=== PATIENT | male | born 1945 | race Caucasian/White ===

== ENCOUNTER 2018-04-21 19:08 | Emergency (ER) | payer MEDICARE, BC ==
[2018-04-21] MEDS ORDERED: Sodium Chloride 0.9% 10 ML Syringe FLUSH PRN (19:20)
[2018-04-21] MEDS ORDERED: Sodium Chloride 0.9% 1,000 ML IV ONE (20:13)
[2018-04-21 20:41] LABS: CHLORIDE,CL 103 mmol/L (98-107); SODIUM,NA 141 mmol/L (136-145)
--- NOTE | 2018-04-22 10:29 | EDM.PDOC ---
ED HPI GENERAL MEDICAL PROBLEM - General Chief Complaint: General Stated Complaint: Dizziness Time Seen by Provider: 04/21/18 19:15 Source of Information: Reports: Patient, Family - History of Present Illness INITIAL COMMENTS - FREE TEXT/NARRATIVE: PtPreston presented to ER with complaints of lightheadedness and dizziness. [place] He this he may have walked around in the hot sun too much. He denies any chest pain or shortness of breath. States the he feels weak. Onset: Today Location: Reports: Generalized - Related Data Allergies Allergy/AdvReac Type Severity Reaction Status Date / Time Penicillins Allergy Other Verified 04/21/18 19:20 Home Meds: Home Meds Famotidine 20 mg PO BEDTIME 04/22/18 [History] Hydroxyurea [Hydrea] 500 mg PO DAILY 04/22/18 [History] Sertraline [Zoloft] 150 mg PO DAILY 04/22/18 [History] Simvastatin [Zocor] 40 mg PO BEDTIME 04/22/18 [History] amLODIPine Besylate [Amlodipine Besylate] 10 mg PO DAILY 04/22/18 [History] traZODone HCl [Trazodone HCl] 50 mg PO BEDTIME 04/22/18 [History] Past Medical History Cardiovascular History: Reports: High Cholesterol, Hypertension Gastrointestinal History: Reports: GERD Neurological History: Reports: CVA Other Neuro History: Right sided weakness/arm/leg. ED ROS GENERAL - Review of Systems Review Of Systems: See Below Constitutional: Reports: No Symptoms HEENT: Reports: No Symptoms Respiratory: Reports: No Symptoms Cardiovascular: Reports: No Symptoms Endocrine: Reports: No Symptoms GI/Abdominal: Reports: No Symptoms : Reports: No Symptoms Musculoskeletal: Reports: No Symptoms Skin: Reports: No Symptoms Neurological: Reports: Dizziness, Weakness Psychiatric: Reports: No Symptoms Hematologic/Lymphatic: Reports: No Symptoms Immunologic: Reports: No Symptoms ED EXAM, GENERAL - Physical Exam Exam: See Below General Appearance: Alert, WD/WN, No Apparent Distress Ears: Normal External Exam, Normal Canal, Hearing Grossly Normal, Normal TMs Ear Exam: Bilateral Ear: Auricle Normal, Canal Normal, TM normal Nose: Normal Inspection, Normal Mucosa, No Blood Throat/Mouth: Normal Inspection, Normal Lips, Normal Teeth, Normal Gums, Normal Oropharynx, Normal Voice, No Airway Compromise Head: Atraumatic, Normocephalic Neck: Normal Inspection, Supple, Non-Tender, Full Range of Motion Respiratory/Chest: No Respiratory Distress, Lungs Clear, Normal Breath Sounds, No Accessory Muscle Use, Chest Non-Tender Cardiovascular: Normal Peripheral Pulses, Regular Rate, Rhythm, No Edema, No Gallop, No JVD, No Murmur, No Rub Peripheral Pulses: 4+: Radial (L), Radial (R) GI/Abdominal: Normal Bowel Sounds, Soft, Non-Tender, No Organomegaly, No Distention, No Abnormal Bruit, No Mass (Male) Exam: Deferred Rectal (Males) Exam: Deferred Back Exam: Normal Inspection, Full Range of Motion, NT Extremities: Normal Inspection, Normal Range of Motion, Non-Tender, Normal Capillary Refill, No Pedal Edema Neurological: Alert, Oriented, CN II-XII Intact, Normal Cognition, Normal Gait, Normal Reflexes, No Motor/Sensory Deficits Psychiatric: Normal Affect, Normal Mood Skin Exam: Warm, Dry, Intact, Normal Color, No Rash Lymphatic: No Adenopathy EKG INTERPRETATION Rhythm: NSR Course - Vital Signs Last Recorded V/S: Last Vital Signs Temp 36.7 C 04/21/18 19:10 Pulse 65 04/21/18 20:22 Resp 16 04/21/18 20:22 BP 142/92 H 04/21/18 20:22 Pulse Ox 94 L 04/21/18 20:22 - Orders/Labs/Meds Orders: Active Orders 24 hr Category Date Time Status EKG Documentation Completion [RC] STAT Care 04/21/18 19:21 Active Chest 1V Frontal [CR] Stat Exams 04/21/18 19:33 Taken CULTURE BLOOD [BC] Stat Lab 04/21/18 19:54 Received CULTURE BLOOD [BC] Stat Lab 04/21/18 20:00 Received Blood Culture x2 Reflex Set [OM.PC] Stat Oth 04/21/18 19:21 Ordered Peripheral IV Insertion Adult [OM.PC] Routine Oth 04/21/18 19:21 Ordered Labs: Laboratory Tests 04/21/18 04/21/18 04/21/18 Range/Units 19:54 19:54 19:54 WBC 8.4 (4.0-10.0) x10^3/uL RBC 4.22 L (4.5-6.0) x10^6/uL Hgb 16.2 (14.0-18.0) g/dL Hct 44.6 (40.0-52.0) % MCV 105.7 H D (78.0-93.0) fL MCH 38.4 H (26.0-32.0) pg MCHC 36.3 H (32.0-36.0) g/dL RDW Coeff of Sridevi 12.9 (10.0-15.0) % Plt Count 186 D (130-400) x10^3/uL Neut % (Auto) 67.7 (50.0-80.0) % Lymph % (Auto) 15.7 L (25.0-50.0) % [place] % (Auto) 13.7 H (2.0-11.0) % Eos % (Auto) 2.5 (0.0-4.0) % Baso % (Auto) 0.4 (0.2-1.2) % PT 10.4 (9.6-11.4) SEC INR 1.0 L (2.0-3.5) Sodium 141 (136-145) mmol/L Potassium 3.8 (3.5-5.1) mmol/L Chloride 103 (98-107) mmol/L Carbon Dioxide 29 (21-32) mmol/L Anion Gap 12.8 (10-20) mmol/L BUN 22 H (7-18) mg/dL Creatinine 1.2 (0.70-1.30) mg/dL Est Cr Clr Drug Dosing 60.18 mL/min Estimated GFR (MDRD) 59 Glucose 117 H (74-106) mg/dL Lactic Acid (0.4-2.0) mmol/L Calcium 9.1 (8.5-10.1) mg/dL Corrected Calcium 9.66 (8.5-10.1) mg/dL Phosphorus 3.2 (2.6-4.7) mg/dL Magnesium 2.2 (1.8-2.4) mg/dL Total Bilirubin 0.7 (0.2-1.0) mg/dL AST 18 (15-37) U/L ALT 16 (16-63) U/L Alkaline Phosphatase 80 (46-116) U/L Troponin I < 0.017 (<=0.056) ng/mL C-Reactive Protein < 0.2 (<=0.9) mg/dL NT-Pro-B Natriuret Pep 107 (<=125) pg/mL Total Protein 8.1 (6.4-8.2) g/dL Albumin 3.3 L (3.4-5.0) g/dL Globulin 4.8 Albumin/Globulin Ratio 0.69 TSH, Ultra Sensitive 2.962 (0.358-3.74) uIU/mL 04/21/18 Range/Units 19:54 WBC (4.0-10.0) x10^3/uL RBC (4.5-6.0) x10^6/uL Hgb (14.0-18.0) g/dL Hct (40.0-52.0) % MCV (78.0-93.0) fL MCH (26.0-32.0) pg MCHC (32.0-36.0) g/dL RDW Coeff of Sridevi (10.0-15.0) % Plt Count (130-400) x10^3/uL Neut % (Auto) (50.0-80.0) % Lymph % (Auto) (25.0-50.0) % [place] % (Auto) (2.0-11.0) % Eos % (Auto) (0.0-4.0) % Baso % (Auto) (0.2-1.2) % PT (9.6-11.4) SEC INR (2.0-3.5) Sodium (136-145) mmol/L Potassium (3.5-5.1) mmol/L Chloride (98-107) mmol/L Carbon Dioxide (21-32) mmol/L Anion Gap (10-20) mmol/L BUN (7-18) mg/dL Creatinine (0.70-1.30) mg/dL Est Cr Clr Drug Dosing mL/min Estimated GFR (MDRD) Glucose (74-106) mg/dL Lactic Acid 1.8 (0.4-2.0) mmol/L Calcium (8.5-10.1) mg/dL Corrected Calcium (8.5-10.1) mg/dL Phosphorus (2.6-4.7) mg/dL Magnesium (1.8-2.4) mg/dL Total Bilirubin (0.2-1.0) mg/dL AST (15-37) U/L ALT (16-63) U/L Alkaline Phosphatase (46-116) U/L Troponin I (<=0.056) ng/mL C-Reactive Protein (<=0.9) mg/dL NT-Pro-B Natriuret Pep (<=125) pg/mL Total Protein (6.4-8.2) g/dL Albumin (3.4-5.0) g/dL Globulin Albumin/Globulin Ratio TSH, Ultra Sensitive (0.358-3.74) uIU/mL Meds: Medications Discontinued Medications Generic Name Dose Route Start Last Admin Trade Name Freq PRN Reason Stop Dose Admin Sodium Chloride 1,000 mls @ 1,000 mls/hr 04/21/18 20:13 04/21/18 20:20 Normal Saline IV 04/21/18 21:12 1,000 mls/hr .BOLUS ONE Administration Sodium Chloride 10 ml 04/21/18 19:20 Saline Flush FLUSH ASDIRECTED PRN Keep Vein Open Departure - Departure Time of Disposition: 21:00 Disposition: Home, Self-Care 01 Condition: Good Clinical Impression: Dehydration - Discharge Information Instructions: Dehydration, Adult, [id number] Referrals: Vasyl Guzman MD [Primary Care Provider] - Forms: ED Department Discharge Additional Instructions: Home to rest. Drink plenty of fluids Bring urine sample to hospital for analysis. Return to ER if you have chest pain, shortness of breath, abdominal pain, or decreased level of consciousness. - My Orders Last 24 Hours: My Active Orders 04/21/18 19:21 EKG Documentation Completion [RC] STAT Blood Culture x2 Reflex Set [OM.PC] Stat Peripheral IV Insertion Adult [OM.PC] Routine 04/21/18 19:33 Chest 1V Frontal [CR] Stat 04/21/18 19:54 CULTURE BLOOD [BC] Stat 04/21/18 20:00 CULTURE BLOOD [BC] Stat - Assessment/Plan Last 24 Hours: My Active Orders 04/21/18 19:21 EKG Documentation Completion [RC] STAT Blood Culture x2 Reflex Set [OM.PC] Stat Peripheral IV Insertion Adult [OM.PC] Routine 04/21/18 19:33 Chest 1V Frontal [CR] Stat 04/21/18 19:54 CULTURE BLOOD [BC] Stat 04/21/18 20:00 CULTURE BLOOD [BC] Stat
== END 2018-04-21 21:50 | disposition home or self-care (01) ==
LOC: VM.ED 19:08
DX: E86.0 Dehydration (principal); E78.00 Pure hypercholesterolemia, unspecified; I10 Essential (primary) hypertension; Z88.0 Allergy status to penicillin; Z79.899 Other long term (current) drug therapy
CPT/HCPCS: 36415; 71045; 80053; 83605; 83735; 83880; 84100; 84443; 84484; 85025; 85610; 86140; 87040; 87804; 93005; 96360; 99284; J7030; 93010

== ENCOUNTER 2019-03-16 17:29 | Inpatient (IN) | payer MEDICARE, BC ==
[2019-03-16] MEDS ORDERED: Albuterol/Ipratropium 3.0-0.5 MG/3 ML Neb Soln NEB PRN (17:48)
[2019-03-16] MEDS ORDERED: cefTRIAXone 2 GM Vial IVPUSH ONE (18:34)
[2019-03-16] MEDS ORDERED: Azithromycin 500 MG in Sodium Chloride 0.9% 250 ML IV ONE (18:35)
--- NOTE | 2019-03-16 18:39 | CR ---
[id number] RAD/RAD Pelvis W Right Lateral Hip EXAM: AP PELVIS AND SINGLE VIEW RIGHT HIP INDICATION: FALL. COMPARISON: August 12, 2013. DISCUSSION: Soft tissue attenuation limits this examination. Deformity of the right pelvis likely relating to chronic healed fractures. No definite acute fractures. There is moderate osteoarthritis of the hips. Lower lumbar spondylosis. IMPRESSION: 1. Chronic appearing right pubic rami fractures. No definite acute fracture. Sidney Anaya MD 03/16/19 [id number] Thank you for allowing us to participate in the care of your patient.
[2019-03-16 18:40] LABS: CHLORIDE,CL 104 mmol/L (98-107); SODIUM,NA 144 mmol/L (136-145)
--- NOTE | 2019-03-16 18:41 | CR ---
[id number] RAD/RAD Chest PA or AP 1V EXAM: FRONTAL CHEST INDICATION: Cough and chest congestion. COMPARISON: April 21, 2018. DISCUSSION: Evaluation is limited by hypoinflation. There is bibasilar scarring or atelectasis which is greatest in the right lung base and has not changed. No acute infiltrates are identified. Borderline heart size. IMPRESSION: 1. Hypoinflation. No acute infiltrates are identified. Sidney Anaya MD 03/16/19 2202 Thank you for allowing us to participate in the care of your patient.
[2019-03-16 18:43] LABS: ANION GAP 15.7 mmol/L (10-20)
--- NOTE | 2019-03-16 19:09 | EDM.PDOC ---
ED HPI GENERAL MEDICAL PROBLEM - General Chief Complaint: General Stated Complaint: FALL, cough and chest congestion Time Seen by Provider: 03/16/19 17:29 Source of Information: Reports: Family History Limitations: Reports: No Limitations - History of Present Illness INITIAL COMMENTS - FREE TEXT/NARRATIVE: Pt. had an unwitnessed fall at home this afternoon. Pt. has a history of prior CVA and has severe R sided weakness. Family states that the pt. has been experiencing chest congestion and cough for approx. 5 days. Daughter does not think he has been eating or drinking well, either. Pt. is for the most part non- verbal but is able to nod or shake his head regarding areas of pain. Family is concerned that his R lower extremity is injured because he was bearing less weight on it. Pt. states that he is not experiencing any discomfort in the extremity, however. Pt. was able to indicate that he was fatigued and short of breath. He indicated that he did not have any areas of pain, other than a small abrasion to his R hand. Onset: Today Location: Reports: Chest, Lower Extremity, Right Associated Symptoms: Reports: Cough, Weakness - Related Data Allergies Allergy/AdvReac Type Severity Reaction Status Date / Time Penicillins Allergy Other Verified 04/21/18 19:20 Home Meds: Home Meds Famotidine 20 mg PO BEDTIME 04/22/18 [History] Hydroxyurea [Hydrea] 500 mg PO DAILY 04/22/18 [History] Sertraline [Zoloft] 150 mg PO DAILY 04/22/18 [History] Simvastatin [Zocor] 40 mg PO BEDTIME 04/22/18 [History] amLODIPine Besylate [Amlodipine Besylate] 10 mg PO DAILY 04/22/18 [History] traZODone HCl [Trazodone HCl] 50 mg PO BEDTIME 04/22/18 [History] Aspirin 325 mg PO DAILY 03/16/19 [History] Docusate Sodium [Dulcolax Stool Softener] 100 mg PO DAILY 03/16/19 [History] Past Medical History Cardiovascular History: Reports: High Cholesterol, Hypertension Gastrointestinal History: Reports: GERD Neurological History: Reports: CVA Other Neuro History: Right sided weakness/arm/leg. ED ROS GENERAL - Review of Systems Review Of Systems: See Below Constitutional: Reports: Weakness HEENT: Reports: No Symptoms Respiratory: Reports: Shortness of Breath, Wheezing, Cough, Sputum Cardiovascular: Reports: No Symptoms Endocrine: Reports: No Symptoms GI/Abdominal: Reports: No Symptoms : Reports: No Symptoms Musculoskeletal: Reports: No Symptoms Skin: Reports: No Symptoms Neurological: Reports: Difficulty Walking, Weakness, Gait Disturbance Hematologic/Lymphatic: Reports: No Symptoms Immunologic: Reports: No Symptoms ED EXAM, GENERAL - Physical Exam Exam: See Below Exam Limited By: No Limitations General Appearance: Alert, WD/WN, No Apparent Distress Nose: Normal Inspection, Normal Mucosa Throat/Mouth: Normal Inspection, Normal Lips, Normal Oropharynx, No Airway Compromise Head: Atraumatic, Normocephalic Neck: Normal Inspection, Supple, Non-Tender, Full Range of Motion Respiratory/Chest: No Accessory Muscle Use, Respiratory Distress (mild), Decreased Breath Sounds, Crackles, Wheezing, Prolonged Expiration Cardiovascular: Normal Peripheral Pulses, Regular Rate, Rhythm, No Edema, No JVD , No Murmur Peripheral Pulses: 4+: Radial (L), Dorsalis Pedis (L), Dorsalis Pedis (R) GI/Abdominal: Normal Bowel Sounds, Soft, Non-Tender, No Organomegaly, No Distention, No Mass (Male) Exam: Deferred Rectal (Males) Exam: Deferred Back Exam: Normal Inspection, Full Range of Motion Extremities: Normal Inspection, Normal Range of Motion, Non-Tender, No Pedal Edema, Normal Capillary Refill Neurological: Alert, Oriented, CN II-XII Intact, Normal Cognition, Normal Gait, Normal Reflexes, No Motor/Sensory Deficits Psychiatric: Normal Affect, Normal Mood Skin Exam: Warm, Dry, Intact, Normal Color, No Rash Lymphatic: No Adenopathy Course - Orders/Labs/Meds Orders: Active Orders 24 hr Category Date Time Status Patient Status [ADT] Routine ADT 03/16/19 18:58 Active CULTURE BLOOD [BC] Stat Lab 03/16/19 18:03 Received CULTURE BLOOD [BC] Stat Lab 03/16/19 18:06 Received INFLUENZA A+B AG SCREEN [RM] Stat Lab 03/16/19 19:02 Ordered UA W/MICROSCOPIC [URIN] Stat Lab 03/16/19 17:46 Ordered Albuterol/Ipratropium [DuoNeb 3.0-0.5 MG/3 ML] Med 03/16/19 17:48 Active 3 ml NEB Q4HRRT PRN Azithromycin [Zithromax] 500 mg Med 03/16/19 18:35 Active Sodium Chloride 0.9% [Normal Saline] 250 ml IV STAT Sodium Chloride 0.9% [Saline Flush] Med 03/16/19 17:45 Active 10 ml FLUSH ASDIRECTED PRN Blood Culture x2 Reflex Set [OM.PC] Stat Oth 03/16/19 17:46 Ordered Peripheral IV Insertion Adult [OM.PC] Routine Oth 03/16/19 17:45 Ordered Medication Orders Albuterol/Ipratropium (Duoneb 3.0-0.5 Mg/3 Ml) 3 ml NEB Q4HRRT PRN PRN Reason: shortness of breath Last Admin: 03/16/19 17:49 Dose: 3 ml Azithromycin 500 mg/ Sodium (Chloride) 250 mls @ 250 mls/hr IV STAT ONE Stop: 03/16/19 19:34 Sodium Chloride (Saline Flush) 10 ml FLUSH ASDIRECTED PRN PRN Reason: Keep Vein Open Labs: Laboratory Tests 03/16/19 03/16/19 03/16/19 Range/Units 18:03 18:03 18:03 WBC 8.8 (4.0-10.0) x10^3/uL RBC 3.98 L (4.5-6.0) x10^6/uL Hgb 15.3 (14.0-18.0) g/dL Hct 43.4 (40.0-52.0) % MCV 109.0 H D (78.0-93.0) fL MCH 38.4 H (26.0-32.0) pg MCHC 35.3 (32.0-36.0) g/dL RDW Coeff of Sridevi 13.7 (10.0-15.0) % Plt Count 178 (130-400) x10^3/uL Neut % (Auto) 64.6 (50.0-80.0) % Lymph % (Auto) 14.1 L (25.0-50.0) % [place] % (Auto) 18.9 H (2.0-11.0) % Eos % (Auto) 2.2 (0.0-4.0) % Baso % (Auto) 0.2 (0.2-1.2) % PT 11.2 (10.0-12.8) SEC INR 1.0 L (2.0-3.5) Sodium 144 (136-145) mmol/L Potassium 3.7 (3.5-5.1) mmol/L Chloride 104 (98-107) mmol/L Carbon Dioxide 28 (21-32) mmol/L Anion Gap 15.7 (10-20) mmol/L BUN 18 (7-18) mg/dL Creatinine 1.2 (0.70-1.30) mg/dL Est Cr Clr Drug Dosing TNP Estimated GFR (MDRD) 59 Glucose 135 H (74-106) mg/dL Lactic Acid (0.4-2.0) mmol/L Calcium 8.8 (8.5-10.1) mg/dL Corrected Calcium 9.12 (8.5-10.1) mg/dL Phosphorus 2.7 (2.6-4.7) mg/dL Magnesium 2.1 (1.8-2.4) mg/dL Total Bilirubin 0.9 (0.2-1.0) mg/dL AST 19 (15-37) U/L ALT 13 L (16-63) U/L Alkaline Phosphatase 98 (46-116) U/L C-Reactive Protein 3.1 H (<=0.9) mg/dL NT-Pro-B Natriuret Pep 128 H (<=125) pg/mL Total Protein 8.3 H (6.4-8.2) g/dL Albumin 3.6 (3.4-5.0) g/dL Globulin 4.7 Albumin/Globulin Ratio 0.77 /16/19 Range/Units 18:03 WBC (4.0-10.0) x10^3/uL RBC (4.5-6.0) x10^6/uL Hgb (14.0-18.0) g/dL Hct (40.0-52.0) % MCV (78.0-93.0) fL MCH (26.0-32.0) pg MCHC (32.0-36.0) g/dL RDW Coeff of Sridevi (10.0-15.0) % Plt Count (130-400) x10^3/uL Neut % (Auto) (50.0-80.0) % Lymph % (Auto) (25.0-50.0) % [place] % (Auto) (2.0-11.0) % Eos % (Auto) (0.0-4.0) % Baso % (Auto) (0.2-1.2) % PT (10.0-12.8) SEC INR (2.0-3.5) Sodium (136-145) mmol/L Potassium (3.5-5.1) mmol/L Chloride (98-107) mmol/L Carbon Dioxide (21-32) mmol/L Anion Gap (10-20) mmol/L BUN (7-18) mg/dL Creatinine (0.70-1.30) mg/dL Est Cr Clr Drug Dosing Estimated GFR (MDRD) Glucose (74-106) mg/dL Lactic Acid 2.0 (0.4-2.0) mmol/L Calcium (8.5-10.1) mg/dL Corrected Calcium (8.5-10.1) mg/dL Phosphorus (2.6-4.7) mg/dL Magnesium (1.8-2.4) mg/dL Total Bilirubin (0.2-1.0) mg/dL AST (15-37) U/L ALT (16-63) U/L Alkaline Phosphatase (46-116) U/L C-Reactive Protein (<=0.9) mg/dL NT-Pro-B Natriuret Pep (<=125) pg/mL Total Protein (6.4-8.2) g/dL Albumin (3.4-5.0) g/dL Globulin Albumin/Globulin Ratio Meds: Medications Generic Name Dose Route Start Last Admin Trade Name Freq PRN Reason Stop Dose Admin Albuterol/Ipratropium 3 ml 03/16/19 17:48 03/16/19 17:49 Duoneb 3.0-0.5 Mg/3 Ml NEB 3 ml Q4HRRT PRN Administration shortness of breath Azithromycin 500 mg/ Sodium 250 mls @ 250 mls/hr 03/16/19 18:35 Chloride IV 03/16/19 19:34 STAT ONE Sodium Chloride 10 ml 03/16/19 17:45 Saline Flush FLUSH ASDIRECTED PRN Keep Vein Open Discontinued Medications Generic Name Dose Route Start Last Admin Trade Name Freq PRN Reason Stop Dose Admin Ceftriaxone Sodium 2 gm 03/16/19 18:34 03/16/19 18:49 Rocephin IVPUSH 03/16/19 18:35 2 gm STAT ONE Administration - Radiology Interpretation Free Text/Narrative:: chest x-ray did not show any obvious infiltrate. Hip and pelvic radiographs did not show any obvious acute pathology, but there was evidence of an old fracture of the R pubic rami. - Re-Assessments/Exams Free Text/Narrative Re-Assessment/Exam: Pt. was started on rocephin 2 gm IV and azithromycin 500mg IV. He remained stable in my care in the ER. He was given 1 duoneb on arrival to ER. Departure - Departure Time of Disposition: 19:17 Disposition: Refer to Observation Clinical Impression: CAP (community acquired pneumonia), Weakness - Discharge Information Referrals: Vasyl Guzman MD [Primary Care Provider] - Forms: ED Department Discharge - My Orders Last 24 Hours: My Active Orders 03/16/19 17:45 Sodium Chloride 0.9% [Saline Flush] 10 ml FLUSH ASDIRECTED PRN Peripheral IV Insertion Adult [OM.PC] Routine 03/16/19 17:46 UA W/MICROSCOPIC [URIN] Stat Blood Culture x2 Reflex Set [OM.PC] Stat 03/16/19 17:48 Albuterol/Ipratropium [DuoNeb 3.0-0.5 MG/3 ML] 3 ml NEB Q4HRRT PRN 03/16/19 18:03 CULTURE BLOOD [BC] Stat 03/16/19 18:06 CULTURE BLOOD [BC] Stat 03/16/19 18:35 Azithromycin [Zithromax] 500 mg Sodium Chloride 0.9% [Normal Saline] 250 ml IV STAT 03/16/19 18:58 Patient Status [ADT] Routine 03/16/19 19:02 INFLUENZA A+B AG SCREEN [RM] Stat - Assessment/Plan Admission H&P: Please use this note as an admission H&P Last 24 Hours: My Active Orders 03/16/19 17:45 Sodium Chloride 0.9% [Saline Flush] 10 ml FLUSH ASDIRECTED PRN Peripheral IV Insertion Adult [OM.PC] Routine 03/16/19 17:46 UA W/MICROSCOPIC [URIN] Stat Blood Culture x2 Reflex Set [OM.PC] Stat 03/16/19 17:48 Albuterol/Ipratropium [DuoNeb 3.0-0.5 MG/3 ML] 3 ml NEB Q4HRRT PRN 03/16/19 18:03 CULTURE BLOOD [BC] Stat 03/16/19 18:06 CULTURE BLOOD [BC] Stat 03/16/19 18:35 Azithromycin [Zithromax] 500 mg Sodium Chloride 0.9% [Normal Saline] 250 ml IV STAT 03/16/19 18:58 Patient Status [ADT] Routine 03/16/19 19:02 INFLUENZA A+B AG SCREEN [RM] Stat Plan: Pt. will be admitted observation. I did speak with Dr. Ellie almodovar. Pt. is a code 2, no intubation, no resuscitation. Will repeat labs in AM. Blood cultures were drawn. Will continue IV rocephin 2gm daily and azithromycin 500mg daily. PT/OT to evaluate patient. He will be started on Normal saline at 200ml./ hr overnight. He appears somewhat dehydrated. I will also start him on solu medrol 125mg twice daily due to his wheezing. He denies any history of COPD or asthma.
[2019-03-16] MEDS ORDERED: methylPREDNISolone Sodium Succinate 125 MG/2 ML SDV IVPUSH ONE (19:23)
[2019-03-16] MEDS ORDERED: Sodium Chloride 0.9% 1,000 ML IV SCH (19:30)
[2019-03-16] MEDS: methylPREDNISolone Sodium Succinate 125 MG/2 ML SDV IVPUSH SCH (21:20)
[2019-03-16] MEDS: Enoxaparin 40 MG/0.4 ML Syringe SUBCUT SCH (21:20)
[2019-03-16] MEDS: Sodium Chloride 0.9% 10 ML Syringe FLUSH PRN (21:21)
[2019-03-16] MEDS: Albuterol/Ipratropium 3.0-0.5 MG/3 ML Neb Soln NEB SCH (23:26)
[2019-03-17] MEDS: Sodium Chloride 0.9% 1,000 ML IV SCH ×2 (00:25→13:26)
[2019-03-17] MEDS: Albuterol/Ipratropium 3.0-0.5 MG/3 ML Neb Soln NEB SCH ×6 (04:19→22:31)
[2019-03-17] MEDS: methylPREDNISolone Sodium Succinate 125 MG/2 ML SDV IVPUSH SCH (04:19)
[2019-03-17] MEDS ORDERED: Sertraline 100 MG Tab PO SCH (08:00)
[2019-03-17] MEDS: amLODIPine 10 MG Tab PO SCH (08:02)
[2019-03-17] MEDS: Aspirin 325 MG Tab.EC PO SCH (08:02)
[2019-03-17] MEDS: Enoxaparin 40 MG/0.4 ML Syringe SUBCUT SCH (08:02)
[2019-03-17] MEDS: Docusate Sodium 100 MG Cap PO SCH (08:02)
[2019-03-17] MEDS: Hydroxyurea 500 MG Cap PO SCH (08:02)
--- NOTE | 2019-03-17 09:48 | PCM.PN ---
- General Info Date of Service: 03/17/19 Admission Dx/Problem (Free Text): Pt. states that he is feeling better today. He states that he feels less weak. Denies any shortness of breath. No nausea or vomiting. He ate breakfast this AM. He received a liter of NS IV last evening and is now on normal saline at 75ml/hr. His lactic acid was elevated at 3.1 this AM. White count is normal. Blood cultures were obtained. Pt. is on lovenox for DVT prophylaxis. Wheezing has improved. lung sounds are still diminished. He has been hemodynamically stable since admission. T max was 38.0 on admission. He is currently on rocephin 1 gm IV daily and azithromycin 500mg daily. PT and OT will be following the patient today as well. He has not been out of bed at this point. He was able to move his R leg passively without difficulty today and without any increased pain. 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.) - Patient Data Vitals - Most Recent: Last Vital Signs Temp 36.5 C 03/17/19 09:30 Pulse 88 03/17/19 09:30 Resp 20 03/17/19 09:30 BP 122/69 03/17/19 09:30 Pulse Ox 98 03/17/19 09:30 Weight - Most Recent: 95.254 kg I&O - Last 24 Hours: Intake & Output 03/16/19 03/17/19 03/17/19 22:59 06:59 14:59 Intake Total 490 1580 200 Output Total 400 Balance 490 1180 200 Lab Results Last 24 Hours: Laboratory Results - last 24 hr 03/16/19 03/16/19 03/16/19 Range/Units 18:03 18:03 18:03 WBC 8.8 (4.0-10.0) x10^3/uL RBC 3.98 L (4.5-6.0) x10^6/uL Hgb 15.3 (14.0-18.0) g/dL Hct 43.4 (40.0-52.0) % MCV 109.0 H D (78.0-93.0) fL MCH 38.4 H (26.0-32.0) pg MCHC 35.3 (32.0-36.0) g/dL RDW Coeff of Sridevi 13.7 (10.0-15.0) % Plt Count 178 (130-400) x10^3/uL Neut % (Auto) 64.6 (50.0-80.0) % Lymph % (Auto) 14.1 L (25.0-50.0) % Prentiss % (Auto) 18.9 H (2.0-11.0) % Eos % (Auto) 2.2 (0.0-4.0) % Baso % (Auto) 0.2 (0.2-1.2) % PT 11.2 (10.0-12.8) SEC INR 1.0 L (2.0-3.5) Sodium 144 (136-145) mmol/L Potassium 3.7 (3.5-5.1) mmol/L Chloride 104 (98-107) mmol/L Carbon Dioxide 28 (21-32) mmol/L Anion Gap 15.7 (10-20) mmol/L BUN 18 (7-18) mg/dL Creatinine 1.2 (0.70-1.30) mg/dL Est Cr Clr Drug Dosing TNP Estimated GFR (MDRD) 59 Glucose 135 H (74-106) mg/dL Lactic Acid (0.4-2.0) mmol/L Calcium 8.8 (8.5-10.1) mg/dL Corrected Calcium 9.12 (8.5-10.1) mg/dL Phosphorus 2.7 (2.6-4.7) mg/dL Magnesium 2.1 (1.8-2.4) mg/dL Total Bilirubin 0.9 (0.2-1.0) mg/dL AST 19 (15-37) U/L ALT 13 L (16-63) U/L Alkaline Phosphatase 98 (46-116) U/L C-Reactive Protein 3.1 H (<=0.9) mg/dL NT-Pro-B Natriuret Pep 128 H (<=125) pg/mL Total Protein 8.3 H (6.4-8.2) g/dL Albumin 3.6 (3.4-5.0) g/dL Globulin 4.7 Albumin/Globulin Ratio 0.77 03/16/19 03/17/19 03/17/19 Range/Units 18:03 06:20 06:20 WBC 6.2 (4.0-10.0) x10^3/uL RBC 3.57 L (4.5-6.0) x10^6/uL Hgb 13.5 L D (14.0-18.0) g/dL Hct 39.5 L (40.0-52.0) % MCV 110.6 H (78.0-93.0) fL MCH 37.8 H (26.0-32.0) pg MCHC 34.2 (32.0-36.0) g/dL RDW Coeff of Sridevi 13.6 (10.0-15.0) % Plt Count 178 (130-400) x10^3/uL Neut % (Auto) 91.6 H (50.0-80.0) % Lymph % (Auto) 6.0 L (25.0-50.0) % Prentiss % (Auto) 2.4 (2.0-11.0) % Eos % (Auto) 0.0 (0.0-4.0) % Baso % (Auto) 0.0 L (0.2-1.2) % PT (10.0-12.8) SEC INR (2.0-3.5) Sodium (136-145) mmol/L Potassium (3.5-5.1) mmol/L Chloride (98-107) mmol/L Carbon Dioxide (21-32) mmol/L Anion Gap (10-20) mmol/L BUN (7-18) mg/dL Creatinine (0.70-1.30) mg/dL Est Cr Clr Drug Dosing Estimated GFR (MDRD) Glucose (74-106) mg/dL Lactic Acid 2.0 3.1 H* (0.4-2.0) mmol/L Calcium (8.5-10.1) mg/dL Corrected Calcium (8.5-10.1) mg/dL Phosphorus (2.6-4.7) mg/dL Magnesium (1.8-2.4) mg/dL Total Bilirubin (0.2-1.0) mg/dL AST (15-37) U/L ALT (16-63) U/L Alkaline Phosphatase (46-116) U/L C-Reactive Protein (<=0.9) mg/dL NT-Pro-B Natriuret Pep (<=125) pg/mL Total Protein (6.4-8.2) g/dL Albumin (3.4-5.0) g/dL Globulin Albumin/Globulin Ratio Moreno Results Last 24 Hours: Microbiology 03/16/19 19:02 Influenza Type A Antigen Screen - Final Nasal, Unspecified NEGATIVE INFLUENZA A VIRUS AG Influenza Type B Antigen Screen - Final NEGATIVE INFLUENZA B VIRUS AG Med Orders - Current: Current Medications Albuterol/Ipratropium (Duoneb 3.0-0.5 Mg/3 Ml) 3 ml NEB Q4HRRT PRN PRN Reason: shortness of breath Last Admin: 03/16/19 17:49 Dose: 3 ml Albuterol/Ipratropium (Duoneb 3.0-0.5 Mg/3 Ml) 3 ml NEB Q4HRRT [facility] Last Admin: 03/17/19 07:13 Dose: 3 ml Amlodipine Besylate (Norvasc) 10 mg PO DAILY [facility] Last Admin: 03/17/19 08:02 Dose: 10 mg Aspirin (Ecotrin) 325 mg PO DAILY [facility] Last Admin: 03/17/19 08:02 Dose: 325 mg Ceftriaxone Sodium (Rocephin) 1 gm IVPUSH DAILY@1800 [facility] Docusate Sodium (Colace) 100 mg PO DAILY [facility] Last Admin: 03/17/19 08:02 Dose: 100 mg Enoxaparin Sodium (Lovenox) 40 mg SUBCUT DAILY [facility] Last Admin: 03/17/19 08:02 Dose: 40 mg Famotidine (Pepcid) 20 mg PO BEDTIME [facility] Hydroxyurea (Hydrea) 500 mg PO DAILY [facility] Last Admin: 03/17/19 08:02 Dose: 500 mg Azithromycin 500 mg/ Sodium (Chloride) 250 mls @ 250 mls/hr IV DAILY@1800 [facility] Sodium Chloride (Normal Saline) 1,000 mls @ 75 mls/hr IV ASDIRECTED [facility] Last Admin: 03/17/19 00:25 Dose: 75 mls/hr Methylprednisolone Sodium Succinate (Solu-Medrol) 125 mg IVPUSH Q8H [facility] Last Admin: 03/17/19 04:19 Dose: 125 mg Sertraline HCl (Zoloft) 150 mg PO DAILY [facility] Simvastatin (Zocor) 40 mg PO BEDTIME [facility] Sodium Chloride (Saline Flush) 10 ml FLUSH ASDIRECTED PRN PRN Reason: Keep Vein Open Last Admin: 03/16/19 21:21 Dose: 10 ml Trazodone HCl (Trazodone) 50 mg PO BEDTIME [facility] Discontinued Medications Ceftriaxone Sodium (Rocephin) 2 gm IVPUSH STAT ONE Stop: 03/16/19 18:35 Last Admin: 03/16/19 18:49 Dose: 2 gm Azithromycin 500 mg/ Sodium (Chloride) 250 mls @ 250 mls/hr IV STAT ONE Stop: 03/16/19 19:34 Last Admin: 03/16/19 19:00 Dose: 250 mls/hr Sodium Chloride (Normal Saline) 1,000 mls @ 200 mls/hr IV ASDIRECTED [facility] Stop: 03/17/19 00:31 Last Admin: 03/16/19 19:33 Dose: 200 mls/hr Methylprednisolone Sodium Succinate (Solu-Medrol) 125 mg IVPUSH ONETIME ONE Stop: 03/16/19 19:24 Last Admin: 03/16/19 19:33 Dose: 125 mg Sertraline HCl (Zoloft) 150 mg PO DAILY [facility] Last Admin: 03/17/19 08:02 Dose: 150 mg - Exam Quality Assessment: Supplemental Oxygen General: Alert, Oriented HEENT: Pupils Equal, Pupils Reactive, EOMI, Mucous Membr. Moist/[place] Neck: Supple Lungs: Normal Respiratory Effort, Crackles, Rhonchi Cardiovascular: Regular Rate, Regular Rhythm GI/Abdominal Exam: Normal Bowel Sounds, Soft, Non-Tender, No Organomegaly, No Distention (Male) Exam: Deferred Back Exam: Normal Inspection Extremities: Normal Inspection, Normal Range of Motion Peripheral Pulses: 4+: Radial (L), Radial (R) Skin: Warm, Dry, Intact Neurological: No New Focal Deficit Psy/Mental Status: Alert, Normal Affect, Normal Mood - Problem List & Annotations (1) CAP (community acquired pneumonia) SNOMED Code(s): 491709462 Code(s): J18.9 - PNEUMONIA, UNSPECIFIED ORGANISM Status: Acute Current Visit: Yes - Problem List Review Problem List Initiated/Reviewed/Updated: Yes - My Orders Last 24 Hours: My Active Orders 03/16/19 17:45 Sodium Chloride 0.9% [Saline Flush] 10 ml FLUSH ASDIRECTED PRN Peripheral IV Insertion Adult [OM.PC] Routine 03/16/19 17:46 UA W/MICROSCOPIC [URIN] Stat Blood Culture x2 Reflex Set [OM.PC] Stat 03/16/19 17:48 Albuterol/Ipratropium [DuoNeb 3.0-0.5 MG/3 ML] 3 ml NEB Q4HRRT PRN 03/16/19 18:03 CULTURE BLOOD [BC] Stat 03/16/19 18:06 CULTURE BLOOD [BC] Stat 03/16/19 18:58 Patient Status [ADT] Routine 03/16/19 19:56 Intake and Output [RC] 06,18 Oxygen Therapy [RC] 08,20 Up With Assistance [RC] 08,20 VTE/DVT Education [RC] .PRN Vital Signs [RC] 06,10,14,18,22,02 03/16/19 19:57 Overnight Pulse Oximetry [RC] 06,10,14,18,22,02 Pulse Oximetry Continuous Monitoring [OM.PC] Routine 03/16/19 19:58 RT Aerosol Therapy [RC] 03,07,11,15,19,23 Code Status [Resuscitation Status] Routine 03/16/19 20:00 Dietary Supplements [RC] 10,1729 methylPREDNISolone Sod Succ [Solu-MEDROL] 125 mg IVPUSH Q8H 03/16/19 20:01 Dietary Supplements [RC] ,172903/16/19 20:15 Enoxaparin [Lovenox] 40 mg SUBCUT DAILY 03/16/19 23:00 Albuterol/Ipratropium [DuoNeb 3.0-0.5 MG/3 ML] 3 ml NEB Q4HRRT 03/17/19 00:45 Sodium Chloride 0.9% [Normal Saline] 1,000 ml IV ASDIRECTED 03/17/19 08:00 Aspirin [Ecotrin] 325 mg PO DAILY Docusate Sodium [Colace] 100 mg PO DAILY Hydroxyurea [Hydrea] 500 mg PO DAILY amLODIPine [Norvasc] 10 mg PO DAILY 03/17/19 09:36 Consult to Physical Therapy [PT Evaluation and Treatment] [CONS] Routine 03/17/19 09:37 OT Evaluation and Treatment [CONS] Routine 03/17/19 13:00 LACTIC ACID [CHEM] Routine 03/17/19 18:00 Azithromycin [Zithromax] 500 mg Sodium Chloride 0.9% [Normal Saline] 250 ml IV DAILY@1800 cefTRIAXone [Rocephin] 1 gm IVPUSH DAILY@1800 03/17/19 20:00 Famotidine [Pepcid] 20 mg PO BEDTIME Simvastatin [Zocor] 40 mg PO BEDTIME traZODone 50 mg PO BEDTIME 03/17/19 Breakfast Regular Diet [DIET] 03/18/19 08:00 Sertraline [Zoloft] 150 mg PO DAILY 03/20/19 07:00 CBC W/O DIFF,HEMOGRAM [HEME] Q3D 03/23/19 07:00 CBC W/O DIFF,HEMOGRAM [HEME] Q3D 03/26/19 07:00 CBC W/O DIFF,HEMOGRAM [HEME] Q3D 03/29/19 07:00 CBC W/O DIFF,HEMOGRAM [HEME] Q3D 04/01/19 07:00 CBC W/O DIFF,HEMOGRAM [HEME] Q3D 04/04/19 07:00 CBC W/O DIFF,HEMOGRAM [HEME] Q3D - Assessment Assessment:: community acquired pneumonia - Plan Plan:: Continue with current medications. PT and OT to see today. Continue normal saline at 75ml/hr. Repeat lactic acid this afternoon.
[2019-03-17] MEDS: methylPREDNISolone Sodium Succinate 40 MG/1 ML SDV IVPUSH SCH (16:13)
[2019-03-17] MEDS: Sodium Chloride 0.9% 10 ML Syringe FLUSH PRN (17:30)
[2019-03-17] MEDS ORDERED: Azithromycin 500 MG in Sodium Chloride 0.9% 250 ML IV SCH (18:00)
[2019-03-17] MEDS ORDERED: cefTRIAXone 1 GM Vial IVPUSH SCH (18:00)
[2019-03-17] MEDS: traZODone 50 MG Tab PO SCH (20:18)
[2019-03-17] MEDS: Simvastatin 40 MG Tab PO SCH (20:18)
[2019-03-17] MEDS: Famotidine 20 MG Tab PO SCH (20:18)
--- NOTE | 2019-03-17 21:39 | HP ---
HISTORY OF PRESENT ILLNESS: This is hospital day #1 on a 73-year-old admitted last evening. He had been coughing for several days previous to admission. He presented to the ER with weakness and a fall. He has had a previous stroke with right-sided weakness and family had not noted any fever, but he was 100.4 on admission. His white count was normal. He was wheezing and short of breath. He received some nebulizers, steroids and IV antibiotics and he is feeling better today, but still continues to be weak. Lactic acid initially normal, but went up to 3.1 this morning. I was asked to see him by Dr. Jorge Bruno to upgrade from observation to acute care status. It should also be noted that his lactic acid went up to 6.5 by the time of this dictation, however, the patient has been clinically stable with no further fevers. No tachycardia. Blood pressure is okay. He has been receiving IV fluids. He has not had much for urine output, but we will be doing a bladder scan otherwise. ALLERGIES: Include penicillin, UMER inhibitors, allopurinol, and wound dressings. MEDICATIONS: He has a medication list that includes trazodone 50 mg at bedtime, Zocor 40 mg at bedtime, Zoloft 150 daily, Pepcid 20 mg at bedtime, Norvasc 10 mg daily, Hydrea 500 mg daily, aspirin 325 daily, MiraLAX, Colace, and Tylenol p.r.n. 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 He denies any difficulty swallowing, umbilical hernia, and kidney stones. PAST SURGICAL HISTORY: The patient has had cyst excision behind the left ear and cystoscopy with stent placement for kidney stones. SOCIAL HISTORY: The patient is , lives at home in [facility] with his . Does not smoke. FAMILY HISTORY: Both parents are . His father had a stroke. REVIEW OF SYSTEMS: General: He has had a poor appetite and poor oral intake over the past several days when he was sick. He has had pretty significant weight change in the past when he lost weight after his stroke, but that was many years ago. HEENT: No sore throat. No trouble swallowing. Cardiac: No chest pain. No palpitations. Respiratory: As stated in HPI. Abdomen: No nausea, vomiting, or diarrhea. Musculoskeletal: He has had leg weakness. Otherwise, all systems reviewed and found to be negative unless otherwise stated. PHYSICAL EXAMINATION: Vital Signs: At the time I saw him, weight was 95.2 kg, temp 98.2, pulse 93, blood pressure 135/70, respiratory rate 20, and O2 98% on 3 L. General: He is in no acute distress. Heart: Regular rate and rhythm. S1, S2 without murmur. Lungs: Sounds are clear to auscultation bilaterally without crackles or wheezes appreciated. Abdomen: Nondistended and nontender. Extremities: Warm and dry. No edema. Mental Status: Alert and orientated x3. Speech, he did have some aphasia, but he was able to communicate. IMAGING DATA: He did have a chest x-ray, which was a portable film, very difficult to see if there was any infiltrates otherwise. LABORATORY DATA: Reviewed from today. Kidneys were not repeated, but white count still normal at 6.2, hemoglobin down slightly to 13.5, and platelets 178. INR was 1 yesterday. ProBNP 128 yesterday. CRP 3.1. ASSESSMENT AND PLAN: 1. Concern for community-acquired pneumonia versus bronchitis. The patient has been afebrile now. We will continue on IV antibiotics. 2. Lactic acidosis, possibly due to underlying pneumonia versus hypoxia. The patient is currently oxygenating well. We are going to go ahead and hold off on ABGs and repeat the lactic acid. It could also be from dehydration. 3. History of stroke with weakness due to acute illness. We will get therapies involved. 4. History of polycythemia. Given that he is now slightly anemic, I am going to hold the Hydrea. 5. History of stoke. We will continue aspirin. 6. Essential hypertension. He is on his home medications. PLAN: At this point, the patient will continue acute cares. I will get a bladder scan today. I will continue Lovenox for DVT prophylaxis. I will decrease the methylprednisone to 40 q.12 hours. Continue IV fluids. Repeat lactic acid and kidney function later this afternoon and all lab work tomorrow. Continue acute cares. MELVIA: 03/17/2019 14:37:11 MODL: 03/17/2019 21:31:06 /[id number]
[2019-03-18] MEDS: Albuterol/Ipratropium 3.0-0.5 MG/3 ML Neb Soln NEB SCH ×6 (02:45→22:22)
[2019-03-18] MEDS: methylPREDNISolone Sodium Succinate 40 MG/1 ML SDV IVPUSH SCH ×2 (02:46→15:31)
[2019-03-18] MEDS: Sodium Chloride 0.9% 1,000 ML IV SCH (02:48)
[2019-03-18 07:22] LABS: CHLORIDE,CL 108 mmol/L (98-107); SODIUM,NA 142 mmol/L (136-145)
[2019-03-18 07:23] LABS: ANION GAP 12.3 mmol/L (10-20)
[2019-03-18] MEDS: Aspirin 325 MG Tab.EC PO SCH (07:58)
[2019-03-18] MEDS: Enoxaparin 40 MG/0.4 ML Syringe SUBCUT SCH (07:58)
[2019-03-18] MEDS: amLODIPine 10 MG Tab PO SCH (07:58)
[2019-03-18] MEDS: Docusate Sodium 100 MG Cap PO SCH (07:58)
[2019-03-18] MEDS: Sertraline 50 MG Tab PO SCH (07:58)
[2019-03-18] MEDS: Cefuroxime 250 MG Tab PO SCH ×2 (09:52→19:59)
--- NOTE | 2019-03-18 11:38 | CR ---
[id number] RAD/RAD Chest PA or AP 1V EXAM: FRONTAL CHEST INDICATION: Cough. COMPARISON: March 16, 2019. DISCUSSION: The lungs are hypoinflated. There is chronic atelectasis and scarring in the right lung base with interval development of right base infiltrates appear IMPRESSION: 1. Mild to moderate base infiltrates superimposed on chronic scarring and atelectasis. Sidney Anaya MD 03/18/19 1137 Thank you for allowing us to participate in the care of your patient.
--- NOTE | 2019-03-18 14:48 | PN ---
Progress Note for ESTRELLITA Kirkland [employer] Date: 03/18/2019 Room #: VM.214 HISTORY OF PRESENT ILLNESS: This is hospital day #3, but acute hospital day #2 for a 73-year-old admitted with pneumonia. He has been afebrile. His cough is improving. His breathing is improving. His lactic acid did go up to 6 yesterday, but has improved today to normal. He is eating and drinking okay. He is requiring less oxygen, only 2 L to be in the upper 90s. He is not on oxygen at home. He does have a history of stroke and this has worsened his right-sided weakness. Physical Therapy is working with him. He has no abdominal pain. No diarrhea. OBJECTIVE: Vital Signs: His temperature is 98.4, pulse 75, blood pressure 115/65, respiratory rate 18, and O2 of 96% on 2 L. General: He is in no acute distress. Heart: Regular rate and rhythm. Lungs: Lung sounds are clear to auscultation bilaterally with moderately decreased breath sounds over the left base, but no wheezing appreciated today. Abdomen: Nondistended, nontender. Extremities: Warm and dry. Does have weakness over the right arm and leg, but no edema. Mental Status: Alert and orientated x3. LABORATORY DATA: Lab work does show white count up to 14,000, hemoglobin 11.8, platelets 159. Sodium 142, potassium 4.3, chloride 108, bicarb 26, BUN 29, creatinine 1.1, glucose 213, lactic again 2, calcium 8.1. ASSESSMENT: 1. Community-acquired pneumonia, improving on day #3, IV antibiotics. We will switch him over to oral Ceftin today. 2. Wheezing and bronchitis, probably exacerbated by pneumonia. He has no underlying history of lung disease, but has been responding to nebs and steroids. We will continue the IV Solu-Medrol. 3. Lactic acidosis, resolved. 4. History of stroke with weakness due to acute illness. He is working with Therapy. 5. History of polycythemia, now with decreasing hemoglobin. Hydrea is on hold. We will continue to monitor. 6. History of stroke. We will continue aspirin. 7. Essential hypertension. 8. For DVT prophylaxis, he is on Lovenox. PLAN: Today, we will continue IV steroids. We will put him over to oral antibiotics of Ceftin. We will repeat his chest x-ray. We will repeat lab work tomorrow. We will continue scheduled nebs and continue with therapies. Dr. Guzman to decide if he is stable for discharge or will need to be discharged over to swing bed, possibly in the next couple of days. MKA: 03/18/2019 14:19:46 MODL: 03/18/2019 14:36:21 /[id number]
[2019-03-18] MEDS: Sodium Chloride 0.9% 10 ML Syringe FLUSH PRN (15:31)
[2019-03-18] MEDS: Simvastatin 40 MG Tab PO SCH (19:59)
[2019-03-18] MEDS: traZODone 50 MG Tab PO SCH (19:59)
[2019-03-18] MEDS: Famotidine 20 MG Tab PO SCH (20:00)
[2019-03-19] MEDS: Albuterol/Ipratropium 3.0-0.5 MG/3 ML Neb Soln NEB SCH ×6 (02:23→22:29)
[2019-03-19] MEDS: Sodium Chloride 0.9% 10 ML Syringe FLUSH PRN (02:23)
[2019-03-19] MEDS: methylPREDNISolone Sodium Succinate 40 MG/1 ML SDV IVPUSH SCH (02:23)
[2019-03-19] MEDS: Cefuroxime 250 MG Tab PO SCH ×2 (08:02→19:29)
[2019-03-19] MEDS: Sertraline 50 MG Tab PO SCH (08:02)
[2019-03-19] MEDS: Enoxaparin 40 MG/0.4 ML Syringe SUBCUT SCH (08:02)
[2019-03-19] MEDS: Docusate Sodium 100 MG Cap PO SCH (08:02)
[2019-03-19] MEDS: Aspirin 325 MG Tab.EC PO SCH (08:02)
[2019-03-19] MEDS: amLODIPine 10 MG Tab PO SCH (08:03)
[2019-03-19 08:20] LABS: CHLORIDE,CL 105 mmol/L (98-107); SODIUM,NA 140 mmol/L (136-145)
[2019-03-19 08:31] LABS: ANION GAP 10.3 mmol/L (10-20)
--- NOTE | 2019-03-19 10:08 | PCM.PN ---
- General Info Date of Service: 03/19/19 Admission Dx/Problem (Free Text): History: He was admitted 2 days ago with cough, some fever, and was noted to be very wheezy in the ER. His R base showed some infiltrate on CXR. He has been on Rocephin and Zithromax since admit, was also put on IV Solu-Medrol because of the wheezing cough, but with that his glucoses well over 200 and his WBC is quite elevated. His breathing is better he says. He says he fell out of bed last night or this morning and has some pain in his L ear and wants me to look at it. 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 -Patient report of falling out of bed, no apparent injury Plan: Continue IV antibiotic until 03/22 and repeat CXR then - Patient Data Vitals - Most Recent: Last Vital Signs Temp 37.2 C 03/19/19 09:59 Pulse 68 03/19/19 09:59 Resp 20 03/19/19 09:59 BP 133/80 03/19/19 09:59 Pulse Ox 92 L 03/19/19 08:00 Weight - Most Recent: 95.254 kg I&O - Last 24 Hours: Intake & Output 03/18/19 03/19/19 03/19/19 22:59 06:59 14:59 Intake Total 703 200 Output Total 300 800 400 Balance 403 -600 -400 Lab Results Last 24 Hours: Laboratory Results - last 24 hr 03/17/19 03/17/19 03/17/19 Range/Units 14:30 17:37 21:00 WBC (4.0-10.0) x10^3/uL RBC (4.5-6.0) x10^6/uL Hgb (14.0-18.0) g/dL Hct (40.0-52.0) % MCV (78.0-93.0) fL MCH (26.0-32.0) pg MCHC (32.0-36.0) g/dL RDW Coeff of Sridevi (10.0-15.0) % Plt Count (130-400) x10^3/uL Neut % (Auto) (50.0-80.0) % Lymph % (Auto) (25.0-50.0) % [place] % (Auto) (2.0-11.0) % Eos % (Auto) (0.0-4.0) % Baso % (Auto) (0.2-1.2) % Sodium (136-145) mmol/L Potassium (3.5-5.1) mmol/L Chloride (98-107) mmol/L Carbon Dioxide (21-32) mmol/L Anion Gap (10-20) mmol/L BUN (7-18) mg/dL Creatinine (0.70-1.30) mg/dL Est Cr Clr Drug Dosing mL/min Estimated GFR (MDRD) Glucose (74-106) mg/dL POC Glucose 326 H 206 H 243 H (74-106) mg/dL Calcium (8.5-10.1) mg/dL 03/18/19 03/18/19 03/18/19 Range/Units 11:35 17:10 19:58 WBC (4.0-10.0) x10^3/uL RBC (4.5-6.0) x10^6/uL Hgb (14.0-18.0) g/dL Hct (40.0-52.0) % MCV (78.0-93.0) fL MCH (26.0-32.0) pg MCHC (32.0-36.0) g/dL RDW Coeff of Sridevi (10.0-15.0) % Plt Count (130-400) x10^3/uL Neut % (Auto) (50.0-80.0) % Lymph % (Auto) (25.0-50.0) % [place] % (Auto) (2.0-11.0) % Eos % (Auto) (0.0-4.0) % Baso % (Auto) (0.2-1.2) % Sodium (136-145) mmol/L Potassium (3.5-5.1) mmol/L Chloride (98-107) mmol/L Carbon Dioxide (21-32) mmol/L Anion Gap (10-20) mmol/L BUN (7-18) mg/dL Creatinine (0.70-1.30) mg/dL Est Cr Clr Drug Dosing mL/min Estimated GFR (MDRD) Glucose (74-106) mg/dL POC Glucose 161 H 155 H 211 H (74-106) mg/dL Calcium (8.5-10.1) mg/dL 03/19/19 03/19/19 Range/Units 07:41 07:41 WBC 15.3 H (4.0-10.0) x10^3/uL RBC 3.34 L (4.5-6.0) x10^6/uL Hgb 12.4 L (14.0-18.0) g/dL Hct 37.8 L (40.0-52.0) % MCV 113.2 H (78.0-93.0) fL MCH 37.1 H (26.0-32.0) pg MCHC 32.8 (32.0-36.0) g/dL RDW Coeff of Sridevi 13.8 (10.0-15.0) % Plt Count 163 (130-400) x10^3/uL Neut % (Auto) 90.6 H (50.0-80.0) % Lymph % (Auto) 4.2 L (25.0-50.0) % [place] % (Auto) 5.1 (2.0-11.0) % Eos % (Auto) 0.0 (0.0-4.0) % Baso % (Auto) 0.1 L (0.2-1.2) % Sodium 140 (136-145) mmol/L Potassium 4.3 (3.5-5.1) mmol/L Chloride 105 (98-107) mmol/L Carbon Dioxide 29 (21-32) mmol/L Anion Gap 10.3 (10-20) mmol/L BUN 28 H (7-18) mg/dL Creatinine 0.8 (0.70-1.30) mg/dL Est Cr Clr Drug Dosing 83.65 mL/min Estimated GFR (MDRD) > 60 Glucose 196 H (74-106) mg/dL POC Glucose (74-106) mg/dL Calcium 8.1 L (8.5-10.1) mg/dL [place] Results Last 24 Hours: Microbiology 03/16/19 18:06 Aerobic Blood Culture - Preliminary Blood - Venous - Lab Draw NO GROWTH AFTER 2 DAYS Anaerobic Blood Culture - Preliminary NO GROWTH AFTER 2 DAYS 03/16/19 18:03 Aerobic Blood Culture - Preliminary Blood - Venous NO GROWTH AFTER 2 DAYS Anaerobic Blood Culture - Preliminary NO GROWTH AFTER 2 DAYS Med Orders - Current: Current Medications Albuterol/Ipratropium (Duoneb 3.0-0.5 Mg/3 Ml) 3 ml NEB Q4HRRT PRN PRN Reason: shortness of breath Last Admin: 03/16/19 17:49 Dose: 3 ml Albuterol/Ipratropium (Duoneb 3.0-0.5 Mg/3 Ml) 3 ml NEB Q4HRRT [facility] Last Admin: 03/19/19 07:13 Dose: 3 ml Amlodipine Besylate (Norvasc) 10 mg PO DAILY [facility] Last Admin: 03/19/19 08:03 Dose: 10 mg Aspirin (Ecotrin) 325 mg PO DAILY [facility] Last Admin: 03/19/19 08:02 Dose: 325 mg Cefuroxime Axetil (Ceftin) 500 mg PO BID [facility] Last Admin: 03/19/19 08:02 Dose: 500 mg Docusate Sodium (Colace) 100 mg PO DAILY [facility] Last Admin: 03/19/19 08:02 Dose: 100 mg Enoxaparin Sodium (Lovenox) 40 mg SUBCUT DAILY [facility] Last Admin: 03/19/19 08:02 Dose: 40 mg Famotidine (Pepcid) 20 mg PO BEDTIME [facility] Last Admin: 03/18/19 20:00 Dose: 20 mg Hydroxyurea (Hydrea) 500 mg PO DAILY [facility] Last Admin: 03/17/19 08:02 Dose: 500 mg Sertraline HCl (Zoloft) 150 mg PO DAILY [facility] Last Admin: 03/19/19 08:02 Dose: 150 mg Simvastatin (Zocor) 40 mg PO BEDTIME [facility] Last Admin: 03/18/19 19:59 Dose: 40 mg Sodium Chloride (Saline Flush) 10 ml FLUSH ASDIRECTED PRN PRN Reason: Keep Vein Open Last Admin: 03/19/19 02:23 Dose: 10 ml Trazodone HCl (Trazodone) 50 mg PO BEDTIME [facility] Last Admin: 03/18/19 19:59 Dose: 50 mg Discontinued Medications Ceftriaxone Sodium (Rocephin) 2 gm IVPUSH STAT ONE Stop: 03/16/19 18:35 Last Admin: 03/16/19 18:49 Dose: 2 gm Ceftriaxone Sodium (Rocephin) 1 gm IVPUSH DAILY@1800 [facility] Last Admin: 03/17/19 17:30 Dose: 1 gm Azithromycin 500 mg/ Sodium (Chloride) 250 mls @ 250 mls/hr IV STAT ONE Stop: 03/16/19 19:34 Last Admin: 03/16/19 19:00 Dose: 250 mls/hr Sodium Chloride (Normal Saline) 1,000 mls @ 200 mls/hr IV ASDIRECTED [facility] Stop: 03/17/19 00:31 Last Admin: 03/16/19 19:33 Dose: 200 mls/hr Azithromycin 500 mg/ Sodium (Chloride) 250 mls @ 250 mls/hr IV DAILY@1800 [facility] Last Admin: 03/17/19 17:30 Dose: 250 mls/hr Sodium Chloride (Normal Saline) 1,000 mls @ 75 mls/hr IV ASDIRECTED [facility] Last Admin: 03/18/19 02:48 Dose: 75 mls/hr Methylprednisolone Sodium Succinate (Solu-Medrol) 125 mg IVPUSH ONETIME ONE Stop: 03/16/19 19:24 Last Admin: 03/16/19 19:33 Dose: 125 mg Methylprednisolone Sodium Succinate (Solu-Medrol) 125 mg IVPUSH Q8H [facility] Last Admin: 03/17/19 04:19 Dose: 125 mg Methylprednisolone Sodium Succinate (Solu-Medrol) 40 mg IVPUSH Q12H [facility] Last Admin: 03/19/19 02:23 Dose: 40 mg Sertraline HCl (Zoloft) 150 mg PO DAILY [facility] Last Admin: 03/17/19 08:02 Dose: 150 mg - Problem List Review Problem List Initiated/Reviewed/Updated: Yes - My Orders Last 24 Hours: My Active Orders 03/19/19 08:04 Communication Order [RC] ROUTINE
[2019-03-19] MEDS: Famotidine 20 MG Tab PO SCH (19:29)
[2019-03-19] MEDS: Simvastatin 40 MG Tab PO SCH (19:29)
[2019-03-19] MEDS: traZODone 50 MG Tab PO SCH (19:29)
[2019-03-20] MEDS: Albuterol/Ipratropium 3.0-0.5 MG/3 ML Neb Soln NEB SCH ×6 (02:19→22:05)
[2019-03-20] MEDS: Aspirin 325 MG Tab.EC PO SCH (07:50)
[2019-03-20] MEDS: amLODIPine 10 MG Tab PO SCH (07:50)
[2019-03-20] MEDS: Docusate Sodium 100 MG Cap PO SCH (07:50)
[2019-03-20] MEDS: Enoxaparin 40 MG/0.4 ML Syringe SUBCUT SCH (07:50)
[2019-03-20] MEDS: Cefuroxime 250 MG Tab PO SCH ×2 (07:51→21:25)
[2019-03-20] MEDS: Sertraline 50 MG Tab PO SCH (07:51)
--- NOTE | 2019-03-20 11:14 | PCM.PN ---
- General Info Date of Service: 03/20/19 Admission Dx/Problem (Free Text): History: His breathing seemed improved yesterday, his IV Solu-Medrol was D/Cd, and he does indeed remain afebrile, but still requires 2.5L/min of oxygen, still has noisy coarse respiration. His Accu-Chek readings improved with the cessation of the Solu-Medrol. Note he has a DX of diabetes, but had been off of all medications since 12/17. Exam: -Partial aphasia unchanged, communicates little this a.m. -Getting nasal oxygen -Heart sounds normal and regular -He is lying flat without dyspnea and breathing is not labored but his lung sounds show profuse coarse wheezes Impression: -Communityacquired pneumonia at R base -CVA with dense R hemiparesis -Diabetes, not on Rx and Accu-Chek readings improved after stopping IV Solu- Medrol Plan: -Continue IV Rocephin and oral Zithromax -Get CBC and repeat CXR tomorrow - Patient Data Vitals - Most Recent: Last Vital Signs Temp 36.5 C 03/20/19 10:00 Pulse 68 03/20/19 10:00 Resp 22 H 03/20/19 10:00 BP 128/79 03/20/19 10:00 Pulse Ox 94 L 03/20/19 10:00 Weight - Most Recent: 95.254 kg I&O - Last 24 Hours: Intake & Output 03/19/19 03/20/19 03/20/19 22:59 06:59 14:59 Intake Total 200 Output Total 550 900 Balance -550 -700 Lab Results Last 24 Hours: Laboratory Results - last 24 hr 03/19/19 03/19/19 03/19/19 Range/Units 05:16 11:36 17:07 POC Glucose 171 H 193 H 122 H (74-106) mg/dL 03/19/19 03/20/19 Range/Units 19:35 06:07 POC Glucose 204 H 108 H (74-106) mg/dL [place] Results Last 24 Hours: Microbiology 03/16/19 18:06 Aerobic Blood Culture - Preliminary Blood - Venous - Lab Draw NO GROWTH AFTER 3 DAYS Anaerobic Blood Culture - Preliminary NO GROWTH AFTER 3 DAYS 03/16/19 18:03 Aerobic Blood Culture - Preliminary Blood - Venous NO GROWTH AFTER 3 DAYS Anaerobic Blood Culture - Preliminary NO GROWTH AFTER 3 DAYS Med Orders - Current: Current Medications Albuterol/Ipratropium (Duoneb 3.0-0.5 Mg/3 Ml) 3 ml NEB Q4HRRT PRN PRN Reason: shortness of breath Last Admin: 03/16/19 17:49 Dose: 3 ml Albuterol/Ipratropium (Duoneb 3.0-0.5 Mg/3 Ml) 3 ml NEB Q4HRRT [facility] Last Admin: 03/20/19 06:04 Dose: 3 ml Amlodipine Besylate (Norvasc) 10 mg PO DAILY [facility] Last Admin: 03/20/19 07:50 Dose: 10 mg Aspirin (Ecotrin) 325 mg PO DAILY [facility] Last Admin: 03/20/19 07:50 Dose: 325 mg Cefuroxime Axetil (Ceftin) 500 mg PO BID [facility] Last Admin: 03/20/19 07:51 Dose: 500 mg Docusate Sodium (Colace) 100 mg PO DAILY [facility] Last Admin: 03/20/19 07:50 Dose: 100 mg Enoxaparin Sodium (Lovenox) 40 mg SUBCUT DAILY [facility] Last Admin: 03/20/19 07:50 Dose: 40 mg Famotidine (Pepcid) 20 mg PO BEDTIME [facility] Last Admin: 03/19/19 19:29 Dose: 20 mg Hydroxyurea (Hydrea) 500 mg PO DAILY [facility] Last Admin: 03/17/19 08:02 Dose: 500 mg Sertraline HCl (Zoloft) 150 mg PO DAILY [facility] Last Admin: 03/20/19 07:51 Dose: 150 mg Simvastatin (Zocor) 40 mg PO BEDTIME [facility] Last Admin: 03/19/19 19:29 Dose: 40 mg Sodium Chloride (Saline Flush) 10 ml FLUSH ASDIRECTED PRN PRN Reason: Keep Vein Open Last Admin: 03/19/19 02:23 Dose: 10 ml Trazodone HCl (Trazodone) 50 mg PO BEDTIME [facility] Last Admin: 03/19/19 19:29 Dose: 50 mg Discontinued Medications Ceftriaxone Sodium (Rocephin) 2 gm IVPUSH STAT ONE Stop: 03/16/19 18:35 Last Admin: 03/16/19 18:49 Dose: 2 gm Ceftriaxone Sodium (Rocephin) 1 gm IVPUSH DAILY@1800 [facility] Last Admin: 03/17/19 17:30 Dose: 1 gm Azithromycin 500 mg/ Sodium (Chloride) 250 mls @ 250 mls/hr IV STAT ONE Stop: 03/16/19 19:34 Last Admin: 03/16/19 19:00 Dose: 250 mls/hr Sodium Chloride (Normal Saline) 1,000 mls @ 200 mls/hr IV ASDIRECTED [facility] Stop: 03/17/19 00:31 Last Admin: 03/16/19 19:33 Dose: 200 mls/hr Azithromycin 500 mg/ Sodium (Chloride) 250 mls @ 250 mls/hr IV DAILY@1800 [facility] Last Admin: 03/17/19 17:30 Dose: 250 mls/hr Sodium Chloride (Normal Saline) 1,000 mls @ 75 mls/hr IV ASDIRECTED [facility] Last Admin: 03/18/19 02:48 Dose: 75 mls/hr Methylprednisolone Sodium Succinate (Solu-Medrol) 125 mg IVPUSH ONETIME ONE Stop: 03/16/19 19:24 Last Admin: 03/16/19 19:33 Dose: 125 mg Methylprednisolone Sodium Succinate (Solu-Medrol) 125 mg IVPUSH Q8H [facility] Last Admin: 03/17/19 04:19 Dose: 125 mg Methylprednisolone Sodium Succinate (Solu-Medrol) 40 mg IVPUSH Q12H [facility] Last Admin: 03/19/19 02:23 Dose: 40 mg Sertraline HCl (Zoloft) 150 mg PO DAILY [facility] Last Admin: 03/17/19 08:02 Dose: 150 mg - Problem List Review Problem List Initiated/Reviewed/Updated: Yes - My Orders Last 24 Hours: My Active Orders 03/19/19 17:15 Pulse Oximetry Continuous Monitoring [OM.PC] Routine - Assessment Assessment:: community acquired pneumonia - Plan Plan:: Continue with current medications. PT and OT to see today. Continue normal saline at 75ml/hr. Repeat lactic acid this afternoon.
[2019-03-20] MEDS: Famotidine 20 MG Tab PO SCH (21:25)
[2019-03-20] MEDS: traZODone 50 MG Tab PO SCH (21:25)
[2019-03-20] MEDS: Simvastatin 40 MG Tab PO SCH (21:25)
[2019-03-21] MEDS: Albuterol/Ipratropium 3.0-0.5 MG/3 ML Neb Soln NEB SCH ×5 (03:05→20:26)
[2019-03-21] MEDS: Enoxaparin 40 MG/0.4 ML Syringe SUBCUT SCH (07:04)
[2019-03-21] MEDS: amLODIPine 10 MG Tab PO SCH (07:05)
[2019-03-21] MEDS: Cefuroxime 250 MG Tab PO SCH (07:05)
[2019-03-21] MEDS: Aspirin 325 MG Tab.EC PO SCH (07:05)
[2019-03-21] MEDS: Sertraline 50 MG Tab PO SCH (07:05)
[2019-03-21] MEDS: Docusate Sodium 100 MG Cap PO SCH (07:05)
--- NOTE | 2019-03-21 09:06 | CR ---
[id number] RAD/RAD Chest PA or AP 1V EXAM: FRONTAL CHEST INDICATION: Right lower lobe pneumonia. COMPARISON: March 18, 2019. DISCUSSION: There is a small to moderate right pleural effusion with associated right base atelectasis. No clearly defined infiltrates, but the volume loss and pleural fluid limited evaluation. The lungs are hypoinflated. The left lung is clear. IMPRESSION: 1. Small to moderate right pleural effusion with associated right base atelectasis, increased. Previously described infiltrates could be obscured. Sidney Anaya MD 03/21/19 0905 Thank you for allowing us to participate in the care of your patient.
--- NOTE | 2019-03-21 11:46 | PCM.PN ---
- General Info Date of Service: 03/21/19 Admission Dx/Problem (Free Text): History: When he was first admitted he was on observation because it appeared he would start to improve and his symptoms were mild. Therefore he has been on oral cephalosporins. However, he seems to be worsening, more of a cough and more rales at his right base. CXR today shows pleural effusion so the amount of pneumonia is difficult to assess. He does remain afebrile however. Exam: -Heart sounds normal and regular -Lots of coarse rhonchi and these improve with coughing but he still has coarse rales at R base -Still requiring oxygen at 2.5 L/min Impression: -RLL pneumonia not improving -Pleural effusion Plan: -Switch to IV Rocephin and stop oral Ceftin -Add oral Zithromax -Get CT of lung tomorrow - Patient Data Vitals - Most Recent: Last Vital Signs Temp 36.2 C 03/21/19 06:00 Pulse 76 03/21/19 06:00 Resp 18 03/21/19 06:00 BP 106/75 03/21/19 07:05 Pulse Ox 94 L 03/21/19 06:00 Weight - Most Recent: 95.254 kg I&O - Last 24 Hours: Intake & Output 03/20/19 03/21/19 03/21/19 22:59 06:59 14:59 Output Total 600 300 Balance -600 -300 Lab Results Last 24 Hours: Laboratory Results - last 24 hr 03/20/19 03/20/19 03/21/19 Range/Units 17:14 21:31 06:59 WBC (4.0-10.0) x10^3/uL RBC (4.5-6.0) x10^6/uL Hgb (14.0-18.0) g/dL Hct (40.0-52.0) % MCV (78.0-93.0) fL MCH (26.0-32.0) pg MCHC (32.0-36.0) g/dL RDW Coeff of Sridevi (10.0-15.0) % Plt Count (130-400) x10^3/uL Add Manual Diff Neutrophils % (Manual) (50-80) % Lymphocytes % (Manual) (25-50) % Monocytes % (Manual) (2-11) % Eosinophils % (Manual) (0-4) % Metamyelocytes % (0) % Platelet Estimate Anisocytosis Macrocytosis POC Glucose 95 119 H 104 (74-106) mg/dL 03/21/19 03/21/19 Range/Units 07:38 11:32 WBC 8.5 (4.0-10.0) x10^3/uL RBC 3.53 L (4.5-6.0) x10^6/uL Hgb 13.3 L (14.0-18.0) g/dL Hct 39.9 L (40.0-52.0) % MCV 113.0 H (78.0-93.0) fL MCH 37.7 H (26.0-32.0) pg MCHC 33.3 (32.0-36.0) g/dL RDW Coeff of Sridevi 13.7 (10.0-15.0) % Plt Count 158 (130-400) x10^3/uL Add Manual Diff Yes Neutrophils % (Manual) 68 (50-80) % Lymphocytes % (Manual) 16 L (25-50) % Monocytes % (Manual) 11 (2-11) % Eosinophils % (Manual) 3 (0-4) % Metamyelocytes % 2 H (0) % Platelet Estimate Adequate Anisocytosis 1+ slight H Macrocytosis 1+ slight H POC Glucose 98 (74-106) mg/dL [place] Results Last 24 Hours: Microbiology 03/16/19 18:06 Aerobic Blood Culture - Preliminary Blood - Venous - Lab Draw NO GROWTH AFTER 4 DAYS Anaerobic Blood Culture - Preliminary NO GROWTH AFTER 4 DAYS 03/16/19 18:03 Aerobic Blood Culture - Preliminary Blood - Venous NO GROWTH AFTER 4 DAYS Anaerobic Blood Culture - Preliminary NO GROWTH AFTER 4 DAYS Med Orders - Current: Current Medications Albuterol/Ipratropium (Duoneb 3.0-0.5 Mg/3 Ml) 3 ml NEB Q4HRRT PRN PRN Reason: shortness of breath Last Admin: 03/16/19 17:49 Dose: 3 ml Albuterol/Ipratropium (Duoneb 3.0-0.5 Mg/3 Ml) 3 ml NEB Q4HRRT [facility] Last Admin: 03/21/19 07:04 Dose: 3 ml Amlodipine Besylate (Norvasc) 10 mg PO DAILY [facility] Last Admin: 03/21/19 07:05 Dose: 10 mg Aspirin (Ecotrin) 325 mg PO DAILY [facility] Last Admin: 03/21/19 07:05 Dose: 325 mg Azithromycin (Zithromax) 500 mg PO DAILY [facility] Ceftriaxone Sodium (Rocephin) 1 gm IVPUSH DAILY [facility] Docusate Sodium (Colace) 100 mg PO DAILY [facility] Last Admin: 03/21/19 07:05 Dose: 100 mg Enoxaparin Sodium (Lovenox) 40 mg SUBCUT DAILY [facility] Last Admin: 03/21/19 07:04 Dose: 40 mg Famotidine (Pepcid) 20 mg PO BEDTIME [facility] Last Admin: 03/20/19 21:25 Dose: 20 mg Hydroxyurea (Hydrea) 500 mg PO DAILY [facility] Last Admin: 03/17/19 08:02 Dose: 500 mg Sertraline HCl (Zoloft) 150 mg PO DAILY [facility] Last Admin: 03/21/19 07:05 Dose: 150 mg Simvastatin (Zocor) 40 mg PO BEDTIME [facility] Last Admin: 03/20/19 21:25 Dose: 40 mg Sodium Chloride (Saline Flush) 10 ml FLUSH ASDIRECTED PRN PRN Reason: Keep Vein Open Last Admin: 03/19/19 02:23 Dose: 10 ml Trazodone HCl (Trazodone) 50 mg PO BEDTIME [facility] Last Admin: 03/20/19 21:25 Dose: 50 mg Discontinued Medications Ceftriaxone Sodium (Rocephin) 2 gm IVPUSH STAT ONE Stop: 03/16/19 18:35 Last Admin: 03/16/19 18:49 Dose: 2 gm Ceftriaxone Sodium (Rocephin) 1 gm IVPUSH DAILY@1800 [facility] Last Admin: 03/17/19 17:30 Dose: 1 gm Cefuroxime Axetil (Ceftin) 500 mg PO BID [facility] Last Admin: 03/21/19 07:05 Dose: 500 mg Azithromycin 500 mg/ Sodium (Chloride) 250 mls @ 250 mls/hr IV STAT ONE Stop: 03/16/19 19:34 Last Admin: 03/16/19 19:00 Dose: 250 mls/hr Sodium Chloride (Normal Saline) 1,000 mls @ 200 mls/hr IV ASDIRECTED [facility] Stop: 03/17/19 00:31 Last Admin: 03/16/19 19:33 Dose: 200 mls/hr Azithromycin 500 mg/ Sodium (Chloride) 250 mls @ 250 mls/hr IV DAILY@1800 [facility] Last Admin: 03/17/19 17:30 Dose: 250 mls/hr Sodium Chloride (Normal Saline) 1,000 mls @ 75 mls/hr IV ASDIRECTED [facility] Last Admin: 03/18/19 02:48 Dose: 75 mls/hr Methylprednisolone Sodium Succinate (Solu-Medrol) 125 mg IVPUSH ONETIME ONE Stop: 03/16/19 19:24 Last Admin: 03/16/19 19:33 Dose: 125 mg Methylprednisolone Sodium Succinate (Solu-Medrol) 125 mg IVPUSH Q8H [facility] Last Admin: 03/17/19 04:19 Dose: 125 mg Methylprednisolone Sodium Succinate (Solu-Medrol) 40 mg IVPUSH Q12H [facility] Last Admin: 03/19/19 02:23 Dose: 40 mg Senna/Docusate Sodium (Senna Plus) 2 tab PO ONETIME ONE Stop: 03/20/19 12:18 Last Admin: 03/20/19 13:34 Dose: 2 tab Sertraline HCl (Zoloft) 150 mg PO DAILY [facility] Last Admin: 03/17/19 08:02 Dose: 150 mg - Problem List Review Problem List Initiated/Reviewed/Updated: Yes - My Orders Last 24 Hours: My Active Orders 03/20/19 15:37 Turn and Reposition [RC] Q2HR 03/21/19 11:18 Dietary Supplements [RC] BIDMEALS 03/21/19 11:30 cefTRIAXone [Rocephin] 1 gm IVPUSH DAILY 03/21/19 13:00 Azithromycin [Zithromax] 500 mg PO DAILY 03/22/19 07:30 CTA Chest W WO Contrast [Ang Chest] [CT] Routine
[2019-03-21] MEDS: cefTRIAXone 1 GM Vial IVPUSH SCH (11:52)
[2019-03-21] MEDS: Azithromycin 250 MG Tab PO SCH (12:36)
[2019-03-21] MEDS: Famotidine 20 MG Tab PO SCH (20:26)
[2019-03-21] MEDS: Simvastatin 40 MG Tab PO SCH (20:26)
[2019-03-21] MEDS: traZODone 50 MG Tab PO SCH (20:26)
[2019-03-22] MEDS: Albuterol/Ipratropium 3.0-0.5 MG/3 ML Neb Soln NEB SCH ×6 (00:25→18:20)
[2019-03-22] MEDS ORDERED: Iopamidol 612 MG/ML 100 ML Bottle IVPUSH ONE ×2 (07:54→10:01)
[2019-03-22] MEDS: Aspirin 325 MG Tab.EC PO SCH (08:29)
[2019-03-22] MEDS: amLODIPine 10 MG Tab PO SCH (08:29)
[2019-03-22] MEDS: cefTRIAXone 1 GM Vial IVPUSH SCH (08:29)
[2019-03-22] MEDS: Docusate Sodium 100 MG Cap PO SCH (08:29)
[2019-03-22] MEDS: Enoxaparin 40 MG/0.4 ML Syringe SUBCUT SCH (08:29)
[2019-03-22] MEDS: Azithromycin 250 MG Tab PO SCH (08:30)
[2019-03-22] MEDS: Sertraline 50 MG Tab PO SCH (08:30)
[2019-03-22] MEDS: Sodium Chloride 0.9% 10 ML Syringe FLUSH PRN ×2 (08:32→20:33)
--- NOTE | 2019-03-22 10:42 | CT ---
[id number] CT/CTA Chest Exam: CTA Chest Clinical Data: PNEUMONIA. RIGHT-SIDED PLEURAL EFFUSION. COMPARISON: CORRELATION IS MADE WITH YESTERDAY'S CHEST RADIOGRAPH. FINDINGS: A 2.5 cm calcified left thyroid mass is seen. Consider ultrasound. There are no pulmonary emboli. There is mild pleural reaction at both lung bases. There is volume loss at both lung bases, more on the right. The great vessels are intact. There is no mediastinal mass. IMPRESSION: NO PULMONARY EMBOLI. MILD NONSPECIFIC BIBASILAR RIGHT GREATER THAN LEFT PLEURAL-PARENCHYMAL PATHOLOGY. Shen Diamond MD 03/22/19 1041 Thank you for allowing us to participate in the care of your patient.
--- NOTE | 2019-03-22 13:42 | PCM.PN ---
- General Info Date of Service: 03/22/19 Admission Dx/Problem (Free Text): History: Because he has continued to require 2.5L/min oxygen, continues to have noisy respiration at R base, and yesterdays CXR showed pleural effusion which made it difficult to assess his infiltrate, I ordered a CT of his lung today which shows mainly pleural reaction. He remains afebrile now, WBC was 8500 yesterday, and he has started walking around a bit, using cane because of his R hemiparesis. Exam: -Course breath sounds R base, not loud rhonchi that he had yesterday -Heart sounds normal but today seems irregular, not previously noted Impression: -Perplexing hypoxia -R pleural effusion, no pneumonia or fever noted now -Arrhythmia, needs EKG Plan: -Continue IV Rocephin and oral Zithromax which was started yesterday -Get EKG -I will consider medicine consult since I dont have a cause yet for his hypoxia - Patient Data Vitals - Most Recent: Last Vital Signs Temp 36.3 C 03/22/19 13:26 Pulse 80 03/22/19 13:26 Resp 18 03/22/19 13:26 BP 118/76 03/22/19 13:26 Pulse Ox 90 L 03/22/19 13:26 Weight - Most Recent: 95.254 kg I&O - Last 24 Hours: Intake & Output 03/21/19 03/22/19 03/22/19 22:59 06:59 14:59 Intake Total 600 600 480 Output Total 800 800 Balance -200 -200 480 Lab Results Last 24 Hours: Laboratory Results - last 24 hr 03/21/19 03/21/19 03/22/19 Range/Units 17:41 20:32 07:02 POC Glucose 109 H 192 H 122 H (74-106) mg/dL [place] Results Last 24 Hours: Microbiology 03/16/19 18:06 Aerobic Blood Culture - Final Blood - Venous - Lab Draw NO GROWTH AFTER 5 DAYS Anaerobic Blood Culture - Final NO GROWTH AFTER 5 DAYS 03/16/19 18:03 Aerobic Blood Culture - Final Blood - Venous NO GROWTH AFTER 5 DAYS Anaerobic Blood Culture - Final NO GROWTH AFTER 5 DAYS Med Orders - Current: Current Medications Albuterol/Ipratropium (Duoneb 3.0-0.5 Mg/3 Ml) 3 ml NEB Q4HRRT PRN PRN Reason: shortness of breath Last Admin: 03/16/19 17:49 Dose: 3 ml Albuterol/Ipratropium (Duoneb 3.0-0.5 Mg/3 Ml) 3 ml NEB Q4HRRT [facility] Last Admin: 03/22/19 10:59 Dose: 3 ml Amlodipine Besylate (Norvasc) 10 mg PO DAILY [facility] Last Admin: 03/22/19 08:29 Dose: 10 mg Aspirin (Ecotrin) 325 mg PO DAILY [facility] Last Admin: 03/22/19 08:29 Dose: 325 mg Azithromycin (Zithromax) 500 mg PO DAILY [facility] Last Admin: 03/22/19 08:30 Dose: 500 mg Ceftriaxone Sodium (Rocephin) 1 gm IVPUSH DAILY [facility] Last Admin: 03/22/19 08:29 Dose: 1 gm Docusate Sodium (Colace) 100 mg PO DAILY [facility] Last Admin: 03/22/19 08:29 Dose: 100 mg Enoxaparin Sodium (Lovenox) 40 mg SUBCUT DAILY [facility] Last Admin: 03/22/19 08:29 Dose: 40 mg Famotidine (Pepcid) 20 mg PO BEDTIME [facility] Last Admin: 03/21/19 20:26 Dose: 20 mg Hydroxyurea (Hydrea) 500 mg PO DAILY [facility] Last Admin: 03/17/19 08:02 Dose: 500 mg Sertraline HCl (Zoloft) 150 mg PO DAILY [facility] Last Admin: 03/22/19 08:30 Dose: 150 mg Simvastatin (Zocor) 40 mg PO BEDTIME [facility] Last Admin: 03/21/19 20:26 Dose: 40 mg Sodium Chloride (Saline Flush) 10 ml FLUSH ASDIRECTED PRN PRN Reason: Keep Vein Open Last Admin: 03/22/19 08:32 Dose: 10 ml Trazodone HCl (Trazodone) 50 mg PO BEDTIME [facility] Last Admin: 03/21/19 20:26 Dose: 50 mg Discontinued Medications Ceftriaxone Sodium (Rocephin) 2 gm IVPUSH STAT ONE Stop: 03/16/19 18:35 Last Admin: 03/16/19 18:49 Dose: 2 gm Ceftriaxone Sodium (Rocephin) 1 gm IVPUSH DAILY@1800 [facility] Last Admin: 03/17/19 17:30 Dose: 1 gm Cefuroxime Axetil (Ceftin) 500 mg PO BID [facility] Last Admin: 03/21/19 07:05 Dose: 500 mg Azithromycin 500 mg/ Sodium (Chloride) 250 mls @ 250 mls/hr IV STAT ONE Stop: 03/16/19 19:34 Last Admin: 03/16/19 19:00 Dose: 250 mls/hr Sodium Chloride (Normal Saline) 1,000 mls @ 200 mls/hr IV ASDIRECTED [facility] Stop: 03/17/19 00:31 Last Admin: 03/16/19 19:33 Dose: 200 mls/hr Azithromycin 500 mg/ Sodium (Chloride) 250 mls @ 250 mls/hr IV DAILY@1800 [facility] Last Admin: 03/17/19 17:30 Dose: 250 mls/hr Sodium Chloride (Normal Saline) 1,000 mls @ 75 mls/hr IV ASDIRECTED [facility] Last Admin: 03/18/19 02:48 Dose: 75 mls/hr Iopamidol (Isovue-300 (61%)) 100 ml IVPUSH ONETIME ONE Stop: 03/22/19 07:55 Last Admin: 03/22/19 10:04 Dose: 100 ml Iopamidol (Isovue-300 (61%)) 100 ml IVPUSH ONETIME ONE Stop: 03/22/19 10:02 Last Admin: 03/22/19 12:11 Dose: Not Given Methylprednisolone Sodium Succinate (Solu-Medrol) 125 mg IVPUSH ONETIME ONE Stop: 03/16/19 19:24 Last Admin: 03/16/19 19:33 Dose: 125 mg Methylprednisolone Sodium Succinate (Solu-Medrol) 125 mg IVPUSH Q8H [facility] Last Admin: 03/17/19 04:19 Dose: 125 mg Methylprednisolone Sodium Succinate (Solu-Medrol) 40 mg IVPUSH Q12H [facility] Last Admin: 03/19/19 02:23 Dose: 40 mg Senna/Docusate Sodium (Senna Plus) 2 tab PO ONETIME ONE Stop: 03/20/19 12:18 Last Admin: 03/20/19 13:34 Dose: 2 tab Sertraline HCl (Zoloft) 150 mg PO DAILY [facility] Last Admin: 03/17/19 08:02 Dose: 150 mg - Problem List Review Problem List Initiated/Reviewed/Updated: Yes - My Orders Last 24 Hours: My Active Orders 03/21/19 13:00 Azithromycin [Zithromax] 500 mg PO DAILY 03/22/19 08:56 Blood Glucose Check, Bedside [] 07 03/22/19 13:37 EKG 12 Lead [EKG Documentation Completion] [] ROUTINE
[2019-03-22] MEDS: Simvastatin 40 MG Tab PO SCH (20:33)
[2019-03-22] MEDS: traZODone 50 MG Tab PO SCH (20:33)
[2019-03-22] MEDS: Famotidine 20 MG Tab PO SCH (20:33)
[2019-03-23] MEDS: Albuterol/Ipratropium 3.0-0.5 MG/3 ML Neb Soln NEB SCH ×7 (00:11→22:41)
[2019-03-23] MEDS: cefTRIAXone 1 GM Vial IVPUSH SCH (07:43)
[2019-03-23] MEDS: amLODIPine 10 MG Tab PO SCH (07:43)
[2019-03-23] MEDS: Docusate Sodium 100 MG Cap PO SCH (07:43)
[2019-03-23] MEDS: Aspirin 325 MG Tab.EC PO SCH (07:43)
[2019-03-23] MEDS: Sodium Chloride 0.9% 10 ML Syringe FLUSH PRN (07:43)
[2019-03-23] MEDS: Azithromycin 250 MG Tab PO SCH (07:43)
[2019-03-23] MEDS: Enoxaparin 40 MG/0.4 ML Syringe SUBCUT SCH (07:44)
[2019-03-23] MEDS: Sertraline 50 MG Tab PO SCH (07:44)
[2019-03-23 07:56] LABS: CHLORIDE,CL 106 mmol/L (98-107); SODIUM,NA 143 mmol/L (136-145)
--- NOTE | 2019-03-23 09:09 | PCM.PN ---
- General Info Date of Service: 03/23/19 Admission Dx/Problem (Free Text): History: I started him back on IV Lasix because of his R lower lung infiltrate and pleural effusion. CT showed mostly inflammation of the pleura, nothing mentioned about lung infiltrate yesterday, so I have asked ROWAN to see him as a Medicine consult. He also had mild tachycardia and arrhythmia yesterday sounded like it could be atrial fib, but EKG shows only PACs, benign. He does not C/O feeling any different today. Continues on nasal O2 at 2L/min. Exam: -Heart fairly regular today and heart sounds normal -No dyspnea or tachypnea -Lung sounds clear Impression: -Hypoxia and small pleural effusion, cause enigmatic -CVA with R hemiparesis Plan: -Continue antibiotic for now -ROWAN is seeing in consult today - Patient Data Vitals - Most Recent: Last Vital Signs Temp 36.6 C 03/23/19 05:48 Pulse 72 03/23/19 05:48 Resp 18 03/23/19 05:48 BP 117/74 03/23/19 07:43 Pulse Ox 97 03/23/19 07:54 Weight - Most Recent: 95.254 kg I&O - Last 24 Hours: Intake & Output 03/22/19 03/23/19 03/23/19 22:59 06:59 14:59 Intake Total 300 150 360 Output Total 750 400 200 Balance -450 -250 160 Lab Results Last 24 Hours: Laboratory Results - last 24 hr 03/23/19 03/23/19 03/23/19 Range/Units 06:32 06:48 06:48 Sodium 143 (136-145) mmol/L Potassium 4.0 (3.5-5.1) mmol/L Chloride 106 (98-107) mmol/L Carbon Dioxide 30 (21-32) mmol/L Anion Gap 11.0 (10-20) mmol/L BUN 23 H (7-18) mg/dL Creatinine 0.8 (0.70-1.30) mg/dL Est Cr Clr Drug Dosing 83.65 mL/min Estimated GFR (MDRD) > 60 Glucose 116 H (74-106) mg/dL POC Glucose 106 (74-106) mg/dL Calcium 7.9 L (8.5-10.1) mg/dL NT-Pro-B Natriuret Pep 285 H (<=125) pg/mL Med Orders - Current: Current Medications Albuterol/Ipratropium (Duoneb 3.0-0.5 Mg/3 Ml) 3 ml NEB Q4HRRT PRN PRN Reason: shortness of breath Last Admin: 03/16/19 17:49 Dose: 3 ml Albuterol/Ipratropium (Duoneb 3.0-0.5 Mg/3 Ml) 3 ml NEB Q4HRRT [facility] Last Admin: 03/23/19 06:54 Dose: 3 ml Amlodipine Besylate (Norvasc) 10 mg PO DAILY [facility] Last Admin: 03/23/19 07:43 Dose: 10 mg Aspirin (Ecotrin) 325 mg PO DAILY [facility] Last Admin: 03/23/19 07:43 Dose: 325 mg Azithromycin (Zithromax) 500 mg PO DAILY [facility] Last Admin: 03/23/19 07:43 Dose: 500 mg Ceftriaxone Sodium (Rocephin) 1 gm IVPUSH DAILY [facility] Last Admin: 03/23/19 07:43 Dose: 1 gm Docusate Sodium (Colace) 100 mg PO DAILY [facility] Last Admin: 03/23/19 07:43 Dose: 100 mg Enoxaparin Sodium (Lovenox) 40 mg SUBCUT DAILY [facility] Last Admin: 03/23/19 07:44 Dose: 40 mg Famotidine (Pepcid) 20 mg PO BEDTIME [facility] Last Admin: 03/22/19 20:33 Dose: 20 mg Hydroxyurea (Hydrea) 500 mg PO DAILY [facility] Last Admin: 03/17/19 08:02 Dose: 500 mg Sertraline HCl (Zoloft) 150 mg PO DAILY [facility] Last Admin: 03/23/19 07:44 Dose: 150 mg Simvastatin (Zocor) 40 mg PO BEDTIME [facility] Last Admin: 03/22/19 20:33 Dose: 40 mg Sodium Chloride (Saline Flush) 10 ml FLUSH ASDIRECTED PRN PRN Reason: Keep Vein Open Last Admin: 03/23/19 07:43 Dose: 10 ml Trazodone HCl (Trazodone) 50 mg PO BEDTIME [facility] Last Admin: 03/22/19 20:33 Dose: 50 mg Discontinued Medications Ceftriaxone Sodium (Rocephin) 2 gm IVPUSH STAT ONE Stop: 03/16/19 18:35 Last Admin: 03/16/19 18:49 Dose: 2 gm Ceftriaxone Sodium (Rocephin) 1 gm IVPUSH DAILY@1800 [facility] Last Admin: 03/17/19 17:30 Dose: 1 gm Cefuroxime Axetil (Ceftin) 500 mg PO BID [facility] Last Admin: 03/21/19 07:05 Dose: 500 mg Azithromycin 500 mg/ Sodium (Chloride) 250 mls @ 250 mls/hr IV STAT ONE Stop: 03/16/19 19:34 Last Admin: 03/16/19 19:00 Dose: 250 mls/hr Sodium Chloride (Normal Saline) 1,000 mls @ 200 mls/hr IV ASDIRECTED [facility] Stop: 03/17/19 00:31 Last Admin: 03/16/19 19:33 Dose: 200 mls/hr Azithromycin 500 mg/ Sodium (Chloride) 250 mls @ 250 mls/hr IV DAILY@1800 [facility] Last Admin: 03/17/19 17:30 Dose: 250 mls/hr Sodium Chloride (Normal Saline) 1,000 mls @ 75 mls/hr IV ASDIRECTED [facility] Last Admin: 03/18/19 02:48 Dose: 75 mls/hr Iopamidol (Isovue-300 (61%)) 100 ml IVPUSH ONETIME ONE Stop: 03/22/19 07:55 Last Admin: 03/22/19 10:04 Dose: 100 ml Iopamidol (Isovue-300 (61%)) 100 ml IVPUSH ONETIME ONE Stop: 03/22/19 10:02 Last Admin: 03/22/19 12:11 Dose: Not Given Methylprednisolone Sodium Succinate (Solu-Medrol) 125 mg IVPUSH ONETIME ONE Stop: 03/16/19 19:24 Last Admin: 03/16/19 19:33 Dose: 125 mg Methylprednisolone Sodium Succinate (Solu-Medrol) 125 mg IVPUSH Q8H [facility] Last Admin: 03/17/19 04:19 Dose: 125 mg Methylprednisolone Sodium Succinate (Solu-Medrol) 40 mg IVPUSH Q12H [facility] Last Admin: 03/19/19 02:23 Dose: 40 mg Senna/Docusate Sodium (Senna Plus) 2 tab PO ONETIME ONE Stop: 03/20/19 12:18 Last Admin: 03/20/19 13:34 Dose: 2 tab Sertraline HCl (Zoloft) 150 mg PO DAILY [facility] Last Admin: 03/17/19 08:02 Dose: 150 mg - Problem List Review Problem List Initiated/Reviewed/Updated: Yes - My Orders Last 24 Hours: My Active Orders 03/22/19 08:56 Blood Glucose Check, Bedside [] 07 03/22/19 13:37 EKG 12 Lead [EKG Documentation Completion] [RC] ROUTINE
--- NOTE | 2019-03-23 18:29 | PN ---
Progress Note for ESTRELLITA Kirkland CLEANING MANAGER Date: 03/23/2019 Room #: VM.214 REASON FOR CONSULTATION: Pleural effusion and hypoxia. HISTORY OF PRESENT ILLNESS: This is a 73-year-old male who was admitted to observation, then acute care by myself on 03/17 the next day due to a community- acquired pneumonia, where he had been coughing at home for several days and had had increasing weakness and a fall with fever up to 100.4. He did deny any problems with swallowing but does have a remote history of stroke. He has no history of heart failure. His EF in 2012 was 65%. Mild diastolic dysfunction was noted with mild mitral regurgitation and mild aortic regurgitation, but he has not been on any diuretics. He, otherwise, does have a history of polycythemia and has been on Hydrea, but that has been held since his admission due to some anemia during his stay. He has never been tested for sleep apnea. He has never had COPD diagnosed. He has been responding to nebulizers and steroids except his oxygen continues to require about 2.5 L, but he is in the high 90s during the day, but nursing reports he goes down overnight. Today, he denies to me any cough, no chest pain. He feels like things are improving. But due to continued hypoxia, Dr. Guzman did request a CT yesterday. They actually did a pulmonary angiography and ruled out any pulmonary embolism. The patient had been on Lovenox during his stay, and there was mild nonspecific bibasilar right greater than left pleural parenchymal pathology with a right-sided pleural effusion which was not large. OBJECTIVE: Vital Signs: On exam today, his temperature was 97.8, pulse 72, blood pressure 117/74, respiratory rate 18, and O2 was 94, turned down to 1 L. General: He is in no acute distress. Heart: Regular rate and rhythm. S1, S2 without murmur. Lungs: Lung sounds are decreased with crackles and rhonchi noted in both bases. Abdomen: Nondistended, nontender. Extremities: Warm and dry. Mental Status: He is alert, he is orientated, but his speech is slightly delayed and aphasic. ASSESSMENT AND PLAN: 1. Recent community-acquired pneumonia, now on IV antibiotics which were switched to oral, back to IV for 1 week's duration so far of either or. 2. Continued hypoxia especially nocturnal, probably due to pneumonia. 3. Probable exacerbation of bronchitis, but no history of the same. Could get pulmonary function testing as an outpatient. 4. History of stroke with residual weakness and worsening weakness due to acute illness. 5. History of polycythemia, currently controlled to anemic hemoglobins, due to acute illness. 6. Essential hypertension, controlled. PLAN: At this point, patient is on acute cares and can be changed over to swing bed at any time per Dr. Guzman. I would anticipate that 7 days of antibiotics and certainly no more than 10 would be adequate in his case. Would get him up and move him more, sitting in the chair, using the incentive spirometry, weaned him down to 1 L today and later that was able to be taken off and do an overnight oximetry test on room air to document it. He may just need oxygen at night, he may need outpatient sleep apnea testing. Can consider an echocardiogram to check his heart function, although his proBNP this morning was only mildly elevated at 285. I do not think any Lasix is indicated. If his hypoxia worsens, would repeat a chest x- ray again. Otherwise, could wait 3 to 4 weeks to repeat it for resolution of his pneumonia. Lastly, I did involve Speech Therapy due to his history of stroke to see if aspiration may be causing some of the changes. Could consider Augmentin for another few days to finish his course. For DVT prophylaxis, he is on Lovenox. Dr. Guzman will continue to follow the patient. I anticipate, he will be stable to be discharged home or to swing bed in the next few days. MKA: 03/23/2019 17:17:13 MODL: 03/23/2019 18:20:18 /[id number] MARIBELL
[2019-03-23] MEDS: Simvastatin 40 MG Tab PO SCH (20:59)
[2019-03-23] MEDS: traZODone 50 MG Tab PO SCH (20:59)
[2019-03-23] MEDS: Famotidine 20 MG Tab PO SCH (20:59)
[2019-03-24] MEDS: Albuterol/Ipratropium 3.0-0.5 MG/3 ML Neb Soln NEB SCH ×3 (03:38→10:51)
[2019-03-24] MEDS: Enoxaparin 40 MG/0.4 ML Syringe SUBCUT SCH (08:10)
[2019-03-24] MEDS: Azithromycin 250 MG Tab PO SCH (08:11)
[2019-03-24] MEDS: cefTRIAXone 1 GM Vial IVPUSH SCH (08:11)
[2019-03-24] MEDS: Docusate Sodium 100 MG Cap PO SCH (08:11)
[2019-03-24] MEDS: amLODIPine 10 MG Tab PO SCH (08:11)
[2019-03-24] MEDS: Sertraline 50 MG Tab PO SCH (08:11)
[2019-03-24] MEDS: Aspirin 325 MG Tab.EC PO SCH (08:11)
[2019-03-24] MEDS: Hydroxyurea 500 MG Cap PO SCH (08:11)
--- NOTE | 2019-03-24 10:36 | PCM.DCSUM1 ---
Discharge Summary - Hospital Course Free Text/Narrative:: Final Diagnoses: -Nocturnal hypoxia, suspect obstructive sleep apnea -Pleuritis R lung -Possible mild COPD, has smoking Hx -CVA with R hemiparesis, remote Hx -Obesity -Primary polycythemia Secondary Diagnoses: -Hypertension controlled -Hyperlipidemia -Diabetes type 2, diet controlled -Depression, inactive -Positive stool occult blood screening, refuses colonoscopy -Hx angioedema -DJD, especially ankle and foot Reason for Admission: Fever and cough Initial findings: -Temp of 100.4 -Rales at both bases, R > L -R hemiparesis with partial aphasia unchanged Treatment and Course in hospital: Originally admitted observation because it was felt he just had a little pneumonia and would recover OK on oral antibiotic. He did not recover quickly, switched to Acute Care, changed to IV antibiotic on 03/21 when he was still having R basilar infiltrate and pleural effusion. He continued to require oxygen to maintain saturation of 90%, so he had a CT of his lung 03/22. This showed mainly a small pleural reaction and pleural effusion, but little or no infiltrate in the lung. He was seen in consult by ROWAN, internal medicine, felt that his hypoxia was probably from sleep apnea, nocturnal oximetry showed continual readings in the 80s, with some dips. Not felt to need continued antibiotic for pneumonia. He had irregular heart rhythm, EKG shows regular sinus rhythm with a few to frequent PACs, benign. His Hct was only 40%, and since he normally gets phlebotomy only for Hct > 45% , his Hydrea was held during this hospitalization. Condition on Discharge -Tolerating room air during the day -Coarse breath sounds but no actual rales -Heart mildly irregular, regular underlying rhythm with prematures -Partially aphasia unchanged -No respiratory distress Discharge Plan: -Will stay in swing bed until next week -Schedule Sleep Study with [facility] at [facility], to see if he needs CPAP -Oxygen regularly at night -D/C antibiotics Diagnosis: Stroke: No Modified [place] Scale: Slight Disable;Unable to Carry Out Prev Act.Able to Look After Affairs Modified [place] Scale Score: 2 - Discharge Data Discharge Date: 03/24/19 Discharge Disposition: DC/Tfer W/I Hosp To [place] [id number] Condition: Good - Patient Summary/Data Consults: Consultations 03/17/19 09:36 Consult to Physical Therapy [PT Evaluation and Treatment] [CONS] Routine 03/17/19 09:37 OT Evaluation and Treatment [CONS] Routine 03/23/19 08:18 Consult to Speech Language Pathology [HORSE RACING ANALYST Evaluation and Treatment] [CONS] Routine - Discharge Plan *PRESCRIPTION DRUG MONITORING PROGRAM REVIEWED*: No *COPY OF PRESCRIPTION DRUG MONITORING REPORT IN PATIENT ARTURO: No Home Medications: Home Meds Famotidine 20 mg PO BEDTIME 04/22/18 [History] Sertraline [Zoloft] 150 mg PO DAILY 04/22/18 [History] Simvastatin [Zocor] 40 mg PO BEDTIME 04/22/18 [History] amLODIPine Besylate [Amlodipine Besylate] 10 mg PO DAILY 04/22/18 [History] traZODone HCl [Trazodone HCl] 50 mg PO BEDTIME 04/22/18 [History] Aspirin 325 mg PO DAILY 03/16/19 [History] Docusate Sodium [Dulcolax Stool Softener] 100 mg PO DAILY 03/16/19 [History] Albuterol/Ipratropium [DuoNeb 3.0-0.5 MG/3 ML] 3 ml INH Q4HR 03/19/19 [History] Albuterol/Ipratropium [DuoNeb 3.0-0.5 MG/3 ML] 3 ml INH Q4HR PRN 03/19/19 [ History] Albuterol/Ipratropium [DuoNeb 3.0-0.5 MG/3 ML] 3 ml NEB Q4HRRT neb 03/24/19 [Rx ] Albuterol/Ipratropium [DuoNeb 3.0-0.5 MG/3 ML] 3 ml NEB Q4HRRT PRN neb [Rx] Enoxaparin [Lovenox] 40 mg SUBCUT DAILY syringe 03/24/19 [Rx] Other Amb Orders: RT Supplemental Oxygen Titration [RESPCARE] Location: None Selected Assertion Communication Order [AST] Location: None Selected Patient Handouts: Cefuroxime tablets, Community-Acquired Pneumonia, Adult, Easy -to-Read Forms: ED Department Discharge Referrals: Vasyl Guzman MD [Primary Care Provider] - - Discharge Summary/Plan Comment DC Time >30 min.: No - Patient Data Vitals - Most Recent: Last Vital Signs Temp 36.8 C 03/24/19 10:00 Pulse 81 03/24/19 10:00 Resp 18 03/24/19 05:48 BP 103/55 L 03/24/19 10:00 Pulse Ox 93 L 03/24/19 10:00 Weight - Most Recent: 95.254 kg I&O - Last 24 hours: Intake & Output 03/23/19 03/24/19 03/24/19 22:59 06:59 14:59 Intake Total 240 100 360 Output Total 750 700 Balance -510 -600 360 Lab Results - Last 24 hrs: Laboratory Results - last 24 hr 03/24/19 Range/Units 06:27 POC Glucose 101 (74-106) mg/dL Med Orders - Current: Current Medications Albuterol/Ipratropium (Duoneb 3.0-0.5 Mg/3 Ml) 3 ml NEB Q4HRRT PRN PRN Reason: shortness of breath Last Admin: 03/16/19 17:49 Dose: 3 ml Albuterol/Ipratropium (Duoneb 3.0-0.5 Mg/3 Ml) 3 ml NEB Q4HRRT [facility] Last Admin: 03/24/19 06:29 Dose: 3 ml Amlodipine Besylate (Norvasc) 10 mg PO DAILY [facility] Last Admin: 03/24/19 08:11 Dose: 10 mg Aspirin (Ecotrin) 325 mg PO DAILY [facility] Last Admin: 03/24/19 08:11 Dose: 325 mg Azithromycin (Zithromax) 500 mg PO DAILY [facility] Last Admin: 03/24/19 08:11 Dose: 500 mg Ceftriaxone Sodium (Rocephin) 1 gm IVPUSH DAILY [facility] Last Admin: 03/24/19 08:11 Dose: 1 gm Docusate Sodium (Colace) 100 mg PO DAILY [facility] Last Admin: 03/24/19 08:11 Dose: 100 mg Enoxaparin Sodium (Lovenox) 40 mg SUBCUT DAILY [facility] Last Admin: 03/24/19 08:10 Dose: 40 mg Famotidine (Pepcid) 20 mg PO BEDTIME [facility] Last Admin: 03/23/19 20:59 Dose: 20 mg Hydroxyurea (Hydrea) 500 mg PO DAILY [facility] Last Admin: 03/24/19 08:11 Dose: 500 mg Sertraline HCl (Zoloft) 150 mg PO DAILY [facility] Last Admin: 03/24/19 08:11 Dose: 150 mg Simvastatin (Zocor) 40 mg PO BEDTIME [facility] Last Admin: 03/23/19 20:59 Dose: 40 mg Sodium Chloride (Saline Flush) 10 ml FLUSH ASDIRECTED PRN PRN Reason: Keep Vein Open Last Admin: 03/23/19 07:43 Dose: 10 ml Trazodone HCl (Trazodone) 50 mg PO BEDTIME [facility] Last Admin: 03/23/19 20:59 Dose: 50 mg Discontinued Medications Ceftriaxone Sodium (Rocephin) 2 gm IVPUSH STAT ONE Stop: 03/16/19 18:35 Last Admin: 03/16/19 18:49 Dose: 2 gm Ceftriaxone Sodium (Rocephin) 1 gm IVPUSH DAILY@1800 [facility] Last Admin: 03/17/19 17:30 Dose: 1 gm Cefuroxime Axetil (Ceftin) 500 mg PO BID [facility] Last Admin: 03/21/19 07:05 Dose: 500 mg Azithromycin 500 mg/ Sodium (Chloride) 250 mls @ 250 mls/hr IV STAT ONE Stop: 03/16/19 19:34 Last Admin: 03/16/19 19:00 Dose: 250 mls/hr Sodium Chloride (Normal Saline) 1,000 mls @ 200 mls/hr IV ASDIRECTED [facility] Stop: 03/17/19 00:31 Last Admin: 03/16/19 19:33 Dose: 200 mls/hr Azithromycin 500 mg/ Sodium (Chloride) 250 mls @ 250 mls/hr IV DAILY@1800 [facility] Last Admin: 03/17/19 17:30 Dose: 250 mls/hr Sodium Chloride (Normal Saline) 1,000 mls @ 75 mls/hr IV ASDIRECTED [facility] Last Admin: 03/18/19 02:48 Dose: 75 mls/hr Iopamidol (Isovue-300 (61%)) 100 ml IVPUSH ONETIME ONE Stop: 03/22/19 07:55 Last Admin: 03/22/19 10:04 Dose: 100 ml Iopamidol (Isovue-300 (61%)) 100 ml IVPUSH ONETIME ONE Stop: 03/22/19 10:02 Last Admin: 03/22/19 12:11 Dose: Not Given Methylprednisolone Sodium Succinate (Solu-Medrol) 125 mg IVPUSH ONETIME ONE Stop: 03/16/19 19:24 Last Admin: 03/16/19 19:33 Dose: 125 mg Methylprednisolone Sodium Succinate (Solu-Medrol) 125 mg IVPUSH Q8H [facility] Last Admin: 03/17/19 04:19 Dose: 125 mg Methylprednisolone Sodium Succinate (Solu-Medrol) 40 mg IVPUSH Q12H [facility] Last Admin: 03/19/19 02:23 Dose: 40 mg Senna/Docusate Sodium (Senna Plus) 2 tab PO ONETIME ONE Stop: 03/20/19 12:18 Last Admin: 03/20/19 13:34 Dose: 2 tab Sertraline HCl (Zoloft) 150 mg PO DAILY [facility] Last Admin: 03/17/19 08:02 Dose: 150 mg
== END 2019-03-24 10:59 | disposition swing bed (61) | DRG 194 ==
LOC: VM.ED 17:29 → VM.MS 18:58 → OBSVTOIN 03-17 14:24
PROVIDERS: ADMIT Internal Medicine; ATTEND Internal Medicine
DX: J18.1 Lobar pneumonia, unspecified organism (principal); J90 Pleural effusion, not elsewhere classified; E87.2 Acidosis; I69.951 Hemiplegia and hemiparesis following unspecified cerebrovascular disease affecting right dominant side; F32.9 Major depressive disorder, single episode, unspecified; E11.9 Type 2 diabetes mellitus without complications; I10 Essential (primary) hypertension; Z96.0 Presence of urogenital implants; W18.30XA Fall on same level, unspecified, initial encounter; E78.00 Pure hypercholesterolemia, unspecified; K21.9 Gastro-esophageal reflux disease without esophagitis; E86.0 Dehydration; Z66 Do not resuscitate; R09.02 Hypoxemia; J40 Bronchitis, not specified as acute or chronic; G47.33 Obstructive sleep apnea (adult) (pediatric); J44.9 Chronic obstructive pulmonary disease, unspecified; D75.1 Secondary polycythemia; E66.9 Obesity, unspecified; M19.079 Primary osteoarthritis, unspecified ankle and foot; E78.5 Hyperlipidemia, unspecified; I69.920 Aphasia following unspecified cerebrovascular disease; Y92.009 Unspecified place in unspecified non-institutional (private) residence as the place of occurrence of the external cause; Z88.0 Allergy status to penicillin; Z88.8 Allergy status to other drugs, medicaments and biological substances; Z79.82 Long term (current) use of aspirin; Z68.30 Body mass index [BMI] 30.0-30.9, adult
CPT/HCPCS: 36415; 51798; 71045; 71275; 80048; 80053; 81001; 82962; 83605; 83735; 83880; 84100; 85025; 85610; 86140; 87040; 87804; 87804-59; 92526-GN; 92610-GN; 93005; 94640; 94760; 96365; 96375; 97110-GP; 97116-GP; 97161-GP; 97165-GO; 97530-GP; 99285-25; A9270-GY; J0456; J0696; J1650; J2920; J2930; J7030; J7050; J7620-GY; Q9967

== ENCOUNTER 2019-03-20 12:08 | Inpatient (IN) | payer MEDICARE, BC ==
[2019-03-24] MEDS ORDERED: Albuterol/Ipratropium 3.0-0.5 MG/3 ML Neb Soln INH PRN (13:58)
--- NOTE | 2019-03-24 14:44 | CR ---
[id number] RAD/RAD Foot Right 2V EXAM: RIGHT FOOT 2 VIEWS INDICATION: PAIN. COMPARISON: None. DISCUSSION: Osteopenia. Moderate plantar calcaneal spur. Arterial calcifications. Mild midfoot and mild to moderate first metatarsophalangeal osteoarthritis. IMPRESSION: 1. Mild osteoarthritis. 2. Moderate plantar calcaneal spur. Sidney Anaya MD 03/24/19 1418 Thank you for allowing us to participate in the care of your patient.
[2019-03-24] MEDS ORDERED: [UNRECOGNIZED DRUG - REMARK] SCH (16:15)
[2019-03-24] MEDS: Famotidine 20 MG Tab PO SCH (19:27)
[2019-03-24] MEDS: Simvastatin 40 MG Tab PO SCH (19:27)
[2019-03-24] MEDS: traZODone 50 MG Tab PO SCH (19:27)
[2019-03-25] MEDS: Aspirin 325 MG Tab.EC PO SCH (08:00)
[2019-03-25] MEDS: amLODIPine 10 MG Tab PO SCH (08:00)
[2019-03-25] MEDS: Docusate Sodium 100 MG Cap PO SCH (08:00)
[2019-03-25] MEDS: Enoxaparin 40 MG/0.4 ML Syringe SUBCUT SCH (08:00)
[2019-03-25] MEDS: Sertraline 50 MG Tab PO SCH (08:00)
--- NOTE | 2019-03-25 11:04 | PCM.PN ---
- General Info Date of Service: 03/25/19 Admission Dx/Problem (Free Text): History: He continues on oxygen at night for hypoxia, is getting scheduled for a Sleep Study to see if he needs CPAP. He had a bedside swallowing evaluation which was OK. Since yesterday he has C/O severe pain in his R heel. X-ray showed only osteopenia and a chronic calcaneal spur. Exam: -No respiratory distress -Alert and partially aphasic as before -No tenderness to palpation over the Achilles tendon or insertion -No tenderness in the plantar fascial attachment to the anterior calcaneus -Exquisite tenderness to palpation centrally under the heel at the central calcaneal bursa Impression: -Central calcaneal bursitis -Hypoxia and mild pleural effusion R Plan: -Getting set up for Sleep Study -PT will fashion a modifier inside his AFO to take pressure off of the central calcaneal bursa - Patient Data Vitals - Most Recent: Last Vital Signs Temp 36.4 C 03/25/19 06:00 Pulse 65 03/25/19 06:00 Resp 20 03/25/19 06:00 BP 108/65 03/25/19 08:00 Pulse Ox 95 03/25/19 06:00 Weight - Most Recent: 95.254 kg I&O - Last 24 Hours: Intake & Output 03/24/19 03/25/19 03/25/19 22:59 06:59 14:59 Intake Total 240 200 420 Output Total 800 850 Balance -560 -650 420 Med Orders - Current: Current Medications Albuterol/Ipratropium (Duoneb 3.0-0.5 Mg/3 Ml) 3 ml INH Q4HR PRN PRN Reason: Shortness of Breath Amlodipine Besylate (Norvasc) 10 mg PO DAILY [facility] Last Admin: 03/25/19 08:00 Dose: 10 mg Aspirin (Ecotrin) 325 mg PO DAILY [facility] Last Admin: 03/25/19 08:00 Dose: 325 mg Docusate Sodium (Colace) 100 mg PO DAILY [facility] Last Admin: 03/25/19 08:00 Dose: 100 mg Enoxaparin Sodium (Lovenox) 40 mg SUBCUT DAILY [facility] Last Admin: 03/25/19 08:00 Dose: 40 mg Famotidine (Pepcid) 20 mg PO BEDTIME [facility] Last Admin: 03/24/19 19:27 Dose: 20 mg Pharmacy Consult (Consult To Pharmacy) 1 each .XX ASDIRECTED [facility] Sertraline HCl (Zoloft) 150 mg PO DAILY [facility] Last Admin: 03/25/19 08:00 Dose: 150 mg Simvastatin (Zocor) 40 mg PO BEDTIME [facility] Last Admin: 03/24/19 19:27 Dose: 40 mg Trazodone HCl (Trazodone) 50 mg PO BEDTIME [facility] Last Admin: 03/24/19 19:27 Dose: 50 mg - Problem List Review Problem List Initiated/Reviewed/Updated: Yes - My Orders Last 24 Hours: My Active Orders 03/24/19 10:59 Admission Status [Patient Status] [ADT] Routine 03/24/19 13:55 Swallowing Function w Video [CR] Routine 03/24/19 13:56 Patient Status [ADT] Routine Oxygen Therapy [RC] .PRN VTE/DVT Education [RC] .PRN Vital Signs [RC] 06,18 Resuscitation Status Routine 03/24/19 13:58 Albuterol/Ipratropium [DuoNeb 3.0-0.5 MG/3 ML] 3 ml INH Q4HR PRN 03/24/19 15:45 Accu Check [Blood Glucose Check, Bedside] [RC] TuFr@07 03/24/19 16:15 Pharmacy Consult [Consult to Pharmacy] 1 each .XX ASDIRECTED 03/24/19 17:55 Bladder Scan [RC] .PRN 03/24/19 17:59 Consult to Case Management/Senior Technical Architect [CONS] Routine PT Evaluation and Treatment [CONS] Routine 03/24/19 20:00 Famotidine [Pepcid] 20 mg PO BEDTIME Simvastatin [Zocor] 40 mg PO BEDTIME traZODone 50 mg PO BEDTIME 03/25/19 08:00 Aspirin [Ecotrin] 325 mg PO DAILY Docusate Sodium [Colace] 100 mg PO DAILY Enoxaparin [Lovenox] 40 mg SUBCUT DAILY Sertraline [Zoloft] 150 mg PO DAILY amLODIPine [Norvasc] 10 mg PO DAILY 03/25/19 10:33 Consult to Orthotics [CONS] Routine 03/29/19 07:00 CBC W/O DIFF,HEMOGRAM [HEME] Routine
[2019-03-25] MEDS: traZODone 50 MG Tab PO SCH (19:54)
[2019-03-25] MEDS: Famotidine 20 MG Tab PO SCH (19:54)
[2019-03-25] MEDS: Simvastatin 40 MG Tab PO SCH (19:54)
[2019-03-26] MEDS: Aspirin 325 MG Tab.EC PO SCH (07:55)
[2019-03-26] MEDS: Sertraline 50 MG Tab PO SCH (07:55)
[2019-03-26] MEDS: amLODIPine 10 MG Tab PO SCH (07:55)
[2019-03-26] MEDS: Docusate Sodium 100 MG Cap PO SCH (07:55)
[2019-03-26] MEDS: Enoxaparin 40 MG/0.4 ML Syringe SUBCUT SCH (07:55)
[2019-03-26] MEDS: Polyethylene Glycol 3350 Powder 238 GM Bot PO SCH (18:27)
[2019-03-26] MEDS: Magnesium Hydroxide 400 MG/5 ML Susp 30 ML Cup PO PRN (18:28)
[2019-03-26] MEDS: Simvastatin 40 MG Tab PO SCH (19:35)
[2019-03-26] MEDS: Famotidine 20 MG Tab PO SCH (19:35)
[2019-03-26] MEDS: traZODone 50 MG Tab PO SCH (19:36)
[2019-03-27] MEDS: Polyethylene Glycol 3350 Powder 238 GM Bot PO SCH (08:00)
[2019-03-27] MEDS: Magnesium Hydroxide 400 MG/5 ML Susp 30 ML Cup PO PRN (08:27)
[2019-03-27] MEDS: Docusate Sodium 100 MG Cap PO SCH (08:27)
[2019-03-27] MEDS: Sertraline 50 MG Tab PO SCH (08:27)
[2019-03-27] MEDS: Enoxaparin 40 MG/0.4 ML Syringe SUBCUT SCH (08:27)
[2019-03-27] MEDS: amLODIPine 10 MG Tab PO SCH (08:27)
[2019-03-27] MEDS: Aspirin 325 MG Tab.EC PO SCH (08:27)
[2019-03-27] MEDS: traZODone 50 MG Tab PO SCH (19:55)
[2019-03-27] MEDS: Famotidine 20 MG Tab PO SCH (19:55)
[2019-03-27] MEDS: Simvastatin 40 MG Tab PO SCH (19:55)
[2019-03-28] MEDS: Sertraline 50 MG Tab PO SCH (07:48)
[2019-03-28] MEDS: Docusate Sodium 100 MG Cap PO SCH (07:48)
[2019-03-28] MEDS: Enoxaparin 40 MG/0.4 ML Syringe SUBCUT SCH (07:49)
[2019-03-28] MEDS: Aspirin 325 MG Tab.EC PO SCH (07:50)
[2019-03-28] MEDS: amLODIPine 10 MG Tab PO SCH (07:51)
[2019-03-28] MEDS: Polyethylene Glycol 3350 Powder 238 GM Bot PO SCH (07:56)
[2019-03-28] MEDS: Famotidine 20 MG Tab PO SCH (19:23)
[2019-03-28] MEDS: Simvastatin 40 MG Tab PO SCH (19:24)
[2019-03-28] MEDS: traZODone 50 MG Tab PO SCH (19:24)
[2019-03-29] MEDS: Docusate Sodium 100 MG Cap PO SCH (08:13)
[2019-03-29] MEDS: Sertraline 50 MG Tab PO SCH (08:13)
[2019-03-29] MEDS: amLODIPine 10 MG Tab PO SCH (08:13)
[2019-03-29] MEDS: Enoxaparin 40 MG/0.4 ML Syringe SUBCUT SCH (08:13)
[2019-03-29] MEDS: Aspirin 325 MG Tab.EC PO SCH (08:13)
[2019-03-29] MEDS: Polyethylene Glycol 3350 Powder 238 GM Bot PO SCH (08:18)
[2019-03-29] MEDS ORDERED: Barium Sulfate 98% Powder for Susp 340 GM Bottle ONE (09:30)
[2019-03-29] MEDS ORDERED: Barium Sulfate 60% w/w Esophageal Crm 454 GM Tube PO ONE (09:30)
[2019-03-29] MEDS: Polyethylene Glycol 3350 Powder 17 GM Packet PO SCH (09:47)
--- NOTE | 2019-03-29 13:30 | CR ---
[id number] RAD/RAD Video Swallow Study EXAM: VIDEO SWALLOWING STUDY INDICATION: Difficulty swallowing. COMPARISON: None. DISCUSSION: Multiple consistencies of barium were administered orally under fluoroscopic observation. This was performed in conjunction with speech pathology, refer to their report for full details. The oral phase was unremarkable. Discoordination was noted with respiration and swallowing with no aspiration or penetration seen. IMPRESSION: 1. No evidence of penetration or aspiration. Sidney Anaya MD 03/29/19 [id number] Thank you for allowing us to participate in the care of your patient.
[2019-03-29] MEDS: Famotidine 20 MG Tab PO SCH (20:15)
[2019-03-29] MEDS: Simvastatin 40 MG Tab PO SCH (20:15)
[2019-03-29] MEDS: traZODone 50 MG Tab PO SCH (20:15)
[2019-03-30] MEDS: Sertraline 50 MG Tab PO SCH (07:35)
[2019-03-30] MEDS: Docusate Sodium 100 MG Cap PO SCH (07:35)
[2019-03-30] MEDS: Polyethylene Glycol 3350 Powder 17 GM Packet PO SCH (07:36)
[2019-03-30] MEDS: Aspirin 325 MG Tab.EC PO SCH (07:36)
[2019-03-30] MEDS: Enoxaparin 40 MG/0.4 ML Syringe SUBCUT SCH (07:36)
[2019-03-30] MEDS: amLODIPine 10 MG Tab PO SCH (07:36)
[2019-03-30] MEDS: Famotidine 20 MG Tab PO SCH (21:04)
[2019-03-30] MEDS: Simvastatin 40 MG Tab PO SCH (21:04)
[2019-03-30] MEDS: traZODone 50 MG Tab PO SCH (21:04)
--- NOTE | 2019-03-30 21:31 | PCM.PN ---
- General Info Date of Service: 03/30/19 Admission Dx/Problem (Free Text): History: His oxygenation during the night has been OK on 1 L/min, seems to be breathing better, not coughing but his ambulation is still poor and he still seems at high risk for falling. PT is very apprehensive about him going home yet, his was probably having some difficulty with him anyway. He can remain on Swing Bed and continue PT. Says he still has tenderness underneath his R heel, and this is apparently still bothering him when he walks. PT is building a modification of his AFO to get some of the weight off the central portion of his heel at the calcaneal bursa. He had a video swallow, done at the recommendation of Speech Rx after the bedside evaluation, but he did well on that, no sign of aspiration. He is getting a Sleep Study done to try to explain his pleural effusions. 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 - Patient Data Vitals - Most Recent: Last Vital Signs Temp 36.4 C 03/30/19 05:50 Pulse 61 03/30/19 05:50 Resp 18 03/30/19 05:50 BP 134/65 03/30/19 07:36 Pulse Ox 98 03/30/19 05:50 Weight - Most Recent: 95.254 kg I&O - Last 24 Hours: Intake & Output 03/30/19 03/30/19 03/30/19 06:59 14:59 22:59 Intake Total 720 240 Balance 720 240 Lab Results Last 24 Hours: Laboratory Results - last 24 hr 03/30/19 Range/Units 06:20 POC Glucose 91 (74-106) mg/dL Med Orders - Current: Current Medications Albuterol/Ipratropium (Duoneb 3.0-0.5 Mg/3 Ml) 3 ml INH Q4HR PRN PRN Reason: Shortness of Breath Amlodipine Besylate (Norvasc) 10 mg PO DAILY [facility] Last Admin: 03/30/19 07:36 Dose: 10 mg Aspirin (Ecotrin) 325 mg PO DAILY [facility] Last Admin: 03/30/19 07:36 Dose: 325 mg Docusate Sodium (Colace) 100 mg PO DAILY [facility] Last Admin: 03/30/19 07:35 Dose: 100 mg Enoxaparin Sodium (Lovenox) 40 mg SUBCUT DAILY [facility] Last Admin: 03/30/19 07:36 Dose: 40 mg Famotidine (Pepcid) 20 mg PO BEDTIME [facility] Last Admin: 03/30/19 21:04 Dose: 20 mg Magnesium Hydroxide (Milk Of Magnesia) 30 ml PO BID PRN PRN Reason: Constipation Last Admin: 03/27/19 08:27 Dose: 30 ml Pharmacy Consult (Consult To Pharmacy) 1 each .XX ASDIRECTED [facility] Polyethylene Glycol (Miralax) 17 gm PO DAILY [facility] Last Admin: 03/30/19 07:36 Dose: 17 gm Sertraline HCl (Zoloft) 150 mg PO DAILY [facility] Last Admin: 03/30/19 07:35 Dose: 150 mg Simvastatin (Zocor) 40 mg PO BEDTIME [facility] Last Admin: 03/30/19 21:04 Dose: 40 mg Trazodone HCl (Trazodone) 50 mg PO BEDTIME [facility] Last Admin: 03/30/19 21:04 Dose: 50 mg Discontinued Medications Barium Sulfate (E-Z-Hd) 340 gm .ROUTE .STK-MED ONE Stop: 03/29/19 09:31 Barium Sulfate (E-Z-Paste) 454 gm PO .STK-MED ONE Stop: 03/29/19 09:31 Polyethylene Glycol (Miralax) 17 gm PO DAILY [facility] Last Admin: 03/29/19 08:18 Dose: 1 dose - Problem List Review Problem List Initiated/Reviewed/Updated: Yes
[2019-03-31] MEDS: Aspirin 325 MG Tab.EC PO SCH (08:14)
[2019-03-31] MEDS: amLODIPine 10 MG Tab PO SCH (08:14)
[2019-03-31] MEDS: Enoxaparin 40 MG/0.4 ML Syringe SUBCUT SCH (08:14)
[2019-03-31] MEDS: Docusate Sodium 100 MG Cap PO SCH (08:14)
[2019-03-31] MEDS: Sertraline 50 MG Tab PO SCH (08:14)
[2019-03-31] MEDS: Polyethylene Glycol 3350 Powder 17 GM Packet PO SCH (08:14)
--- NOTE | 2019-03-31 15:25 | CR ---
[id number] RAD/RAD Knee Right 3V Exam: RAD Knee Right 3V Indication:KNEE PAIN Comparison: No prior imaging for comparison. Discussion: Tricompartmental osteoarthritis with medial compartment joint space narrowing. Trace joint effusion. Quadriceps enthesopathy at its patellar attachment. Diffuse bone demineralization. Impression: As above. Charlie Lindo MD 03/31/19 1525 Thank you for allowing us to participate in the care of your patient.
[2019-03-31] MEDS: Simvastatin 40 MG Tab PO SCH (20:53)
[2019-03-31] MEDS: Famotidine 20 MG Tab PO SCH (20:53)
[2019-03-31] MEDS: traZODone 50 MG Tab PO SCH (20:53)
[2019-04-01] MEDS: Sertraline 50 MG Tab PO SCH (09:04)
[2019-04-01] MEDS: Enoxaparin 40 MG/0.4 ML Syringe SUBCUT SCH (09:04)
[2019-04-01] MEDS: Polyethylene Glycol 3350 Powder 17 GM Packet PO SCH (09:04)
[2019-04-01] MEDS: Magnesium Hydroxide 400 MG/5 ML Susp 30 ML Cup PO PRN (09:04)
[2019-04-01] MEDS: Aspirin 325 MG Tab.EC PO SCH (09:04)
[2019-04-01] MEDS: Docusate Sodium 100 MG Cap PO SCH (09:05)
[2019-04-01] MEDS: amLODIPine 10 MG Tab PO SCH (09:05)
[2019-04-01] MEDS: Simvastatin 40 MG Tab PO SCH (19:15)
[2019-04-01] MEDS: traZODone 50 MG Tab PO SCH (19:15)
[2019-04-01] MEDS: Famotidine 20 MG Tab PO SCH (19:15)
[2019-04-02] MEDS: amLODIPine 10 MG Tab PO SCH (07:36)
[2019-04-02] MEDS: Enoxaparin 40 MG/0.4 ML Syringe SUBCUT SCH (07:36)
[2019-04-02] MEDS: Polyethylene Glycol 3350 Powder 17 GM Packet PO SCH (07:36)
[2019-04-02] MEDS: Sertraline 50 MG Tab PO SCH (07:37)
[2019-04-02] MEDS: Docusate Sodium 100 MG Cap PO SCH (07:37)
[2019-04-02] MEDS: Aspirin 325 MG Tab.EC PO SCH (07:37)
[2019-04-02] MEDS: traZODone 50 MG Tab PO SCH (21:27)
[2019-04-02] MEDS: Famotidine 20 MG Tab PO SCH (21:27)
[2019-04-02] MEDS: Simvastatin 40 MG Tab PO SCH (21:27)
[2019-04-03] MEDS: Polyethylene Glycol 3350 Powder 17 GM Packet PO SCH (08:12)
[2019-04-03] MEDS: Enoxaparin 40 MG/0.4 ML Syringe SUBCUT SCH (08:12)
[2019-04-03] MEDS: Sertraline 50 MG Tab PO SCH (08:13)
[2019-04-03] MEDS: Aspirin 325 MG Tab.EC PO SCH (08:13)
[2019-04-03] MEDS: amLODIPine 10 MG Tab PO SCH (08:13)
[2019-04-03] MEDS: Docusate Sodium 100 MG Cap PO SCH (08:13)
[2019-04-03] MEDS: traZODone 50 MG Tab PO SCH (20:58)
[2019-04-03] MEDS: Famotidine 20 MG Tab PO SCH (20:58)
[2019-04-03] MEDS: Simvastatin 40 MG Tab PO SCH (20:58)
[2019-04-04] MEDS: amLODIPine 10 MG Tab PO SCH (07:59)
[2019-04-04] MEDS: Aspirin 325 MG Tab.EC PO SCH (07:59)
[2019-04-04] MEDS: Polyethylene Glycol 3350 Powder 17 GM Packet PO SCH (07:59)
[2019-04-04] MEDS: Docusate Sodium 100 MG Cap PO SCH (07:59)
[2019-04-04] MEDS: Enoxaparin 40 MG/0.4 ML Syringe SUBCUT SCH (07:59)
[2019-04-04] MEDS: Sertraline 50 MG Tab PO SCH (07:59)
[2019-04-04] MEDS: traZODone 50 MG Tab PO SCH (20:14)
[2019-04-04] MEDS: Famotidine 20 MG Tab PO SCH (20:14)
[2019-04-04] MEDS: Simvastatin 40 MG Tab PO SCH (20:15)
--- NOTE | 2019-04-05 08:26 | PCM.PN ---
- General Info Date of Service: 04/05/19 Admission Dx/Problem (Free Text): History: Per a concern about knee pain from PT, he had x-ray of the knee last week, as expected shows demineralization, not surprising in view of his poor ambulation and hemiparesis on that side. Has mild degenerative changes and narrowing of the medial joint space also. PT notes say he is improving some. Exam: -He is sitting in chair today, answers with one word answers as before -No respiratory distress, breathing room air Impression: -CVA with R hemiparesis -Hx nocturnal hypoxia, Sleep Study is still pending; he can come back for this if he is able to go home before that Plan: -Discussed with PT regarding timing of D/C - Patient Data Vitals - Most Recent: Last Vital Signs Temp 36.5 C 04/05/19 06:00 Pulse 62 04/05/19 06:00 Resp 16 04/04/19 06:00 BP 102/53 L 04/05/19 06:00 Pulse Ox 97 04/05/19 06:00 Weight - Most Recent: 95.254 kg I&O - Last 24 Hours: Intake & Output 04/04/19 04/05/19 04/05/19 22:59 06:59 14:59 Intake Total 240 Balance 240 Med Orders - Current: Current Medications Albuterol/Ipratropium (Duoneb 3.0-0.5 Mg/3 Ml) 3 ml INH Q4HR PRN PRN Reason: Shortness of Breath Amlodipine Besylate (Norvasc) 10 mg PO DAILY [facility] Last Admin: 04/04/19 07:59 Dose: 10 mg Aspirin (Ecotrin) 325 mg PO DAILY [facility] Last Admin: 04/04/19 07:59 Dose: 325 mg Docusate Sodium (Colace) 100 mg PO DAILY [facility] Last Admin: 04/04/19 07:59 Dose: 100 mg Enoxaparin Sodium (Lovenox) 40 mg SUBCUT DAILY [facility] Last Admin: 04/04/19 07:59 Dose: 40 mg Famotidine (Pepcid) 20 mg PO BEDTIME [facility] Last Admin: 04/04/19 20:14 Dose: 20 mg Magnesium Hydroxide (Milk Of Magnesia) 30 ml PO BID PRN PRN Reason: Constipation Last Admin: 04/01/19 09:04 Dose: 30 ml Pharmacy Consult (Consult To Pharmacy) 1 each .XX ASDIRECTED [facility] Polyethylene Glycol (Miralax) 17 gm PO DAILY [facility] Last Admin: 04/04/19 07:59 Dose: 17 gm Sertraline HCl (Zoloft) 150 mg PO DAILY [facility] Last Admin: 04/04/19 07:59 Dose: 150 mg Simvastatin (Zocor) 40 mg PO BEDTIME [facility] Last Admin: 04/04/19 20:15 Dose: 40 mg Trazodone HCl (Trazodone) 50 mg PO BEDTIME [facility] Last Admin: 04/04/19 20:14 Dose: 50 mg Discontinued Medications Barium Sulfate (E-Z-Hd) 340 gm .ROUTE .STK-MED ONE Stop: 03/29/19 09:31 Barium Sulfate (E-Z-Paste) 454 gm PO .STK-MED ONE Stop: 03/29/19 09:31 Polyethylene Glycol (Miralax) 17 gm PO DAILY [facility] Last Admin: 03/29/19 08:18 Dose: 1 dose - Problem List Review Problem List Initiated/Reviewed/Updated: Yes
[2019-04-05] MEDS: Docusate Sodium 100 MG Cap PO SCH (09:10)
[2019-04-05] MEDS: Polyethylene Glycol 3350 Powder 17 GM Packet PO SCH (09:10)
[2019-04-05] MEDS: Enoxaparin 40 MG/0.4 ML Syringe SUBCUT SCH (09:10)
[2019-04-05] MEDS: Aspirin 325 MG Tab.EC PO SCH (09:10)
[2019-04-05] MEDS: Sertraline 50 MG Tab PO SCH (09:10)
[2019-04-05] MEDS: amLODIPine 10 MG Tab PO SCH (09:11)
[2019-04-05] MEDS: Famotidine 20 MG Tab PO SCH (20:07)
[2019-04-05] MEDS: Simvastatin 40 MG Tab PO SCH (20:07)
[2019-04-05] MEDS: traZODone 50 MG Tab PO SCH (20:08)
[2019-04-06] MEDS: Aspirin 325 MG Tab.EC PO SCH (08:23)
[2019-04-06] MEDS: Polyethylene Glycol 3350 Powder 17 GM Packet PO SCH (08:24)
[2019-04-06] MEDS: Docusate Sodium 100 MG Cap PO SCH (08:24)
[2019-04-06] MEDS: amLODIPine 10 MG Tab PO SCH (08:24)
[2019-04-06] MEDS: Enoxaparin 40 MG/0.4 ML Syringe SUBCUT SCH (08:24)
[2019-04-06] MEDS: Sertraline 50 MG Tab PO SCH (08:24)
[2019-04-06] MEDS: Famotidine 20 MG Tab PO SCH (19:31)
[2019-04-06] MEDS: traZODone 50 MG Tab PO SCH (19:31)
[2019-04-06] MEDS: Simvastatin 40 MG Tab PO SCH (19:31)
[2019-04-07] MEDS: Docusate Sodium 100 MG Cap PO SCH (08:07)
[2019-04-07] MEDS: Sertraline 50 MG Tab PO SCH (08:07)
[2019-04-07] MEDS: Enoxaparin 40 MG/0.4 ML Syringe SUBCUT SCH (08:07)
[2019-04-07] MEDS: Aspirin 325 MG Tab.EC PO SCH (08:07)
[2019-04-07] MEDS: amLODIPine 10 MG Tab PO SCH (08:08)
[2019-04-07] MEDS: Polyethylene Glycol 3350 Powder 17 GM Packet PO SCH (08:08)
[2019-04-07] MEDS: Simvastatin 40 MG Tab PO SCH (20:00)
[2019-04-07] MEDS: traZODone 50 MG Tab PO SCH (20:00)
[2019-04-07] MEDS: Famotidine 20 MG Tab PO SCH (20:00)
[2019-04-08] MEDS: Sertraline 50 MG Tab PO SCH (07:57)
[2019-04-08] MEDS: Polyethylene Glycol 3350 Powder 17 GM Packet PO SCH (07:57)
[2019-04-08] MEDS: Docusate Sodium 100 MG Cap PO SCH (07:58)
[2019-04-08] MEDS: Enoxaparin 40 MG/0.4 ML Syringe SUBCUT SCH (07:58)
[2019-04-08] MEDS: amLODIPine 10 MG Tab PO SCH (07:58)
[2019-04-08] MEDS: Aspirin 325 MG Tab.EC PO SCH (07:58)
[2019-04-08] MEDS: Famotidine 20 MG Tab PO SCH (19:49)
[2019-04-08] MEDS: traZODone 50 MG Tab PO SCH (19:49)
[2019-04-08] MEDS: Simvastatin 40 MG Tab PO SCH (19:49)
[2019-04-09] MEDS: amLODIPine 10 MG Tab PO SCH (08:32)
[2019-04-09] MEDS: Aspirin 325 MG Tab.EC PO SCH (08:33)
[2019-04-09] MEDS: Sertraline 50 MG Tab PO SCH (08:33)
[2019-04-09] MEDS: Polyethylene Glycol 3350 Powder 17 GM Packet PO SCH (08:33)
[2019-04-09] MEDS: Docusate Sodium 100 MG Cap PO SCH (08:33)
[2019-04-09] MEDS: Enoxaparin 40 MG/0.4 ML Syringe SUBCUT SCH (08:33)
--- NOTE | 2019-04-09 10:25 | PCM.DCSUM1 ---
Discharge Summary - Hospital Course Free Text/Narrative:: Discharge Diagnoses: -Nocturnal hypoxemia, improved -Pleuritis R long -Possible mild COPD, has remote Hx of smoking -CVA with R hemiparesis, remote Hx -Primary polycythemia Secondary Diagnoses: -Obesity -Hypertension controlled -Hyperlipidemia -Diabetes type 2, dietcontrolled -Depression, inactive -Positive stool occult blood screening, refuses colonoscopy -Hx angioedema -DJD, especially ankle and foot -Central calcaneal bursitis of R heel Reason for Admission: After acute care from 03/17 until 03/24, which included Rx for R lower lobe pneumonia, CT for R pleuritis, mainly pleural thickening and pleural effusion, minimal infiltrate, swallowing eval, overnight oximetry which showed nocturnal hypoxemia, he was T/F to Swing Bed for further recuperation. Treatment and Course in Hospital: He used p.r.n. DuoNeb for the first few days and not in the last week of his stay. He was weaned off of oxygen in the last week, oximetry was good even at night. He had considerable difficulty walking with help and PT worked with him vigorously and got him walking better with one person assisting. Because of his nocturnal hypoxia and his R pleuritis, he was scheduled for Sleep Study which will be done 04/14/19. He C/O pain in his R heel, was found to be exquisitely tender to palpation under the Central calcaneal bursa, so he got some extra padding in his AFO to take a little weight off of the Central calcaneal bursa. Because his polycythemia seemed inactive, HCT 38.5 on 03/29/19, his Hydrea was held through the entire hospitalization both in acute care and Swing Bed. CBC on day of D/C is pending. Condition on Discharge: -No respiratory distress, oximetry good, lung sounds mildly course at R base -Heart sounds regular with frequent prematures, actually in trigeminal rhythm today -No ankle edema -R hemiparesis and partial aphasia as before Discharge Plan: -Keep appointment for Sleep Study -He will be going home with his , who has cared for him at home for many years -Continue to hold Hydrea until CBC shows increasing HCT again -Otherwise his meds are essentially as they were prior to his hospitalization Diagnosis: Stroke: No Modified Rogers Scale: Slight Disable;Unable to Carry Out Prev Act.Able to Look After Affairs Modified Rogers Scale Score: 2 - Discharge Data Discharge Date: 04/09/19 Discharge Disposition: Home, Self-Care 01 Condition: Good - Patient Summary/Data Consults: Consultations 03/24/19 17:59 Consult to Case Management/Degreaser Operator [CONS] Routine PT Evaluation and Treatment [CONS] Routine 03/25/19 10:33 Consult to Orthotics [CONS] Routine - Discharge Plan *PRESCRIPTION DRUG MONITORING PROGRAM REVIEWED*: Not Applicable *COPY OF PRESCRIPTION DRUG MONITORING REPORT IN PATIENT ARTURO: Not Applicable Home Medications: Home Meds Famotidine 20 mg PO BEDTIME 04/22/18 [History] Sertraline [Zoloft] 150 mg PO DAILY 04/22/18 [History] Simvastatin [Zocor] 40 mg PO BEDTIME 04/22/18 [History] amLODIPine Besylate [Amlodipine Besylate] 10 mg PO DAILY 04/22/18 [History] traZODone HCl [Trazodone HCl] 50 mg PO BEDTIME 04/22/18 [History] Aspirin 325 mg PO DAILY 03/16/19 [History] Docusate Sodium [Dulcolax Stool Softener] 100 mg PO DAILY 03/16/19 [History] Polyethylene Glycol 3350 [MiraLAX] 17 gm PO DAILY packet 04/09/19 [Rx] - Discharge Summary/Plan Comment DC Time >30 min.: No - Patient Data Vitals - Most Recent: Last Vital Signs Temp 36.3 C 04/09/19 06:00 Pulse 99 04/09/19 06:00 Resp 16 04/09/19 06:00 BP 108/66 04/09/19 08:32 Pulse Ox 96 04/09/19 06:00 Weight - Most Recent: 95.254 kg I&O - Last 24 hours: Intake & Output 04/08/19 04/09/19 04/09/19 22:59 06:59 14:59 Intake Total 240 240 Output Total 300 Balance 240 -300 240 Med Orders - Current: Current Medications Albuterol/Ipratropium (Duoneb 3.0-0.5 Mg/3 Ml) 3 ml INH Q4HR PRN PRN Reason: Shortness of Breath Amlodipine Besylate (Norvasc) 10 mg PO DAILY [facility] Last Admin: 04/09/19 08:32 Dose: 10 mg Aspirin (Ecotrin) 325 mg PO DAILY [facility] Last Admin: 04/09/19 08:33 Dose: 325 mg Docusate Sodium (Colace) 100 mg PO DAILY [facility] Last Admin: 04/09/19 08:33 Dose: 100 mg Enoxaparin Sodium (Lovenox) 40 mg SUBCUT DAILY [facility] Last Admin: 04/09/19 08:33 Dose: 40 mg Famotidine (Pepcid) 20 mg PO BEDTIME [facility] Last Admin: 04/08/19 19:49 Dose: 20 mg Magnesium Hydroxide (Milk Of Magnesia) 30 ml PO BID PRN PRN Reason: Constipation Last Admin: 04/01/19 09:04 Dose: 30 ml Pharmacy Consult (Consult To Pharmacy) 1 each .XX ASDIRECTED [facility] Polyethylene Glycol (Miralax) 17 gm PO DAILY [facility] Last Admin: 04/09/19 08:33 Dose: 17 gm Sertraline HCl (Zoloft) 150 mg PO DAILY [facility] Last Admin: 04/09/19 08:33 Dose: 150 mg Simvastatin (Zocor) 40 mg PO BEDTIME [facility] Last Admin: 04/08/19 19:49 Dose: 40 mg Trazodone HCl (Trazodone) 50 mg PO BEDTIME [facility] Last Admin: 04/08/19 19:49 Dose: 50 mg Discontinued Medications Barium Sulfate (E-Z-Hd) 340 gm .ROUTE .STK-MED ONE Stop: 03/29/19 09:31 Barium Sulfate (E-Z-Paste) 454 gm PO .STK-MED ONE Stop: 03/29/19 09:31 Polyethylene Glycol (Miralax) 17 gm PO DAILY [facility] Last Admin: 03/29/19 08:18 Dose: 1 dose
== END 2019-04-09 12:30 | disposition home or self-care (01) | DRG 155 ==
LOC: VM.MS 03-24 10:59
PROVIDERS: ADMIT Family Medicine; ATTEND Family Medicine
DX: G47.33 Obstructive sleep apnea (adult) (pediatric) (principal); I69.351 Hemiplegia and hemiparesis following cerebral infarction affecting right dominant side; J90 Pleural effusion, not elsewhere classified; J44.9 Chronic obstructive pulmonary disease, unspecified; E66.9 Obesity, unspecified; D75.1 Secondary polycythemia; I10 Essential (primary) hypertension; E78.5 Hyperlipidemia, unspecified; E11.9 Type 2 diabetes mellitus without complications; F32.9 Major depressive disorder, single episode, unspecified; M19.90 Unspecified osteoarthritis, unspecified site; I69.320 Aphasia following cerebral infarction; M77.30 Calcaneal spur, unspecified foot; M77.50 Other enthesopathy of unspecified foot and ankle; Z87.891 Personal history of nicotine dependence; Z79.82 Long term (current) use of aspirin
CPT/HCPCS: 36415; 73562-RT; 73620-RT; 74230; 82962; 85025; 85027; 92526-GN; 92611-GN; 94760; 97110-GP; 97116-GP; 97530-GP; A9270-GY; J1650

== ENCOUNTER 2020-08-09 19:39 | Emergency (ER) | payer MEDICARE, BC ==
[2020-08-09 20:21] LABS: CHLORIDE,CL 105 mmol/L (98-107); SODIUM,NA 144 mmol/L (136-145)
[2020-08-09 20:22] LABS: ANION GAP 15.3 mmol/L (10-20)
--- NOTE | 2020-08-09 21:06 | CR ---
[id number] RAD/RAD Pelvis 1V W 2V Right Hip EXAM: RAD Pelvis 1V W 2V Right Hip INDICATION: RIGHT HIP PAIN COMPARISON: March 16, 2019. FINDINGS: Soft tissue attenuation and portable technique limit this exam. An acute intertrochanteric right hip fracture is suggested. Moderate osteoarthritis of both hips. No dislocation or other osseous abnormality. IMPRESSION: 1. Acute intertrochanteric right hip fracture without apparent displacement. Sidney Anaya MD 08/09/20 [id number] Thank you for allowing us to participate in the care of your patient.
--- NOTE | 2020-08-09 21:07 | CR ---
[id number] RAD/RAD Shoulder Right 2V Min EXAM: RAD Shoulder Right 2V Min INDICATION: Pain. COMPARISON: None. DISCUSSION: Acute impacted, angled related and displaced proximal humerus fracture at the surgical neck. Moderate acromioclavicular and mild to moderate glenohumeral osteoarthritis. Sequela of possible underlying cuff tear. IMPRESSION: 1. Acute impacted and displaced surgical neck fracture of the proximal humerus. Sidney Anaya MD 08/09/20 [id number] Thank you for allowing us to participate in the care of your patient.
--- NOTE | 2020-08-09 21:43 | EDM.PDOC ---
ED HPI GENERAL MEDICAL PROBLEM - General Chief Complaint: General Stated Complaint: FALL Time Seen by Provider: 08/09/20 19:40 Source of Information: Reports: EMS, Family, RN Notes Reviewed History Limitations: Reports: Altered Mental Status (patient had a stroke 8 yrs ago limited information from the patient. Most from the and daughter. ) - History of Present Illness INITIAL COMMENTS - FREE TEXT/NARRATIVE: Patient comes emergency department today from his home with concerns of a fall and an injury. This patient had a CVA about 8 years ago where he sustained quite substantial deficits to his right arm and his right leg although he is able to ambulate with orthotic assistive devices to his right lower extremity. Just prior to summoning the ambulance and coming to the emergency department today this patient was walking to the bathroom when his foot got caught on a piece of furniture he tripped and fell landing on his right side. He did not hit his head. There was no loss of consciousness. He was unable to stand up due to some muscle spasms in his right thigh. And he also complains of pain to his right arm. Upon arrival the patient is alert he gives little information and does not speak much although this is normal according to his family. He denies any head neck or back pain. He denies any visual acuity changes. His fall sounds very mechanical he denies any weakness dizziness lightheadedness palpitations or syncope prior to the fall. He currently denies any chest pain shortness of breath or difficulty breathing. No fever no chills. He does complain of pain to his right shoulder and a muscle spasm to his right thigh and pain to his right proximal femur. He is unable to straighten his leg as it is constantly in spasm. He denies any head neck or back pain. He denies any pelvic pain. He denies any paresthesias of his lower extremities. NO FEVER no Chills. No COVID exposure no COVID symptoms. - Related Data Allergies Allergy/AdvReac Type Severity Reaction Status Date / Time Penicillins Allergy Other Verified 08/09/20 19:47 Home Meds: Home Meds Sertraline [Zoloft] 150 mg PO DAILY 04/22/18 [History] Simvastatin [Zocor] 40 mg PO BEDTIME 04/22/18 [History] amLODIPine Besylate [Amlodipine Besylate] 10 mg PO DAILY 04/22/18 [History] traZODone HCl [Trazodone HCl] 50 mg PO BEDTIME 04/22/18 [History] Aspirin 325 mg PO DAILY 03/16/19 [History] Hydroxyurea 1 cap PO ASDIRECTED 08/09/20 [History] Past Medical History HEENT History: Reports: Hard of Hearing, Impaired Vision Cardiovascular History: Reports: High Cholesterol, Hypertension Gastrointestinal History: Reports: GERD Neurological History: Reports: CVA Other Neuro History: Right sided weakness/arm/leg. Social & Family History - Tobacco Use Smoking Status *Q: Unknown Ever Smoked ED ROS GENERAL - Review of Systems Review Of Systems: Comprehensive ROS is negative, except as noted in HPI. ED EXAM, GENERAL - Physical Exam Exam: See Below Exam Limited By: No Limitations General Appearance: Alert, WD/WN, No Apparent Distress Eye Exam: Bilateral Eye: EOMI, PERRL Ear Exam: Bilateral Ear: TM normal Nose: Normal Inspection, Normal Mucosa, No Blood Throat/Mouth: Normal Inspection, Normal Lips, Normal Teeth, Normal Gums, Normal Oropharynx, Normal Voice, No Airway Compromise Head: Atraumatic, Normocephalic Neck: Normal Inspection, Supple, Non-Tender, Full Range of Motion Respiratory/Chest: No Respiratory Distress, Lungs Clear, Normal Breath Sounds, No Accessory Muscle Use, Chest Non-Tender Cardiovascular: Normal Peripheral Pulses, Regular Rate, Rhythm Peripheral Pulses: 2+: Radial (L), Radial (R), Posterior Tibial (L), Posterior Tibial (R), Dorsalis Pedis (L), Dorsalis Pedis (R) GI/Abdominal: Normal Bowel Sounds, Soft, Non-Tender, No Organomegaly, No Mass, Pelvis Stable (Male) Exam: Deferred Rectal (Males) Exam: Deferred Back Exam: Normal Inspection, Full Range of Motion. No: CVA Tenderness (L), CVA Tenderness (R) Extremities: No Pedal Edema, Normal Capillary Refill. No: Normal Inspection (Tenderness to the right shoulder anterior and right proximal humerus. NO overt deformity. NO open areas to the skin. DEC ROm of the right shoulder. He has no tenderness to the pelvis or the right proximal femur but there is a pretty prominent muscle spasm to the right thigh. No bony deformity no breaks in the skin. THe rest of the extremities are unremarkable. ), Normal Range of Motion Neurological: Alert, Oriented, CN II-XII Intact, Normal Cognition, No Motor/Sensory Deficits Psychiatric: Normal Affect, Normal Mood Skin Exam: Warm, Dry, Intact, Normal Color, No Rash Course - Vital Signs Last Recorded V/S: Last Vital Signs Temp 97.9 F 08/09/20 19:44 Pulse 79 08/09/20 19:44 Resp 18 08/09/20 19:44 BP 135/85 08/09/20 19:44 Pulse Ox 92 L 08/09/20 19:44 - Orders/Labs/Meds Labs: Laboratory Tests 08/09/20 08/09/20 Range/Units 20:04 20:04 WBC 12.3 H (4.0-10.0) x10^3/uL RBC 4.39 L (4.5-6.0) x10^6/uL Hgb 16.4 D (14.0-18.0) g/dL Hct 47.9 (40.0-52.0) % MCV 109.1 H (78.0-93.0) fL MCH 37.4 H (26.0-32.0) pg MCHC 34.2 (32.0-36.0) g/dL RDW Coeff of Sridevi 12.7 (10.0-15.0) % Plt Count 196 (130-400) x10^3/uL Neut % (Auto) 83.8 H (50.0-80.0) % Lymph % (Auto) 6.0 L (25.0-50.0) % Leslie % (Auto) 9.5 (2.0-11.0) % Eos % (Auto) 0.5 (0.0-4.0) % Baso % (Auto) 0.2 (0.2-1.2) % Sodium 144 (136-145) mmol/L Potassium 4.3 (3.5-5.1) mmol/L Chloride 105 (98-107) mmol/L Carbon Dioxide 28 (21-32) mmol/L Anion Gap 15.3 (10-20) mmol/L BUN 26 H (7-18) mg/dL Creatinine 1.3 (0.70-1.30) mg/dL Est Cr Clr Drug Dosing TNP Estimated GFR (MDRD) 54 Glucose 135 H (74-106) mg/dL Calcium 8.8 (8.5-10.1) mg/dL Meds: Medications Discontinued Medications Generic Name Dose Route Start Last Admin Trade Name Nallely PRN Reason Stop Dose Admin Orphenadrine Citrate 30 mg 08/09/20 19:55 Norflex IM 08/09/20 19:56 NOW STA Orphenadrine Citrate 30 mg 08/09/20 19:57 08/09/20 20:05 Norflex IV 08/09/20 19:58 30 mg ONETIME ONE Administration - Radiology Interpretation Free Text/Narrative:: X-ray of the pelvis and right hip shows nondisplaced fracture of the right proximal femur. Questionable fracture of the superior ramus. X-ray of the right shoulder shows an acute impacted and displaced surgical neck fracture of the proximal humerus - Re-Assessments/Exams Free Text/Narrative Re-Assessment/Exam: 08/10/20 15:27 The patient denies anything for pain at this time but does agree to Norflex for the muscle spasm in his leg. Labs unremarkable. Xray with femur and Humerus fracture ? superior rami fracture. With all the injuries and especially the Femur fracture. I called and spoke with DR. Mcguire the ER MD at [facility] in [place]. HPI ER COURSE findings and concerns were relayed to him. He accepted the patient in transfer at this time. I discussed the plan of care with the patient as well as his family. They are comfortable with this plan and their questions answered. Departure - Departure Time of Disposition: 21:32 Disposition: DC/Tfer to [facility] 02 Clinical Impression: Proximal humeral fracture Qualifiers: Encounter type: initial encounter Fracture type: closed Fracture morphology: unspecified fracture morphology Laterality: right Qualified Code(s): S42.201A - Unspecified fracture of upper end of right humerus, initial encounter for closed fracture Femur fracture, right Qualifiers: Encounter type: initial encounter Femur location: trochanter, unspecified Fracture type: closed Qualified Code(s): S72.101A - Unspecified trochanteric fracture of right femur, initial encounter for closed fracture - Discharge Information Referrals: Brian Lu PA-C [Primary Care Provider] - Forms: ED Department Discharge, Interfacility Transfer DONALDO Sepsis Event Note (ED) - Evaluation Sepsis Screening Result: No Definite Risk
== END 2020-08-09 21:58 | disposition short-term general hospital (02) ==
LOC: VM.ED 19:39
DX: S42.211A Unspecified displaced fracture of surgical neck of right humerus, initial encounter for closed fracture (principal); S72.141A Displaced intertrochanteric fracture of right femur, initial encounter for closed fracture; E78.00 Pure hypercholesterolemia, unspecified; I10 Essential (primary) hypertension; Z79.82 Long term (current) use of aspirin; Z79.899 Other long term (current) drug therapy; Z86.73 Personal history of transient ischemic attack (TIA), and cerebral infarction without residual deficits; Z88.0 Allergy status to penicillin; W01.0XXA Fall on same level from slipping, tripping and stumbling without subsequent striking against object, initial encounter
CPT/HCPCS: 36415; 73030-RT; 80048; 85025; 96374; 99283; 99285-25; J2360

== ENCOUNTER 2020-08-12 14:09 | Inpatient (IN) | payer MEDICARE, BC ==
--- NOTE | 2020-08-12 16:41 | PCM.HP.2 ---
H&P History of Present Illness - General Date of Service: 08/12/20 Admit Problem/Dx: Admission Diagnosis/Problem Admission Diagnosis/Problem Fracture of right hip requiring operative repair Source of Information: Patient, Family ( assists with history given expressive aphasia) History Limitations: Reports: Other (expressive aphasia) - History of Present Illness Initial Comments - Free Text/Narative: Mr. 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 He sustained a mechanical fall at home from a "misstep" related to his hemiparesis. He was brought to the ER locally and then transferred to [place]. He underwent IM nailing of the right hip fracture and the humerus fracture is being treated non-operatively. His hospitalization was complicated by wheezing for which an evaluation was unremarkable and symptoms improved with neb treatments. He has also had some constipation that has been treated with a bowel regimen. Hospitalization was otherwise uncomplicated. He arrives to the floor in stable condition. He states his pain is controlled and denies any pain at this time. He was started on oxygen due to saturations of 87% upon arrival. He denies any chest pain, shortness of breath, or coughing. He feels well. His appetite is good. He has not had a bowel movement since at least 08/09. He denies any other questions or concerns. History is assisted by his given his aphasia and she confirms the above, offering no further concerns/complaints. - Related Data Allergies/Adverse Reactions: Allergies Allergy/AdvReac Type Severity Reaction Status Date / Time UMER Inhibitors Allergy Cough Verified 08/12/20 14:27 adhesive Allergy Rash Verified 08/12/20 14:27 allopurinol Allergy Hives Verified 08/12/20 14:27 Penicillins Allergy Other Verified 08/12/20 14:27 Home Medications: Home Meds Sertraline [Zoloft] 150 mg PO DAILY 04/22/18 [History] Simvastatin [Zocor] 40 mg PO BEDTIME 04/22/18 [History] amLODIPine Besylate [Amlodipine Besylate] 10 mg PO DAILY 04/22/18 [History] Aspirin 325 mg PO DAILY 03/16/19 [History] Acetaminophen [Tylenol] 650 mg PO Q6HR 08/12/20 [History] Calcium Citrate/Vitamin D3 [Calcium Citrate - Vit D Tablet] 1 tab PO BIDMEALS 08/12/20 [History] Cholecalciferol (Vitamin D3) [Vitamin D3] 25 mcg PO DAILY 08/12/20 [History] Enoxaparin Sodium [Lovenox] 40 mg SQ DAILY 08/12/20 [History] Hydroxyurea 1,000 mg PO MOWEFR 08/12/20 [History] Hydroxyurea 500 mg PO SUTUTHSA 08/12/20 [History] Sennosides/Docusate Sodium [Senna-Docusate Sodium Tablet] 1 tab PO BID 08/12/20 [History] oxyCODONE 5 mg PO Q4HR PRN 08/12/20 [History] polyethylene glycoL 3350 [Polyethylene Glycol 3350] 17 gm PO DAILY 08/12/20 [History] Past Medical History HEENT History: Reports: Hard of Hearing, Impaired Vision Cardiovascular History: Reports: High Cholesterol, Hypertension Respiratory History: Reports: None Gastrointestinal History: Reports: GERD Genitourinary History: Reports: None Musculoskeletal History: Reports: Gout, Osteoarthritis Neurological History: Reports: CVA Other Neuro History: Right sided weakness/arm/leg. Psychiatric History: Reports: Depression Endocrine/Metabolic History: Reports: Diabetes, Type II Hematologic History: Reports: Polycythemia Immunologic History: Reports: None Oncologic (Cancer) History: Reports: None Dermatologic History: Reports: None - Infectious Disease History Infectious Disease History: Reports: None - Past Surgical History Male Surgical History: Reports: Kidney Stone Extraction, Ureteral Stent Musculoskeletal Surgical History: Reports: Other (See Below) (IM nailing) Social & Family History - Family History Oncologic: Reports: Breast - Tobacco Use Smoking Status *Q: Never Smoker - Alcohol Use Alcohol Use History: No Alcohol Use in Last Twelve Months: No - Recreational Drug Use Recreational Drug Use: No - Living Situation & Occupation Living situation: Reports: , with Significant Other Occupation: Retired H&P Review of Systems - Review of Systems: Review Of Systems: See Below General: Reports: No Symptoms HEENT: Reports: No Symptoms Pulmonary: Reports: No Symptoms Cardiovascular: Reports: No Symptoms Gastrointestinal: Reports: No Symptoms Genitourinary: Reports: No Symptoms Musculoskeletal: Reports: No Symptoms Psychiatric: Reports: No Symptoms Neurological: Reports: No Symptoms Hematologic/Lymphatic: Reports: No Symptoms Exam - Exam Exam: See Below - Exam General: Alert, Cooperative HEENT: Conjunctiva Clear, Mucosa Moist & [place], Posterior Pharynx Clear, Pupils Equal, Pupils Reactive Neck: Supple, Trachea Midline. No: Lymphadenopathy, Thyromegaly Lungs: Clear to Auscultation, Normal Respiratory Effort Cardiovascular: Regular Rate, Regular Rhythm, Normal S1, Normal S2 GI/Abdominal Exam: Normal Bowel Sounds, Soft, Non-Tender, No Organomegaly, No Distention, No Mass Extremities: No Pedal Edema, Arm Pain, Leg Pain Peripheral Pulses: 2+: Radial (L), Radial (R) Skin: Warm, Dry, Intact Neurological: Other (right sided hemiparesis) - Problem List (1) Hip fracture SNOMED Code(s): 890004322 ICD Code: S72.009A - FRACTURE OF UNSP PART OF NECK OF UNSP FEMUR, INIT Status: Acute Current Visit: Yes Qualifiers: Encounter type: sequela Fracture type: closed Laterality: right Qualified Code(s): S72.001S - Fracture of unspecified part of neck of right femur, sequela (2) Proximal humeral fracture SNOMED Code(s): 682142287 ICD Code: S42.209A - UNSP FRACTURE OF UPPER END OF UNSP HUMERUS, INIT FOR CLOS FX Status: Acute Current Visit: No Qualifiers: Encounter type: initial encounter Fracture type: closed Fracture morphology: unspecified fracture morphology Laterality: right Qualified Code(s): S42.201A - Unspecified fracture of upper end of right humerus, initial encounter for closed fracture (3) Constipation SNOMED Code(s): 81367363 ICD Code: K59.00 - CONSTIPATION, UNSPECIFIED Status: Chronic Current Visit: Yes Qualifiers: Constipation type: unspecified constipation type Qualified Code(s): K59.00 - Constipation, unspecified (4) Hypoxia SNOMED Code(s): 534175738 ICD Code: R09.02 - HYPOXEMIA Status: Acute Current Visit: Yes (5) Diabetes SNOMED Code(s): 62016561 ICD Code: E11.9 - TYPE 2 DIABETES MELLITUS WITHOUT COMPLICATIONS Status: Chronic Current Visit: Yes Qualifiers: Diabetes mellitus type: type 2 Diabetes mellitus nursing home insulin use: without long term care social worker use Diabetes mellitus complication status: without complication Qualified Code(s): E11.9 - Type 2 diabetes mellitus without complications (6) Depression SNOMED Code(s): 14117567 ICD Code: F32.9 - MAJOR DEPRESSIVE DISORDER, SINGLE EPISODE, UNSPECIFIED Status: Chronic Current Visit: Yes Qualifiers: Depression Type: unspecified Qualified Code(s): F32.9 - Major depressive disorder, single episode, unspecified (7) CVA (cerebral vascular accident) SNOMED Code(s): 118646471 ICD Code: I63.9 - CEREBRAL INFARCTION, UNSPECIFIED Status: Chronic Current Visit: No (8) Right sided weakness SNOMED Code(s): 187759496 ICD Code: R53.1 - WEAKNESS Status: Chronic Current Visit: No (9) HTN (hypertension) SNOMED Code(s): 53200520 ICD Code: I10 - ESSENTIAL (PRIMARY) HYPERTENSION Status: Chronic Current Visit: No (10) Hypercholesteremia SNOMED Code(s): 11394839 ICD Code: E78.00 - PURE HYPERCHOLESTEROLEMIA, UNSPECIFIED Status: Chronic Current Visit: No Problem List Initiated/Reviewed/Updated: Yes Orders Last 24hrs: Active Orders 24 hr Category Date Time Status Admission Status [Patient Status] [ADT] Routine ADT 08/12/20 14:19 Active Accu Check [Blood Glucose Check, Bedside] [RC] Care 08/12/20 15:24 Active Communication Order [RC] Care 08/12/20 15:20 Active Dietary Supplements [RC] 0730,1130 Care 08/12/20 15:22 Active May Shower [RC] Levi@07 Care 08/12/20 15:12 Active Up With Assistance [RC] Care 08/12/20 15:12 Active ADA Diabetic [[place] Citizen Diabetic Association Diet] [DIET Diet 08/12/20 Dinner Active ] Hip Min 2V Bi [CR] Routine Exams 09/21/20 05:11 Stop Req Hip Min 2V or 3V w Pelvis Rt [CR] Routine Exams 09/21/20 05:11 Ordered Ice Therapy [OM.PC] Routine Oth 08/12/20 15:14 Ordered Bath Suture Removal [OM.PC] Routine Oth 08/12/20 15:28 Ordered Weight bearing status [OM.PC] Routine Oth 08/12/20 15:11 Active Code Status [Resuscitation Status] Routine Resus Stat 08/12/20 15:32 Ordered Assessment/Plan Comment:: 75 yo male admitted to swing bed for strengthening prior to returning home after an acute hospitalization for hip and humerus fractures. #1 Hip fracture #2 Humerus fracture - Wound cares and weight bearing instructions per ortho. - Pain is controlled. Continue PRN oxycodone. - PT and OT consults. - Ortho follow-up to be scheduled. - Lovenox for VTE prophylaxis. #3 Constipation - Continue bowel regimen. - If no BM in the next 2 days, will increase miralax dosing. #4 Hypoxia - Patient has no other symptoms. - Had lower oxygen saturations in [place] as well. - Suspect this is related to fluid shifts ishmael-operatively as well as constipation and his mobility impairments. - If any worsening, will pursue further work-up. #5 Diabetes - Patient's states this resolved when he lost weight. - Therefore, will continue regular diet as per home and will hold off on any glucose checks. #6 Depression #7 CVA #8 Right sided weakness, secondary to #7 #9 Hypertension #10 Hyperlipidemia #11 Polycythemia - Continue home medications. - Recheck CBC on Friday. Patient is admitted to swing bed - will remain admitted until he has progressed with therapy and is deemed appropriate for discharge home with his . Patient is on lovenox for VTE prophylaxis. Code status is full - confirmed with patient on admission.
[2020-08-12] MEDS ORDERED: oxyCODONE 5 MG Tab PO PRN (17:31)
[2020-08-12] MEDS: Calcium Citrate/Vitamin D3 315 MG-250 Unit Tab PO SCH (19:48)
[2020-08-12] MEDS: Simvastatin 40 MG Tab PO SCH (19:50)
[2020-08-12] MEDS: Acetaminophen 325 MG Tab PO SCH (19:50)
[2020-08-12] MEDS: Hydroxyurea 500 MG Cap PO SCH (23:05)
[2020-08-13] MEDS: Acetaminophen 325 MG Tab PO SCH ×4 (00:10→17:49)
[2020-08-13] MEDS: amLODIPine 10 MG Tab PO SCH (09:33)
[2020-08-13] MEDS: Enoxaparin 40 MG/0.4 ML Syringe SUBCUT SCH (09:33)
[2020-08-13] MEDS: Polyethylene Glycol 3350 Powder 17 GM Packet PO SCH (09:33)
[2020-08-13] MEDS: Cholecalciferol (Vitamin D3) 25 MCG Tab PO SCH (09:34)
[2020-08-13] MEDS: Sertraline 50 MG Tab PO SCH (09:34)
[2020-08-13] MEDS: Calcium Citrate/Vitamin D3 315 MG-250 Unit Tab PO SCH ×2 (09:34→17:49)
[2020-08-13] MEDS: Aspirin 325 MG Tab.EC PO SCH (09:34)
[2020-08-13] MEDS: Hydroxyurea 500 MG Cap PO SCH (09:35)
[2020-08-13] MEDS: Simvastatin 40 MG Tab PO SCH (19:33)
[2020-08-14] MEDS: Acetaminophen 325 MG Tab PO SCH ×4 (00:43→18:02)
[2020-08-14] MEDS: Polyethylene Glycol 3350 Powder 17 GM Packet PO SCH (08:32)
[2020-08-14] MEDS: Enoxaparin 40 MG/0.4 ML Syringe SUBCUT SCH (08:32)
[2020-08-14] MEDS: Sertraline 50 MG Tab PO SCH (08:32)
[2020-08-14] MEDS: Aspirin 325 MG Tab.EC PO SCH (08:33)
[2020-08-14] MEDS: amLODIPine 10 MG Tab PO SCH (08:33)
[2020-08-14] MEDS: Cholecalciferol (Vitamin D3) 25 MCG Tab PO SCH (08:33)
[2020-08-14] MEDS: Calcium Citrate/Vitamin D3 315 MG-250 Unit Tab PO SCH ×2 (08:35→18:02)
[2020-08-14] MEDS: Hydroxyurea 500 MG Cap PO SCH (08:44)
[2020-08-14] MEDS ORDERED: BENADRYL TOP PRN (16:35)
[2020-08-14] MEDS: Simvastatin 40 MG Tab PO SCH (20:11)
[2020-08-15] MEDS: Acetaminophen 325 MG Tab PO SCH ×4 (00:45→17:54)
[2020-08-15] MEDS: Enoxaparin 40 MG/0.4 ML Syringe SUBCUT SCH (11:30)
[2020-08-15] MEDS: Sertraline 50 MG Tab PO SCH (11:31)
[2020-08-15] MEDS: amLODIPine 10 MG Tab PO SCH (11:31)
[2020-08-15] MEDS: Cholecalciferol (Vitamin D3) 25 MCG Tab PO SCH (11:31)
[2020-08-15] MEDS: Aspirin 325 MG Tab.EC PO SCH (11:32)
[2020-08-15] MEDS: Polyethylene Glycol 3350 Powder 17 GM Packet PO SCH (11:32)
[2020-08-15] MEDS: Calcium Citrate/Vitamin D3 315 MG-250 Unit Tab PO SCH ×2 (11:32→17:54)
[2020-08-15] MEDS: Hydroxyurea 500 MG Cap PO SCH (11:36)
[2020-08-15] MEDS: Simvastatin 40 MG Tab PO SCH (19:55)
[2020-08-16] MEDS: Acetaminophen 325 MG Tab PO SCH ×4 (00:31→18:39)
[2020-08-16] MEDS: Enoxaparin 40 MG/0.4 ML Syringe SUBCUT SCH (08:23)
[2020-08-16] MEDS: Sertraline 50 MG Tab PO SCH (08:23)
[2020-08-16] MEDS: Calcium Citrate/Vitamin D3 315 MG-250 Unit Tab PO SCH ×2 (08:23→19:42)
[2020-08-16] MEDS: Polyethylene Glycol 3350 Powder 17 GM Packet PO SCH (08:24)
[2020-08-16] MEDS: Aspirin 325 MG Tab.EC PO SCH (08:24)
[2020-08-16] MEDS: amLODIPine 10 MG Tab PO SCH (08:24)
[2020-08-16] MEDS: Cholecalciferol (Vitamin D3) 25 MCG Tab PO SCH (08:24)
[2020-08-16] MEDS: Hydroxyurea 500 MG Cap PO SCH (08:25)
[2020-08-16] MEDS: Simvastatin 40 MG Tab PO SCH (19:42)
[2020-08-17] MEDS: Acetaminophen 325 MG Tab PO SCH ×4 (00:27→17:59)
[2020-08-17] MEDS: Aspirin 325 MG Tab.EC PO SCH (08:09)
[2020-08-17] MEDS: Calcium Citrate/Vitamin D3 315 MG-250 Unit Tab PO SCH ×2 (08:09→17:59)
[2020-08-17] MEDS: Enoxaparin 40 MG/0.4 ML Syringe SUBCUT SCH (08:09)
[2020-08-17] MEDS: Polyethylene Glycol 3350 Powder 17 GM Packet PO SCH (08:09)
[2020-08-17] MEDS: amLODIPine 10 MG Tab PO SCH (08:10)
[2020-08-17] MEDS: Cholecalciferol (Vitamin D3) 25 MCG Tab PO SCH (08:10)
[2020-08-17] MEDS: Sertraline 50 MG Tab PO SCH (08:10)
[2020-08-17] MEDS: Hydroxyurea 500 MG Cap PO SCH (08:27)
[2020-08-17] MEDS: Simvastatin 40 MG Tab PO SCH (19:25)
[2020-08-18] MEDS: Acetaminophen 325 MG Tab PO SCH ×4 (00:52→20:06)
[2020-08-18] MEDS: Calcium Citrate/Vitamin D3 315 MG-250 Unit Tab PO SCH ×2 (09:11→19:07)
[2020-08-18] MEDS: Cholecalciferol (Vitamin D3) 25 MCG Tab PO SCH (09:12)
[2020-08-18] MEDS: Aspirin 325 MG Tab.EC PO SCH (09:12)
[2020-08-18] MEDS: amLODIPine 10 MG Tab PO SCH (09:12)
[2020-08-18] MEDS: Enoxaparin 40 MG/0.4 ML Syringe SUBCUT SCH (09:13)
[2020-08-18] MEDS: Sertraline 50 MG Tab PO SCH (09:13)
[2020-08-18] MEDS: Hydroxyurea 500 MG Cap PO SCH (09:14)
[2020-08-18] MEDS: Polyethylene Glycol 3350 Powder 17 GM Packet PO SCH (09:14)
[2020-08-18] MEDS: Simvastatin 40 MG Tab PO SCH (20:07)
[2020-08-19] MEDS: Acetaminophen 325 MG Tab PO SCH ×4 (00:58→17:54)
[2020-08-19] MEDS: diphenhydrAMINE 25 MG Cap PO PRN (09:55)
[2020-08-19] MEDS ORDERED: diphenhydrAMINE 50 MG/ML SDV IM ONE ×2 (10:02→10:50)
[2020-08-19] MEDS: Calcium Citrate/Vitamin D3 315 MG-250 Unit Tab PO SCH ×2 (10:07→17:54)
[2020-08-19] MEDS: Aspirin 325 MG Tab.EC PO SCH (10:09)
[2020-08-19] MEDS: Cholecalciferol (Vitamin D3) 25 MCG Tab PO SCH (10:09)
[2020-08-19] MEDS: Enoxaparin 40 MG/0.4 ML Syringe SUBCUT SCH (10:11)
[2020-08-19] MEDS: Hydrocortisone 1% Crm 30 GM Tube TOP SCH ×2 (11:11→19:59)
--- NOTE | 2020-08-19 11:38 | PN ---
Progress Note for ESTRELLITA Kirkland [employer] Date: 08/19/2020 Room #: VM.202 SUBJECTIVE: This is a 75-year-old seen at the request of the nurse today because of lower lip swelling that they noticed this morning at 9:45. The patient has some history of recurrent angioedema for many years with lip swelling and has been on Benadryl p.r.n., but this morning, his tongue is slightly swollen and they are concerned he might not be able to swallow the Benadryl. He has not been on any UMER inhibitors. He has been on oxygen since coming from [place] for a fall and hip fracture. He has a history of stroke, but he is able to talk and answer questions. He denies any pain. There is no trouble with breathing. He is on the same oxygen 2 L that he came on, which was attributed to some shift in fluid possibly from his surgeries. He actually consumed breakfast. There has been no rash. OBJECTIVE: Vital Signs: His temperature is 97.6, pulse 86, blood pressure 136/76, respiratory rate 16, O2 of 93% on 2 L. HEENT: He is in no acute distress. I did not don PPE and perform a full exam, but I could see that his lower lip was obviously swollen. There was some cracking, slight redness. Upper lip was fine. The tongue, again, just had some mild swelling to it, but he could open his mouth. Addendum on reassessment after the benadryl PO and IM he is more sleepy lip is more swollen and tongue also He denies trouble swallow says it does hurt a little. He doesn't feel SOB or feel like he can't swallow. Heart: Regular Lungs: Clear Extremities: NO edema ASSESSMENT: 1. Lip swelling with recurrent angioedema. We will try some IM Benadryl and some topical hydrocortisone cream and see how this goes. It does not appear that any of his medication should be causing this. 2. Hip fracture. He is on Lovenox for deep venous thrombosis prophylaxis. 3. History of stroke with known right-sided weakness and expressive aphasia at baseline. 4. MDS PLAN: The patient will get some Benadryl. We will see how he responds. We will reassess in a couple hours. After further discussion with family he has had phlebotomy treatments for this in the past when HCT is over 45 but currently his blood counts were much less then that with the recent hip surgery. We will repeat today. Give him 80 mg IV of solumedrol and if he doesn't improve he very likely will require transfer to [place]. MKA: 08/19/2020 10:37:06 MODL: 08/19/2020 11:30:40 /[id number] MTDD
[2020-08-19] MEDS ORDERED: methylPREDNISolone Sodium Succinate 40 MG/1 ML SDV IVPUSH ONE ×2 (12:20→12:27)
--- NOTE | 2020-08-19 12:59 | PCM.SN.2 ---
- Free Text/Narrative Note: Addendum patient has polycythemia VERA and not MDS.
[2020-08-19] MEDS: Polyethylene Glycol 3350 Powder 17 GM Packet PO SCH (13:20)
[2020-08-19] MEDS: Sertraline 50 MG Tab PO SCH (13:21)
[2020-08-19] MEDS: Hydroxyurea 500 MG Cap PO SCH (13:23)
[2020-08-19] MEDS: amLODIPine 10 MG Tab PO SCH (13:49)
[2020-08-19 15:17] LABS: CHLORIDE,CL 103 mmol/L (98-107); SODIUM,NA 141 mmol/L (136-145)
[2020-08-19 15:18] LABS: ANION GAP 9.2 mmol/L (10-20)
--- NOTE | 2020-08-19 15:49 | PCM.SN.2 ---
- Free Text/Narrative Note: Discussed with Hematology given low hemoglobin/HCT no indication for phlebotomy. Lip and tongue swelling are improving and he wants to try eating something. He can swallow liquids ok but even at baseline has trouble swallowing pills per nursing. We will continue with scheduled prednisone and benadryl for the next 24 hours and see how he does. Start oral potassium and repeat labs on 08/21 or sooner if needed.
[2020-08-19] MEDS: Potassium Chloride 10% 20 MEQ/15 ML Soln 15 ML UD Cup PO SCH ×2 (17:52→19:58)
[2020-08-19] MEDS: predniSONE 20 MG Tab PO SCH ×2 (17:52→19:59)
[2020-08-19] MEDS: diphenhydrAMINE 12.5 MG/5 ML Liquid 5 ML UD Cup PO SCH ×2 (17:54→19:58)
[2020-08-19] MEDS: Simvastatin 40 MG Tab PO SCH (19:59)
[2020-08-19] MEDS: Sodium Chloride 0.9% 10 ML Syringe FLUSH PRN (20:00)
[2020-08-20] MEDS: Acetaminophen 325 MG Tab PO SCH ×4 (01:36→17:51)
--- NOTE | 2020-08-20 08:58 | PCM.SN.2 ---
- Free Text/Narrative Note: Angioedema resolved. Will continue evita prednisone and prednisone through today and change to prn benadryl only tomorrow.
[2020-08-20] MEDS: amLODIPine 10 MG Tab PO SCH (09:01)
[2020-08-20] MEDS: Sertraline 50 MG Tab PO SCH (09:01)
[2020-08-20] MEDS: Aspirin 325 MG Tab.EC PO SCH (09:01)
[2020-08-20] MEDS: Cholecalciferol (Vitamin D3) 25 MCG Tab PO SCH (09:01)
[2020-08-20] MEDS: Calcium Citrate/Vitamin D3 315 MG-250 Unit Tab PO SCH ×2 (09:01→17:51)
[2020-08-20] MEDS: predniSONE 20 MG Tab PO SCH (09:01)
[2020-08-20] MEDS: Enoxaparin 40 MG/0.4 ML Syringe SUBCUT SCH (09:02)
[2020-08-20] MEDS: Hydrocortisone 1% Crm 30 GM Tube TOP SCH ×2 (09:02→19:51)
[2020-08-20] MEDS: Potassium Chloride 10% 20 MEQ/15 ML Soln 15 ML UD Cup PO SCH ×2 (09:02→19:50)
[2020-08-20] MEDS: Polyethylene Glycol 3350 Powder 17 GM Packet PO SCH (09:02)
[2020-08-20] MEDS: Hydroxyurea 500 MG Cap PO SCH (09:02)
[2020-08-20] MEDS: diphenhydrAMINE 12.5 MG/5 ML Liquid 5 ML UD Cup PO SCH ×4 (09:02→19:50)
[2020-08-20] MEDS: Simvastatin 40 MG Tab PO SCH (19:50)
[2020-08-21] MEDS: Acetaminophen 325 MG Tab PO SCH ×4 (01:19→20:10)
[2020-08-21] MEDS: Enoxaparin 40 MG/0.4 ML Syringe SUBCUT SCH (09:44)
[2020-08-21] MEDS: Sertraline 50 MG Tab PO SCH (09:44)
[2020-08-21] MEDS: Potassium Chloride 10% 20 MEQ/15 ML Soln 15 ML UD Cup PO SCH ×2 (09:44→20:08)
[2020-08-21] MEDS: Calcium Citrate/Vitamin D3 315 MG-250 Unit Tab PO SCH ×2 (09:45→20:07)
[2020-08-21] MEDS: amLODIPine 10 MG Tab PO SCH (09:45)
[2020-08-21] MEDS: Aspirin 325 MG Tab.EC PO SCH (09:45)
[2020-08-21] MEDS: Cholecalciferol (Vitamin D3) 25 MCG Tab PO SCH (09:45)
[2020-08-21] MEDS: Hydrocortisone 1% Crm 30 GM Tube TOP SCH ×2 (09:46→20:08)
[2020-08-21] MEDS: Hydroxyurea 500 MG Cap PO SCH (09:57)
[2020-08-21] MEDS: Polyethylene Glycol 3350 Powder 17 GM Packet PO SCH (10:02)
--- NOTE | 2020-08-21 18:55 | PCM.PN ---
- General Info Date of Service: 08/21/20 Subjective Update: Patient seen today for swing bed follow-up. He denies any complaints. He had an episode of angioedema over the weekend that was treated with prednisone and benadryl. He improved nicely with that. No other events since admission. He otherwise denies any concerns. His pain has been well controlled. He is eating well and having regular bowel movements. - Review of Systems General: Reports: No Symptoms HEENT: Reports: No Symptoms Pulmonary: Reports: No Symptoms Cardiovascular: Reports: No Symptoms Gastrointestinal: Reports: No Symptoms Genitourinary: Reports: No Symptoms Musculoskeletal: Reports: No Symptoms Skin: Reports: No Symptoms Neurological: Reports: No Symptoms - Patient Data Vitals - Most Recent: Last Vital Signs Temp 36.4 C 08/21/20 04:35 Pulse 60 08/21/20 04:35 Resp 19 08/21/20 04:35 BP 135/83 08/21/20 09:45 Pulse Ox 97 08/21/20 04:35 Weight - Most Recent: 103.419 kg I&O - Last 24 Hours: Intake & Output 08/21/20 08/21/20 08/21/20 06:59 14:59 22:59 Intake Total 720 Balance 720 Lab Results Last 24 Hours: Laboratory Results - last 24 hr 08/21/20 08/21/20 Range/Units 05:44 06:21 POC Glucose 115 H (74-106) mg/dL Magnesium 2.2 (1.8-2.4) mg/dL Med Orders - Current: Current Medications Acetaminophen (Tylenol) 650 mg PO Q6HR [facility] Last Admin: 08/21/20 13:56 Dose: 650 mg Documented by: Amlodipine Besylate (Norvasc) 10 mg PO DAILY [facility] Last Admin: 08/21/20 09:45 Dose: 10 mg Documented by: Aspirin (Ecotrin) 325 mg PO DAILY [facility] Last Admin: 08/21/20 09:45 Dose: 325 mg Documented by: Calcium Citrate (Calcium Citrate + D) 1 tab PO BIDMEALS [facility] Last Admin: 08/21/20 09:45 Dose: 1 tab Documented by: Cholecalciferol (Vitamin D3) 25 mcg PO DAILY [facility] Last Admin: 08/21/20 09:45 Dose: 25 mcg Documented by: Diphenhydramine HCl (Benadryl) 25 mg PO Q6H PRN PRN Reason: swelling Last Admin: 08/19/20 09:55 Dose: 25 mg Documented by: Enoxaparin Sodium (Lovenox) 40 mg SUBCUT DAILY [facility] Last Admin: 08/21/20 09:44 Dose: 40 mg Documented by: Hydrocortisone (Hydrocortisone 1% Crm) 0 gm TOP BID [facility] Stop: 08/26/20 23:00 Last Admin: 08/21/20 09:46 Dose: Not Given Documented by: Hydroxyurea (Hydrea) 1,000 mg PO MOWEFR [facility] Last Admin: 08/21/20 09:57 Dose: 1,000 mg Documented by: Hydroxyurea (Hydrea) 500 mg PO SUTUTHSA [facility] Last Admin: 08/20/20 09:02 Dose: 500 mg Documented by: Oxycodone HCl (Oxycodone) 5 mg PO Q4HR PRN PRN Reason: Pain Last Admin: 08/13/20 13:06 Dose: 5 mg Documented by: Benadryl ( Diphenhydramine 1%) Cream 0 each TOP DAILY PRN PRN Reason: Rash Polyethylene Glycol (Miralax) 17 gm PO DAILY [facility] Last Admin: 08/21/20 10:02 Dose: Not Given Documented by: Potassium Chloride (Potassium Chloride Solution) 20 meq PO BID [facility] Stop: 08/21/20 23:00 Last Admin: 08/21/20 09:44 Dose: 20 meq Documented by: Senna/Docusate Sodium (Senna Plus) 1 tab PO BID [facility] Last Admin: 08/21/20 09:45 Dose: 1 tab Documented by: Sertraline HCl (Zoloft) 150 mg PO DAILY [facility] Last Admin: 08/21/20 09:44 Dose: 150 mg Documented by: Simvastatin (Zocor) 40 mg PO BEDTIME [facility] Last Admin: 08/20/20 19:50 Dose: 40 mg Documented by: Sodium Chloride (Saline Flush) 10 ml FLUSH ASDIRECTED PRN PRN Reason: Keep Vein Open Last Admin: 08/19/20 20:00 Dose: 10 ml Documented by: Discontinued Medications Diphenhydramine HCl (Benadryl) 25 mg IM ONETIME ONE Stop: 08/19/20 10:03 Last Admin: 08/19/20 10:18 Dose: 25 mg Documented by: Diphenhydramine HCl (Benadryl) 25 mg IM ONETIME ONE Stop: 08/19/20 10:51 Last Admin: 08/19/20 15:22 Dose: Not Given Documented by: Diphenhydramine HCl (Benadryl) 12.5 mg PO QID [facility] Stop: 08/20/20 23:00 Last Admin: 08/20/20 19:50 Dose: 12.5 mg Documented by: Methylprednisolone Sodium Succinate (Solu-Medrol) 40 mg IVPUSH ONETIME ONE Stop: 08/19/20 12:21 Last Admin: 08/19/20 12:44 Dose: 40 mg Documented by: Methylprednisolone Sodium Succinate (Solu-Medrol) 40 mg IVPUSH ONETIME ONE Stop: 08/19/20 12:28 Last Admin: 08/19/20 12:45 Dose: 40 mg Documented by: Prednisone (Prednisone) 20 mg PO BID [facility] Stop: 08/20/20 23:00 Last Admin: 08/20/20 09:01 Dose: 20 mg Documented by: - Exam General: Alert, Cooperative, No Acute Distress HEENT: Mucous Membr. Moist/[place] Neck: Supple, Trachea Midline, No Thyromegaly. No: Lymphadenopathy Lungs: Clear to Auscultation, Normal Respiratory Effort Cardiovascular: Regular Rate, Regular Rhythm, No Murmurs GI/Abdominal Exam: Normal Bowel Sounds, Soft, Non-Tender, No Organomegaly, No Distention, No Mass Extremities: Non-Tender, No Pedal Edema, Normal Capillary Refill Peripheral Pulses: 2+: Radial (L), Radial (R) Skin: Warm, Dry, Intact Neurological: No New Focal Deficit Sepsis Event Note - Evaluation Sepsis Screening Result: No Definite Risk - Focused Exam Vital Signs: Vital Signs BP 08/21/20 09:45 135/83 - Problem List & Annotations (1) Hip fracture SNOMED Code(s): 816764861 Code(s): S72.009A - FRACTURE OF UNSP PART OF NECK OF UNSP FEMUR, INIT Status: Acute Current Visit: Yes Qualifiers: Encounter type: sequela Fracture type: closed Laterality: right Qualified Code(s): S72.001S - Fracture of unspecified part of neck of right femur, sequela (2) Proximal humeral fracture SNOMED Code(s): 745033293 Code(s): S42.209A - UNSP FRACTURE OF UPPER END OF UNSP HUMERUS, INIT FOR CLOS FX Status: Acute Current Visit: No Qualifiers: Encounter type: initial encounter Fracture type: closed Fracture morphology: unspecified fracture morphology Laterality: right Qualified Code(s): S42.201A - Unspecified fracture of upper end of right humerus, initial encounter for closed fracture (3) Constipation SNOMED Code(s): 21268340 Code(s): K59.00 - CONSTIPATION, UNSPECIFIED Status: Chronic Current Visit: Yes Qualifiers: Constipation type: unspecified constipation type Qualified Code(s): K59.00 - Constipation, unspecified (4) Hypoxia SNOMED Code(s): 905332152 Code(s): R09.02 - HYPOXEMIA Status: Acute Current Visit: Yes (5) Diabetes SNOMED Code(s): 63796428 Code(s): E11.9 - TYPE 2 DIABETES MELLITUS WITHOUT COMPLICATIONS Status: Chronic Current Visit: Yes Qualifiers: Diabetes mellitus type: type 2 Diabetes mellitus shelter insulin use: without clinical orthoptist use Diabetes mellitus complication status: without complication Qualified Code(s): E11.9 - Type 2 diabetes mellitus without complications (6) Depression SNOMED Code(s): 40481905 Code(s): F32.9 - MAJOR DEPRESSIVE DISORDER, SINGLE EPISODE, UNSPECIFIED Status: Chronic Current Visit: Yes Qualifiers: Depression Type: unspecified Qualified Code(s): F32.9 - Major depressive disorder, single episode, unspecified (7) CVA (cerebral vascular accident) SNOMED Code(s): 186787161 Code(s): I63.9 - CEREBRAL INFARCTION, UNSPECIFIED Status: Chronic Current Visit: No (8) Right sided weakness SNOMED Code(s): 625772409 Code(s): R53.1 - WEAKNESS Status: Chronic Current Visit: No (9) HTN (hypertension) SNOMED Code(s): 33392353 Code(s): I10 - ESSENTIAL (PRIMARY) HYPERTENSION Status: Chronic Current Visit: No (10) Hypercholesteremia SNOMED Code(s): 32250049 Code(s): E78.00 - PURE HYPERCHOLESTEROLEMIA, UNSPECIFIED Status: Chronic Current Visit: No (11) Angioedema SNOMED Code(s): 77803895 Code(s): T78.3XXA - ANGIONEUROTIC EDEMA, INITIAL ENCOUNTER Status: Chronic Current Visit: Yes Qualifiers: Encounter type: sequela Qualified Code(s): T78.3XXS - Angioneurotic edema, sequela - Problem List Review Problem List Initiated/Reviewed/Updated: Yes - My Orders Last 24 Hours: My Active Orders 09/21/20 05:11 Hip Min 2V or 3V w Pelvis Rt [CR] Routine - Assessment Assessment:: 75 yo male on swing bed for strengthening following fractures of the right hip and humerus. Is progressing nicely with therapies. Had an episode of angioedema over the weekend but his swing bed stay has otherwise been uncomplicated. - Plan Plan:: #1 Hip fracture #2 Humerus fracture - Wound cares and weight bearing instructions per ortho. - Pain is controlled. Patient has not used PRN oxycodone since day after admit; therefore, this will be discontinued. - PT and OT following. - Ortho follow-up to be scheduled. - Lovenox for VTE prophylaxis. #3 Constipation - Continue bowel regimen. #4 Hypoxia, resolved - Patient had no other symptoms. - Has now been weaned except for occasionally overnight. - Will continue to monitor. #5 Diabetes - Patient's states this resolved when he lost weight. - Therefore, will continue regular diet as per home and will hold off on any glucose checks. #6 Depression #7 CVA #8 Right sided weakness, secondary to #7 #9 Hypertension #10 Hyperlipidemia #11 Polycythemia - Continue home medications. - Recheck CBC done over the weekend and stable today. - Will monitor weekly while in swing bed. Patient is admitted to swing bed - will remain admitted until he has progressed with therapy and is deemed appropriate for discharge home with his . Patient is on lovenox for VTE prophylaxis. Code status is full - confirmed with patient on admission.
[2020-08-21] MEDS: Simvastatin 40 MG Tab PO SCH (20:07)
[2020-08-22] MEDS: Acetaminophen 325 MG Tab PO SCH ×4 (00:14→17:48)
[2020-08-22] MEDS: Sodium Chloride 0.9% 10 ML Syringe FLUSH PRN (05:11)
[2020-08-22] MEDS: Polyethylene Glycol 3350 Powder 17 GM Packet PO SCH (08:32)
[2020-08-22] MEDS: Enoxaparin 40 MG/0.4 ML Syringe SUBCUT SCH (08:32)
[2020-08-22] MEDS: Sertraline 50 MG Tab PO SCH (08:32)
[2020-08-22] MEDS: Aspirin 325 MG Tab.EC PO SCH (08:33)
[2020-08-22] MEDS: Cholecalciferol (Vitamin D3) 25 MCG Tab PO SCH (08:33)
[2020-08-22] MEDS: Calcium Citrate/Vitamin D3 315 MG-250 Unit Tab PO SCH ×2 (08:33→17:48)
[2020-08-22] MEDS: amLODIPine 10 MG Tab PO SCH (08:36)
[2020-08-22] MEDS: Hydrocortisone 1% Crm 30 GM Tube TOP SCH ×2 (08:36→19:35)
[2020-08-22] MEDS: Hydroxyurea 500 MG Cap PO SCH (09:22)
[2020-08-22] MEDS: Simvastatin 40 MG Tab PO SCH (19:35)
[2020-08-23] MEDS: Acetaminophen 325 MG Tab PO SCH ×4 (00:14→18:17)
[2020-08-23] MEDS: Sodium Chloride 0.9% 10 ML Syringe FLUSH PRN (05:45)
[2020-08-23] MEDS: amLODIPine 10 MG Tab PO SCH (09:14)
[2020-08-23] MEDS: Calcium Citrate/Vitamin D3 315 MG-250 Unit Tab PO SCH ×2 (09:14→18:18)
[2020-08-23] MEDS: Aspirin 325 MG Tab.EC PO SCH (09:15)
[2020-08-23] MEDS: Hydrocortisone 1% Crm 30 GM Tube TOP SCH ×2 (09:15→20:45)
[2020-08-23] MEDS: Cholecalciferol (Vitamin D3) 25 MCG Tab PO SCH (09:15)
[2020-08-23] MEDS: Sertraline 50 MG Tab PO SCH (09:15)
[2020-08-23] MEDS: Enoxaparin 40 MG/0.4 ML Syringe SUBCUT SCH (09:16)
[2020-08-23] MEDS: Polyethylene Glycol 3350 Powder 17 GM Packet PO SCH (09:16)
[2020-08-23] MEDS: Hydroxyurea 500 MG Cap PO SCH (09:20)
[2020-08-23] MEDS: Simvastatin 40 MG Tab PO SCH (20:44)
[2020-08-24] MEDS: Acetaminophen 325 MG Tab PO SCH ×4 (01:19→17:23)
[2020-08-24] MEDS: Hydroxyurea 500 MG Cap PO SCH (09:59)
[2020-08-24] MEDS: Sertraline 50 MG Tab PO SCH (09:59)
[2020-08-24] MEDS: Polyethylene Glycol 3350 Powder 17 GM Packet PO SCH (09:59)
[2020-08-24] MEDS: Calcium Citrate/Vitamin D3 315 MG-250 Unit Tab PO SCH ×2 (10:00→17:23)
[2020-08-24] MEDS: Cholecalciferol (Vitamin D3) 25 MCG Tab PO SCH (10:00)
[2020-08-24] MEDS: amLODIPine 10 MG Tab PO SCH (10:00)
[2020-08-24] MEDS: Aspirin 325 MG Tab.EC PO SCH (10:00)
[2020-08-24] MEDS: Enoxaparin 40 MG/0.4 ML Syringe SUBCUT SCH (10:00)
[2020-08-24] MEDS: Hydrocortisone 1% Crm 30 GM Tube TOP SCH ×2 (10:01→20:17)
[2020-08-24] MEDS: Simvastatin 40 MG Tab PO SCH (19:29)
[2020-08-25] MEDS: Acetaminophen 325 MG Tab PO SCH ×4 (01:00→17:28)
[2020-08-25] MEDS: Cholecalciferol (Vitamin D3) 25 MCG Tab PO SCH (08:35)
[2020-08-25] MEDS: amLODIPine 10 MG Tab PO SCH (08:35)
[2020-08-25] MEDS: Sertraline 50 MG Tab PO SCH (08:35)
[2020-08-25] MEDS: Calcium Citrate/Vitamin D3 315 MG-250 Unit Tab PO SCH ×2 (08:35→17:28)
[2020-08-25] MEDS: Aspirin 325 MG Tab.EC PO SCH (08:35)
[2020-08-25] MEDS: Hydrocortisone 1% Crm 30 GM Tube TOP SCH ×2 (08:36→19:44)
[2020-08-25] MEDS: Polyethylene Glycol 3350 Powder 17 GM Packet PO SCH (08:36)
[2020-08-25] MEDS: Enoxaparin 40 MG/0.4 ML Syringe SUBCUT SCH (08:37)
[2020-08-25] MEDS: Hydroxyurea 500 MG Cap PO SCH (08:39)
[2020-08-25] MEDS: Simvastatin 40 MG Tab PO SCH (19:45)
[2020-08-26] MEDS: Acetaminophen 325 MG Tab PO SCH ×4 (00:13→17:30)
[2020-08-26] MEDS: Hydrocortisone 1% Crm 30 GM Tube TOP SCH ×2 (07:47→19:55)
[2020-08-26] MEDS: Sertraline 50 MG Tab PO SCH (07:48)
[2020-08-26] MEDS: Enoxaparin 40 MG/0.4 ML Syringe SUBCUT SCH (07:48)
[2020-08-26] MEDS: Calcium Citrate/Vitamin D3 315 MG-250 Unit Tab PO SCH ×2 (07:48→17:29)
[2020-08-26] MEDS: Cholecalciferol (Vitamin D3) 25 MCG Tab PO SCH (07:48)
[2020-08-26] MEDS: Aspirin 325 MG Tab.EC PO SCH (07:49)
[2020-08-26] MEDS: amLODIPine 10 MG Tab PO SCH (07:49)
[2020-08-26] MEDS: Polyethylene Glycol 3350 Powder 17 GM Packet PO SCH (07:49)
[2020-08-26] MEDS: Hydroxyurea 500 MG Cap PO SCH (08:09)
[2020-08-26] MEDS: Simvastatin 40 MG Tab PO SCH (19:54)
[2020-08-27] MEDS: Acetaminophen 325 MG Tab PO SCH ×4 (01:04→17:53)
[2020-08-27] MEDS: Enoxaparin 40 MG/0.4 ML Syringe SUBCUT SCH (08:12)
[2020-08-27] MEDS: amLODIPine 10 MG Tab PO SCH (08:13)
[2020-08-27] MEDS: Aspirin 325 MG Tab.EC PO SCH (08:13)
[2020-08-27] MEDS: Cholecalciferol (Vitamin D3) 25 MCG Tab PO SCH (08:13)
[2020-08-27] MEDS: Sertraline 50 MG Tab PO SCH (08:13)
[2020-08-27] MEDS: Calcium Citrate/Vitamin D3 315 MG-250 Unit Tab PO SCH ×2 (08:13→17:53)
[2020-08-27] MEDS: Hydroxyurea 500 MG Cap PO SCH (08:19)
[2020-08-27] MEDS: Polyethylene Glycol 3350 Powder 17 GM Packet PO SCH (08:19)
[2020-08-27] MEDS: Simvastatin 40 MG Tab PO SCH (19:32)
[2020-08-28] MEDS: Acetaminophen 325 MG Tab PO SCH ×4 (00:47→17:30)
[2020-08-28] MEDS: Enoxaparin 40 MG/0.4 ML Syringe SUBCUT SCH (08:32)
[2020-08-28] MEDS: Cholecalciferol (Vitamin D3) 25 MCG Tab PO SCH (08:33)
[2020-08-28] MEDS: amLODIPine 10 MG Tab PO SCH (08:33)
[2020-08-28] MEDS: Sertraline 50 MG Tab PO SCH (08:33)
[2020-08-28] MEDS: Calcium Citrate/Vitamin D3 315 MG-250 Unit Tab PO SCH ×2 (08:34→17:30)
[2020-08-28] MEDS: Aspirin 325 MG Tab.EC PO SCH (08:34)
[2020-08-28] MEDS: Polyethylene Glycol 3350 Powder 17 GM Packet PO SCH (08:34)
[2020-08-28] MEDS: Hydroxyurea 500 MG Cap PO SCH (08:36)
[2020-08-28] MEDS: Simvastatin 40 MG Tab PO SCH (19:44)
[2020-08-29] MEDS: Acetaminophen 325 MG Tab PO SCH ×5 (00:41→20:17)
--- NOTE | 2020-08-29 09:06 | PCM.SN.2 ---
- Free Text/Narrative Note: S: Patient seen today due to nursing report of a swollen lymph node noticed this morning. Patient has expressive aphasia so history is limited. He does have some pain in that area with palpation. No fever. Otherwise is feeling well. O: Vitals reviewed. Has an abrasion anterior to the left ear with surrounding erythema that does extend along the anterior surface of his ear. Does have tenderness and warmth to touch in this area as well. Tender swollen left anterior cervical node as well. A/P: #1 Cellulitis - Patient has cellulitis. - Given allergies/angioedema history as well as recent tolerance of the same, will do clindamycin. - I will recheck on this tomorrow.
[2020-08-29] MEDS: Sertraline 50 MG Tab PO SCH (09:34)
[2020-08-29] MEDS: Enoxaparin 40 MG/0.4 ML Syringe SUBCUT SCH (09:34)
[2020-08-29] MEDS: Clindamycin HCl 150 MG Cap PO SCH ×3 (09:35→20:18)
[2020-08-29] MEDS: Calcium Citrate/Vitamin D3 315 MG-250 Unit Tab PO SCH ×2 (09:35→20:17)
[2020-08-29] MEDS: Aspirin 325 MG Tab.EC PO SCH (09:35)
[2020-08-29] MEDS: Cholecalciferol (Vitamin D3) 25 MCG Tab PO SCH (09:35)
[2020-08-29] MEDS: diphenhydrAMINE 25 MG Cap PO PRN (09:35)
[2020-08-29] MEDS: amLODIPine 10 MG Tab PO SCH (09:35)
[2020-08-29] MEDS: Polyethylene Glycol 3350 Powder 17 GM Packet PO SCH (09:36)
[2020-08-29] MEDS: Hydroxyurea 500 MG Cap PO SCH (09:38)
[2020-08-29] MEDS ORDERED: Sulfamethoxazole/Trimethoprim 800-160 MG Tab PO SCH (20:00)
[2020-08-29] MEDS: Simvastatin 40 MG Tab PO SCH (20:17)
[2020-08-30] MEDS: Acetaminophen 325 MG Tab PO SCH ×4 (00:15→18:11)
[2020-08-30] MEDS: Clindamycin HCl 150 MG Cap PO SCH ×3 (06:20→20:02)
[2020-08-30] MEDS: Polyethylene Glycol 3350 Powder 17 GM Packet PO SCH (08:49)
[2020-08-30] MEDS: Enoxaparin 40 MG/0.4 ML Syringe SUBCUT SCH (08:49)
[2020-08-30] MEDS: Sertraline 50 MG Tab PO SCH (08:50)
[2020-08-30] MEDS: Aspirin 325 MG Tab.EC PO SCH (08:50)
[2020-08-30] MEDS: Calcium Citrate/Vitamin D3 315 MG-250 Unit Tab PO SCH ×2 (08:50→18:12)
[2020-08-30] MEDS: amLODIPine 10 MG Tab PO SCH (08:50)
[2020-08-30] MEDS: Hydroxyurea 500 MG Cap PO SCH (08:52)
[2020-08-30] MEDS: Cholecalciferol (Vitamin D3) 25 MCG Tab PO SCH (08:52)
[2020-08-30] MEDS: Simvastatin 40 MG Tab PO SCH (19:54)
[2020-08-31] MEDS: Acetaminophen 325 MG Tab PO SCH ×4 (00:23→17:51)
[2020-08-31] MEDS: Clindamycin HCl 150 MG Cap PO SCH ×3 (06:07→20:27)
[2020-08-31] MEDS: Aspirin 325 MG Tab.EC PO SCH (08:02)
[2020-08-31] MEDS: Enoxaparin 40 MG/0.4 ML Syringe SUBCUT SCH (08:02)
[2020-08-31] MEDS: Calcium Citrate/Vitamin D3 315 MG-250 Unit Tab PO SCH ×2 (08:02→17:51)
[2020-08-31] MEDS: Sertraline 50 MG Tab PO SCH (08:02)
[2020-08-31] MEDS: amLODIPine 10 MG Tab PO SCH (08:03)
[2020-08-31] MEDS: Cholecalciferol (Vitamin D3) 25 MCG Tab PO SCH (08:03)
[2020-08-31] MEDS: Polyethylene Glycol 3350 Powder 17 GM Packet PO SCH (08:05)
[2020-08-31] MEDS: Hydroxyurea 500 MG Cap PO SCH (08:44)
--- NOTE | 2020-08-31 10:06 | PCM.PN ---
- General Info Date of Service: 08/31/20 Subjective Update: 75 yo male seen today for swing bed follow-up. History is somewhat limited by patient's aphasia. Does deny any ongoing pain on the left side of his face. Nursing staff feel this is looking better. Still has swelling. No fever. Only other concern per nursing is loose stools. His bowel regimen was adjusted during his stay in [place] and then since swing bed admission for constipation related to his pain medication. He is really not using much in the way of pain medication at this time. He denies any pain in his arm or leg. He has been progressing well with PT. ROS is otherwise negative. - Review of Systems General: Reports: No Symptoms HEENT: Reports: No Symptoms Pulmonary: Reports: No Symptoms Cardiovascular: Reports: No Symptoms Gastrointestinal: Reports: No Symptoms Genitourinary: Reports: No Symptoms Musculoskeletal: Reports: No Symptoms Skin: Reports: No Symptoms Neurological: Reports: No Symptoms - Patient Data Vitals - Most Recent: Last Vital Signs Temp 37.1 C 08/31/20 05:57 Pulse 74 08/31/20 05:57 Resp 16 08/31/20 05:57 BP 123/62 08/31/20 08:03 Pulse Ox 98 08/31/20 05:57 Weight - Most Recent: 103.419 kg I&O - Last 24 Hours: Intake & Output 08/30/20 08/31/20 08/31/20 22:59 06:59 14:59 Intake Total 320 Output Total 250 Balance 320 -250 Lab Results Last 24 Hours: Laboratory Results - last 24 hr 08/31/20 Range/Units 06:15 POC Glucose 112 H (74-106) mg/dL Med Orders - Current: Current Medications Acetaminophen (Tylenol) 650 mg PO Q6HR [facility] Last Admin: 08/31/20 06:07 Dose: 650 mg Documented by: Amlodipine Besylate (Norvasc) 10 mg PO DAILY [facility] Last Admin: 08/31/20 08:03 Dose: 10 mg Documented by: Aspirin (Ecotrin) 325 mg PO DAILY [facility] Last Admin: 08/31/20 08:02 Dose: 325 mg Documented by: Calcium Citrate (Calcium Citrate + D) 1 tab PO BIDMEALS [facility] Last Admin: 08/31/20 08:02 Dose: 1 tab Documented by: Cholecalciferol (Vitamin D3) 25 mcg PO DAILY [facility] Last Admin: 08/31/20 08:03 Dose: 25 mcg Documented by: Clindamycin HCl (Cleocin) 150 mg PO 0700,1400,2100 [facility] Stop: 09/04/20 21:01 Last Admin: 08/31/20 06:07 Dose: 150 mg Documented by: Diphenhydramine HCl (Benadryl) 25 mg PO Q6H PRN PRN Reason: swelling Last Admin: 08/29/20 09:35 Dose: 25 mg Documented by: Enoxaparin Sodium (Lovenox) 40 mg SUBCUT DAILY [facility] Stop: 09/09/20 08:01 Last Admin: 08/31/20 08:02 Dose: 40 mg Documented by: Hydroxyurea (Hydrea) 1,000 mg PO MOWEFR [facility] Last Admin: 08/30/20 08:52 Dose: 1,000 mg Documented by: Hydroxyurea (Hydrea) 500 mg PO SUTUTHSA [facility] Last Admin: 08/31/20 08:44 Dose: 500 mg Documented by: Benadryl ( Diphenhydramine 1%) Cream 0 each TOP DAILY PRN PRN Reason: Rash Polyethylene Glycol (Miralax) 17 gm PO DAILY [facility] Last Admin: 08/31/20 08:05 Dose: Not Given Documented by: Senna/Docusate Sodium (Senna Plus) 1 tab PO BID [facility] Last Admin: 08/31/20 08:05 Dose: Not Given Documented by: Sertraline HCl (Zoloft) 150 mg PO DAILY [facility] Last Admin: 08/31/20 08:02 Dose: 150 mg Documented by: Simvastatin (Zocor) 40 mg PO BEDTIME [facility] Last Admin: 08/30/20 19:54 Dose: 40 mg Documented by: Sodium Chloride (Saline Flush) 10 ml FLUSH ASDIRECTED PRN PRN Reason: Keep Vein Open Last Admin: 08/23/20 05:45 Dose: 10 ml Documented by: Discontinued Medications Clindamycin HCl (Cleocin) 150 mg PO Q8H [facility] Last Admin: 08/29/20 18:45 Dose: Not Given Documented by: Diphenhydramine HCl (Benadryl) 25 mg IM ONETIME ONE Stop: 08/19/20 10:03 Last Admin: 08/19/20 10:18 Dose: 25 mg Documented by: Diphenhydramine HCl (Benadryl) 25 mg IM ONETIME ONE Stop: 08/19/20 10:51 Last Admin: 08/19/20 15:22 Dose: Not Given Documented by: Diphenhydramine HCl (Benadryl) 12.5 mg PO QID [facility] Stop: 08/20/20 23:00 Last Admin: 08/20/20 19:50 Dose: 12.5 mg Documented by: Hydrocortisone (Hydrocortisone 1% Crm) 0 gm TOP BID [facility] Stop: 08/26/20 23:00 Last Admin: 08/26/20 19:55 Dose: 1 applic Documented by: Methylprednisolone Sodium Succinate (Solu-Medrol) 40 mg IVPUSH ONETIME ONE Stop: 08/19/20 12:21 Last Admin: 08/19/20 12:44 Dose: 40 mg Documented by: Methylprednisolone Sodium Succinate (Solu-Medrol) 40 mg IVPUSH ONETIME ONE Stop: 08/19/20 12:28 Last Admin: 08/19/20 12:45 Dose: 40 mg Documented by: Oxycodone HCl (Oxycodone) 5 mg PO Q4HR PRN PRN Reason: Pain Last Admin: 08/13/20 13:06 Dose: 5 mg Documented by: Potassium Chloride (Potassium Chloride Solution) 20 meq PO BID [facility] Stop: 08/21/20 23:00 Last Admin: 08/21/20 20:08 Dose: 20 meq Documented by: Prednisone (Prednisone) 20 mg PO BID [facility] Stop: 08/20/20 23:00 Last Admin: 08/20/20 09:01 Dose: 20 mg Documented by: Trimethoprim/Sulfamethoxazole (Septra Ds) 1 tab PO BID [facility] - Exam General: Alert, Cooperative, No Acute Distress HEENT: Mucous Membr. Moist/[place], Other (minimal erythema on the left side of his face now and no tenderness or warmth to palpation; still has a prominent upper anterior cervical lymph node without any fluctuance noted) Neck: Supple, Trachea Midline, No Thyromegaly. No: Lymphadenopathy Lungs: Clear to Auscultation, Normal Respiratory Effort Cardiovascular: Regular Rate, Regular Rhythm, No Murmurs GI/Abdominal Exam: Normal Bowel Sounds, Soft, Non-Tender, No Organomegaly, No Distention, No Mass Extremities: Non-Tender, No Pedal Edema, Other (resolving ecchymosis right upper arm) Peripheral Pulses: 2+: Radial (L), Radial (R) Skin: Warm, Dry, Intact Neurological: No New Focal Deficit Sepsis Event Note - Evaluation Sepsis Screening Result: No Definite Risk - Focused Exam Vital Signs: Vital Signs Temp Pulse Resp BP BP Pulse Ox 08/31/20 08:03 123/62 08/31/20 05:57 37.1 C 74 16 151/79 H 98 - Problem List & Annotations (1) Hip fracture SNOMED Code(s): 865844372 Code(s): S72.009A - FRACTURE OF UNSP PART OF NECK OF UNSP FEMUR, INIT Status: Acute Current Visit: Yes Qualifiers: Encounter type: sequela Fracture type: closed Laterality: right Qualified Code(s): S72.001S - Fracture of unspecified part of neck of right femur, sequela (2) Proximal humeral fracture SNOMED Code(s): 021015012 Code(s): S42.209A - UNSP FRACTURE OF UPPER END OF UNSP HUMERUS, INIT FOR CLOS FX Status: Acute Current Visit: No Qualifiers: Encounter type: initial encounter Fracture type: closed Fracture morphology: unspecified fracture morphology Laterality: right Qualified Code(s): S42.201A - Unspecified fracture of upper end of right humerus, initial encounter for closed fracture (3) Constipation SNOMED Code(s): 26549526 Code(s): K59.00 - CONSTIPATION, UNSPECIFIED Status: Chronic Current Visit: Yes Qualifiers: Constipation type: unspecified constipation type Qualified Code(s): K59.00 - Constipation, unspecified (4) Hypoxia SNOMED Code(s): 401476842 Code(s): R09.02 - HYPOXEMIA Status: Acute Current Visit: Yes (5) Cellulitis SNOMED Code(s): 787774424 Code(s): L03.90 - CELLULITIS, UNSPECIFIED Status: Acute Current Visit: Yes Qualifiers: Site of cellulitis: face Qualified Code(s): L03.211 - Cellulitis of face (6) Diabetes SNOMED Code(s): 70323440 Code(s): E11.9 - TYPE 2 DIABETES MELLITUS WITHOUT COMPLICATIONS Status: Chronic Current Visit: Yes Qualifiers: Diabetes mellitus type: type 2 Diabetes mellitus chcf insulin use: without chcf use Diabetes mellitus complication status: without complication Qualified Code(s): E11.9 - Type 2 diabetes mellitus without complications (7) Depression SNOMED Code(s): 87207752 Code(s): F32.9 - MAJOR DEPRESSIVE DISORDER, SINGLE EPISODE, UNSPECIFIED Status: Chronic Current Visit: Yes Qualifiers: Depression Type: unspecified Qualified Code(s): F32.9 - Major depressive disorder, single episode, unspecified (8) CVA (cerebral vascular accident) SNOMED Code(s): 870381595 Code(s): I63.9 - CEREBRAL INFARCTION, UNSPECIFIED Status: Chronic Current Visit: No (9) Right sided weakness SNOMED Code(s): 184286164 Code(s): R53.1 - WEAKNESS Status: Chronic Current Visit: No (10) HTN (hypertension) SNOMED Code(s): 71263447 Code(s): I10 - ESSENTIAL (PRIMARY) HYPERTENSION Status: Chronic Current Visit: No (11) Hypercholesteremia SNOMED Code(s): 54561641 Code(s): E78.00 - PURE HYPERCHOLESTEROLEMIA, UNSPECIFIED Status: Chronic Current Visit: No (12) Angioedema SNOMED Code(s): 02747265 Code(s): T78.3XXA - Status: Chronic Current Visit: Yes Qualifiers: Encounter type: sequela Qualified Code(s): T78.3XXS - Angioneurotic edema, sequela - Problem List Review Problem List Initiated/Reviewed/Updated: Yes - My Orders Last 24 Hours: My Active Orders 09/21/20 05:11 Hip Min 2V or 3V w Pelvis Rt [CR] Routine - Assessment Assessment:: 75 yo male on swing bed for strengthening following fractures of the right hip and humerus. Continues to progress well with therapies. Started on clindamycin this week for facial cellulitis. No other ongoing issues. - Plan Plan:: #1 Hip fracture #2 Humerus fracture - Wound cares and weight bearing instructions per ortho. - Pain is controlled. Pain is controlled on PRN tylenol. - PT and OT following. - Ortho not planning any in person follow-up unless issues. X-rays are planned for late August. - Lovenox for VTE prophylaxis for total of 28 days. #3 Constipation - Will change miralax to PRN. - Continue senna on a scheduled basis for now. Will reassess once miralax has been held and change to PRN also if need be. #4 Hypoxia, resolved - Patient had no other symptoms. - Has now not required oxygen for quite some time. #5 Cellulitis - This is improving. - Will do a total of a 1 week course of clindamycin. #6 Diabetes - Patient's states this resolved when he lost weight. - Therefore, will continue regular diet as per home and will hold off on any glucose checks. #7 Depression #8 CVA #9 Right sided weakness, secondary to #7 #10 Hypertension #11 Hyperlipidemia #12 Polycythemia - Continue home medications. - CBC's have been stable without any elevation in Hgb or Hct. Will continue weekly labs while in swing bed. #13 Angioedema - No further episodes since about 10 days ago. - Continue benadryl PRN. Patient is admitted to swing bed - will remain admitted until he has progressed with therapy and is deemed appropriate for discharge home with his . Anticipating he will need another 3-4 weeks before discharge but ultimately depends on how well he does and could be before then. Patient is on lovenox for VTE prophylaxis. Code status is full - confirmed with patient on admission.
[2020-08-31] MEDS: Simvastatin 40 MG Tab PO SCH (19:31)
[2020-09-01] MEDS: Acetaminophen 325 MG Tab PO SCH ×4 (00:57→18:21)
[2020-09-01] MEDS: Clindamycin HCl 150 MG Cap PO SCH ×3 (06:09→20:07)
[2020-09-01] MEDS: Sertraline 50 MG Tab PO SCH (08:29)
[2020-09-01] MEDS: amLODIPine 10 MG Tab PO SCH (08:29)
[2020-09-01] MEDS: Enoxaparin 40 MG/0.4 ML Syringe SUBCUT SCH (08:29)
[2020-09-01] MEDS: Calcium Citrate/Vitamin D3 315 MG-250 Unit Tab PO SCH ×2 (08:29→18:21)
[2020-09-01] MEDS: Cholecalciferol (Vitamin D3) 25 MCG Tab PO SCH (08:30)
[2020-09-01] MEDS: Aspirin 325 MG Tab.EC PO SCH (08:30)
[2020-09-01] MEDS: Hydroxyurea 500 MG Cap PO SCH (08:31)
[2020-09-01] MEDS: Simvastatin 40 MG Tab PO SCH (20:06)
[2020-09-02] MEDS: Acetaminophen 325 MG Tab PO SCH ×4 (00:44→17:51)
[2020-09-02] MEDS: Clindamycin HCl 150 MG Cap PO SCH ×3 (06:04→20:43)
[2020-09-02] MEDS: amLODIPine 10 MG Tab PO SCH (08:50)
[2020-09-02] MEDS: Enoxaparin 40 MG/0.4 ML Syringe SUBCUT SCH (08:50)
[2020-09-02] MEDS: Calcium Citrate/Vitamin D3 315 MG-250 Unit Tab PO SCH ×2 (08:50→17:51)
[2020-09-02] MEDS: Sertraline 50 MG Tab PO SCH (08:50)
[2020-09-02] MEDS: Aspirin 325 MG Tab.EC PO SCH (08:50)
[2020-09-02] MEDS: Loperamide 2 MG Cap PO PRN ×2 (08:50→13:24)
[2020-09-02] MEDS: Cholecalciferol (Vitamin D3) 25 MCG Tab PO SCH (08:50)
[2020-09-02] MEDS: Hydroxyurea 500 MG Cap PO SCH (08:53)
[2020-09-02] MEDS: Simvastatin 40 MG Tab PO SCH (20:43)
[2020-09-03] MEDS: Acetaminophen 325 MG Tab PO SCH ×5 (00:18→23:19)
[2020-09-03] MEDS: Clindamycin HCl 150 MG Cap PO SCH ×3 (06:15→20:48)
[2020-09-03] MEDS: Loperamide 2 MG Cap PO PRN ×3 (07:57→23:19)
[2020-09-03] MEDS: Cholecalciferol (Vitamin D3) 25 MCG Tab PO SCH (07:58)
[2020-09-03] MEDS: amLODIPine 10 MG Tab PO SCH (07:58)
[2020-09-03] MEDS: Aspirin 325 MG Tab.EC PO SCH (07:58)
[2020-09-03] MEDS: Sertraline 50 MG Tab PO SCH (07:58)
[2020-09-03] MEDS: Hydroxyurea 500 MG Cap PO SCH ×2 (07:58→08:52)
[2020-09-03] MEDS: Calcium Citrate/Vitamin D3 315 MG-250 Unit Tab PO SCH ×2 (07:58→18:13)
[2020-09-03] MEDS: Enoxaparin 40 MG/0.4 ML Syringe SUBCUT SCH (07:58)
[2020-09-03] MEDS: Simvastatin 40 MG Tab PO SCH (20:47)
[2020-09-04] MEDS: Acetaminophen 325 MG Tab PO SCH ×3 (06:21→17:41)
[2020-09-04] MEDS: Clindamycin HCl 150 MG Cap PO SCH ×3 (06:22→20:55)
[2020-09-04] MEDS: Calcium Citrate/Vitamin D3 315 MG-250 Unit Tab PO SCH ×2 (09:06→17:41)
[2020-09-04] MEDS: Enoxaparin 40 MG/0.4 ML Syringe SUBCUT SCH (09:06)
[2020-09-04] MEDS: Sertraline 50 MG Tab PO SCH (09:06)
[2020-09-04] MEDS: amLODIPine 10 MG Tab PO SCH (09:07)
[2020-09-04] MEDS: Cholecalciferol (Vitamin D3) 25 MCG Tab PO SCH (09:07)
[2020-09-04] MEDS: Hydroxyurea 500 MG Cap PO SCH (09:11)
[2020-09-04] MEDS: Aspirin 325 MG Tab.EC PO SCH (11:19)
[2020-09-04] MEDS: Simvastatin 40 MG Tab PO SCH (20:55)
[2020-09-05] MEDS: Acetaminophen 325 MG Tab PO SCH ×4 (00:04→17:32)
[2020-09-05] MEDS: Loperamide 2 MG Cap PO PRN (05:57)
[2020-09-05] MEDS: Enoxaparin 40 MG/0.4 ML Syringe SUBCUT SCH (08:34)
[2020-09-05] MEDS: Calcium Citrate/Vitamin D3 315 MG-250 Unit Tab PO SCH ×2 (08:34→17:32)
[2020-09-05] MEDS: Sertraline 50 MG Tab PO SCH (08:34)
[2020-09-05] MEDS: Aspirin 325 MG Tab.EC PO SCH (08:34)
[2020-09-05] MEDS: Cholecalciferol (Vitamin D3) 25 MCG Tab PO SCH (08:34)
[2020-09-05] MEDS: amLODIPine 10 MG Tab PO SCH (08:35)
[2020-09-05] MEDS: Hydroxyurea 500 MG Cap PO SCH (09:03)
[2020-09-05] MEDS: Simvastatin 40 MG Tab PO SCH (20:35)
[2020-09-06] MEDS: Acetaminophen 325 MG Tab PO SCH ×4 (00:15→17:51)
[2020-09-06] MEDS: amLODIPine 10 MG Tab PO SCH (09:06)
[2020-09-06] MEDS: Sertraline 50 MG Tab PO SCH (09:06)
[2020-09-06] MEDS: Enoxaparin 40 MG/0.4 ML Syringe SUBCUT SCH (09:06)
[2020-09-06] MEDS: Calcium Citrate/Vitamin D3 315 MG-250 Unit Tab PO SCH ×2 (09:07→17:52)
[2020-09-06] MEDS: Cholecalciferol (Vitamin D3) 25 MCG Tab PO SCH (09:07)
[2020-09-06] MEDS: Aspirin 325 MG Tab.EC PO SCH (09:07)
[2020-09-06] MEDS: Hydroxyurea 500 MG Cap PO SCH (09:08)
[2020-09-06] MEDS: Simvastatin 40 MG Tab PO SCH (20:07)
[2020-09-07] MEDS: Acetaminophen 325 MG Tab PO SCH ×4 (01:00→18:17)
[2020-09-07] MEDS: Calcium Citrate/Vitamin D3 315 MG-250 Unit Tab PO SCH ×2 (09:04→18:17)
[2020-09-07] MEDS: Enoxaparin 40 MG/0.4 ML Syringe SUBCUT SCH (09:04)
[2020-09-07] MEDS: Sertraline 50 MG Tab PO SCH (09:04)
[2020-09-07] MEDS: amLODIPine 10 MG Tab PO SCH (09:05)
[2020-09-07] MEDS: Aspirin 325 MG Tab.EC PO SCH (09:05)
[2020-09-07] MEDS: Cholecalciferol (Vitamin D3) 25 MCG Tab PO SCH (09:05)
[2020-09-07] MEDS: Hydroxyurea 500 MG Cap PO SCH (09:07)
[2020-09-07] MEDS: diphenhydrAMINE 25 MG Cap PO PRN (14:28)
[2020-09-07] MEDS: Simvastatin 40 MG Tab PO SCH (19:04)
[2020-09-08] MEDS: Acetaminophen 325 MG Tab PO SCH ×4 (05:16→18:17)
[2020-09-08] MEDS: Cholecalciferol (Vitamin D3) 25 MCG Tab PO SCH (08:50)
[2020-09-08] MEDS: amLODIPine 10 MG Tab PO SCH (08:50)
[2020-09-08] MEDS: Aspirin 325 MG Tab.EC PO SCH (08:50)
[2020-09-08] MEDS: Enoxaparin 40 MG/0.4 ML Syringe SUBCUT SCH (08:50)
[2020-09-08] MEDS: Sertraline 50 MG Tab PO SCH (08:50)
[2020-09-08] MEDS: Calcium Citrate/Vitamin D3 315 MG-250 Unit Tab PO SCH ×2 (08:50→18:17)
[2020-09-08] MEDS: Hydroxyurea 500 MG Cap PO SCH (09:14)
[2020-09-08] MEDS: Simvastatin 40 MG Tab PO SCH (19:32)
[2020-09-09] MEDS: Acetaminophen 325 MG Tab PO SCH ×4 (00:38→17:39)
[2020-09-09] MEDS: Aspirin 325 MG Tab.EC PO SCH (07:50)
[2020-09-09] MEDS: Sertraline 50 MG Tab PO SCH (07:50)
[2020-09-09] MEDS: Cholecalciferol (Vitamin D3) 25 MCG Tab PO SCH (07:50)
[2020-09-09] MEDS: Calcium Citrate/Vitamin D3 315 MG-250 Unit Tab PO SCH ×2 (07:50→17:39)
[2020-09-09] MEDS: Hydroxyurea 500 MG Cap PO SCH (07:50)
[2020-09-09] MEDS: amLODIPine 10 MG Tab PO SCH (07:51)
[2020-09-09] MEDS: Enoxaparin 40 MG/0.4 ML Syringe SUBCUT SCH (07:51)
[2020-09-09] MEDS: Simvastatin 40 MG Tab PO SCH (19:30)
[2020-09-10] MEDS: Acetaminophen 325 MG Tab PO SCH ×4 (02:29→17:50)
[2020-09-10] MEDS: Sertraline 50 MG Tab PO SCH (09:42)
[2020-09-10] MEDS: Aspirin 325 MG Tab.EC PO SCH (09:42)
[2020-09-10] MEDS: Cholecalciferol (Vitamin D3) 25 MCG Tab PO SCH (09:42)
[2020-09-10] MEDS: amLODIPine 10 MG Tab PO SCH (09:43)
[2020-09-10] MEDS: Hydroxyurea 500 MG Cap PO SCH (09:43)
[2020-09-10] MEDS: Calcium Citrate/Vitamin D3 315 MG-250 Unit Tab PO SCH ×2 (09:43→17:50)
[2020-09-10] MEDS: Simvastatin 40 MG Tab PO SCH (19:15)
[2020-09-11] MEDS: Acetaminophen 325 MG Tab PO SCH ×4 (00:11→18:15)
[2020-09-11] MEDS: amLODIPine 10 MG Tab PO SCH (08:16)
[2020-09-11] MEDS: Sertraline 50 MG Tab PO SCH (08:16)
[2020-09-11] MEDS: Hydroxyurea 500 MG Cap PO SCH (08:16)
[2020-09-11] MEDS: Aspirin 325 MG Tab.EC PO SCH (08:17)
[2020-09-11] MEDS: Cholecalciferol (Vitamin D3) 25 MCG Tab PO SCH (08:17)
[2020-09-11] MEDS: Calcium Citrate/Vitamin D3 315 MG-250 Unit Tab PO SCH ×2 (08:17→18:15)
--- NOTE | 2020-09-11 12:36 | PCM.PN ---
- General Info Date of Service: 09/11/20 Subjective Update: 75 yo male seen today for swing bed follow-up. He states that he is doing well. His pain has been well controlled. He has been sleeping well and eating well. Nursing staff have been concerned about his PO intake and also are wondering about his swallowing; however, we are unable to do a swallow study at this time. The patient denies any issues with his swallowing. No vomiting or nausea. The area of redness and swelling on the left side of his face is resolved. No fever. He is progressing well with PT. ROS otherwise negative. - Review of Systems General: Reports: No Symptoms HEENT: Reports: No Symptoms Pulmonary: Reports: No Symptoms Cardiovascular: Reports: No Symptoms Gastrointestinal: Reports: No Symptoms Genitourinary: Reports: No Symptoms Musculoskeletal: Reports: No Symptoms Skin: Reports: No Symptoms Neurological: Reports: No Symptoms - Patient Data Vitals - Most Recent: Last Vital Signs Temp 36.4 C 09/11/20 05:32 Pulse 81 09/11/20 05:32 Resp 16 09/11/20 05:32 BP 140/78 09/11/20 08:16 Pulse Ox 92 L 09/11/20 05:32 Weight - Most Recent: 94.12 kg I&O - Last 24 Hours: Intake & Output 09/10/20 09/11/20 09/11/20 22:59 06:59 14:59 Intake Total 300 240 Balance 300 240 Med Orders - Current: Current Medications Acetaminophen (Tylenol) 650 mg PO Q6HR [facility] Last Admin: 09/11/20 05:00 Dose: 650 mg Documented by: Amlodipine Besylate (Norvasc) 10 mg PO DAILY [facility] Last Admin: 09/11/20 08:16 Dose: 10 mg Documented by: Aspirin (Ecotrin) 325 mg PO DAILY [facility] Last Admin: 09/11/20 08:17 Dose: 325 mg Documented by: Calcium Citrate (Calcium Citrate + D) 1 tab PO BIDMEALS [facility] Last Admin: 09/11/20 08:17 Dose: 1 tab Documented by: Cholecalciferol (Vitamin D3) 25 mcg PO DAILY [facility] Last Admin: 09/11/20 08:17 Dose: 25 mcg Documented by: Diphenhydramine HCl (Benadryl) 25 mg PO Q6H PRN PRN Reason: swelling Last Admin: 09/07/20 14:28 Dose: 25 mg Documented by: Hydroxyurea (Hydrea) 500 mg PO SuTuThSa@0800 [facility] Last Admin: 09/10/20 09:43 Dose: 500 mg Documented by: Hydroxyurea (Hydrea) 1,000 mg PO MoWeFr@0800 [facility] Last Admin: 09/11/20 08:16 Dose: 1,000 mg Documented by: Loperamide HCl (Imodium) 4 mg PO Q6H PRN PRN Reason: Diarrhea Last Admin: 09/05/20 05:57 Dose: 4 mg Documented by: Benadryl ( Diphenhydramine 1%) Cream 0 each TOP DAILY PRN PRN Reason: Rash Polyethylene Glycol (Miralax) 17 gm PO DAILY PRN PRN Reason: Constipation Senna/Docusate Sodium (Senna Plus) 1 tab PO BID [facility] Last Admin: 09/11/20 08:18 Dose: 1 tab Documented by: Sertraline HCl (Zoloft) 150 mg PO DAILY [facility] Last Admin: 09/11/20 08:16 Dose: 150 mg Documented by: Simvastatin (Zocor) 40 mg PO BEDTIME [facility] Last Admin: 09/10/20 19:15 Dose: 40 mg Documented by: Sodium Chloride (Saline Flush) 10 ml FLUSH ASDIRECTED PRN PRN Reason: Keep Vein Open Last Admin: 08/23/20 05:45 Dose: 10 ml Documented by: Discontinued Medications Clindamycin HCl (Cleocin) 150 mg PO Q8H [facility] Last Admin: 08/29/20 18:45 Dose: Not Given Documented by: Clindamycin HCl (Cleocin) 150 mg PO 0700,1400,2100 [facility] Stop: 09/04/20 21:01 Last Admin: 09/04/20 20:55 Dose: 150 mg Documented by: Diphenhydramine HCl (Benadryl) 25 mg IM ONETIME ONE Stop: 08/19/20 10:03 Last Admin: 08/19/20 10:18 Dose: 25 mg Documented by: Diphenhydramine HCl (Benadryl) 25 mg IM ONETIME ONE Stop: 08/19/20 10:51 Last Admin: 08/19/20 15:22 Dose: Not Given Documented by: Diphenhydramine HCl (Benadryl) 12.5 mg PO QID [facility] Stop: 08/20/20 23:00 Last Admin: 08/20/20 19:50 Dose: 12.5 mg Documented by: Enoxaparin Sodium (Lovenox) 40 mg SUBCUT DAILY [facility] Stop: 09/09/20 08:01 Last Admin: 09/09/20 07:51 Dose: 40 mg Documented by: Hydrocortisone (Hydrocortisone 1% Crm) 0 gm TOP BID [facility] Stop: 08/26/20 23:00 Last Admin: 08/26/20 19:55 Dose: 1 applic Documented by: Hydroxyurea (Hydrea) 1,000 mg PO MOWEFR [facility] Last Admin: 09/08/20 09:14 Dose: 1,000 mg Documented by: Hydroxyurea (Hydrea) 500 mg PO SUTUTHSA [facility] Last Admin: 09/07/20 09:07 Dose: 500 mg Documented by: Methylprednisolone Sodium Succinate (Solu-Medrol) 40 mg IVPUSH ONETIME ONE Stop: 08/19/20 12:21 Last Admin: 08/19/20 12:44 Dose: 40 mg Documented by: Methylprednisolone Sodium Succinate (Solu-Medrol) 40 mg IVPUSH ONETIME ONE Stop: 08/19/20 12:28 Last Admin: 08/19/20 12:45 Dose: 40 mg Documented by: Oxycodone HCl (Oxycodone) 5 mg PO Q4HR PRN PRN Reason: Pain Last Admin: 08/13/20 13:06 Dose: 5 mg Documented by: Polyethylene Glycol (Miralax) 17 gm PO DAILY [facility] Last Admin: 08/31/20 08:05 Dose: Not Given Documented by: Potassium Chloride (Potassium Chloride Solution) 20 meq PO BID [facility] Stop: 08/21/20 23:00 Last Admin: 08/21/20 20:08 Dose: 20 meq Documented by: Prednisone (Prednisone) 20 mg PO BID [facility] Stop: 08/20/20 23:00 Last Admin: 08/20/20 09:01 Dose: 20 mg Documented by: Trimethoprim/Sulfamethoxazole (Septra Ds) 1 tab PO BID [facility] - Exam General: Alert, Cooperative, No Acute Distress HEENT: Pupils Equal, Pupils Reactive, Mucous Membr. Moist/[place] Neck: Supple, Trachea Midline, No Thyromegaly. No: Lymphadenopathy Lungs: Clear to Auscultation, Normal Respiratory Effort Cardiovascular: Regular Rate, Regular Rhythm, No Murmurs GI/Abdominal Exam: Normal Bowel Sounds, Soft, Non-Tender, No Organomegaly, No Distention, No Mass Extremities: Normal Inspection, Non-Tender, No Pedal Edema Peripheral Pulses: 2+: Radial (L), Radial (R) Skin: Warm, Dry, Intact Neurological: No New Focal Deficit Sepsis Event Note - Evaluation Sepsis Screening Result: No Definite Risk - Focused Exam Vital Signs: Vital Signs Temp Pulse Resp BP BP Pulse Ox 09/11/20 08:16 140/78 09/11/20 05:32 36.4 C 81 16 140/78 92 L - Problem List & Annotations (1) Hip fracture SNOMED Code(s): 501535944 Code(s): S72.009A - FRACTURE OF UNSP PART OF NECK OF UNSP FEMUR, INIT Status: Acute Current Visit: Yes Qualifiers: Encounter type: sequela Fracture type: closed Laterality: right Qualified Code(s): S72.001S - Fracture of unspecified part of neck of right femur, sequela (2) Proximal humeral fracture SNOMED Code(s): 478958938 Code(s): S42.209A - UNSP FRACTURE OF UPPER END OF UNSP HUMERUS, INIT FOR CLOS FX Status: Acute Current Visit: No Qualifiers: Encounter type: initial encounter Fracture type: closed Fracture morphology: unspecified fracture morphology Laterality: right Qualified Code(s): S42.201A - Unspecified fracture of upper end of right humerus, initial encounter for closed fracture (3) Constipation SNOMED Code(s): 40507311 Code(s): K59.00 - CONSTIPATION, UNSPECIFIED Status: Chronic Current Visit: Yes Qualifiers: Constipation type: unspecified constipation type Qualified Code(s): K59.00 - Constipation, unspecified (4) Hypoxia SNOMED Code(s): 826054378 Code(s): R09.02 - HYPOXEMIA Status: Acute Current Visit: Yes (5) Cellulitis SNOMED Code(s): 238619713 Code(s): L03.90 - CELLULITIS, UNSPECIFIED Status: Acute Current Visit: Yes Qualifiers: Site of cellulitis: face Qualified Code(s): L03.211 - Cellulitis of face (6) Diabetes SNOMED Code(s): 91405484 Code(s): E11.9 - TYPE 2 DIABETES MELLITUS WITHOUT COMPLICATIONS Status: Chronic Current Visit: Yes Qualifiers: Diabetes mellitus type: type 2 Diabetes mellitus mcfp insulin use: without mcfp use Diabetes mellitus complication status: without complication Qualified Code(s): E11.9 - Type 2 diabetes mellitus without complications (7) Depression SNOMED Code(s): 77306942 Code(s): F32.9 - MAJOR DEPRESSIVE DISORDER, SINGLE EPISODE, UNSPECIFIED Status: Chronic Current Visit: Yes Qualifiers: Depression Type: unspecified Qualified Code(s): F32.9 - Major depressive disorder, single episode, unspecified (8) CVA (cerebral vascular accident) SNOMED Code(s): 204174386 Code(s): I63.9 - CEREBRAL INFARCTION, UNSPECIFIED Status: Chronic Current Visit: No (9) Right sided weakness SNOMED Code(s): 667108707 Code(s): R53.1 - WEAKNESS Status: Chronic Current Visit: No (10) HTN (hypertension) SNOMED Code(s): 20554133 Code(s): I10 - ESSENTIAL (PRIMARY) HYPERTENSION Status: Chronic Current Visit: No (11) Hypercholesteremia SNOMED Code(s): 73740880 Code(s): E78.00 - PURE HYPERCHOLESTEROLEMIA, UNSPECIFIED Status: Chronic Current Visit: No (12) Angioedema SNOMED Code(s): 49124298 Code(s): T78.3XXA - ANGIONEUROTIC EDEMA, INITIAL ENCOUNTER Status: Chronic Current Visit: Yes Qualifiers: Encounter type: sequela Qualified Code(s): T78.3XXS - Angioneurotic edema, sequela - Problem List Review Problem List Initiated/Reviewed/Updated: Yes - My Orders Last 24 Hours: My Active Orders 09/11/20 08:00 Hydroxyurea [Hydrea] 1,000 mg PO MoWeFr@0800 09/21/20 05:11 Hip Min 2V or 3V w Pelvis Rt [CR] Routine - Assessment Assessment:: 75 yo male on swing bed for strengthening following fractures of the right hip and humerus. Continues to progress well with therapies. No interval issues. - Plan Plan:: #1 Hip fracture #2 Humerus fracture - Wound cares and weight bearing instructions per ortho. - Pain is controlled on PRN tylenol. - PT and OT following. - Ortho not planning any in person follow-up unless issues. X-rays are planned for late August. - Lovenox for VTE prophylaxis for total of 28 days. - Weight was down quite a lot from admit but has now remained stable. Will continue current diet and will monitor for any swallowing issues. #3 Constipation - Current bowel regimen is working well. - Continue senna on a scheduled basis and miralax PRN. #4 Diabetes - Patient's states this resolved when he lost weight. - Therefore, will continue regular diet as per home and will hold off on any glucose checks. #7 Depression #8 CVA #9 Right sided weakness, secondary to #7 #10 Hypertension #11 Hyperlipidemia #12 Polycythemia - Continue home medications. - CBC's have been stable without any elevation in Hgb or Hct. Will continue weekly labs while in swing bed. #13 Angioedema - No further episodes since about 10 days ago. - Continue benadryl PRN. Patient is admitted to swing bed - will remain admitted until he has progressed with therapy and is deemed appropriate for discharge home with his . Anticipating he will need another 2 weeks before discharge but ultimately depends on how well he does and could be before then. Patient is on lovenox for VTE prophylaxis. Code status is full - confirmed with patient on admission.
[2020-09-11] MEDS: Simvastatin 40 MG Tab PO SCH (19:53)
[2020-09-12] MEDS: Acetaminophen 325 MG Tab PO SCH ×4 (00:15→17:34)
[2020-09-12] MEDS: Calcium Citrate/Vitamin D3 315 MG-250 Unit Tab PO SCH ×2 (08:20→17:34)
[2020-09-12] MEDS: Cholecalciferol (Vitamin D3) 25 MCG Tab PO SCH (08:21)
[2020-09-12] MEDS: Hydroxyurea 500 MG Cap PO SCH (08:21)
[2020-09-12] MEDS: Aspirin 325 MG Tab.EC PO SCH (08:21)
[2020-09-12] MEDS: Sertraline 50 MG Tab PO SCH (08:21)
[2020-09-12] MEDS: amLODIPine 10 MG Tab PO SCH (08:22)
[2020-09-12] MEDS: Simvastatin 40 MG Tab PO SCH (20:14)
[2020-09-13] MEDS: Acetaminophen 325 MG Tab PO SCH ×4 (00:25→20:03)
[2020-09-13] MEDS: Sertraline 50 MG Tab PO SCH (10:07)
[2020-09-13] MEDS: Aspirin 325 MG Tab.EC PO SCH (10:08)
[2020-09-13] MEDS: amLODIPine 10 MG Tab PO SCH (10:08)
[2020-09-13] MEDS: Calcium Citrate/Vitamin D3 315 MG-250 Unit Tab PO SCH ×2 (10:08→20:03)
[2020-09-13] MEDS: Hydroxyurea 500 MG Cap PO SCH (10:08)
[2020-09-13] MEDS: Cholecalciferol (Vitamin D3) 25 MCG Tab PO SCH (10:08)
[2020-09-13] MEDS: Simvastatin 40 MG Tab PO SCH (20:03)
[2020-09-14] MEDS: Acetaminophen 325 MG Tab PO SCH ×4 (00:26→17:46)
[2020-09-14] MEDS: Cholecalciferol (Vitamin D3) 25 MCG Tab PO SCH (08:29)
[2020-09-14] MEDS: Hydroxyurea 500 MG Cap PO SCH (08:30)
[2020-09-14] MEDS: Polyethylene Glycol 3350 Powder 17 GM Packet PO PRN (08:30)
[2020-09-14] MEDS: Aspirin 325 MG Tab.EC PO SCH (08:30)
[2020-09-14] MEDS: Calcium Citrate/Vitamin D3 315 MG-250 Unit Tab PO SCH ×2 (08:30→17:46)
[2020-09-14] MEDS: amLODIPine 10 MG Tab PO SCH (08:30)
[2020-09-14] MEDS: Sertraline 50 MG Tab PO SCH (08:30)
[2020-09-14] MEDS: Simvastatin 40 MG Tab PO SCH (19:51)
[2020-09-15] MEDS: Acetaminophen 325 MG Tab PO SCH ×4 (01:15→17:47)
[2020-09-15] MEDS: Sertraline 50 MG Tab PO SCH (09:06)
[2020-09-15] MEDS: Hydroxyurea 500 MG Cap PO SCH (09:06)
[2020-09-15] MEDS: Calcium Citrate/Vitamin D3 315 MG-250 Unit Tab PO SCH ×2 (09:07→17:47)
[2020-09-15] MEDS: Cholecalciferol (Vitamin D3) 25 MCG Tab PO SCH (09:07)
[2020-09-15] MEDS: Aspirin 325 MG Tab.EC PO SCH (09:07)
[2020-09-15] MEDS: amLODIPine 10 MG Tab PO SCH (09:08)
[2020-09-15] MEDS: Simvastatin 40 MG Tab PO SCH (19:32)
[2020-09-16] MEDS: Acetaminophen 325 MG Tab PO SCH ×5 (01:10→17:51)
[2020-09-16] MEDS: Hydroxyurea 500 MG Cap PO SCH (09:40)
[2020-09-16] MEDS: Calcium Citrate/Vitamin D3 315 MG-250 Unit Tab PO SCH ×3 (09:40→17:51)
[2020-09-16] MEDS: Cholecalciferol (Vitamin D3) 25 MCG Tab PO SCH (09:40)
[2020-09-16] MEDS: amLODIPine 10 MG Tab PO SCH (09:41)
[2020-09-16] MEDS: Aspirin 325 MG Tab.EC PO SCH (09:41)
[2020-09-16] MEDS: Sertraline 50 MG Tab PO SCH (09:41)
[2020-09-16] MEDS: Simvastatin 40 MG Tab PO SCH ×2 (20:07→20:10)
[2020-09-17] MEDS: Acetaminophen 325 MG Tab PO SCH ×4 (01:21→20:35)
[2020-09-17] MEDS: Sertraline 50 MG Tab PO SCH ×2 (09:31→09:41)
[2020-09-17] MEDS: amLODIPine 10 MG Tab PO SCH ×2 (09:32→09:41)
[2020-09-17] MEDS: Aspirin 325 MG Tab.EC PO SCH ×2 (09:32→09:41)
[2020-09-17] MEDS: Calcium Citrate/Vitamin D3 315 MG-250 Unit Tab PO SCH ×3 (09:32→20:34)
[2020-09-17] MEDS: Cholecalciferol (Vitamin D3) 25 MCG Tab PO SCH ×2 (09:32→09:41)
[2020-09-17] MEDS: Hydroxyurea 500 MG Cap PO SCH ×2 (09:32→09:42)
[2020-09-17] MEDS: Simvastatin 40 MG Tab PO SCH (20:37)
[2020-09-18] MEDS: Acetaminophen 325 MG Tab PO SCH ×5 (01:13→21:04)
[2020-09-18] MEDS: Sertraline 50 MG Tab PO SCH (10:30)
[2020-09-18] MEDS: Hydroxyurea 500 MG Cap PO SCH (10:30)
[2020-09-18] MEDS: amLODIPine 10 MG Tab PO SCH (10:31)
[2020-09-18] MEDS: Cholecalciferol (Vitamin D3) 25 MCG Tab PO SCH (10:31)
[2020-09-18] MEDS: Aspirin 325 MG Tab.EC PO SCH (10:31)
[2020-09-18] MEDS: Calcium Citrate/Vitamin D3 315 MG-250 Unit Tab PO SCH ×2 (10:31→21:03)
[2020-09-18] MEDS: Simvastatin 40 MG Tab PO SCH (21:03)
[2020-09-19] MEDS: Acetaminophen 325 MG Tab PO SCH ×6 (01:57→19:20)
[2020-09-19] MEDS: Simvastatin 40 MG Tab PO SCH ×2 (01:58→20:00)
[2020-09-19] MEDS: Hydroxyurea 500 MG Cap PO SCH (09:07)
[2020-09-19] MEDS: Cholecalciferol (Vitamin D3) 25 MCG Tab PO SCH (09:07)
[2020-09-19] MEDS: amLODIPine 10 MG Tab PO SCH (09:07)
[2020-09-19] MEDS: Aspirin 325 MG Tab.EC PO SCH (09:08)
[2020-09-19] MEDS: Calcium Citrate/Vitamin D3 315 MG-250 Unit Tab PO SCH ×2 (09:08→19:20)
[2020-09-19] MEDS: Sertraline 50 MG Tab PO SCH (09:08)
[2020-09-20] MEDS: Acetaminophen 325 MG Tab PO SCH ×4 (01:19→18:35)
[2020-09-20] MEDS: amLODIPine 10 MG Tab PO SCH (10:34)
[2020-09-20] MEDS: Aspirin 325 MG Tab.EC PO SCH (10:34)
[2020-09-20] MEDS: Calcium Citrate/Vitamin D3 315 MG-250 Unit Tab PO SCH ×2 (10:34→18:35)
[2020-09-20] MEDS: Hydroxyurea 500 MG Cap PO SCH (10:34)
[2020-09-20] MEDS: Sertraline 50 MG Tab PO SCH (10:35)
[2020-09-20] MEDS: Cholecalciferol (Vitamin D3) 25 MCG Tab PO SCH (10:35)
[2020-09-20] MEDS: Simvastatin 40 MG Tab PO SCH (20:13)
[2020-09-21] MEDS: Acetaminophen 325 MG Tab PO SCH ×4 (01:55→17:41)
[2020-09-21] MEDS: Cholecalciferol (Vitamin D3) 25 MCG Tab PO SCH (09:17)
[2020-09-21] MEDS: Calcium Citrate/Vitamin D3 315 MG-250 Unit Tab PO SCH ×2 (09:17→17:41)
[2020-09-21] MEDS: amLODIPine 10 MG Tab PO SCH (09:17)
[2020-09-21] MEDS: Aspirin 325 MG Tab.EC PO SCH (09:17)
[2020-09-21] MEDS: Sertraline 50 MG Tab PO SCH (09:17)
[2020-09-21] MEDS: Hydroxyurea 500 MG Cap PO SCH (09:17)
[2020-09-21] MEDS: diphenhydrAMINE 25 MG Cap PO PRN ×2 (10:18→19:38)
--- NOTE | 2020-09-21 12:58 | CR ---
[id number] RAD/RAD Pelvis 1V W 2V Right Hip EXAM: 3 VIEWS RIGHT HIP. INDICATION: FX FOLLOW UP COMPARISON: August 09, 2020. DISCUSSION: Postsurgical changes following internal fixation of right femoral fracture. Alignment is maintained. No evidence of hardware failure or loosening. [id number] degenerative changes of the femoral acetabular joints bilaterally. Moderate amount of retained stool within the rectum. IMPRESSION: 1. As above. Louis Alvarez DO 09/21/20 1257 Thank you for allowing us to participate in the care of your patient.
[2020-09-21] MEDS: Simvastatin 40 MG Tab PO SCH (19:38)
[2020-09-22] MEDS: Acetaminophen 325 MG Tab PO SCH ×4 (00:28→18:53)
[2020-09-22] MEDS: Calcium Citrate/Vitamin D3 315 MG-250 Unit Tab PO SCH ×2 (08:44→18:52)
[2020-09-22] MEDS: amLODIPine 10 MG Tab PO SCH (08:45)
[2020-09-22] MEDS: Hydroxyurea 500 MG Cap PO SCH (08:45)
[2020-09-22] MEDS: Aspirin 325 MG Tab.EC PO SCH (08:45)
[2020-09-22] MEDS: Cholecalciferol (Vitamin D3) 25 MCG Tab PO SCH (08:46)
[2020-09-22] MEDS: Sertraline 50 MG Tab PO SCH (08:46)
[2020-09-22] MEDS: Simvastatin 40 MG Tab PO SCH (20:04)
[2020-09-23] MEDS: Acetaminophen 325 MG Tab PO SCH ×4 (00:54→18:11)
[2020-09-23] MEDS: amLODIPine 10 MG Tab PO SCH (08:12)
[2020-09-23] MEDS: Hydroxyurea 500 MG Cap PO SCH (08:12)
[2020-09-23] MEDS: Aspirin 325 MG Tab.EC PO SCH (08:12)
[2020-09-23] MEDS: Cholecalciferol (Vitamin D3) 25 MCG Tab PO SCH (08:12)
[2020-09-23] MEDS: Polyethylene Glycol 3350 Powder 17 GM Packet PO PRN (08:12)
[2020-09-23] MEDS: Calcium Citrate/Vitamin D3 315 MG-250 Unit Tab PO SCH ×2 (08:13→18:11)
[2020-09-23] MEDS: Sertraline 50 MG Tab PO SCH (08:13)
[2020-09-23] MEDS: Simvastatin 40 MG Tab PO SCH (19:39)
[2020-09-24] MEDS: Acetaminophen 325 MG Tab PO SCH ×4 (01:25→18:08)
[2020-09-24] MEDS: amLODIPine 10 MG Tab PO SCH (08:13)
[2020-09-24] MEDS: Aspirin 325 MG Tab.EC PO SCH (08:13)
[2020-09-24] MEDS: Hydroxyurea 500 MG Cap PO SCH (08:13)
[2020-09-24] MEDS: Cholecalciferol (Vitamin D3) 25 MCG Tab PO SCH (08:14)
[2020-09-24] MEDS: Sertraline 50 MG Tab PO SCH (08:14)
[2020-09-24] MEDS: Calcium Citrate/Vitamin D3 315 MG-250 Unit Tab PO SCH ×2 (08:14→18:08)
[2020-09-24] MEDS: Simvastatin 40 MG Tab PO SCH (19:39)
[2020-09-25] MEDS: Acetaminophen 325 MG Tab PO SCH ×4 (00:10→17:53)
[2020-09-25] MEDS: amLODIPine 10 MG Tab PO SCH (08:09)
[2020-09-25] MEDS: Aspirin 325 MG Tab.EC PO SCH (08:09)
[2020-09-25] MEDS: Hydroxyurea 500 MG Cap PO SCH (08:09)
[2020-09-25] MEDS: Sertraline 50 MG Tab PO SCH (08:09)
[2020-09-25] MEDS: Cholecalciferol (Vitamin D3) 25 MCG Tab PO SCH (08:09)
[2020-09-25] MEDS: Calcium Citrate/Vitamin D3 315 MG-250 Unit Tab PO SCH ×2 (08:09→17:53)
[2020-09-25] MEDS: Simvastatin 40 MG Tab PO SCH (20:30)
[2020-09-26] MEDS: Acetaminophen 325 MG Tab PO SCH ×4 (00:31→18:12)
[2020-09-26] MEDS: Hydroxyurea 500 MG Cap PO SCH (07:40)
[2020-09-26] MEDS: Calcium Citrate/Vitamin D3 315 MG-250 Unit Tab PO SCH ×2 (07:40→18:12)
[2020-09-26] MEDS: Sertraline 50 MG Tab PO SCH (07:40)
[2020-09-26] MEDS: Aspirin 325 MG Tab.EC PO SCH (07:40)
[2020-09-26] MEDS: Cholecalciferol (Vitamin D3) 25 MCG Tab PO SCH (07:40)
[2020-09-26] MEDS: amLODIPine 10 MG Tab PO SCH (07:40)
--- NOTE | 2020-09-26 16:15 | CR ---
[id number] RAD/RAD Shoulder Right 2V Min EXAM: RAD Shoulder Right 2V Min INDICATION: FOLLOW UP FRACTURE. COMPARISON: August 09, 2020. DISCUSSION: The proximal humerus fracture involving the surgical neck is unchanged in alignment. Early healing reaction is suggested. No dislocation. 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 IMPRESSION: 1. A healing proximal humerus fracture has not appreciably changed in alignment. Sidney Anaya MD 09/26/20 1532 Thank you for allowing us to participate in the care of your patient.
[2020-09-26] MEDS: Simvastatin 40 MG Tab PO SCH (20:07)
[2020-09-27] MEDS: Acetaminophen 325 MG Tab PO SCH ×4 (02:44→19:41)
[2020-09-27] MEDS: Cholecalciferol (Vitamin D3) 25 MCG Tab PO SCH (10:35)
[2020-09-27] MEDS: Aspirin 325 MG Tab.EC PO SCH (10:35)
[2020-09-27] MEDS: Calcium Citrate/Vitamin D3 315 MG-250 Unit Tab PO SCH ×2 (10:35→19:40)
[2020-09-27] MEDS: Hydroxyurea 500 MG Cap PO SCH (10:35)
[2020-09-27] MEDS: Sertraline 50 MG Tab PO SCH (10:35)
[2020-09-27] MEDS: amLODIPine 10 MG Tab PO SCH (10:36)
[2020-09-27] MEDS: Simvastatin 40 MG Tab PO SCH (19:40)
[2020-09-28] MEDS: amLODIPine 10 MG Tab PO SCH (08:01)
[2020-09-28] MEDS: Cholecalciferol (Vitamin D3) 25 MCG Tab PO SCH (08:02)
[2020-09-28] MEDS: Calcium Citrate/Vitamin D3 315 MG-250 Unit Tab PO SCH ×2 (08:02→18:11)
[2020-09-28] MEDS: Sertraline 50 MG Tab PO SCH (08:02)
[2020-09-28] MEDS: Hydroxyurea 500 MG Cap PO SCH (08:02)
[2020-09-28] MEDS: Acetaminophen 325 MG Tab PO SCH ×3 (08:02→19:26)
[2020-09-28] MEDS: Aspirin 325 MG Tab.EC PO SCH (08:02)
[2020-09-28] MEDS: Simvastatin 40 MG Tab PO SCH (19:26)
[2020-09-29] MEDS: Cholecalciferol (Vitamin D3) 25 MCG Tab PO SCH (08:16)
[2020-09-29] MEDS: Hydroxyurea 500 MG Cap PO SCH (08:16)
[2020-09-29] MEDS: Acetaminophen 325 MG Tab PO SCH ×4 (08:16→20:35)
[2020-09-29] MEDS: Aspirin 325 MG Tab.EC PO SCH (08:16)
[2020-09-29] MEDS: Sertraline 50 MG Tab PO SCH (08:16)
[2020-09-29] MEDS: amLODIPine 10 MG Tab PO SCH (08:17)
[2020-09-29] MEDS: Calcium Citrate/Vitamin D3 315 MG-250 Unit Tab PO SCH ×3 (08:17→17:59)
[2020-09-29] MEDS: Simvastatin 40 MG Tab PO SCH ×2 (20:15→23:02)
[2020-09-30] MEDS: Calcium Citrate/Vitamin D3 315 MG-250 Unit Tab PO SCH ×2 (10:22→18:10)
[2020-09-30] MEDS: Aspirin 325 MG Tab.EC PO SCH (10:23)
[2020-09-30] MEDS: Hydroxyurea 500 MG Cap PO SCH (10:23)
[2020-09-30] MEDS: amLODIPine 10 MG Tab PO SCH (10:23)
[2020-09-30] MEDS: Acetaminophen 325 MG Tab PO SCH ×3 (10:23→20:00)
[2020-09-30] MEDS: Cholecalciferol (Vitamin D3) 25 MCG Tab PO SCH (10:24)
[2020-09-30] MEDS: Sertraline 50 MG Tab PO SCH (10:25)
[2020-09-30] MEDS: Simvastatin 40 MG Tab PO SCH (20:00)
[2020-10-01] MEDS: Calcium Citrate/Vitamin D3 315 MG-250 Unit Tab PO SCH ×3 (09:14→17:44)
[2020-10-01] MEDS: Cholecalciferol (Vitamin D3) 25 MCG Tab PO SCH ×2 (09:14→12:12)
[2020-10-01] MEDS: Sertraline 50 MG Tab PO SCH ×2 (09:14→12:12)
[2020-10-01] MEDS: Aspirin 325 MG Tab.EC PO SCH ×2 (09:14→12:13)
[2020-10-01] MEDS: Hydroxyurea 500 MG Cap PO SCH ×2 (09:14→12:13)
[2020-10-01] MEDS: Acetaminophen 325 MG Tab PO SCH ×3 (09:14→19:44)
[2020-10-01] MEDS: amLODIPine 10 MG Tab PO SCH ×2 (09:14→12:14)
[2020-10-01] MEDS: Simvastatin 40 MG Tab PO SCH (19:44)
[2020-10-02] MEDS: Acetaminophen 325 MG Tab PO SCH ×3 (08:13→20:25)
[2020-10-02] MEDS: Aspirin 325 MG Tab.EC PO SCH (08:14)
[2020-10-02] MEDS: Hydroxyurea 500 MG Cap PO SCH (08:14)
[2020-10-02] MEDS: Cholecalciferol (Vitamin D3) 25 MCG Tab PO SCH (08:14)
[2020-10-02] MEDS: amLODIPine 10 MG Tab PO SCH (08:14)
[2020-10-02] MEDS: Sertraline 50 MG Tab PO SCH (08:14)
[2020-10-02] MEDS: Calcium Citrate/Vitamin D3 315 MG-250 Unit Tab PO SCH ×2 (08:14→17:40)
[2020-10-02] MEDS: Simvastatin 40 MG Tab PO SCH (20:25)
[2020-10-03] MEDS: amLODIPine 10 MG Tab PO SCH (08:05)
[2020-10-03] MEDS: Calcium Citrate/Vitamin D3 315 MG-250 Unit Tab PO SCH ×2 (08:06→17:07)
[2020-10-03] MEDS: Hydroxyurea 500 MG Cap PO SCH (08:06)
[2020-10-03] MEDS: Sertraline 50 MG Tab PO SCH (08:06)
[2020-10-03] MEDS: Cholecalciferol (Vitamin D3) 25 MCG Tab PO SCH (08:06)
[2020-10-03] MEDS: Aspirin 325 MG Tab.EC PO SCH (08:06)
[2020-10-03] MEDS: Acetaminophen 325 MG Tab PO SCH ×3 (08:06→19:39)
[2020-10-03] MEDS: Simvastatin 40 MG Tab PO SCH (19:39)
[2020-10-04] MEDS: Aspirin 325 MG Tab.EC PO SCH (08:57)
[2020-10-04] MEDS: Sertraline 50 MG Tab PO SCH (08:57)
[2020-10-04] MEDS: Cholecalciferol (Vitamin D3) 25 MCG Tab PO SCH (08:57)
[2020-10-04] MEDS: Hydroxyurea 500 MG Cap PO SCH (08:58)
[2020-10-04] MEDS: Calcium Citrate/Vitamin D3 315 MG-250 Unit Tab PO SCH ×2 (08:58→18:18)
[2020-10-04] MEDS: Acetaminophen 325 MG Tab PO SCH ×3 (08:58→21:16)
[2020-10-04] MEDS: amLODIPine 10 MG Tab PO SCH (08:59)
[2020-10-04] MEDS: Simvastatin 40 MG Tab PO SCH (21:16)
[2020-10-05] MEDS: amLODIPine 10 MG Tab PO SCH (08:28)
[2020-10-05] MEDS: Calcium Citrate/Vitamin D3 315 MG-250 Unit Tab PO SCH ×2 (08:28→18:06)
[2020-10-05] MEDS: Aspirin 325 MG Tab.EC PO SCH (08:28)
[2020-10-05] MEDS: Hydroxyurea 500 MG Cap PO SCH (08:28)
[2020-10-05] MEDS: Sertraline 50 MG Tab PO SCH (08:29)
[2020-10-05] MEDS: Acetaminophen 325 MG Tab PO SCH ×3 (08:29→19:40)
[2020-10-05] MEDS: Cholecalciferol (Vitamin D3) 25 MCG Tab PO SCH (08:29)
[2020-10-05] MEDS: Simvastatin 40 MG Tab PO SCH (19:40)
[2020-10-06] MEDS: Sertraline 50 MG Tab PO SCH (08:15)
[2020-10-06] MEDS: Aspirin 325 MG Tab.EC PO SCH (08:15)
[2020-10-06] MEDS: Hydroxyurea 500 MG Cap PO SCH (08:15)
[2020-10-06] MEDS: Cholecalciferol (Vitamin D3) 25 MCG Tab PO SCH (08:15)
[2020-10-06] MEDS: Acetaminophen 325 MG Tab PO SCH ×2 (08:15→11:29)
[2020-10-06] MEDS: amLODIPine 10 MG Tab PO SCH (08:16)
[2020-10-06] MEDS: Calcium Citrate/Vitamin D3 315 MG-250 Unit Tab PO SCH (08:16)
--- NOTE | 2020-10-06 11:06 | PCM.DCSUM1 ---
Discharge Summary - Hospital Course Brief History: Mr. Barahona is a 75 yo male who was admitted to swing bed for rehabilitation after a fall resulting in hip and humerus fractures. - Discharge Data Discharge Date: 10/06/20 Discharge Disposition: Home, W Home Health Agency 06 Condition: Good - Referral to Home Health Date of Face to Face Encounter: 10/06/20 Reason for Homebound Status: Patient is not able to leave the home without assistance of a gait aid (walker) and another individual due to his underlying neurologic deficits from his prior CVA and recent shoulder and hip fractures. Primary Care Physician: Natalya Velasquez MD Skilled Need: PT, OT, nursing - Discharge Diagnosis/Problem(s) (1) Hip fracture SNOMED Code(s): 384765574 ICD Code: S72.009A - FRACTURE OF UNSP PART OF NECK OF UNSP FEMUR, INIT Status: Acute Current Visit: Yes Qualifiers: Encounter type: sequela Fracture type: closed Laterality: right Qualified Code(s): S72.001S - Fracture of unspecified part of neck of right femur, sequela (2) Proximal humeral fracture SNOMED Code(s): 049053216 ICD Code: S42.209A - UNSP FRACTURE OF UPPER END OF UNSP HUMERUS, INIT FOR CLOS FX Status: Acute Current Visit: No Qualifiers: Encounter type: initial encounter Fracture type: closed Fracture morpholo gy: unspecified fracture morphology Laterality: right Qualified Code(s): S42.201A - Unspecified fracture of upper end of right humerus, initial encounter for closed fracture (3) Constipation SNOMED Code(s): 76538758 ICD Code: K59.00 - CONSTIPATION, UNSPECIFIED Status: Chronic Current Visit: Yes Qualifiers: Constipation type: unspecified constipation type Qualified Code(s): K59.00 - Constipation, unspecified (4) Hypoxia SNOMED Code(s): 267050708 ICD Code: R09.02 - HYPOXEMIA Status: Acute Current Visit: Yes (5) Cellulitis SNOMED Code(s): 812853890 ICD Code: L03.90 - CELLULITIS, UNSPECIFIED Status: Acute Current Visit: Yes Qualifiers: Site of cellulitis: face Qualified Code(s): L03.211 - Cellulitis of face (6) Diabetes SNOMED Code(s): 71036856 ICD Code: E11.9 - TYPE 2 DIABETES MELLITUS WITHOUT COMPLICATIONS Status: Chronic Current Visit: Yes Qualifiers: Diabetes mellitus type: type 2 Diabetes mellitus [employer] insulin use: without intermediate school teacher use Diabetes mellitus complication status: without complication Qualified Code(s): E11.9 - Type 2 diabetes mellitus without complications (7) Depression SNOMED Code(s): 76231437 ICD Code: F32.9 - MAJOR DEPRESSIVE DISORDER, SINGLE EPISODE, UNSPECIFIED Status: Chronic Current Visit: Yes Qualifiers: Depression Type: unspecified Qualified Code(s): F32.9 - Major depressive disorder, single episode, unspecified (8) CVA (cerebral vascular accident) SNOMED Code(s): 499700790 ICD Code: I63.9 - CEREBRAL INFARCTION, UNSPECIFIED Status: Chronic Current Visit: No (9) Right sided weakness SNOMED Code(s): 264213712 ICD Code: R53.1 - WEAKNESS Status: Chronic Current Visit: No (10) HTN (hypertension) SNOMED Code(s): 01333289 ICD Code: I10 - ESSENTIAL (PRIMARY) HYPERTENSION Status: Chronic Current Visit: No (11) Hypercholesteremia SNOMED Code(s): 36377344 ICD Code: E78.00 - PURE HYPERCHOLESTEROLEMIA, UNSPECIFIED Status: Chronic Current Visit: No (12) Angioedema SNOMED Code(s): 82049909 ICD Code: T78.3XXA - ANGIONEUROTIC EDEMA, INITIAL ENCOUNTER Status: Chronic Current Visit: Yes Qualifiers: Encounter type: sequela Qualified Code(s): T78.3XXS - Angioneurotic edema, sequela - Patient Summary/Data Operative Procedure(s) Performed: none Complications: none Consults: Consultations 08/12/20 16:39 Consult to Occupational Therapy [OT Evaluation and Treatment] [CONS] Routine PT Evaluation and Treatment [CONS] Routine 09/27/20 12:52 OT Evaluation and Treatment [CONS] Routine Labs Pending at D/C: none Recommended Follow-up Testing/Procedures: none Planned Operative Procedure(s) after DC: none Hospital Course: Mr. Barahona was admitted and participated in therapies with physical and occupational therapy. He has progressed well and is felt prepared for discharge home in the care of his to continue outpatient PT/OT through home health. His pain has well controlled on oral medications. His hospital stay was complicated by an episode of facial cellulitis that resolved with oral an tibiotics as well as an episode of angioedema that resolved with IV steroids and benadryl. His CBC was monitored weekly and his hematocrit never increased over 45; therefore, he did not require phlebotomy while hospitalized. His hospitalization was otherwise uncomplicated. - Patient Instructions Diet: Usual Diet as Tolerated Activity: As Tolerated Driving: Do Not Drive Showering/Bathing: May Shower Notify Provider of: Fever, Increased Pain, Swelling and Redness, Drainage, Nausea and/or Vomiting - Discharge Plan *PRESCRIPTION DRUG MONITORING PROGRAM REVIEWED*: No *COPY OF PRESCRIPTION DRUG MONITORING REPORT IN PATIENT ARTURO: No Home Medications: Home Meds Sertraline [Zoloft] 150 mg PO DAILY 04/22/18 [History] Simvastatin [Zocor] 40 mg PO BEDTIME 04/22/18 [History] amLODIPine Besylate [Amlodipine Besylate] 10 mg PO DAILY 04/22/18 [History] Aspirin 325 mg PO DAILY 03/16/19 [History] Acetaminophen [Tylenol] 650 mg PO Q6HR 08/12/20 [History] Calcium Citrate/Vitamin D3 [Calcium Citrate - Vit D Tablet] 1 tab PO BIDMEALS 08/12/20 [History] Cholecalciferol (Vitamin D3) [Vitamin D3] 25 mcg PO DAILY 08/12/20 [History] Hydroxyurea 1,000 mg PO MOWEFR 08/12/20 [History] Hydroxyurea 500 mg PO SUTUTHSA 08/12/20 [History] Sennosides/Docusate Sodium [Senna-Docusate Sodium Tablet] 1 tab PO BID 08/12/20 [History] polyethylene glycoL 3350 [Polyethylene Glycol 3350] 17 gm PO DAILY 08/12/20 [History] diphenhydrAMINE [Benadryl] 25 mg PO Q6H PRN cap 10/06/20 [Rx] - Discharge Summary/Plan Comment DC Time >30 min.: No - General Info Date of Service: 10/06/20 Subjective Update: Patient seen today for discharge. He denies any complaints today. He is happy about getting to go home today. - Review of Systems General: Reports: No Symptoms HEENT: Reports: No Symptoms Pulmonary: Reports: No Symptoms Cardiovascular: Reports: No Symptoms Gastrointestinal: Reports: No Symptoms Genitourinary: Reports: No Symptoms Musculoskeletal: Reports: No Symptoms Skin: Reports: No Symptoms Neurological: Reports: No Symptoms Psychiatric: Reports: No Symptoms - Patient Data Vitals - Most Recent: Last Vital Signs Temp 36.2 C 10/06/20 06:00 Pulse 64 10/06/20 06:00 Resp 17 10/06/20 06:00 BP 120/70 10/06/20 08:16 Pulse Ox 95 10/06/20 06:00 Weight - Most Recent: 95.708 kg Lab Results - Last 24 hrs: Laboratory Results - last 24 hr 10/06/20 Range/Units 06:00 SARS CoV-2 RNA Rapid JOSE D Negative (NEGATIVE) Med Orders - Current: Current Medications Acetaminophen (Tylenol) 650 mg PO TID [facility] Last Admin: 10/06/20 08:15 Dose: 650 mg Documented by: Amlodipine Besylate (Norvasc) 10 mg PO DAILY [facility] Last Admin: 10/06/20 08:16 Dose: 10 mg Documented by: Aspirin (Ecotrin) 325 mg PO DAILY [facility] Last Admin: 10/06/20 08:15 Dose: 325 mg Documented by: Calcium Citrate (Calcium Citrate + D) 1 tab PO BIDMEALS [facility] Last Admin: 10/06/20 08:16 Dose: 1 tab Documented by: Cholecalciferol (Vitamin D3) 25 mcg PO DAILY [facility] Last Admin: 10/06/20 08:15 Dose: 25 mcg Documented by: Diphenhydramine HCl (Benadryl) 25 mg PO Q6H PRN PRN Reason: swelling Last Admin: 09/21/20 19:38 Dose: 25 mg Documented by: Hydroxyurea (Hydrea) 500 mg PO SuTuThSa@0800 [facility] Last Admin: 10/05/20 08:28 Dose: 500 mg Documented by: Hydroxyurea (Hydrea) 1,000 mg PO MoWeFr@0800 [facility] Last Admin: 10/06/20 08:15 Dose: 1,000 mg Documented by: Loperamide HCl (Imodium) 4 mg PO Q6H PRN PRN Reason: Diarrhea Last Admin: 09/05/20 05:57 Dose: 4 mg Documented by: Benadryl ( Diphenhydramine 1%) Cream 0 each TOP DAILY PRN PRN Reason: Rash Polyethylene Glycol (Miralax) 17 gm PO DAILY PRN PRN Reason: Constipation Last Admin: 09/23/20 08:12 Dose: 17 gm Documented by: Senna/Docusate Sodium (Senna Plus) 1 tab PO BID [facility] Last Admin: 10/06/20 08:16 Dose: 1 tab Documented by: Sertraline HCl (Zoloft) 150 mg PO DAILY [facility] Last Admin: 10/06/20 08:15 Dose: 150 mg Documented by: Simvastatin (Zocor) 40 mg PO BEDTIME [facility] Last Admin: 10/05/20 19:40 Dose: 40 mg Documented by: Sodium Chloride (Saline Flush) 10 ml FLUSH ASDIRECTED PRN PRN Reason: Keep Vein Open Last Admin: 08/23/20 05:45 Dose: 10 ml Documented by: Discontinued Medications Acetaminophen (Tylenol) 650 mg PO Q6HR [facility] Last Admin: 09/27/20 17:10 Dose: Not Given Documented by: Clindamycin HCl (Cleocin) 150 mg PO Q8H [facility] Last Admin: 08/29/20 18:45 Dose: Not Given Documented by: Clindamycin HCl (Cleocin) 150 mg PO 0700,1400,2100 [facility] Stop: 09/04/20 21:01 Last Admin: 09/04/20 20:55 Dose: 150 mg Documented by: Diphenhydramine HCl (Benadryl) 25 mg IM ONETIME ONE Stop: 08/19/20 10:03 Last Admin: 08/19/20 10:18 Dose: 25 mg Documented by: Diphenhydramine HCl (Benadryl) 25 mg IM ONETIME ONE Stop: 08/19/20 10:51 Last Admin: 08/19/20 15:22 Dose: Not Given Documented by: Diphenhydramine HCl (Benadryl) 12.5 mg PO QID [facility] Stop: 08/20/20 23:00 Last Admin: 08/20/20 19:50 Dose: 12.5 mg Documented by: Enoxaparin Sodium (Lovenox) 40 mg SUBCUT DAILY [facility] Stop: 09/09/20 08:01 Last Admin: 09/09/20 07:51 Dose: 40 mg Documented by: Hydrocortisone (Hydrocortisone 1% Crm) 0 gm TOP BID [facility] Stop: 08/26/20 23:00 Last Admin: 08/26/20 19:55 Dose: 1 applic Documented by: Hydroxyurea (Hydrea) 1,000 mg PO MOWEFR [facility] Last Admin: 09/08/20 09:14 Dose: 1,000 mg Documented by: Hydroxyurea (Hydrea) 500 mg PO SUTUTHSA [facility] Last Admin: 09/07/20 09:07 Dose: 500 mg Documented by: Methylprednisolone Sodium Succinate (Solu-Medrol) 40 mg IVPUSH ONETIME ONE Stop: 08/19/20 12:21 Last Admin: 08/19/20 12:44 Dose: 40 mg Documented by: Methylprednisolone Sodium Succinate (Solu-Medrol) 40 mg IVPUSH ONETIME ONE Stop: 08/19/20 12:28 Last Admin: 08/19/20 12:45 Dose: 40 mg Documented by: Oxycodone HCl (Oxycodone) 5 mg PO Q4HR PRN PRN Reason: Pain Last Admin: 08/13/20 13:06 Dose: 5 mg Documented by: Polyethylene Glycol (Miralax) 17 gm PO DAILY [facility] Last Admin: 08/31/20 08:05 Dose: Not Given Documented by: Potassium Chloride (Potassium Chloride Solution) 20 meq PO BID [facility] Stop: 08/21/20 23:00 Last Admin: 08/21/20 20:08 Dose: 20 meq Documented by: Prednisone (Prednisone) 20 mg PO BID [facility] Stop: 08/20/20 23:00 Last Admin: 08/20/20 09:01 Dose: 20 mg Documented by: Trimethoprim/Sulfamethoxazole (Septra Ds) 1 tab PO BID [facility] - Exam General: Reports: Alert, Cooperative, No Acute Distress HEENT: Reports: Mucous Membr. Moist/[place] Neck: Reports: Supple, Trachea Midline, No Thyromegaly. Denies: Thyromegaly Lungs: Reports: Clear to Auscultation, Normal Respiratory Effort Cardiovascular: Reports: Regular Rate, Regular Rhythm, No Murmurs GI/Abdominal Exam: Normal Bowel Sounds, Soft, Non-Tender, No Organomegaly, No Distention, No Mass Extremities: Non-Tender, No Pedal Edema, Normal Capillary Refill Skin: Reports: Warm, Dry, Intact Neurological: Reports: No New Focal Deficit
== END 2020-10-06 13:25 | disposition home health service (06) | DRG 560 ==
LOC: VM.MS 16:30 → UNDODISIN 10-04 10:50
PROVIDERS: ADMIT Family Medicine; ATTEND Family Medicine
DX: S72.001S Fracture of unspecified part of neck of right femur, sequela (principal); L03.211 Cellulitis of face; I69.351 Hemiplegia and hemiparesis following cerebral infarction affecting right dominant side; K59.09 Other constipation; S42.201D Unspecified fracture of upper end of right humerus, subsequent encounter for fracture with routine healing; D45 Polycythemia vera; T78.3XXA Angioneurotic edema, initial encounter; Z20.828 Contact with and (suspected) exposure to other viral communicable diseases; R09.02 Hypoxemia; F32.9 Major depressive disorder, single episode, unspecified; I10 Essential (primary) hypertension; E78.00 Pure hypercholesterolemia, unspecified; I69.320 Aphasia following cerebral infarction; E78.5 Hyperlipidemia, unspecified; H54.7 Unspecified visual loss; H91.90 Unspecified hearing loss, unspecified ear; K21.9 Gastro-esophageal reflux disease without esophagitis; M19.90 Unspecified osteoarthritis, unspecified site; M10.9 Gout, unspecified; E11.9 Type 2 diabetes mellitus without complications; D46.9 Myelodysplastic syndrome, unspecified; Z88.0 Allergy status to penicillin; Z91.09 Other allergy status, other than to drugs and biological substances; Z88.8 Allergy status to other drugs, medicaments and biological substances; Z79.82 Long term (current) use of aspirin; Z79.899 Other long term (current) drug therapy
CPT/HCPCS: 36415; 73030-RT; 80048; 82962; 83735; 85025; 94760; 97110-GP; 97116-GP; 97161-GP; 97165-GO; 97168-GO; 97530-GP; 97535-GO; A9270-GY; J1200; J1650; J2920; J7512; U0002

== ENCOUNTER 2023-03-27 10:28 | Inpatient (IN) | payer MEDICARE, BC ==
[2023-03-27 11:19] LABS: PTT,PARTIAL THROMBOPLSTIN TIME 26.1 SEC (23.6-33.6)
[2023-03-27 11:26] LABS: CHLORIDE,CL 102 mmol/L (98-107); SODIUM,NA 140 mmol/L (136-145)
[2023-03-27 11:27] LABS: ANION GAP 11.7 mmol/L (5-15); ESTIMATED GFR 69 mL/min (>=60)
[2023-03-27 11:35] LABS: CORONAVIRUS COVID-19 NAA NEGATIVE (NEGATIVE); RESPIRATORY SYNCYTIAL VIR NAA NEGATIVE (NEGATIVE)
[2023-03-27] MEDS ORDERED: Ondansetron 4 MG Tab.DIS PO PRN (12:50)
[2023-03-27] MEDS ORDERED: Ondansetron 4 MG/2 ML SDV IV PRN (12:50)
[2023-03-27] MEDS ORDERED: Acetaminophen 325 MG Tab PO PRN ×2 (12:50→13:19)
[2023-03-27] MEDS: Sertraline 100 MG Tab (OWN SUPPLY) PO SCH (15:58)
[2023-03-27] MEDS: Aspirin 81 MG Tab.EC (OWN SUPPLY) PO SCH (15:58)
[2023-03-27] MEDS: amLODIPine 10 MG Tab (OWN SUPPLY) PO SCH (15:59)
[2023-03-27] MEDS: Docusate Sodium 100 MG Cap PO SCH (20:26)
[2023-03-27] MEDS: traZODone 50 MG Tab (OWN SUPPLY) PO SCH (20:26)
[2023-03-27] MEDS: Bisacodyl 5 MG Tab PO SCH (20:26)
[2023-03-27] MEDS: Simvastatin 40 MG Tab PO SCH (20:26)
[2023-03-28 07:09] LABS: ANION GAP 10.6 mmol/L (5-15)
[2023-03-28] MEDS: cefTRIAXone 1 GM Vial IVPUSH SCH (08:41)
[2023-03-28] MEDS ORDERED: Albuterol 0.083% 2.5 MG/3 ML Neb Soln NEB PRN (08:50)
[2023-03-28] MEDS ORDERED: HYDROXYUREA 500 MG PO SCH (09:00)
[2023-03-28] MEDS ORDERED: diphenhydrAMINE 25 MG Cap PO PRN (10:18)
[2023-03-28] MEDS: amLODIPine 10 MG Tab (OWN SUPPLY) PO SCH (10:43)
[2023-03-28] MEDS: Sertraline 100 MG Tab (OWN SUPPLY) PO SCH (10:43)
[2023-03-28] MEDS: Aspirin 81 MG Tab.EC (OWN SUPPLY) PO SCH (10:43)
[2023-03-28] MEDS ORDERED: diphenhydrAMINE 50 MG/ML SDV IVPUSH PRN (13:59)
[2023-03-28] MEDS: methylPREDNISolone Sodium Succinate 125 MG/2 ML SDV IVPUSH SCH ×2 (14:44→20:49)
[2023-03-28] MEDS: Bisacodyl 5 MG Tab PO SCH (20:49)
[2023-03-28] MEDS: Simvastatin 40 MG Tab PO SCH (20:49)
[2023-03-28] MEDS: Docusate Sodium 100 MG Cap PO SCH (20:49)
[2023-03-28] MEDS: traZODone 50 MG Tab (OWN SUPPLY) PO SCH (20:49)
[2023-03-28] MEDS: Sodium Chloride 0.9% 10 ML Syringe FLUSH PRN (20:50)
[2023-03-29] MEDS: Hydroxyurea 500 MG Cap PO SCH (08:28)
[2023-03-29] MEDS: Sertraline 100 MG Tab PO SCH (08:28)
[2023-03-29] MEDS: amLODIPine 10 MG Tab PO SCH (08:29)
[2023-03-29] MEDS: Aspirin 81 MG Tab.EC PO SCH (08:30)
[2023-03-29] MEDS: Sodium Chloride 0.9% 10 ML Syringe FLUSH PRN (08:31)
[2023-03-29] MEDS: cefTRIAXone 1 GM Vial IVPUSH SCH (08:35)
[2023-03-29] MEDS: methylPREDNISolone Sodium Succinate 125 MG/2 ML SDV IVPUSH SCH (08:35)
[2023-03-29] MEDS: Enoxaparin 40 MG/0.4 ML Syringe SUBCUT SCH ×2 (09:02→20:58)
[2023-03-29] MEDS: Bisacodyl 5 MG Tab PO SCH (20:57)
[2023-03-29] MEDS: Docusate Sodium 100 MG Cap PO SCH (20:57)
[2023-03-29] MEDS: traZODone 50 MG Tab PO SCH (20:58)
[2023-03-29] MEDS ORDERED: methylPREDNISolone Sodium Succinate 125 MG/2 ML SDV IVPUSH SCH (21:00)
[2023-03-29] MEDS: Simvastatin 40 MG Tab PO SCH (21:28)
[2023-03-30] MEDS ORDERED: Polyethylene Glycol 3350 Powder 17 GM Packet PO PRN (08:35)
[2023-03-30 08:48] LABS: ANION GAP 10.2 mmol/L (5-15)
[2023-03-30] MEDS: cefTRIAXone 1 GM Vial IVPUSH SCH (08:49)
[2023-03-30] MEDS: Aspirin 81 MG Tab.EC PO SCH (08:51)
[2023-03-30] MEDS: Enoxaparin 40 MG/0.4 ML Syringe SUBCUT SCH ×2 (08:51→20:08)
[2023-03-30] MEDS: Sertraline 100 MG Tab PO SCH (08:52)
[2023-03-30] MEDS: amLODIPine 10 MG Tab PO SCH (08:53)
[2023-03-30] MEDS: Docusate Sodium 100 MG Cap PO SCH ×2 (09:05→20:07)
[2023-03-30] MEDS: predniSONE 20 MG Tab PO SCH (09:05)
[2023-03-30] MEDS: Hydroxyurea 500 MG Cap PO SCH (09:07)
[2023-03-30] MEDS: traZODone 50 MG Tab PO SCH (20:08)
[2023-03-30] MEDS: Bisacodyl 5 MG Tab PO SCH (20:08)
[2023-03-30] MEDS: Simvastatin 40 MG Tab PO SCH (20:08)
[2023-03-31] MEDS ORDERED: Hydroxyurea 500 MG Cap PO SCH (09:00)
[2023-03-31] MEDS: cefTRIAXone 1 GM Vial IVPUSH SCH (09:41)
[2023-03-31] MEDS: Sertraline 100 MG Tab PO SCH (09:41)
[2023-03-31] MEDS: Enoxaparin 40 MG/0.4 ML Syringe SUBCUT SCH ×2 (09:41→20:10)
[2023-03-31] MEDS: amLODIPine 10 MG Tab PO SCH (09:41)
[2023-03-31] MEDS: predniSONE 20 MG Tab PO SCH (09:41)
[2023-03-31] MEDS: Docusate Sodium 100 MG Cap PO SCH ×2 (09:41→20:11)
[2023-03-31] MEDS: Aspirin 81 MG Tab.EC PO SCH (09:41)
[2023-03-31] MEDS: Bisacodyl 5 MG Tab PO SCH (20:11)
[2023-03-31] MEDS: traZODone 50 MG Tab PO SCH (20:11)
[2023-03-31] MEDS: Simvastatin 40 MG Tab PO SCH (20:11)
[2023-04-01] MEDS: Sertraline 100 MG Tab PO SCH (08:28)
[2023-04-01] MEDS: amLODIPine 10 MG Tab PO SCH (08:29)
[2023-04-01] MEDS: Cephalexin 250 MG Cap PO SCH ×2 (08:29→13:03)
[2023-04-01] MEDS: Enoxaparin 40 MG/0.4 ML Syringe SUBCUT SCH (08:29)
[2023-04-01] MEDS: Aspirin 81 MG Tab.EC PO SCH (08:29)
[2023-04-01] MEDS: Docusate Sodium 100 MG Cap PO SCH (08:29)
[2023-04-01] MEDS: Hydroxyurea 500 MG Cap PO SCH (08:35)
[2023-04-01] MEDS: predniSONE 20 MG Tab PO SCH (08:35)
[2023-04-01] MEDS ORDERED: predniSONE 20 MG Tab PO SCH (09:00)
== END 2023-04-01 14:00 | disposition swing bed (61) | DRG 689 ==
LOC: VM.ED 10:28 → VM.MS 11:55 → OBSVTOIN 03-28 13:18
PROVIDERS: ADMIT Physician Assistant Medical; ATTEND Family Medicine
DX: N39.0 Urinary tract infection, site not specified (principal); I21.A1 Myocardial infarction type 2; I69.351 Hemiplegia and hemiparesis following cerebral infarction affecting right dominant side; I10 Essential (primary) hypertension; T78.3XXA Angioneurotic edema, initial encounter; K59.00 Constipation, unspecified; E78.00 Pure hypercholesterolemia, unspecified; G47.00 Insomnia, unspecified; R29.810 Facial weakness; K21.9 Gastro-esophageal reflux disease without esophagitis; M10.9 Gout, unspecified; M19.90 Unspecified osteoarthritis, unspecified site; B95.7 Other staphylococcus as the cause of diseases classified elsewhere; R47.1 Dysarthria and anarthria; F32.A Depression, unspecified; R13.10 Dysphagia, unspecified; I69.920 Aphasia following unspecified cerebrovascular disease; Z88.8 Allergy status to other drugs, medicaments and biological substances; Z88.0 Allergy status to penicillin; Z79.82 Long term (current) use of aspirin; Z79.899 Other long term (current) drug therapy
CPT/HCPCS: 0241U; 36415; 70450; 71045; 80048; 80053; 81001; 82947; 83605; 83880; 84145; 84484; 85025; 85610; 85730; 86140; 86160; 87040; 87086; 87088; 93005; 94640; 96374; 97116-GP; 97163-GP; 97165-GO; 97530-GP; 99285; A9270-GY; G0378; J0696; J1200; J1650; J2930; J3490; J7512; J7613-GY

== ENCOUNTER 2023-04-01 12:12 | Inpatient (IN) | payer MEDICARE, BC ==
[2023-04-01] MEDS ORDERED: Ondansetron 4 MG Tab.DIS PO PRN (13:24)
[2023-04-01] MEDS ORDERED: Albuterol 0.083% 2.5 MG/3 ML Neb Soln NEB PRN (13:24)
[2023-04-01] MEDS ORDERED: Sodium Chloride 0.9% 10 ML Syringe FLUSH PRN (13:24)
[2023-04-01] MEDS ORDERED: Acetaminophen 325 MG Tab PO PRN (13:24)
[2023-04-01] MEDS ORDERED: diphenhydrAMINE 50 MG/ML SDV IVPUSH PRN (13:24)
[2023-04-01] MEDS: Bisacodyl 5 MG Tab PO SCH (20:21)
[2023-04-01] MEDS: Cephalexin 250 MG Cap PO SCH (20:21)
[2023-04-01] MEDS: Docusate Sodium 100 MG Cap PO SCH (20:21)
[2023-04-01] MEDS: Simvastatin 40 MG Tab PO SCH (20:21)
[2023-04-01] MEDS: traZODone 50 MG Tab PO SCH (20:22)
[2023-04-02 06:58] LABS: HEMATOCRIT 41.5 % (40.0-52.0); HEMOGLOBIN 14.3 g/dL (14.0-18.0); MEAN CORPUSCULAR HEMOGLOBIN 36.4 pg (26.0-32.0); MEAN CORPUSCULAR HGB CONC 34.5 g/dL (32.0-36.0); MEAN CORPUSCULAR VOLUME 105.6 fL (78.0-93.0); RED BLOOD CELL COUNT 3.93 x10^6/uL (4.5-6.0); WHITE BLOOD CELL COUNT,WBC 12.7 x10^3/uL (4.0-10.0)
[2023-04-02] MEDS: Enoxaparin 40 MG/0.4 ML Syringe SUBCUT SCH (09:03)
[2023-04-02] MEDS: predniSONE 20 MG Tab PO SCH (09:03)
[2023-04-02] MEDS: Cephalexin 250 MG Cap PO SCH ×3 (09:03→21:38)
[2023-04-02] MEDS: Aspirin 81 MG Tab.EC PO SCH (09:03)
[2023-04-02] MEDS: Docusate Sodium 100 MG Cap PO SCH ×2 (09:03→21:38)
[2023-04-02] MEDS: Sertraline 50 MG Tab PO SCH (09:04)
[2023-04-02] MEDS: Hydroxyurea 500 MG Cap PO SCH (09:04)
[2023-04-02] MEDS: amLODIPine 10 MG Tab PO SCH (09:05)
[2023-04-02] MEDS: Polyethylene Glycol 3350 Powder 17 GM Packet PO PRN (11:32)
[2023-04-02] MEDS: traZODone 50 MG Tab PO SCH (21:38)
[2023-04-02] MEDS: Simvastatin 40 MG Tab PO SCH (21:38)
[2023-04-02] MEDS: Bisacodyl 5 MG Tab PO SCH (21:38)
[2023-04-03] MEDS: Aspirin 81 MG Tab.EC PO SCH (08:28)
[2023-04-03] MEDS: amLODIPine 10 MG Tab PO SCH (08:28)
[2023-04-03] MEDS: Cephalexin 250 MG Cap PO SCH ×3 (08:30→20:08)
[2023-04-03] MEDS: predniSONE 20 MG Tab PO SCH (08:30)
[2023-04-03] MEDS: Docusate Sodium 100 MG Cap PO SCH ×2 (08:30→20:09)
[2023-04-03] MEDS: Sertraline 50 MG Tab PO SCH (08:31)
[2023-04-03] MEDS: Enoxaparin 40 MG/0.4 ML Syringe SUBCUT SCH (08:31)
[2023-04-03] MEDS: Hydroxyurea 500 MG Cap PO SCH (09:18)
[2023-04-03] MEDS: traZODone 50 MG Tab PO SCH (20:08)
[2023-04-03] MEDS: Simvastatin 40 MG Tab PO SCH (20:08)
[2023-04-03] MEDS: Bisacodyl 5 MG Tab PO SCH (20:08)
[2023-04-04] MEDS: Sertraline 50 MG Tab PO SCH (08:36)
[2023-04-04] MEDS: Cephalexin 250 MG Cap PO SCH (08:36)
[2023-04-04] MEDS: Aspirin 81 MG Tab.EC PO SCH (08:37)
[2023-04-04] MEDS: predniSONE 20 MG Tab PO SCH (08:37)
[2023-04-04] MEDS: amLODIPine 10 MG Tab PO SCH (08:37)
[2023-04-04] MEDS: Hydroxyurea 500 MG Cap PO SCH (08:37)
[2023-04-04] MEDS: Docusate Sodium 100 MG Cap PO SCH ×2 (08:37→20:03)
[2023-04-04] MEDS: Enoxaparin 40 MG/0.4 ML Syringe SUBCUT SCH (08:39)
[2023-04-04] MEDS: Polyethylene Glycol 3350 Powder 17 GM Packet PO PRN (08:41)
[2023-04-04] MEDS: traZODone 50 MG Tab PO SCH (20:03)
[2023-04-04] MEDS: Bisacodyl 5 MG Tab PO SCH (20:03)
[2023-04-04] MEDS: Simvastatin 40 MG Tab PO SCH (20:03)
[2023-04-05 08:19] LABS: HEMATOCRIT 44.4 % (40.0-52.0); MEAN CORPUSCULAR HEMOGLOBIN 35.8 pg (26.0-32.0); MEAN CORPUSCULAR HGB CONC 33.8 g/dL (32.0-36.0); RED BLOOD CELL COUNT 4.19 x10^6/uL (4.5-6.0); WHITE BLOOD CELL COUNT,WBC 10.7 x10^3/uL (4.0-10.0)
[2023-04-05] MEDS: Sertraline 50 MG Tab PO SCH (08:30)
[2023-04-05] MEDS: amLODIPine 10 MG Tab PO SCH (08:30)
[2023-04-05] MEDS: Hydroxyurea 500 MG Cap PO SCH (08:30)
[2023-04-05] MEDS: Aspirin 81 MG Tab.EC PO SCH (08:30)
[2023-04-05] MEDS: Docusate Sodium 100 MG Cap PO SCH ×2 (08:30→20:04)
[2023-04-05] MEDS: Enoxaparin 40 MG/0.4 ML Syringe SUBCUT SCH (08:30)
[2023-04-05] MEDS: Simvastatin 40 MG Tab PO SCH (20:04)
[2023-04-05] MEDS: Bisacodyl 5 MG Tab PO SCH (20:04)
[2023-04-05] MEDS: traZODone 50 MG Tab PO SCH (20:04)
[2023-04-06] MEDS: Docusate Sodium 100 MG Cap PO SCH ×2 (10:00→20:01)
[2023-04-06] MEDS: Enoxaparin 40 MG/0.4 ML Syringe SUBCUT SCH (10:00)
[2023-04-06] MEDS: amLODIPine 10 MG Tab PO SCH (10:01)
[2023-04-06] MEDS: Aspirin 81 MG Tab.EC PO SCH (10:01)
[2023-04-06] MEDS: Sertraline 50 MG Tab PO SCH (10:01)
[2023-04-06] MEDS: Hydroxyurea 500 MG Cap PO SCH (10:03)
[2023-04-06] MEDS: Bisacodyl 5 MG Tab PO SCH (20:01)
[2023-04-06] MEDS: traZODone 50 MG Tab PO SCH (20:01)
[2023-04-06] MEDS: Simvastatin 40 MG Tab PO SCH (20:01)
[2023-04-07 06:54] LABS: BASOPHILS PERCENT AUTO 0.2 % (0.2-1.2); EOSINOPHILS ABSOLUTE AUTO 0.2 x10^3/uL (0.0-0.5); EOSINOPHILS PERCENT AUTO 2.2 % (0.0-4.0); HEMATOCRIT 40.2 % (40.0-52.0); HEMOGLOBIN 13.6 g/dL (14.0-18.0); IMMATURE GRAN ABSOLUTE AUTO 0.04 x10^3/uL (0.00-0.07); LYMPHOCYTES ABSOLUTE AUTO 1.8 x10^3/uL (1.0-4.8); LYMPHOCYTES PERCENT AUTO 20.2 % (25.0-50.0); MEAN CORPUSCULAR HGB CONC 33.8 g/dL (32.0-36.0); MEAN CORPUSCULAR VOLUME 106.3 fL (78.0-93.0); MONOCYTES ABSOLUTE AUTO 1.5 x10^3/uL (0.0-0.8); MONOCYTES PERCENT AUTO 16.4 % (2.0-11.0); NEUTROPHILS ABSOLUTE AUTO 5.5 x10^3/uL (1.8-7.7); NEUTROPHILS PERCENT AUTO 60.6 % (50.0-80.0); PLATELET COUNT,PLT 239 x10^3/uL (130-400); RED BLOOD CELL COUNT 3.78 x10^6/uL (4.5-6.0)
[2023-04-07 07:10] LABS: ANION GAP 10.2 mmol/L (5-15); CALCIUM 8.5 mg/dL (8.5-10.1); CREATININE 1.1 mg/dL (0.70-1.30); EST CRCL DRUG DOSING (CG) 58.95 mL/min; POTASSIUM,K 4.2 mmol/L (3.5-5.1)
[2023-04-07] MEDS: Aspirin 81 MG Tab.EC PO SCH (09:56)
[2023-04-07] MEDS: Sertraline 50 MG Tab PO SCH (09:56)
[2023-04-07] MEDS: Docusate Sodium 100 MG Cap PO SCH (09:56)
[2023-04-07] MEDS: amLODIPine 10 MG Tab PO SCH (09:58)
[2023-04-07] MEDS: Hydroxyurea 500 MG Cap PO SCH (10:01)
== END 2023-04-07 12:15 | disposition home health service (06) | DRG 947 ==
LOC: VM.MS 14:00
PROVIDERS: ADMIT Family Medicine; ATTEND Family Medicine
DX: R53.81 Other malaise (principal); I21.4 Non-ST elevation (NSTEMI) myocardial infarction; I69.351 Hemiplegia and hemiparesis following cerebral infarction affecting right dominant side; N39.0 Urinary tract infection, site not specified; T78.3XXA Angioneurotic edema, initial encounter; D45 Polycythemia vera; I10 Essential (primary) hypertension; K59.00 Constipation, unspecified; Z20.822 Contact with and (suspected) exposure to COVID-19; E78.00 Pure hypercholesterolemia, unspecified; F32.A Depression, unspecified; G47.00 Insomnia, unspecified; R13.10 Dysphagia, unspecified; H91.90 Unspecified hearing loss, unspecified ear; K21.9 Gastro-esophageal reflux disease without esophagitis; M10.9 Gout, unspecified; M19.90 Unspecified osteoarthritis, unspecified site; E11.9 Type 2 diabetes mellitus without complications; R77.8 Other specified abnormalities of plasma proteins; Z87.442 Personal history of urinary calculi
CPT/HCPCS: 36415; 80048; 85025; 85027; 95851-GO; 97116-GP; 97530-GP; 97535-GO; A9270-GY; J1650; J7512

== ENCOUNTER 2024-07-03 15:37 | Inpatient (IN) | payer MEDICARE, BC ==
[2024-07-03] MEDS ORDERED: Sodium Chloride 0.9% 10 ML Syringe FLUSH PRN (15:51)
[2024-07-03 16:08] LABS: BASOPHILS PERCENT AUTO 0.4 % (0.2-1.2); EOSINOPHILS ABSOLUTE AUTO 0.2 x10^3/uL (0.0-0.5); EOSINOPHILS PERCENT AUTO 1.9 % (0.0-4.0); HEMATOCRIT 38.4 % (40.0-52.0); HEMOGLOBIN 12.6 g/dL (14.0-18.0); IMMATURE GRAN ABSOLUTE AUTO 0.02 x10^3/uL (0.00-0.07); LYMPHOCYTES PERCENT AUTO 8.8 % (25.0-50.0); MEAN CORPUSCULAR HEMOGLOBIN 33.8 pg (26.0-32.0); MEAN CORPUSCULAR HGB CONC 32.8 g/dL (32.0-36.0); MEAN CORPUSCULAR VOLUME 102.9 fL (78.0-93.0); MONOCYTES ABSOLUTE AUTO 1.3 x10^3/uL (0.0-0.8); NEUTROPHILS ABSOLUTE AUTO 8.5 x10^3/uL (1.8-7.7); NEUTROPHILS PERCENT AUTO 76.7 % (50.0-80.0); PLATELET COUNT,PLT 336 x10^3/uL (130-400); RED BLOOD CELL COUNT 3.73 x10^6/uL (4.5-6.0); WHITE BLOOD CELL COUNT,WBC 11.1 x10^3/uL (4.0-10.0)
[2024-07-03 16:31] LABS: ALANINE AMINOTRANSFERASE,ALT 18 U/L (16-63); ALBUMIN 3.5 g/dL (3.4-5.0); ALKALINE PHOSPHATASE 112 U/L (46-116); ANION GAP 17.1 mmol/L (5-15); ASPARTATE AMNIOTRANSFERASE,AST 22 U/L (15-37); BILIRUBIN TOTAL 0.4 mg/dL (0.2-1.0); BLOOD UREA NITROGEN,BUN 30 mg/dL (7-18); CALCIUM 8.9 mg/dL (8.5-10.1); CARBON DIOXIDE,CO2 24 mmol/L (21-32); CHLORIDE,CL 102 mmol/L (98-107); CREATININE 1.5 mg/dL (0.70-1.30); ESTIMATED GFR 47 mL/min (>=60); GLUCOSE RANDOM 142 mg/dL (70-99); POTASSIUM,K 4.1 mmol/L (3.5-5.1); PROTEIN TOTAL,TP 7.9 g/dL (6.4-8.2); SODIUM,NA 139 mmol/L (136-145)
[2024-07-03 17:13] LABS: APPEARANCE,URINE CLEAR (CLEAR); BILIRUBIN,URINE NEGATIVE (NEGATIVE); COLOR,URINE YELLOW (YELLOW); GLUCOSE,URINE NEGATIVE (NEGATIVE); KETONES,URINE NEGATIVE (NEGATIVE); LEUKOCYTE ESTERASE,URINE TRACE (NEGATIVE); NITRITE,URINE NEGATIVE (NEGATIVE); OCCULT BLOOD,URINE LARGE (NEGATIVE); PH,URINE 5.5 (5.0-8.0); PROTEIN,URINE 100 mg/dL (NEGATIVE)
[2024-07-03 17:19] LABS: BACTERIA,URINE OCCASIONAL /HPF (NOT SEEN); HYALINE CASTS,URINE FEW; MUCUS,URINE OCCASIONAL /LPF (NOT SEEN); SQUAMOUS EPITHELIAL CELLS,UR RARE /HPF (NOT SEEN)
[2024-07-03] MEDS: Levofloxacin/Dextrose 5%-Water 750 MG in Premix Bag 1 BAG IV ONE (17:43)
[2024-07-03] MEDS: Sodium Chloride 0.9% 500 ML IV ONE ×2 (17:43→20:05)
[2024-07-03 17:51] LABS: CORONAVIRUS COVID-19 NAA NEGATIVE (NEGATIVE); INFLUENZA A NAA NEGATIVE (NEGATIVE); INFLUENZA B NAA NEGATIVE (NEGATIVE); RESPIRATORY SYNCYTIAL VIR NAA NEGATIVE (NEGATIVE)
[2024-07-03] MEDS ORDERED: Ondansetron 4 MG Tab.DIS PO PRN (19:56)
[2024-07-03] MEDS ORDERED: Ondansetron 4 MG/2 ML SDV IV PRN (19:56)
[2024-07-03] MEDS ORDERED: Polyethylene Glycol 3350 Powder 17 GM Packet PO PRN (19:57)
[2024-07-03] MEDS ORDERED: Acetaminophen 325 MG Tab PO PRN (19:57)
[2024-07-03] MEDS ORDERED: ALPRAZolam 0.25 MG Tab PO PRN (19:59)
[2024-07-03] MEDS: Sodium Chloride 0.9% 1,000 ML IV SCH (20:05)
[2024-07-03] MEDS ORDERED: atorvaSTATin 40 MG Tab PO SCH (21:00)
[2024-07-03] MEDS: Lactated Ringers 1,000 ML IV ONE (21:25)
[2024-07-03] MEDS: Bisacodyl 5 MG Tab PO SCH (21:48)
[2024-07-03] MEDS: Enoxaparin 40 MG/0.4 ML Syringe SUBCUT SCH (21:48)
[2024-07-03] MEDS: Docusate Sodium 100 MG Cap PO SCH (21:48)
[2024-07-03] MEDS: traZODone 50 MG Tab PO SCH (21:48)
[2024-07-04] MEDS: 50% Dextrose in Water 50 ML Syringe IV PRN (07:13)
[2024-07-04 07:37] LABS: BASOPHILS PERCENT AUTO 0.5 % (0.2-1.2); EOSINOPHILS ABSOLUTE AUTO 0.2 x10^3/uL (0.0-0.5); EOSINOPHILS PERCENT AUTO 2.8 % (0.0-4.0); HEMATOCRIT 33.5 % (40.0-52.0); HEMOGLOBIN 10.9 g/dL (14.0-18.0); IMMATURE GRAN ABSOLUTE AUTO 0.02 x10^3/uL (0.00-0.07); LYMPHOCYTES ABSOLUTE AUTO 1.1 x10^3/uL (1.0-4.8); LYMPHOCYTES PERCENT AUTO 14.7 % (25.0-50.0); MEAN CORPUSCULAR HEMOGLOBIN 34.1 pg (26.0-32.0); MEAN CORPUSCULAR HGB CONC 32.5 g/dL (32.0-36.0); MEAN CORPUSCULAR VOLUME 104.7 fL (78.0-93.0); MONOCYTES ABSOLUTE AUTO 0.8 x10^3/uL (0.0-0.8); MONOCYTES PERCENT AUTO 11.1 % (2.0-11.0); NEUTROPHILS ABSOLUTE AUTO 5.3 x10^3/uL (1.8-7.7); NEUTROPHILS PERCENT AUTO 70.6 % (50.0-80.0); PLATELET COUNT,PLT 261 x10^3/uL (130-400); WHITE BLOOD CELL COUNT,WBC 7.5 x10^3/uL (4.0-10.0)
[2024-07-04 07:59] LABS: ANION GAP 11.6 mmol/L (5-15); CALCIUM 8.2 mg/dL (8.5-10.1); CREATININE 1.1 mg/dL (0.70-1.30); EST CRCL DRUG DOSING (CG) 57.05 mL/min; POTASSIUM,K 3.6 mmol/L (3.5-5.1)
[2024-07-04] MEDS: Sertraline 100 MG Tab PO SCH (09:01)
[2024-07-04] MEDS: Hydroxyurea 500 MG Cap PO SCH (09:02)
[2024-07-04] MEDS: amLODIPine 10 MG Tab PO SCH (09:02)
[2024-07-04] MEDS: Aspirin 81 MG Tab.EC PO SCH (09:02)
[2024-07-04] MEDS: Nystatin Crm 30 GM Tube TOP PRN (09:03)
[2024-07-04] MEDS: atorvaSTATin 40 MG Tab PO SCH (20:20)
[2024-07-04] MEDS: Levofloxacin/Dextrose 5%-Water 500 MG in Premix Bag 1 BAG IV SCH (20:20)
[2024-07-05 07:47] LABS: BASOPHILS PERCENT AUTO 0.3 % (0.2-1.2); EOSINOPHILS ABSOLUTE AUTO 0.2 x10^3/uL (0.0-0.5); EOSINOPHILS PERCENT AUTO 3.3 % (0.0-4.0); HEMATOCRIT 35.3 % (40.0-52.0); HEMOGLOBIN 11.6 g/dL (14.0-18.0); IMMATURE GRAN ABSOLUTE AUTO 0.01 x10^3/uL (0.00-0.07); LYMPHOCYTES ABSOLUTE AUTO 1.1 x10^3/uL (1.0-4.8); LYMPHOCYTES PERCENT AUTO 15.6 % (25.0-50.0); MEAN CORPUSCULAR HEMOGLOBIN 34.1 pg (26.0-32.0); MEAN CORPUSCULAR HGB CONC 32.9 g/dL (32.0-36.0); MEAN CORPUSCULAR VOLUME 103.8 fL (78.0-93.0); MONOCYTES ABSOLUTE AUTO 1.1 x10^3/uL (0.0-0.8); MONOCYTES PERCENT AUTO 15.9 % (2.0-11.0); NEUTROPHILS ABSOLUTE AUTO 4.5 x10^3/uL (1.8-7.7); NEUTROPHILS PERCENT AUTO 64.8 % (50.0-80.0); PLATELET COUNT,PLT 295 x10^3/uL (130-400); WHITE BLOOD CELL COUNT,WBC 6.9 x10^3/uL (4.0-10.0)
[2024-07-05 07:57] LABS: ALBUMIN 2.9 g/dL (3.4-5.0); CALCIUM 8.5 mg/dL (8.5-10.1); EST CRCL DRUG DOSING (CG) 62.75 mL/min; PHOSPHORUS 2.8 mg/dL (2.6-4.7); POTASSIUM,K 3.6 mmol/L (3.5-5.1)
[2024-07-05] MEDS: Hydroxyurea 500 MG Cap PO SCH (08:47)
[2024-07-05] MEDS: SERTRALINE PO SCH (08:47)
[2024-07-05] MEDS: Levofloxacin 500 MG Tab PO SCH (20:04)
[2024-07-06] MEDS: Polyethylene Glycol 3350 Powder 17 GM Packet PO SCH (08:33)
== END 2024-07-06 09:36 | disposition swing bed (61) | DRG 683 ==
LOC: VM.ED 15:37 → VM.MS 18:11
PROVIDERS: ADMIT Internal Medicine; ATTEND Internal Medicine
DX: N17.9 Acute kidney failure, unspecified (principal); E87.20 Acidosis, unspecified; N30.01 Acute cystitis with hematuria; E86.0 Dehydration; Z66 Do not resuscitate; I10 Essential (primary) hypertension; F32.A Depression, unspecified; G47.00 Insomnia, unspecified; M10.9 Gout, unspecified; K59.09 Other constipation; K21.9 Gastro-esophageal reflux disease without esophagitis; D45 Polycythemia vera; E66.9 Obesity, unspecified; M19.90 Unspecified osteoarthritis, unspecified site; E11.649 Type 2 diabetes mellitus with hypoglycemia without coma; E78.00 Pure hypercholesterolemia, unspecified; Z68.33 Body mass index [BMI] 33.0-33.9, adult; Z88.0 Allergy status to penicillin; Z88.8 Allergy status to other drugs, medicaments and biological substances; Z79.84 Long term (current) use of oral hypoglycemic drugs; Z79.82 Long term (current) use of aspirin; Z79.899 Other long term (current) drug therapy; Z87.442 Personal history of urinary calculi; Z86.73 Personal history of transient ischemic attack (TIA), and cerebral infarction without residual deficits
CPT/HCPCS: 0241U; 36415; 51798; 70450; 71045; 80048; 80053; 80069; 81001; 82550; 82947; 83605; 84484; 85025; 87040; 93005; 93010; 96365; 97162-GP; 97165-GO; 97535-GO; 99284; 99285-25; A9270-GY; C1758; J1650; J1956; J3490; J7030; J7120

== ENCOUNTER 2024-07-06 08:56 | Inpatient (IN) | payer MEDICARE, BC ==
[2024-07-06] MEDS ORDERED: Ondansetron 4 MG Tab.DIS PO PRN (16:32)
[2024-07-06] MEDS ORDERED: 50% Dextrose in Water 50 ML Syringe IV PRN (16:32)
[2024-07-06] MEDS ORDERED: Acetaminophen 325 MG Tab PO PRN (16:32)
[2024-07-06] MEDS ORDERED: ALPRAZolam 0.25 MG Tab PO PRN (16:32)
[2024-07-06] MEDS ORDERED: Nystatin Crm 30 GM Tube TOP PRN (16:32)
[2024-07-06] MEDS: Enoxaparin 40 MG/0.4 ML Syringe SUBCUT SCH (20:19)
[2024-07-06] MEDS: Docusate Sodium 100 MG Cap PO SCH (20:19)
[2024-07-06] MEDS: atorvaSTATin 40 MG Tab PO SCH (20:19)
[2024-07-06] MEDS: traZODone 50 MG Tab PO SCH (20:20)
[2024-07-06] MEDS: Polyethylene Glycol 3350 Powder 17 GM Packet PO SCH (20:20)
[2024-07-06] MEDS: Bisacodyl 5 MG Tab PO SCH (20:20)
[2024-07-07] MEDS: Hydroxyurea 500 MG Cap PO SCH (08:43)
[2024-07-07] MEDS: amLODIPine 10 MG Tab PO SCH (08:43)
[2024-07-07] MEDS: SERTRALINE PO SCH (08:44)
[2024-07-07] MEDS: Aspirin 81 MG Tab.EC PO SCH (08:44)
[2024-07-08 07:37] LABS: BASOPHILS PERCENT AUTO 0.3 % (0.2-1.2); EOSINOPHILS ABSOLUTE AUTO 0.3 x10^3/uL (0.0-0.5); EOSINOPHILS PERCENT AUTO 3.5 % (0.0-4.0); HEMATOCRIT 39.9 % (40.0-52.0); IMMATURE GRAN ABSOLUTE AUTO 0.01 x10^3/uL (0.00-0.07); LYMPHOCYTES ABSOLUTE AUTO 1.1 x10^3/uL (1.0-4.8); LYMPHOCYTES PERCENT AUTO 14.2 % (25.0-50.0); MEAN CORPUSCULAR HGB CONC 32.6 g/dL (32.0-36.0); MEAN CORPUSCULAR VOLUME 104.5 fL (78.0-93.0); MONOCYTES ABSOLUTE AUTO 1.1 x10^3/uL (0.0-0.8); MONOCYTES PERCENT AUTO 14.8 % (2.0-11.0); NEUTROPHILS ABSOLUTE AUTO 5.1 x10^3/uL (1.8-7.7); NEUTROPHILS PERCENT AUTO 67.1 % (50.0-80.0); PLATELET COUNT,PLT 359 x10^3/uL (130-400); RED BLOOD CELL COUNT 3.82 x10^6/uL (4.5-6.0); WHITE BLOOD CELL COUNT,WBC 7.7 x10^3/uL (4.0-10.0)
[2024-07-08 07:53] LABS: CALCIUM 9.4 mg/dL (8.5-10.1); EST CRCL DRUG DOSING (CG) 62.75 mL/min; POTASSIUM,K 3.9 mmol/L (3.5-5.1)
[2024-07-08 07:55] LABS: ANION GAP 10.9 mmol/L (5-15)
[2024-07-08] MEDS: Hydroxyurea 500 MG Cap PO SCH (08:23)
[2024-07-10] MEDS: Bisacodyl 10 MG Supp RECTAL PRN (11:14)
[2024-07-11] MEDS: Sertraline 100 MG Tab ONE (13:43)
[2024-07-15 06:51] LABS: BASOPHILS PERCENT AUTO 0.4 % (0.2-1.2); EOSINOPHILS ABSOLUTE AUTO 0.3 x10^3/uL (0.0-0.5); IMMATURE GRAN ABSOLUTE AUTO 0.02 x10^3/uL (0.00-0.07); LYMPHOCYTES ABSOLUTE AUTO 1.5 x10^3/uL (1.0-4.8); LYMPHOCYTES PERCENT AUTO 18.1 % (25.0-50.0); MEAN CORPUSCULAR HGB CONC 32.4 g/dL (32.0-36.0); MEAN CORPUSCULAR VOLUME 104.8 fL (78.0-93.0); MONOCYTES ABSOLUTE AUTO 1.1 x10^3/uL (0.0-0.8); MONOCYTES PERCENT AUTO 13.7 % (2.0-11.0); NEUTROPHILS ABSOLUTE AUTO 5.3 x10^3/uL (1.8-7.7); NEUTROPHILS PERCENT AUTO 63.6 % (50.0-80.0); PLATELET COUNT,PLT 267 x10^3/uL (130-400); RED BLOOD CELL COUNT 3.53 x10^6/uL (4.5-6.0); WHITE BLOOD CELL COUNT,WBC 8.3 x10^3/uL (4.0-10.0)
[2024-07-15 06:59] LABS: CALCIUM 8.7 mg/dL (8.5-10.1); CREATININE 1.1 mg/dL (0.70-1.30); EST CRCL DRUG DOSING (CG) 57.05 mL/min; POTASSIUM,K 3.6 mmol/L (3.5-5.1)
[2024-07-15 07:01] LABS: ANION GAP 11.6 mmol/L (5-15)
[2024-07-21 16:45] VITALS: BP 122/74; PULSE 66
== END 2024-07-21 16:40 | disposition home health service (06) | DRG 948 ==
LOC: VM.MS 09:49
PROVIDERS: ADMIT Internal Medicine; ATTEND Internal Medicine
DX: R53.1 Weakness (principal); N17.9 Acute kidney failure, unspecified; E87.20 Acidosis, unspecified; N39.0 Urinary tract infection, site not specified; I10 Essential (primary) hypertension; E66.9 Obesity, unspecified; M10.9 Gout, unspecified; E86.0 Dehydration; F41.9 Anxiety disorder, unspecified; F32.A Depression, unspecified; K59.09 Other constipation; E78.5 Hyperlipidemia, unspecified; D45 Polycythemia vera; E11.65 Type 2 diabetes mellitus with hyperglycemia; Z68.32 Body mass index [BMI] 32.0-32.9, adult; Z88.0 Allergy status to penicillin; Z88.8 Allergy status to other drugs, medicaments and biological substances; Z79.82 Long term (current) use of aspirin; Z86.73 Personal history of transient ischemic attack (TIA), and cerebral infarction without residual deficits; Z79.84 Long term (current) use of oral hypoglycemic drugs; Z79.899 Other long term (current) drug therapy
CPT/HCPCS: 36415; 80048; 82947; 85025; 95851-GO; 97110-GP; 97112-GP; 97116-GP; 97165-GO; 97530-GP; 97535-GO; A9270-GY; J1650

== ENCOUNTER 2024-08-14 15:06 | Emergency (ER) | payer MEDICARE, BC ==
[2024-08-14] MEDS: Take Home: Ciprofloxacin 500 MG Tab, 2 Tab Pack PO ONE (16:48)
[2024-08-14 17:21] LABS: APPEARANCE,URINE CLOUDY (CLEAR); COLOR,URINE POC DARK YELLOW (YELLOW)
[2024-08-14 17:22] LABS: BILIRUBIN,URINE POC MODERATE (NEGATIVE); GLUCOSE,URINE POC NEGATIVE (NEGATIVE); KETONES,URINE POC MODERATE (NEGATIVE); PROTEIN,URINE POC >300 (NEGATIVE)
[2024-08-14 17:23] LABS: NITRITE,URINE POC NEGATIVE (NEGATIVE); OCCULT BLOOD,URINE POC LARGE (NEGATIVE); UROBILINOGEN,URINE POC 0.2 (0.2)
[2024-08-14 17:24] LABS: LEUKOCYTE ESTERASE,URINE POC MODERATE (NEGATIVE)
[2024-08-14 22:03] LABS: SQUAMOUS EPITHELIAL CELLS,UR P FEW /HPF (NOT SEEN)
[2024-08-14 22:04] LABS: BACTERIA,URINE POC MANY (NOT SEEN); HYALINE CASTS,URINE POC RARE (NOT SEEN); MUCUS,URINE POC NOT SEEN (NOT SEEN); WBC,URINE POC 20-30 /HPF (NOT SEEN)
== END 2024-08-14 16:50 | disposition home or self-care (01) ==
LOC: VM.ED 15:06
DX: N39.0 Urinary tract infection, site not specified (principal); E78.00 Pure hypercholesterolemia, unspecified; I10 Essential (primary) hypertension; E11.21 Type 2 diabetes mellitus with diabetic nephropathy; M19.90 Unspecified osteoarthritis, unspecified site; E66.9 Obesity, unspecified; Z79.82 Long term (current) use of aspirin; Z79.899 Other long term (current) drug therapy; Z91.048 Other nonmedicinal substance allergy status; Z88.9 Allergy status to unspecified drugs, medicaments and biological substances; Z88.0 Allergy status to penicillin; Z88.8 Allergy status to other drugs, medicaments and biological substances
CPT/HCPCS: 81000; 87086; 99283; 99284; A9270-GY; C1758

== ENCOUNTER 2024-08-17 10:21 | Inpatient (IN) | payer MEDICARE, BC ==
[2024-08-17 10:55] LABS: BASOPHILS PERCENT AUTO 0.1 % (0.2-1.2); EOSINOPHILS ABSOLUTE AUTO 0.1 x10^3/uL (0.0-0.5); EOSINOPHILS PERCENT AUTO 0.8 % (0.0-4.0); HEMATOCRIT 37.3 % (40.0-52.0); HEMOGLOBIN 12.1 g/dL (14.0-18.0); IMMATURE GRAN ABSOLUTE AUTO 0.01 x10^3/uL (0.00-0.07); LYMPHOCYTES ABSOLUTE AUTO 0.3 x10^3/uL (1.0-4.8); LYMPHOCYTES PERCENT AUTO 2.9 % (25.0-50.0); MEAN CORPUSCULAR HEMOGLOBIN 33.6 pg (26.0-32.0); MEAN CORPUSCULAR HGB CONC 32.4 g/dL (32.0-36.0); MEAN CORPUSCULAR VOLUME 103.6 fL (78.0-93.0); MONOCYTES ABSOLUTE AUTO 1.5 x10^3/uL (0.0-0.8); MONOCYTES PERCENT AUTO 17.3 % (2.0-11.0); NEUTROPHILS ABSOLUTE AUTO 6.9 x10^3/uL (1.8-7.7); NEUTROPHILS PERCENT AUTO 78.8 % (50.0-80.0); WHITE BLOOD CELL COUNT,WBC 8.7 x10^3/uL (4.0-10.0)
[2024-08-17 11:12] LABS: PLATELET COUNT,PLT 212 x10^3/uL (130-400)
[2024-08-17 11:15] LABS: A/G RATIO 0.6; ALBUMIN 2.8 g/dL (3.4-5.0); BILIRUBIN TOTAL 0.5 mg/dL (0.2-1.0); CALCIUM 8.4 mg/dL (8.5-10.1); CREATININE 1.4 mg/dL (0.70-1.30); EST CRCL DRUG DOSING (CG) 44.82 mL/min; POTASSIUM,K 4.5 mmol/L (3.5-5.1); PROTEIN TOTAL,TP 7.5 g/dL (6.4-8.2)
[2024-08-17 11:16] LABS: ANION GAP 15.5 mmol/L (5-15)
[2024-08-17 11:34] LABS: CORONAVIRUS COVID-19 NAA POSITIVE (NEGATIVE); INFLUENZA A NAA NEGATIVE (NEGATIVE); INFLUENZA B NAA NEGATIVE (NEGATIVE); RESPIRATORY SYNCYTIAL VIR NAA NEGATIVE (NEGATIVE)
[2024-08-17 12:09] LABS: APPEARANCE,URINE SLIGHTLY CLOUDY (CLEAR); BILIRUBIN,URINE NEGATIVE (NEGATIVE); COLOR,URINE YELLOW (YELLOW); GLUCOSE,URINE NEGATIVE (NEGATIVE); KETONES,URINE NEGATIVE (NEGATIVE); LEUKOCYTE ESTERASE,URINE SMALL (NEGATIVE); NITRITE,URINE NEGATIVE (NEGATIVE); OCCULT BLOOD,URINE LARGE (NEGATIVE); PH,URINE 5.5 (5.0-8.0); PROTEIN,URINE >=300 mg/dL (NEGATIVE)
[2024-08-17 12:16] LABS: AMORPHOUS SEDIMENT,URINE FEW; BACTERIA,URINE FEW /HPF (NOT SEEN); MUCUS,URINE FEW /LPF (NOT SEEN); RBC,URINE 50-75 /HPF (NOT SEEN); SQUAMOUS EPITHELIAL CELLS,UR NOT SEEN /HPF (NOT SEEN)
[2024-08-17 12:17] LABS: HYALINE CASTS,URINE FEW
[2024-08-17] MEDS: Sodium Chloride 0.9% 1,000 ML IV SCH (12:24)
[2024-08-17] MEDS ORDERED: Miconazole 2% Top Powder 45 GM Container TOP PRN (15:36)
[2024-08-17] MEDS ORDERED: Polyethylene Glycol 3350 Powder 17 GM Packet PO PRN (15:36)
[2024-08-17] MEDS: Aspirin 81 MG Tab.EC PO SCH (17:15)
[2024-08-17] MEDS: amLODIPine 10 MG Tab PO SCH (17:15)
[2024-08-17] MEDS: Acetaminophen 325 MG Tab PO PRN (17:16)
[2024-08-17] MEDS: Bisacodyl 5 MG Tab PO SCH (20:45)
[2024-08-17] MEDS: traZODone 50 MG Tab PO SCH (20:45)
[2024-08-17] MEDS: Ciprofloxacin 500 MG Tab PO SCH (20:45)
[2024-08-17] MEDS: atorvaSTATin 40 MG Tab PO SCH (20:45)
[2024-08-18 07:23] LABS: BASOPHILS PERCENT AUTO 0.3 % (0.2-1.2); EOSINOPHILS PERCENT AUTO 0.4 % (0.0-4.0); HEMATOCRIT 35.1 % (40.0-52.0); HEMOGLOBIN 11.5 g/dL (14.0-18.0); IMMATURE GRAN ABSOLUTE AUTO 0.02 x10^3/uL (0.00-0.07); LYMPHOCYTES ABSOLUTE AUTO 0.7 x10^3/uL (1.0-4.8); LYMPHOCYTES PERCENT AUTO 9.2 % (25.0-50.0); MEAN CORPUSCULAR HEMOGLOBIN 33.6 pg (26.0-32.0); MEAN CORPUSCULAR HGB CONC 32.8 g/dL (32.0-36.0); MEAN CORPUSCULAR VOLUME 102.6 fL (78.0-93.0); MONOCYTES ABSOLUTE AUTO 1.6 x10^3/uL (0.0-0.8); PLATELET COUNT,PLT 172 x10^3/uL (130-400); RED BLOOD CELL COUNT 3.42 x10^6/uL (4.5-6.0); WHITE BLOOD CELL COUNT,WBC 7.4 x10^3/uL (4.0-10.0)
[2024-08-18 07:32] LABS: MONOCYTES PERCENT AUTO 21.8 % (2.0-11.0)
[2024-08-18 07:38] LABS: CALCIUM 7.7 mg/dL (8.5-10.1); EST CRCL DRUG DOSING (CG) 62.75 mL/min; POTASSIUM,K 3.7 mmol/L (3.5-5.1)
[2024-08-18 07:39] LABS: ANION GAP 12.7 mmol/L (5-15)
[2024-08-18] MEDS ORDERED: Albuterol 0.083% 2.5 MG/3 ML Neb Soln NEB PRN (07:58)
[2024-08-18] MEDS: Sertraline 100 MG Tab PO SCH (09:24)
[2024-08-18] MEDS: Hydroxyurea 500 MG Cap PO SCH (09:26)
[2024-08-18 12:06] LABS: A/G RATIO 0.58; ALBUMIN 2.5 g/dL (3.4-5.0); BILIRUBIN DIRECT 0.16 mg/dL (0.00-0.20); BILIRUBIN INDIRECT 0.34; BILIRUBIN TOTAL 0.5 mg/dL (0.2-1.0); PROTEIN TOTAL,TP 6.8 g/dL (6.4-8.2)
[2024-08-18] MEDS: REMDESIVIR 200 MG in Sodium Chloride 0.9% 250 ML IV ONE (12:15)
[2024-08-18] MEDS: Enoxaparin 40 MG/0.4 ML Syringe SUBCUT SCH (12:45)
[2024-08-18 16:42] LABS: C-REACTIVE PROTEIN 4.37 mg/dL (<=0.50); CALCIUM 7.7 mg/dL (8.5-10.1); EST CRCL DRUG DOSING (CG) 62.75 mL/min; POTASSIUM,K 3.9 mmol/L (3.5-5.1)
[2024-08-18 16:49] LABS: ANION GAP 12.9 mmol/L (5-15)
[2024-08-18] MEDS: Albuterol/Ipratropium 3.0-0.5 MG/3 ML Neb Soln NEB PRN (18:31)
[2024-08-19 07:08] LABS: BASOPHILS PERCENT AUTO 0.2 % (0.2-1.2); EOSINOPHILS PERCENT AUTO 0.3 % (0.0-4.0); HEMATOCRIT 35.7 % (40.0-52.0); HEMOGLOBIN 11.8 g/dL (14.0-18.0); IMMATURE GRAN ABSOLUTE AUTO 0.01 x10^3/uL (0.00-0.07); LYMPHOCYTES ABSOLUTE AUTO 0.9 x10^3/uL (1.0-4.8); LYMPHOCYTES PERCENT AUTO 15.7 % (25.0-50.0); MEAN CORPUSCULAR HEMOGLOBIN 34.2 pg (26.0-32.0); MEAN CORPUSCULAR HGB CONC 33.1 g/dL (32.0-36.0); MEAN CORPUSCULAR VOLUME 103.5 fL (78.0-93.0); MONOCYTES ABSOLUTE AUTO 1.3 x10^3/uL (0.0-0.8); MONOCYTES PERCENT AUTO 22.4 % (2.0-11.0); NEUTROPHILS ABSOLUTE AUTO 3.7 x10^3/uL (1.8-7.7); NEUTROPHILS PERCENT AUTO 61.2 % (50.0-80.0); PLATELET COUNT,PLT 162 x10^3/uL (130-400); RED BLOOD CELL COUNT 3.45 x10^6/uL (4.5-6.0)
[2024-08-19 07:15] LABS: A/G RATIO 0.63; ALBUMIN 2.5 g/dL (3.4-5.0); BILIRUBIN DIRECT 0.15 mg/dL (0.00-0.20); BILIRUBIN INDIRECT 0.25; BILIRUBIN TOTAL 0.4 mg/dL (0.2-1.0); PROTEIN TOTAL,TP 6.5 g/dL (6.4-8.2)
[2024-08-19 08:34] LABS: ANION GAP 12.8 mmol/L (5-15); CALCIUM 7.9 mg/dL (8.5-10.1); EST CRCL DRUG DOSING (CG) 62.75 mL/min; POTASSIUM,K 3.8 mmol/L (3.5-5.1)
[2024-08-19] MEDS ORDERED: Magnesium Hydroxide 400 MG/5 ML Susp 30 ML Cup PO PRN (08:43)
[2024-08-19] MEDS: Hydroxyurea 500 MG Cap PO SCH (09:16)
[2024-08-19] MEDS: REMDESIVIR 100 MG in Sodium Chloride 0.9% 100 ML IV SCH (09:27)
[2024-08-19] MEDS: dexAMETHasone 2 MG, dexAMETHasone 4 MG PO SCH (09:47)
[2024-08-20 07:37] LABS: A/G RATIO 0.61; ALBUMIN 2.8 g/dL (3.4-5.0); BILIRUBIN TOTAL 0.4 mg/dL (0.2-1.0); C-REACTIVE PROTEIN 3.59 mg/dL (<=0.50); CALCIUM 8.1 mg/dL (8.5-10.1); EST CRCL DRUG DOSING (CG) 62.75 mL/min; MAGNESIUM 1.7 mg/dL (1.8-2.4); PROTEIN TOTAL,TP 7.4 g/dL (6.4-8.2)
[2024-08-20] MEDS: Magnesium Oxide 400 MG Tab PO SCH (10:52)
[2024-08-20] MEDS: Sodium Chloride 0.9% 10 ML Syringe FLUSH PRN (20:25)
[2024-08-21 08:18] LABS: BASOPHILS PERCENT AUTO 0.1 % (0.2-1.2); HEMATOCRIT 38.1 % (40.0-52.0); HEMOGLOBIN 12.9 g/dL (14.0-18.0); IMMATURE GRAN ABSOLUTE AUTO 0.01 x10^3/uL (0.00-0.07); LYMPHOCYTES PERCENT AUTO 14.8 % (25.0-50.0); MEAN CORPUSCULAR HEMOGLOBIN 33.8 pg (26.0-32.0); MEAN CORPUSCULAR HGB CONC 33.9 g/dL (32.0-36.0); MEAN CORPUSCULAR VOLUME 99.7 fL (78.0-93.0); MONOCYTES ABSOLUTE AUTO 1.1 x10^3/uL (0.0-0.8); MONOCYTES PERCENT AUTO 15.1 % (2.0-11.0); NEUTROPHILS ABSOLUTE AUTO 4.9 x10^3/uL (1.8-7.7); NEUTROPHILS PERCENT AUTO 69.9 % (50.0-80.0); PLATELET COUNT,PLT 215 x10^3/uL (130-400); RED BLOOD CELL COUNT 3.82 x10^6/uL (4.5-6.0)
[2024-08-21 08:33] LABS: CALCIUM 8.2 mg/dL (8.5-10.1); CREATININE 1.2 mg/dL (0.70-1.30); EST CRCL DRUG DOSING (CG) 52.29 mL/min; MAGNESIUM 1.8 mg/dL (1.8-2.4); POTASSIUM,K 3.7 mmol/L (3.5-5.1)
[2024-08-21 08:44] LABS: ANION GAP 14.7 mmol/L (5-15)
[2024-08-21 09:00] LABS: C-REACTIVE PROTEIN 1.72 mg/dL (<=0.50)
== END 2024-08-21 13:03 | disposition swing bed (61) | DRG 177 ==
LOC: VM.ED 10:21 → VM.MS 12:32 → UNDODISIN 08-21 13:03
PROVIDERS: ADMIT Nurse Practitioner Family; ATTEND Nurse Practitioner Family
PROC: XW033E5 Introduction of Remdesivir Anti-infective into Peripheral Vein, Percutaneous Approach, New Technology Group 5 (ICD-10-PCS; principal; 2024-08-18)
PROC: 3E0DX3Z Introduction of Anti-inflammatory into Mouth and Pharynx, External Approach (ICD-10-PCS; 2024-08-19)
DX: U07.1 COVID-19 (principal); J12.82 Pneumonia due to coronavirus disease 2019; J96.01 Acute respiratory failure with hypoxia; N30.01 Acute cystitis with hematuria; E11.40 Type 2 diabetes mellitus with diabetic neuropathy, unspecified; I69.351 Hemiplegia and hemiparesis following cerebral infarction affecting right dominant side; H54.7 Unspecified visual loss; Z91.048 Other nonmedicinal substance allergy status; E78.00 Pure hypercholesterolemia, unspecified; K59.00 Constipation, unspecified; K21.9 Gastro-esophageal reflux disease without esophagitis; E66.9 Obesity, unspecified; Z66 Do not resuscitate; M10.9 Gout, unspecified; M19.90 Unspecified osteoarthritis, unspecified site; E11.21 Type 2 diabetes mellitus with diabetic nephropathy; F32.A Depression, unspecified; H91.90 Unspecified hearing loss, unspecified ear; K42.9 Umbilical hernia without obstruction or gangrene; D45 Polycythemia vera; E11.36 Type 2 diabetes mellitus with diabetic cataract; I69.320 Aphasia following cerebral infarction; I10 Essential (primary) hypertension; E83.42 Hypomagnesemia; H26.9 Unspecified cataract; Z88.0 Allergy status to penicillin; Z88.8 Allergy status to other drugs, medicaments and biological substances; Z79.84 Long term (current) use of oral hypoglycemic drugs; Z79.82 Long term (current) use of aspirin; Z79.899 Other long term (current) drug therapy; Z98.890 Other specified postprocedural states; Z86.73 Personal history of transient ischemic attack (TIA), and cerebral infarction without residual deficits; Z68.32 Body mass index [BMI] 32.0-32.9, adult
CPT/HCPCS: 0241U; 36415; 71045; 80048; 80053; 80076; 81001; 82728; 82947; 83605; 83615; 83735; 83880; 85025; 86140; 87086; 87088; 87147; 94640; 97116-GP; 97162-GP; 97165-GO; 97530-GO; 97535-GO; 99238; 99284; 99285; A9270-GY; C1758; J0248; J1650; J3490; J7030; J7050; J7620-GY; J8540

== ENCOUNTER 2024-08-21 13:22 | Inpatient (IN) | payer MEDICARE, BC ==
[~2024-08-21 13:22] MED LIST: Miconazole 2% Top Powder 45 GM Container TOP PRN
[2024-08-21] MEDS ORDERED: metFORMIN 500 MG Tab PO SCH (21:00)
[2024-08-21] MEDS: metFORMIN 500 MG Tab PO SCH (21:51)
[2024-08-21] MEDS: traZODone 50 MG Tab PO SCH (21:53)
[2024-08-21] MEDS: Bisacodyl 5 MG Tab PO SCH (21:53)
[2024-08-21] MEDS: atorvaSTATin 40 MG Tab PO SCH (21:54)
[2024-08-21] MEDS: Ciprofloxacin 500 MG Tab PO SCH (21:54)
[2024-08-22] MEDS: Aspirin 81 MG Tab.EC PO SCH (08:52)
[2024-08-22] MEDS: Hydroxyurea 500 MG Cap PO SCH (08:52)
[2024-08-22] MEDS: Sertraline 100 MG Tab PO SCH (08:52)
[2024-08-22] MEDS: amLODIPine 10 MG Tab PO SCH (08:52)
[2024-08-23] MEDS: Hydroxyurea 500 MG Cap PO SCH (08:59)
[2024-08-24] MEDS: Acetaminophen 325 MG Tab PO PRN (09:35)
[2024-08-25] MEDS: Polyethylene Glycol 3350 Powder 17 GM Packet PO PRN (20:00)
[2024-08-26 14:25] LABS: BASOPHILS PERCENT AUTO 0.1 % (0.2-1.2); EOSINOPHILS ABSOLUTE AUTO 0.1 x10^3/uL (0.0-0.5); EOSINOPHILS PERCENT AUTO 1.7 % (0.0-4.0); HEMATOCRIT 38.1 % (40.0-52.0); HEMOGLOBIN 12.5 g/dL (14.0-18.0); IMMATURE GRAN ABSOLUTE AUTO 0.03 x10^3/uL (0.00-0.07); MEAN CORPUSCULAR HEMOGLOBIN 33.5 pg (26.0-32.0); MEAN CORPUSCULAR HGB CONC 32.8 g/dL (32.0-36.0); MEAN CORPUSCULAR VOLUME 102.1 fL (78.0-93.0); MONOCYTES PERCENT AUTO 12.2 % (2.0-11.0); NEUTROPHILS ABSOLUTE AUTO 5.9 x10^3/uL (1.8-7.7); NEUTROPHILS PERCENT AUTO 73.6 % (50.0-80.0); PLATELET COUNT,PLT 343 x10^3/uL (130-400); RED BLOOD CELL COUNT 3.73 x10^6/uL (4.5-6.0); WHITE BLOOD CELL COUNT,WBC 8.1 x10^3/uL (4.0-10.0)
[2024-08-26 14:37] LABS: CALCIUM 8.6 mg/dL (8.5-10.1); CREATININE 1.4 mg/dL (0.70-1.30); EST CRCL DRUG DOSING (CG) 44.82 mL/min; POTASSIUM,K 4.1 mmol/L (3.5-5.1)
[2024-08-26 15:07] LABS: ANION GAP 14.1 mmol/L (5-15)
[2024-08-27] MEDS: FLU (Fluad Triv) TS24-25 (65UP)/MF59C/PF 45 MCG/0.5 ML Syringe IM ONE (15:06)
== END 2024-08-27 15:25 | disposition home or self-care (01) | DRG 947 ==
LOC: VM.MS 13:22
PROVIDERS: ADMIT Nurse Practitioner Family; ATTEND Nurse Practitioner Family
DX: R53.1 Weakness (principal); I63.9 Cerebral infarction, unspecified; J12.82 Pneumonia due to coronavirus disease 2019; U07.1 COVID-19; J96.01 Acute respiratory failure with hypoxia; N30.01 Acute cystitis with hematuria; R47.01 Aphasia; R53.83 Other fatigue; I10 Essential (primary) hypertension; E78.5 Hyperlipidemia, unspecified; E11.9 Type 2 diabetes mellitus without complications; Z79.82 Long term (current) use of aspirin; Z79.84 Long term (current) use of oral hypoglycemic drugs; Z79.899 Other long term (current) drug therapy; Z23 Encounter for immunization
CPT/HCPCS: 36415; 80048; 82947; 85025; 90653; 95851-GO; 97110-GP; 97116-GP; 97535-GO; A9270-GY; G0008

== ENCOUNTER 2024-11-18 09:05 | Inpatient (IN) | payer MEDICARE, BC ==
[2024-11-18] MEDS: diphenhydrAMINE 50 MG/ML SDV IVPUSH ONE (09:12)
[2024-11-18] MEDS: methylPREDNISolone Sodium Succinate 125 MG/2 ML SDV IV ONE (09:12)
[2024-11-18 09:23] LABS: BASOPHILS PERCENT AUTO 0.3 % (0.2-1.2); EOSINOPHILS ABSOLUTE AUTO 0.2 x10^3/uL (0.0-0.5); EOSINOPHILS PERCENT AUTO 1.5 % (0.0-4.0); HEMATOCRIT 41.1 % (40.0-52.0); HEMOGLOBIN 13.5 g/dL (14.0-18.0); IMMATURE GRAN ABSOLUTE AUTO 0.03 x10^3/uL (0.00-0.07); LYMPHOCYTES ABSOLUTE AUTO 1.3 x10^3/uL (1.0-4.8); LYMPHOCYTES PERCENT AUTO 10.7 % (25.0-50.0); MEAN CORPUSCULAR HEMOGLOBIN 32.8 pg (26.0-32.0); MEAN CORPUSCULAR HGB CONC 32.8 g/dL (32.0-36.0); MONOCYTES ABSOLUTE AUTO 1.2 x10^3/uL (0.0-0.8); MONOCYTES PERCENT AUTO 9.7 % (2.0-11.0); NEUTROPHILS ABSOLUTE AUTO 9.3 x10^3/uL (1.8-7.7); NEUTROPHILS PERCENT AUTO 77.5 % (50.0-80.0); PLATELET COUNT,PLT 330 x10^3/uL (130-400); RED BLOOD CELL COUNT 4.11 x10^6/uL (4.5-6.0); WHITE BLOOD CELL COUNT,WBC 11.9 x10^3/uL (4.0-10.0)
[2024-11-18 09:41] LABS: A/G RATIO 0.61; ALANINE AMINOTRANSFERASE,ALT 21 U/L (16-63); ALBUMIN 3.1 g/dL (3.4-5.0); ALKALINE PHOSPHATASE 141 U/L (46-116); ASPARTATE AMNIOTRANSFERASE,AST 19 U/L (15-37); BILIRUBIN TOTAL 0.6 mg/dL (0.2-1.0); BLOOD UREA NITROGEN,BUN 24 mg/dL (7-18); C-REACTIVE PROTEIN < 0.50 mg/dL (<=0.50); CALCIUM 9.1 mg/dL (8.5-10.1); CARBON DIOXIDE,CO2 29 mmol/L (21-32); CHLORIDE,CL 102 mmol/L (98-107); CREATININE 1.4 mg/dL (0.70-1.30); EST CRCL DRUG DOSING (CG) 43.45 mL/min; ESTIMATED GFR 51 mL/min (>=60); GLUCOSE RANDOM 185 mg/dL (70-99); PROTEIN TOTAL,TP 8.2 g/dL (6.4-8.2); SODIUM,NA 138 mmol/L (136-145)
[2024-11-18] MEDS ORDERED: diphenhydrAMINE 50 MG/ML SDV IVPUSH PRN (11:34)
[2024-11-18] MEDS ORDERED: Acetaminophen 325 MG Tab PO PRN (13:05)
[2024-11-18] MEDS ORDERED: Polyethylene Glycol 3350 Powder 17 GM Packet PO PRN (13:05)
[2024-11-18] MEDS ORDERED: Miconazole 2% Top Powder 45 GM Container TOP PRN ×2 (13:10→13:19)
[2024-11-18] MEDS: Bisacodyl 5 MG Tab PO SCH (20:26)
[2024-11-18] MEDS: traZODone 50 MG Tab PO SCH (20:26)
[2024-11-18] MEDS: Enoxaparin 40 MG/0.4 ML Syringe SUBCUT SCH (20:28)
[2024-11-18] MEDS: methylPREDNISolone Sodium Succinate 40 MG/1 ML SDV IVPUSH SCH (20:29)
[2024-11-18] MEDS: atorvaSTATin 40 MG Tab PO SCH (20:29)
[2024-11-19 07:11] LABS: HEMATOCRIT 35.6 % (40.0-52.0); HEMOGLOBIN 11.9 g/dL (14.0-18.0); MEAN CORPUSCULAR HEMOGLOBIN 33.2 pg (26.0-32.0); MEAN CORPUSCULAR HGB CONC 33.4 g/dL (32.0-36.0); MEAN CORPUSCULAR VOLUME 99.4 fL (78.0-93.0); RED BLOOD CELL COUNT 3.58 x10^6/uL (4.5-6.0)
[2024-11-19 07:12] LABS: CREATININE 1.3 mg/dL (0.70-1.30); EST CRCL DRUG DOSING (CG) 49.74 mL/min; POTASSIUM,K 4.5 mmol/L (3.5-5.1)
[2024-11-19 07:22] LABS: ANION GAP 12.5 mmol/L (5-15)
[2024-11-19] MEDS ORDERED: Sertraline 100 MG Tab PO SCH (09:00)
[2024-11-19] MEDS: Magnesium Oxide 400 MG Tab PO SCH (09:45)
[2024-11-19] MEDS: Aspirin 81 MG Tab.EC PO SCH (09:45)
[2024-11-19] MEDS: SERTRALINE PO SCH (09:45)
[2024-11-19] MEDS: Docusate Sodium 100 MG Cap PO SCH (09:45)
[2024-11-19] MEDS: amLODIPine 10 MG Tab PO SCH (09:46)
[2024-11-19] MEDS: Hydroxyurea 500 MG Cap PO SCH (09:46)
[2024-11-20] MEDS ORDERED: Hydroxyurea 500 MG Cap PO SCH (09:00)
== END 2024-11-19 14:45 | disposition home health service (06) | DRG 916 ==
LOC: VM.ED 09:05 → VM.MS 09:59
PROVIDERS: ADMIT Nurse Practitioner Family; ATTEND Nurse Practitioner Family
DX: T78.3XXA Angioneurotic edema, initial encounter (principal); I10 Essential (primary) hypertension; I69.351 Hemiplegia and hemiparesis following cerebral infarction affecting right dominant side; T50.B95A Adverse effect of other viral vaccines, initial encounter; H26.9 Unspecified cataract; H54.7 Unspecified visual loss; E78.00 Pure hypercholesterolemia, unspecified; K59.09 Other constipation; K21.9 Gastro-esophageal reflux disease without esophagitis; E11.40 Type 2 diabetes mellitus with diabetic neuropathy, unspecified; Z68.33 Body mass index [BMI] 33.0-33.9, adult; M10.9 Gout, unspecified; M19.90 Unspecified osteoarthritis, unspecified site; F32.A Depression, unspecified; E11.9 Type 2 diabetes mellitus without complications; E66.9 Obesity, unspecified; D45 Polycythemia vera; Z66 Do not resuscitate; Z68.30 Body mass index [BMI] 30.0-30.9, adult; Y92.89 Other specified places as the place of occurrence of the external cause; Z86.73 Personal history of transient ischemic attack (TIA), and cerebral infarction without residual deficits; Z86.16 Personal history of COVID-19; Z88.0 Allergy status to penicillin; Z88.8 Allergy status to other drugs, medicaments and biological substances; Z91.048 Other nonmedicinal substance allergy status; Z79.1 Long term (current) use of non-steroidal anti-inflammatories (NSAID); Z79.82 Long term (current) use of aspirin; Z79.51 Long term (current) use of inhaled steroids; Z79.899 Other long term (current) drug therapy; Z79.02 Long term (current) use of antithrombotics/antiplatelets; Z87.442 Personal history of urinary calculi; Z87.891 Personal history of nicotine dependence
CPT/HCPCS: 36415; 80048; 80053; 85025; 85027; 86140; 96374; 96375; 99283; 99284-25; A9270-GY; J1200; J1650; J2919

== ENCOUNTER 2025-02-23 19:24 | Inpatient (IN) | payer MEDICARE, BC ==
[2025-02-23] MEDS: EPINEPHrine 1 MG/ML SDV IM ONE (19:41)
[2025-02-23 19:44] LABS: BASOPHILS PERCENT AUTO 0.1 % (0.2-1.2); EOSINOPHILS ABSOLUTE AUTO 0.3 x10^3/uL (0.0-0.5); EOSINOPHILS PERCENT AUTO 3.1 % (0.0-4.0); HEMOGLOBIN 14.1 g/dL (14.0-18.0); IMMATURE GRAN ABSOLUTE AUTO 0.01 x10^3/uL (0.00-0.07); LYMPHOCYTES ABSOLUTE AUTO 1.6 x10^3/uL (1.0-4.8); MEAN CORPUSCULAR HEMOGLOBIN 32.3 pg (26.0-32.0); MEAN CORPUSCULAR HGB CONC 32.8 g/dL (32.0-36.0); MEAN CORPUSCULAR VOLUME 98.6 fL (78.0-93.0); MONOCYTES ABSOLUTE AUTO 1.3 x10^3/uL (0.0-0.8); MONOCYTES PERCENT AUTO 13.8 % (2.0-11.0); NEUTROPHILS ABSOLUTE AUTO 6.3 x10^3/uL (1.8-7.7); NEUTROPHILS PERCENT AUTO 65.9 % (50.0-80.0); PLATELET COUNT,PLT 277 x10^3/uL (130-400); RED BLOOD CELL COUNT 4.36 x10^6/uL (4.5-6.0); WHITE BLOOD CELL COUNT,WBC 9.6 x10^3/uL (4.0-10.0)
[2025-02-23] MEDS: Dexamethasone 4 MG/ML SDV IVPUSH ONE (19:44)
[2025-02-23] MEDS: diphenhydrAMINE 50 MG/ML SDV IVPUSH ONE (19:46)
[2025-02-23 20:01] LABS: ALANINE AMINOTRANSFERASE,ALT 20 U/L (16-63); ALBUMIN 3.2 g/dL (3.4-5.0); ALKALINE PHOSPHATASE 161 U/L (46-116); ASPARTATE AMNIOTRANSFERASE,AST 18 U/L (15-37); BILIRUBIN TOTAL 0.6 mg/dL (0.2-1.0); BLOOD UREA NITROGEN,BUN 21 mg/dL (7-18); CALCIUM 8.6 mg/dL (8.5-10.1); CARBON DIOXIDE,CO2 28 mmol/L (21-32); CHLORIDE,CL 100 mmol/L (98-107); CREATININE 1.2 mg/dL (0.70-1.30); ESTIMATED GFR 61 mL/min (>=60); GLUCOSE RANDOM 194 mg/dL (70-99); PROTEIN TOTAL,TP 8.5 g/dL (6.4-8.2); SODIUM,NA 138 mmol/L (136-145)
[2025-02-23] MEDS ORDERED: Polyethylene Glycol 3350 Powder 17 GM Packet PO PRN (22:50)
[2025-02-23] MEDS ORDERED: Miconazole 2% Top Powder 45 GM Container TOP PRN (22:50)
[2025-02-23] MEDS ORDERED: Acetaminophen 325 MG Tab PO PRN (22:50)
[2025-02-23] MEDS ORDERED: Aluminum Hydroxide/Magnesium Hydroxide/Simethicone Susp 30 ML Cup PO PRN (22:50)
[2025-02-24 06:43] LABS: EOSINOPHILS PERCENT AUTO 0.4 % (0.0-4.0); HEMATOCRIT 40.1 % (40.0-52.0); HEMOGLOBIN 13.2 g/dL (14.0-18.0); IMMATURE GRAN ABSOLUTE AUTO 0.01 x10^3/uL (0.00-0.07); LYMPHOCYTES ABSOLUTE AUTO 0.5 x10^3/uL (1.0-4.8); LYMPHOCYTES PERCENT AUTO 6.1 % (25.0-50.0); MEAN CORPUSCULAR HEMOGLOBIN 32.4 pg (26.0-32.0); MEAN CORPUSCULAR HGB CONC 32.9 g/dL (32.0-36.0); MEAN CORPUSCULAR VOLUME 98.3 fL (78.0-93.0); MONOCYTES ABSOLUTE AUTO 0.1 x10^3/uL (0.0-0.8); MONOCYTES PERCENT AUTO 1.2 % (2.0-11.0); NEUTROPHILS ABSOLUTE AUTO 7.2 x10^3/uL (1.8-7.7); NEUTROPHILS PERCENT AUTO 92.2 % (50.0-80.0); PLATELET COUNT,PLT 259 x10^3/uL (130-400); RED BLOOD CELL COUNT 4.08 x10^6/uL (4.5-6.0)
[2025-02-24] MEDS ORDERED: methylPREDNISolone Sod Succ 60 MG in Sodium Chloride 0.9% 100 ML IV SCH ×2 (07:00)
[2025-02-24 07:17] LABS: WHITE BLOOD CELL COUNT,WBC 7.8 x10^3/uL (4.0-10.0)
[2025-02-24] MEDS: methylPREDNISolone Sodium Succinate 125 MG/2 ML SDV IV SCH (07:20)
[2025-02-24] MEDS: Enoxaparin 40 MG/0.4 ML Syringe SUBCUT SCH (08:37)
[2025-02-24] MEDS: Magnesium Oxide 400 MG Tab PO SCH (08:37)
[2025-02-24] MEDS: Sertraline 100 MG Tab PO SCH (08:37)
[2025-02-24] MEDS: Aspirin 81 MG Tab.EC PO SCH (08:37)
[2025-02-24] MEDS: Docusate Sodium 100 MG Cap PO SCH (08:37)
[2025-02-24] MEDS: amLODIPine 10 MG Tab PO SCH (08:37)
[2025-02-24] MEDS: Hydroxyurea 500 MG Cap PO SCH (08:37)
[2025-02-24] MEDS: methylPREDNISolone Sodium Succinate 40 MG/1 ML SDV IVPUSH SCH (12:08)
[2025-02-24] MEDS: atorvaSTATin 40 MG Tab PO SCH (20:33)
[2025-02-24] MEDS: Bisacodyl 5 MG Tab PO SCH (20:33)
[2025-02-25 06:47] LABS: EOSINOPHILS PERCENT AUTO 0.3 % (0.0-4.0); HEMOGLOBIN 12.1 g/dL (14.0-18.0); IMMATURE GRAN ABSOLUTE AUTO 0.04 x10^3/uL (0.00-0.07); LYMPHOCYTES ABSOLUTE AUTO 0.6 x10^3/uL (1.0-4.8); LYMPHOCYTES PERCENT AUTO 4.3 % (25.0-50.0); MEAN CORPUSCULAR HEMOGLOBIN 32.4 pg (26.0-32.0); MEAN CORPUSCULAR HGB CONC 32.7 g/dL (32.0-36.0); MEAN CORPUSCULAR VOLUME 98.9 fL (78.0-93.0); MONOCYTES ABSOLUTE AUTO 0.6 x10^3/uL (0.0-0.8); NEUTROPHILS ABSOLUTE AUTO 13.4 x10^3/uL (1.8-7.7); NEUTROPHILS PERCENT AUTO 91.1 % (50.0-80.0); PLATELET COUNT,PLT 277 x10^3/uL (130-400); RED BLOOD CELL COUNT 3.74 x10^6/uL (4.5-6.0); WHITE BLOOD CELL COUNT,WBC 14.7 x10^3/uL (4.0-10.0)
[2025-02-25 07:11] LABS: CALCIUM 8.7 mg/dL (8.5-10.1); CREATININE 1.4 mg/dL (0.70-1.30); EST CRCL DRUG DOSING (CG) 43.45 mL/min; POTASSIUM,K 4.4 mmol/L (3.5-5.1)
[2025-02-25 07:15] LABS: ANION GAP 12.4 mmol/L (5-15)
[2025-02-25] MEDS ORDERED: 50% Dextrose in Water 50 ML Syringe IVPUSH PRN (07:40)
[2025-02-25] MEDS ORDERED: Glucagon,Human Recombinant 1 MG Vial IM PRN (07:40)
[2025-02-25] MEDS: Hydroxyurea 500 MG Cap PO SCH (08:36)
[2025-02-25] MEDS: Insulin Lispro 100 Units/ML 3 ML Vial SUBCUT SCH (08:40)
[2025-02-25] MEDS: predniSONE 20 MG Tab PO SCH (12:12)
[2025-02-25 12:38] LABS: APPEARANCE,URINE CLEAR (CLEAR); BILIRUBIN,URINE NEGATIVE (NEGATIVE); COLOR,URINE YELLOW (YELLOW); GLUCOSE,URINE 500 mg/dL (NEGATIVE); KETONES,URINE TRACE mg/dL (NEGATIVE); LEUKOCYTE ESTERASE,URINE NEGATIVE (NEGATIVE); NITRITE,URINE NEGATIVE (NEGATIVE); OCCULT BLOOD,URINE MODERATE (NEGATIVE); PH,URINE 5.5 (5.0-8.0); PROTEIN,URINE >=300 mg/dL (NEGATIVE); UROBILINOGEN,URINE 0.2 EU/dL (0.2)
[2025-02-25 12:47] LABS: EPITHELIAL CELLS,URINE RARE; RBC,URINE 0-5 /HPF (NOT SEEN); WBC,URINE 0-5 /HPF (NOT SEEN)
[2025-02-25 12:48] LABS: BACTERIA,URINE RARE /HPF (NOT SEEN); HYALINE CASTS,URINE RARE
[2025-02-25] MEDS: Insulin Lispro 100 Units/ML 3 ML Vial SUBCUT ONE ×2 (17:24→18:28)
[2025-02-25] MEDS: Sodium Chloride 0.9% 10 ML Syringe FLUSH PRN (19:56)
[2025-02-26 07:52] LABS: HEMATOCRIT 35.8 % (40.0-52.0); MEAN CORPUSCULAR HEMOGLOBIN 32.7 pg (26.0-32.0); MEAN CORPUSCULAR HGB CONC 33.5 g/dL (32.0-36.0); MEAN CORPUSCULAR VOLUME 97.5 fL (78.0-93.0); PLATELET COUNT,PLT 271 x10^3/uL (130-400); RED BLOOD CELL COUNT 3.67 x10^6/uL (4.5-6.0); WHITE BLOOD CELL COUNT,WBC 16.8 x10^3/uL (4.0-10.0)
[2025-02-26 08:07] LABS: CALCIUM 8.3 mg/dL (8.5-10.1); CREATININE 1.1 mg/dL (0.70-1.30); EST CRCL DRUG DOSING (CG) 55.3 mL/min; POTASSIUM,K 4.1 mmol/L (3.5-5.1)
[2025-02-26 08:10] LABS: ANION GAP 11.1 mmol/L (5-15)
[2025-02-26 08:17] LABS: LYMPHOCYTES ABSOLUTE MAN 0.8 x10^3/uL (1.0-4.8); LYMPHOCYTES PERCENT MAN 5 % (25-50); MONOCYTES ABSOLUTE MAN 1.3 x10^3/uL (0.0-0.8); MONOCYTES PERCENT MAN 8 % (2-11); NEUTROPHILS ABSOLUTE MAN 14.6 x10^3/uL (1.8-7.7); SEG NEUTROPHILS PERCENT MAN 87 % (50-80)
[2025-02-26 08:18] LABS: HYPOCHROMASIA 1+ SLIGHT; PLATELET COUNT ESTIMATE ADEQUATE
[2025-02-26] MEDS: SERTRALINE PO SCH (08:48)
== END 2025-02-26 13:55 | disposition home health service (06) | DRG 916 ==
LOC: VM.ED 19:24 → VM.MS 20:38
PROVIDERS: ADMIT Internal Medicine; ATTEND Nurse Practitioner Family
DX: T78.3XXA Angioneurotic edema, initial encounter (principal); G81.91 Hemiplegia, unspecified affecting right dominant side; E87.1 Hypo-osmolality and hyponatremia; Z66 Do not resuscitate; E78.5 Hyperlipidemia, unspecified; Z68.32 Body mass index [BMI] 32.0-32.9, adult; D45 Polycythemia vera; F32.A Depression, unspecified; M10.9 Gout, unspecified; H26.9 Unspecified cataract; H91.90 Unspecified hearing loss, unspecified ear; H54.7 Unspecified visual loss; E78.00 Pure hypercholesterolemia, unspecified; K59.09 Other constipation; E11.22 Type 2 diabetes mellitus with diabetic chronic kidney disease; K21.9 Gastro-esophageal reflux disease without esophagitis; I12.9 Hypertensive chronic kidney disease with stage 1 through stage 4 chronic kidney disease, or unspecified chronic kidney disease; E11.21 Type 2 diabetes mellitus with diabetic nephropathy; N42.9 Disorder of prostate, unspecified; M19.90 Unspecified osteoarthritis, unspecified site; E66.9 Obesity, unspecified; Z98.890 Other specified postprocedural states; Z86.73 Personal history of transient ischemic attack (TIA), and cerebral infarction without residual deficits; Z79.899 Other long term (current) drug therapy; Z88.8 Allergy status to other drugs, medicaments and biological substances; Z88.0 Allergy status to penicillin
CPT/HCPCS: 36415; 71045; 80048; 80053; 81001; 82947; 84443; 85025; 85652; 86140; 92610-GN; 96372; 96374; 96375; 97110-GO; 97161-GP; 97165-GO; 97530-GO; 97535-GO; 99223; 99284; 99285-25; A9270-GY; J0171; J1100; J1200; J1650; J1815-GY; J2919; J7512; Q3014

== ENCOUNTER 2025-02-26 09:59 | Inpatient (IN) | payer MEDICARE, BC ==
[2025-02-26] MEDS ORDERED: Miconazole 2% Top Powder 45 GM Container TOP PRN (11:16)
[2025-02-26] MEDS ORDERED: Polyethylene Glycol 3350 Powder 17 GM Packet PO PRN (11:16)
[2025-02-26] MEDS ORDERED: Aluminum Hydroxide/Magnesium Hydroxide/Simethicone Susp 30 ML Cup PO PRN (11:16)
[2025-02-26] MEDS ORDERED: Glucagon,Human Recombinant 1 MG Vial IM PRN ×2 (11:16)
[2025-02-26] MEDS ORDERED: Acetaminophen 325 MG Tab PO PRN (11:16)
[2025-02-26] MEDS ORDERED: Sodium Chloride 0.9% 10 ML Syringe FLUSH PRN ×2 (11:16)
[2025-02-26] MEDS ORDERED: 50% Dextrose in Water 50 ML Syringe IVPUSH PRN (11:16)
[2025-02-26] MEDS: Insulin Lispro 100 Units/ML 3 ML Vial SUBCUT SCH (14:16)
[2025-02-26] MEDS: atorvaSTATin 40 MG Tab PO SCH (20:14)
[2025-02-26] MEDS: Bisacodyl 5 MG Tab PO SCH (20:14)
[2025-02-27 08:17] LABS: HEMATOCRIT 37.3 % (40.0-52.0); HEMOGLOBIN 12.6 g/dL (14.0-18.0); MEAN CORPUSCULAR HGB CONC 33.8 g/dL (32.0-36.0); MEAN CORPUSCULAR VOLUME 97.6 fL (78.0-93.0); RED BLOOD CELL COUNT 3.82 x10^6/uL (4.5-6.0); WHITE BLOOD CELL COUNT,WBC 13.5 x10^3/uL (4.0-10.0)
[2025-02-27] MEDS: Enoxaparin 40 MG/0.4 ML Syringe SUBCUT SCH (08:50)
[2025-02-27] MEDS: Aspirin 81 MG Tab.EC PO SCH (08:51)
[2025-02-27] MEDS: Magnesium Oxide 400 MG Tab PO SCH (08:51)
[2025-02-27] MEDS: amLODIPine 10 MG Tab PO SCH (08:51)
[2025-02-27] MEDS: SERTRALINE PO SCH (08:52)
[2025-02-27] MEDS: predniSONE 20 MG Tab PO SCH (08:52)
[2025-02-27] MEDS: Hydroxyurea 500 MG Cap PO SCH (08:52)
[2025-02-27] MEDS: Docusate Sodium 100 MG Cap PO SCH (08:52)
[2025-02-28] MEDS: Hydroxyurea 500 MG Cap PO SCH (08:30)
[2025-03-02 06:45] LABS: BASOPHILS PERCENT AUTO 0.1 % (0.2-1.2); EOSINOPHILS ABSOLUTE AUTO 0.1 x10^3/uL (0.0-0.5); HEMATOCRIT 38.6 % (40.0-52.0); HEMOGLOBIN 12.9 g/dL (14.0-18.0); IMMATURE GRAN ABSOLUTE AUTO 0.04 x10^3/uL (0.00-0.07); LYMPHOCYTES ABSOLUTE AUTO 1.7 x10^3/uL (1.0-4.8); LYMPHOCYTES PERCENT AUTO 12.6 % (25.0-50.0); MEAN CORPUSCULAR HEMOGLOBIN 32.3 pg (26.0-32.0); MEAN CORPUSCULAR HGB CONC 33.4 g/dL (32.0-36.0); MEAN CORPUSCULAR VOLUME 96.7 fL (78.0-93.0); MONOCYTES ABSOLUTE AUTO 1.7 x10^3/uL (0.0-0.8); MONOCYTES PERCENT AUTO 12.6 % (2.0-11.0); NEUTROPHILS PERCENT AUTO 73.4 % (50.0-80.0); PLATELET COUNT,PLT 284 x10^3/uL (130-400); RED BLOOD CELL COUNT 3.99 x10^6/uL (4.5-6.0); WHITE BLOOD CELL COUNT,WBC 13.6 x10^3/uL (4.0-10.0)
[2025-03-02 07:02] LABS: A/G RATIO 0.66; ALBUMIN 2.7 g/dL (3.4-5.0); ANION GAP 9.5 mmol/L (5-15); BILIRUBIN TOTAL 0.8 mg/dL (0.2-1.0); CALCIUM 7.9 mg/dL (8.5-10.1); CREATININE 1.1 mg/dL (0.70-1.30); EST CRCL DRUG DOSING (CG) 55.3 mL/min; POTASSIUM,K 3.5 mmol/L (3.5-5.1); PROTEIN TOTAL,TP 6.8 g/dL (6.4-8.2)
[2025-03-05 07:16] LABS: HEMATOCRIT 37.1 % (40.0-52.0); HEMOGLOBIN 12.2 g/dL (14.0-18.0); MEAN CORPUSCULAR HEMOGLOBIN 32.4 pg (26.0-32.0); MEAN CORPUSCULAR HGB CONC 32.9 g/dL (32.0-36.0); MEAN CORPUSCULAR VOLUME 98.4 fL (78.0-93.0); RED BLOOD CELL COUNT 3.77 x10^6/uL (4.5-6.0); WHITE BLOOD CELL COUNT,WBC 9.4 x10^3/uL (4.0-10.0)
[2025-03-06] MEDS: diphenhydrAMINE 25 MG Cap PO PRN (14:50)
[2025-03-08 07:07] LABS: HEMATOCRIT 38.9 % (40.0-52.0); HEMOGLOBIN 12.8 g/dL (14.0-18.0); MEAN CORPUSCULAR HEMOGLOBIN 32.6 pg (26.0-32.0); MEAN CORPUSCULAR HGB CONC 32.9 g/dL (32.0-36.0); RED BLOOD CELL COUNT 3.93 x10^6/uL (4.5-6.0); WHITE BLOOD CELL COUNT,WBC 8.3 x10^3/uL (4.0-10.0)
[2025-03-08] MEDS: Multivitamin Tab PO SCH (08:41)
[2025-03-08] MEDS: Zinc Sulfate 220 MG Cap PO SCH (08:42)
[2025-03-08] MEDS: Insulin Glarg,Human.Rec.Analog 100 Unit/ML 10 ML Vial SUBCUT SCH (08:45)
[2025-03-10 06:59] LABS: BASOPHILS ABSOLUTE AUTO 0.1 x10^3/uL (0.0-0.2); BASOPHILS PERCENT AUTO 0.4 % (0.2-1.2); EOSINOPHILS ABSOLUTE AUTO 0.3 x10^3/uL (0.0-0.5); EOSINOPHILS PERCENT AUTO 2.2 % (0.0-4.0); HEMATOCRIT 38.8 % (40.0-52.0); HEMOGLOBIN 12.8 g/dL (14.0-18.0); IMMATURE GRAN ABSOLUTE AUTO 0.04 x10^3/uL (0.00-0.07); LYMPHOCYTES ABSOLUTE AUTO 1.4 x10^3/uL (1.0-4.8); LYMPHOCYTES PERCENT AUTO 12.7 % (25.0-50.0); MEAN CORPUSCULAR HEMOGLOBIN 32.8 pg (26.0-32.0); MEAN CORPUSCULAR VOLUME 99.5 fL (78.0-93.0); MONOCYTES ABSOLUTE AUTO 1.3 x10^3/uL (0.0-0.8); MONOCYTES PERCENT AUTO 11.4 % (2.0-11.0); NEUTROPHILS ABSOLUTE AUTO 8.1 x10^3/uL (1.8-7.7); NEUTROPHILS PERCENT AUTO 72.9 % (50.0-80.0); PLATELET COUNT,PLT 265 x10^3/uL (130-400); WHITE BLOOD CELL COUNT,WBC 11.2 x10^3/uL (4.0-10.0)
[2025-03-10 07:17] LABS: CALCIUM 8.5 mg/dL (8.5-10.1); CREATININE 1.2 mg/dL (0.70-1.30); EST CRCL DRUG DOSING (CG) 50.69 mL/min; POTASSIUM,K 3.8 mmol/L (3.5-5.1)
[2025-03-10 07:21] LABS: ANION GAP 10.8 mmol/L (5-15)
== END 2025-03-10 16:30 | disposition home health service (06) | DRG 948 ==
LOC: VM.MS 14:00
PROVIDERS: ADMIT Internal Medicine; ATTEND Family Medicine
DX: R53.81 Other malaise (principal); I69.951 Hemiplegia and hemiparesis following unspecified cerebrovascular disease affecting right dominant side; T78.3XXS Angioneurotic edema, sequela; D45 Polycythemia vera; Z66 Do not resuscitate; Z68.32 Body mass index [BMI] 32.0-32.9, adult; N18.2 Chronic kidney disease, stage 2 (mild); I12.9 Hypertensive chronic kidney disease with stage 1 through stage 4 chronic kidney disease, or unspecified chronic kidney disease; M10.9 Gout, unspecified; H26.9 Unspecified cataract; H91.90 Unspecified hearing loss, unspecified ear; H54.7 Unspecified visual loss; E78.00 Pure hypercholesterolemia, unspecified; E11.22 Type 2 diabetes mellitus with diabetic chronic kidney disease; K59.09 Other constipation; K21.9 Gastro-esophageal reflux disease without esophagitis; E11.21 Type 2 diabetes mellitus with diabetic nephropathy; N42.9 Disorder of prostate, unspecified; M19.90 Unspecified osteoarthritis, unspecified site; F32.A Depression, unspecified; E66.9 Obesity, unspecified; L89.329 Pressure ulcer of left buttock, unspecified stage; L89.319 Pressure ulcer of right buttock, unspecified stage; E78.5 Hyperlipidemia, unspecified; K42.9 Umbilical hernia without obstruction or gangrene; Z88.0 Allergy status to penicillin; Z79.899 Other long term (current) drug therapy; Z79.82 Long term (current) use of aspirin; Z88.8 Allergy status to other drugs, medicaments and biological substances; Z86.73 Personal history of transient ischemic attack (TIA), and cerebral infarction without residual deficits
CPT/HCPCS: 36415; 80048; 80053; 82947; 85025; 85027; 97110-GO; 97110-GP; 97116-GP; 97164-GP; 97530-GO; 97530-GP; 97535-GO; A9270-GY; J1650; J1815-GY; J7512

== ENCOUNTER 2025-04-08 10:58 | Inpatient (IN) | payer MEDICARE, BC ==
[2025-04-08 11:18] LABS: BASOPHILS ABSOLUTE AUTO 0.1 x10^3/uL (0.0-0.2); BASOPHILS PERCENT AUTO 0.7 % (0.2-1.2); EOSINOPHILS ABSOLUTE AUTO 0.3 x10^3/uL (0.0-0.5); EOSINOPHILS PERCENT AUTO 3.2 % (0.0-4.0); HEMATOCRIT 38.6 % (40.0-52.0); HEMOGLOBIN 12.4 g/dL (14.0-18.0); IMMATURE GRAN ABSOLUTE AUTO 0.01 x10^3/uL (0.00-0.07); LYMPHOCYTES ABSOLUTE AUTO 1.3 x10^3/uL (1.0-4.8); LYMPHOCYTES PERCENT AUTO 14.3 % (25.0-50.0); MEAN CORPUSCULAR HGB CONC 32.1 g/dL (32.0-36.0); MEAN CORPUSCULAR VOLUME 99.7 fL (78.0-93.0); MONOCYTES ABSOLUTE AUTO 1.2 x10^3/uL (0.0-0.8); MONOCYTES PERCENT AUTO 13.2 % (2.0-11.0); NEUTROPHILS ABSOLUTE AUTO 6.4 x10^3/uL (1.8-7.7); NEUTROPHILS PERCENT AUTO 68.5 % (50.0-80.0); PLATELET COUNT,PLT 224 x10^3/uL (130-400); RED BLOOD CELL COUNT 3.87 x10^6/uL (4.5-6.0); WHITE BLOOD CELL COUNT,WBC 9.4 x10^3/uL (4.0-10.0)
[2025-04-08 11:42] LABS: ALANINE AMINOTRANSFERASE,ALT 24 U/L (16-63); ALBUMIN 3.1 g/dL (3.4-5.0); ALKALINE PHOSPHATASE 135 U/L (46-116); ANION GAP 12.4 mmol/L (5-15); ASPARTATE AMNIOTRANSFERASE,AST 16 U/L (15-37); BILIRUBIN TOTAL 0.6 mg/dL (0.2-1.0); BLOOD UREA NITROGEN,BUN 31 mg/dL (7-18); CALCIUM 8.3 mg/dL (8.5-10.1); CARBON DIOXIDE,CO2 31 mmol/L (21-32); CHLORIDE,CL 103 mmol/L (98-107); CREATININE 1.3 mg/dL (0.70-1.30); ESTIMATED GFR 56 mL/min (>=60); GLUCOSE RANDOM 219 mg/dL (70-99); POTASSIUM,K 4.4 mmol/L (3.5-5.1); PROTEIN TOTAL,TP 7.5 g/dL (6.4-8.2); SODIUM,NA 142 mmol/L (136-145)
[2025-04-08] MEDS ORDERED: Sennosides/Docusate Sodium 50-8.6 MG Tab PO PRN (12:51)
[2025-04-08] MEDS ORDERED: Bisacodyl 5 MG Tab PO PRN (12:51)
[2025-04-08] MEDS ORDERED: Polyethylene Glycol 3350 Powder 17 GM Packet PO PRN (12:51)
[2025-04-08] MEDS ORDERED: 50% Dextrose in Water 50 ML Syringe IVPUSH PRN (14:04)
[2025-04-08] MEDS ORDERED: Aluminum Hydroxide/Magnesium Hydroxide/Simethicone Susp 30 ML Cup PO PRN (14:04)
[2025-04-08] MEDS ORDERED: Glucagon,Human Recombinant 1 MG Vial IM PRN (14:04)
[2025-04-08] MEDS: atorvaSTATin 40 MG Tab PO SCH (20:31)
[2025-04-08] MEDS: Bisacodyl 5 MG Tab PO SCH (20:32)
[2025-04-08] MEDS: Sodium Phosphate,Monobasic/Sodium Phosphate,Dibasic Enema 133 ML Bottle RECTAL ONE (20:32)
[2025-04-09 07:36] LABS: HEMATOCRIT 36.6 % (40.0-52.0); HEMOGLOBIN 11.9 g/dL (14.0-18.0); MEAN CORPUSCULAR HEMOGLOBIN 32.4 pg (26.0-32.0); MEAN CORPUSCULAR HGB CONC 32.5 g/dL (32.0-36.0); MEAN CORPUSCULAR VOLUME 99.7 fL (78.0-93.0); RED BLOOD CELL COUNT 3.67 x10^6/uL (4.5-6.0); WHITE BLOOD CELL COUNT,WBC 9.2 x10^3/uL (4.0-10.0)
[2025-04-09 07:44] LABS: A/G RATIO 0.71; ALBUMIN 2.9 g/dL (3.4-5.0); ANION GAP 11.2 mmol/L (5-15); BILIRUBIN TOTAL 0.7 mg/dL (0.2-1.0); CALCIUM 8.3 mg/dL (8.5-10.1); CREATININE 1.1 mg/dL (0.70-1.30); EST CRCL DRUG DOSING (CG) 55.3 mL/min; POTASSIUM,K 4.2 mmol/L (3.5-5.1)
[2025-04-09 07:49] LABS: APPEARANCE,URINE CLEAR (CLEAR); BILIRUBIN,URINE NEGATIVE (NEGATIVE); COLOR,URINE YELLOW (YELLOW); GLUCOSE,URINE NEGATIVE (NEGATIVE); KETONES,URINE NEGATIVE (NEGATIVE); LEUKOCYTE ESTERASE,URINE SMALL (NEGATIVE); NITRITE,URINE NEGATIVE (NEGATIVE); OCCULT BLOOD,URINE MODERATE (NEGATIVE); PH,URINE 6.5 (5.0-8.0); PROTEIN,URINE 100 mg/dL (NEGATIVE); UROBILINOGEN,URINE 0.2 EU/dL (0.2)
[2025-04-09 08:00] LABS: BACTERIA,URINE FEW /HPF (NOT SEEN); EPITHELIAL CELLS,URINE RARE; WBC,URINE 0-5 /HPF (NOT SEEN)
[2025-04-09] MEDS: Docusate Sodium 100 MG Cap PO SCH (09:00)
[2025-04-09] MEDS: Hydroxyurea 500 MG Cap PO SCH (09:00)
[2025-04-09] MEDS: Magnesium Oxide 400 MG Tab PO SCH (09:00)
[2025-04-09] MEDS ORDERED: Sertraline 100 MG Tab PO SCH (09:00)
[2025-04-09] MEDS: SERTRALINE PO SCH (09:00)
[2025-04-09] MEDS: Enoxaparin 40 MG/0.4 ML Syringe SUBCUT SCH (09:02)
[2025-04-09] MEDS: Polyethylene Glycol 3350 Powder 17 GM Packet PO SCH (09:02)
[2025-04-09] MEDS: amLODIPine 10 MG Tab PO SCH (09:03)
[2025-04-09] MEDS: Insulin Glarg,Human.Rec.Analog 100 Unit/ML 10 ML Vial SUBCUT SCH (09:04)
[2025-04-11] MEDS: Acetaminophen 325 MG Tab PO PRN (05:29)
[2025-04-11 08:22] LABS: BASOPHILS PERCENT AUTO 0.5 % (0.2-1.2); EOSINOPHILS ABSOLUTE AUTO 0.2 x10^3/uL (0.0-0.5); EOSINOPHILS PERCENT AUTO 2.9 % (0.0-4.0); HEMATOCRIT 38.6 % (40.0-52.0); HEMOGLOBIN 12.6 g/dL (14.0-18.0); IMMATURE GRAN ABSOLUTE AUTO 0.01 x10^3/uL (0.00-0.07); LYMPHOCYTES ABSOLUTE AUTO 1.2 x10^3/uL (1.0-4.8); LYMPHOCYTES PERCENT AUTO 13.8 % (25.0-50.0); MEAN CORPUSCULAR HEMOGLOBIN 32.1 pg (26.0-32.0); MEAN CORPUSCULAR HGB CONC 32.6 g/dL (32.0-36.0); MEAN CORPUSCULAR VOLUME 98.5 fL (78.0-93.0); MONOCYTES ABSOLUTE AUTO 1.2 x10^3/uL (0.0-0.8); MONOCYTES PERCENT AUTO 14.1 % (2.0-11.0); NEUTROPHILS ABSOLUTE AUTO 5.7 x10^3/uL (1.8-7.7); NEUTROPHILS PERCENT AUTO 68.6 % (50.0-80.0); PLATELET COUNT,PLT 199 x10^3/uL (130-400); RED BLOOD CELL COUNT 3.92 x10^6/uL (4.5-6.0); WHITE BLOOD CELL COUNT,WBC 8.4 x10^3/uL (4.0-10.0)
[2025-04-11 08:36] LABS: ANION GAP 14.2 mmol/L (5-15); CALCIUM 8.3 mg/dL (8.5-10.1); CREATININE 1.2 mg/dL (0.70-1.30); EST CRCL DRUG DOSING (CG) 50.69 mL/min; POTASSIUM,K 4.2 mmol/L (3.5-5.1)
[2025-04-11] MEDS: Hydroxyurea 500 MG Cap PO SCH (08:50)
== END 2025-04-11 17:37 | disposition swing bed (61) | DRG 57 ==
LOC: VM.ED 10:58 → VM.MS 12:25
PROVIDERS: ADMIT Nurse Practitioner Family; ATTEND Nurse Practitioner Family
DX: I69.351 Hemiplegia and hemiparesis following cerebral infarction affecting right dominant side (principal); M25.551 Pain in right hip; I10 Essential (primary) hypertension; R53.1 Weakness; Z66 Do not resuscitate; E11.42 Type 2 diabetes mellitus with diabetic polyneuropathy; Z68.32 Body mass index [BMI] 32.0-32.9, adult; H26.9 Unspecified cataract; Z91.048 Other nonmedicinal substance allergy status; H91.90 Unspecified hearing loss, unspecified ear; H54.7 Unspecified visual loss; E78.00 Pure hypercholesterolemia, unspecified; K59.09 Other constipation; K21.9 Gastro-esophageal reflux disease without esophagitis; E11.21 Type 2 diabetes mellitus with diabetic nephropathy; N42.9 Disorder of prostate, unspecified; M10.9 Gout, unspecified; M19.90 Unspecified osteoarthritis, unspecified site; F32.A Depression, unspecified; E66.9 Obesity, unspecified; I69.920 Aphasia following unspecified cerebrovascular disease; D45 Polycythemia vera; N18.9 Chronic kidney disease, unspecified; I12.9 Hypertensive chronic kidney disease with stage 1 through stage 4 chronic kidney disease, or unspecified chronic kidney disease; W19.XXXA Unspecified fall, initial encounter; E11.22 Type 2 diabetes mellitus with diabetic chronic kidney disease; Z88.0 Allergy status to penicillin; Z79.82 Long term (current) use of aspirin; Z79.4 Long term (current) use of insulin; Z86.73 Personal history of transient ischemic attack (TIA), and cerebral infarction without residual deficits; Z79.899 Other long term (current) drug therapy; Z88.8 Allergy status to other drugs, medicaments and biological substances
CPT/HCPCS: 36415; 72131; 72192; 73060-RT; 73090-RT; 73700-RT; 80048; 80053; 81001; 85025; 85027; 87086; 97161-GP; 97164-GP; 97165-GO; 99232; 99232-GT; 99233; 99233-GT; 99284; 99285; A9270-GY; J1650; J1815-GY

== ENCOUNTER 2025-04-11 17:09 | Inpatient (IN) | payer MEDICARE, BC ==
[2025-04-11] MEDS ORDERED: 50% Dextrose in Water 50 ML Syringe IVPUSH PRN (17:15)
[2025-04-11] MEDS ORDERED: Bisacodyl 5 MG Tab PO PRN (17:15)
[2025-04-11] MEDS ORDERED: Acetaminophen 325 MG Tab PO PRN (17:15)
[2025-04-11] MEDS ORDERED: Glucagon,Human Recombinant 1 MG Vial IM PRN ×2 (17:15)
[2025-04-11] MEDS ORDERED: Sennosides/Docusate Sodium 50-8.6 MG Tab PO PRN (17:15)
[2025-04-11] MEDS ORDERED: Aluminum Hydroxide/Magnesium Hydroxide/Simethicone Susp 30 ML Cup PO PRN (17:15)
[2025-04-11] MEDS: atorvaSTATin 40 MG Tab PO SCH (20:44)
[2025-04-11] MEDS: Bisacodyl 5 MG Tab PO SCH (20:44)
[2025-04-12] MEDS: Magnesium Oxide 400 MG Tab PO SCH (08:22)
[2025-04-12] MEDS: SERTRALINE PO SCH (08:22)
[2025-04-12] MEDS: Docusate Sodium 100 MG Cap PO SCH (08:22)
[2025-04-12] MEDS: Insulin Glarg,Human.Rec.Analog 100 Unit/ML 10 ML Vial SUBCUT SCH (08:22)
[2025-04-12] MEDS: Hydroxyurea 500 MG Cap PO SCH (08:23)
[2025-04-12] MEDS: amLODIPine 10 MG Tab PO SCH (08:23)
[2025-04-12] MEDS: Polyethylene Glycol 3350 Powder 17 GM Packet PO SCH (08:23)
[2025-04-13] MEDS: Hydroxyurea 500 MG Cap PO SCH (10:00)
[2025-04-19 07:48] LABS: BASOPHILS ABSOLUTE AUTO 0.1 x10^3/uL (0.0-0.2); BASOPHILS PERCENT AUTO 0.8 % (0.2-1.2); EOSINOPHILS ABSOLUTE AUTO 0.3 x10^3/uL (0.0-0.5); EOSINOPHILS PERCENT AUTO 3.1 % (0.0-4.0); HEMATOCRIT 37.4 % (40.0-52.0); HEMOGLOBIN 12.1 g/dL (14.0-18.0); IMMATURE GRAN ABSOLUTE AUTO 0.01 x10^3/uL (0.00-0.07); LYMPHOCYTES ABSOLUTE AUTO 1.4 x10^3/uL (1.0-4.8); LYMPHOCYTES PERCENT AUTO 16.2 % (25.0-50.0); MEAN CORPUSCULAR HEMOGLOBIN 32.1 pg (26.0-32.0); MEAN CORPUSCULAR HGB CONC 32.4 g/dL (32.0-36.0); MEAN CORPUSCULAR VOLUME 99.2 fL (78.0-93.0); MONOCYTES ABSOLUTE AUTO 1.1 x10^3/uL (0.0-0.8); MONOCYTES PERCENT AUTO 12.9 % (2.0-11.0); NEUTROPHILS ABSOLUTE AUTO 5.6 x10^3/uL (1.8-7.7); NEUTROPHILS PERCENT AUTO 66.9 % (50.0-80.0); PLATELET COUNT,PLT 295 x10^3/uL (130-400); RED BLOOD CELL COUNT 3.77 x10^6/uL (4.5-6.0); WHITE BLOOD CELL COUNT,WBC 8.3 x10^3/uL (4.0-10.0)
[2025-04-19 08:05] LABS: CALCIUM 8.3 mg/dL (8.5-10.1); CREATININE 1.1 mg/dL (0.70-1.30); EST CRCL DRUG DOSING (CG) 55.3 mL/min
[2025-04-23] MEDS: Doxycycline Monohydrate 100 MG Cap PO SCH (20:08)
[2025-04-25] MEDS: diphenhydrAMINE 50 MG/ML SDV IVPUSH ONE (05:55)
[2025-04-25] MEDS: EPINEPHrine 1 MG/ML SDV IM ONE (06:01)
[2025-04-25] MEDS: Famotidine 20 MG/2 ML SDV IVPUSH ONE (06:04)
[2025-04-25] MEDS: methylPREDNISolone Sodium Succinate 125 MG/2 ML SDV IVPUSH SCH (06:12)
[2025-04-25] MEDS: methylPREDNISolone Sodium Succinate 40 MG/1 ML SDV IVPUSH SCH (12:36)
[2025-04-25] MEDS ORDERED: Glucagon,Human Recombinant 1 MG Vial IM PRN (18:06)
[2025-04-25] MEDS ORDERED: 50% Dextrose in Water 50 ML Syringe IVPUSH PRN (18:06)
[2025-04-25] MEDS: Insulin Lispro 100 Units/ML 3 ML Vial SUBCUT SCH (20:49)
[2025-04-25] MEDS: methylPREDNISolone Sod Succ 125 MG in Sodium Chloride 0.9% 100 ML IV SCH (22:03)
[2025-04-26 07:19] LABS: CALCIUM 8.6 mg/dL (8.5-10.1); CREATININE 1.3 mg/dL (0.70-1.30); EST CRCL DRUG DOSING (CG) 46.79 mL/min; POTASSIUM,K 4.4 mmol/L (3.5-5.1)
[2025-04-26 07:32] LABS: HEMATOCRIT 36.8 % (40.0-52.0); IMMATURE GRAN ABSOLUTE AUTO 0.03 x10^3/uL (0.00-0.07); LYMPHOCYTES ABSOLUTE AUTO 0.6 x10^3/uL (1.0-4.8); LYMPHOCYTES PERCENT AUTO 3.5 % (25.0-50.0); MEAN CORPUSCULAR HEMOGLOBIN 32.3 pg (26.0-32.0); MEAN CORPUSCULAR HGB CONC 32.6 g/dL (32.0-36.0); MEAN CORPUSCULAR VOLUME 99.2 fL (78.0-93.0); MONOCYTES ABSOLUTE AUTO 0.9 x10^3/uL (0.0-0.8); MONOCYTES PERCENT AUTO 5.3 % (2.0-11.0); NEUTROPHILS ABSOLUTE AUTO 14.8 x10^3/uL (1.8-7.7); PLATELET COUNT,PLT 376 x10^3/uL (130-400); RED BLOOD CELL COUNT 3.71 x10^6/uL (4.5-6.0)
[2025-04-26 07:38] LABS: ANION GAP 10.4 mmol/L (5-15)
[2025-04-26 07:52] LABS: WHITE BLOOD CELL COUNT,WBC 16.2 x10^3/uL (4.0-10.0)
[2025-04-26] MEDS ORDERED: Insulin Lispro 100 Units/ML 3 ML Vial SUBCUT SCH (08:00)
[2025-04-27] MEDS: Insulin Lispro 100 Units/ML 3 ML Vial SUBCUT SCH (07:07)
[2025-04-30] MEDS: Insulin Lispro 100 Units/ML 3 ML Vial SUBCUT SCH (09:27)
[2025-05-03 07:54] LABS: BASOPHILS PERCENT AUTO 0.4 % (0.2-1.2); EOSINOPHILS ABSOLUTE AUTO 0.3 x10^3/uL (0.0-0.5); EOSINOPHILS PERCENT AUTO 2.7 % (0.0-4.0); HEMATOCRIT 37.8 % (40.0-52.0); HEMOGLOBIN 12.2 g/dL (14.0-18.0); IMMATURE GRAN ABSOLUTE AUTO 0.04 x10^3/uL (0.00-0.07); LYMPHOCYTES ABSOLUTE AUTO 1.5 x10^3/uL (1.0-4.8); LYMPHOCYTES PERCENT AUTO 13.6 % (25.0-50.0); MEAN CORPUSCULAR HEMOGLOBIN 31.4 pg (26.0-32.0); MEAN CORPUSCULAR HGB CONC 32.3 g/dL (32.0-36.0); MEAN CORPUSCULAR VOLUME 97.2 fL (78.0-93.0); MONOCYTES ABSOLUTE AUTO 1.5 x10^3/uL (0.0-0.8); MONOCYTES PERCENT AUTO 13.4 % (2.0-11.0); NEUTROPHILS ABSOLUTE AUTO 7.6 x10^3/uL (1.8-7.7); NEUTROPHILS PERCENT AUTO 69.5 % (50.0-80.0); PLATELET COUNT,PLT 215 x10^3/uL (130-400); RED BLOOD CELL COUNT 3.89 x10^6/uL (4.5-6.0); WHITE BLOOD CELL COUNT,WBC 10.9 x10^3/uL (4.0-10.0)
[2025-05-03 08:11] LABS: CALCIUM 8.3 mg/dL (8.5-10.1); CREATININE 1.1 mg/dL (0.70-1.30); EST CRCL DRUG DOSING (CG) 55.3 mL/min; POTASSIUM,K 3.8 mmol/L (3.5-5.1)
[2025-05-03 08:12] LABS: ANION GAP 9.8 mmol/L (5-15)
[2025-05-03] MEDS: diphenhydrAMINE 25 MG Cap PO PRN (09:32)
[2025-05-13 07:44] LABS: BASOPHILS PERCENT AUTO 0.5 % (0.2-1.2); EOSINOPHILS ABSOLUTE AUTO 0.2 x10^3/uL (0.0-0.5); EOSINOPHILS PERCENT AUTO 2.4 % (0.0-4.0); HEMATOCRIT 36.7 % (40.0-52.0); HEMOGLOBIN 11.9 g/dL (14.0-18.0); IMMATURE GRAN ABSOLUTE AUTO 0.01 x10^3/uL (0.00-0.07); LYMPHOCYTES ABSOLUTE AUTO 1.3 x10^3/uL (1.0-4.8); LYMPHOCYTES PERCENT AUTO 16.3 % (25.0-50.0); MEAN CORPUSCULAR HEMOGLOBIN 31.7 pg (26.0-32.0); MEAN CORPUSCULAR HGB CONC 32.4 g/dL (32.0-36.0); MEAN CORPUSCULAR VOLUME 97.9 fL (78.0-93.0); MONOCYTES ABSOLUTE AUTO 1.1 x10^3/uL (0.0-0.8); MONOCYTES PERCENT AUTO 14.2 % (2.0-11.0); NEUTROPHILS ABSOLUTE AUTO 5.3 x10^3/uL (1.8-7.7); NEUTROPHILS PERCENT AUTO 66.5 % (50.0-80.0); PLATELET COUNT,PLT 241 x10^3/uL (130-400); RED BLOOD CELL COUNT 3.75 x10^6/uL (4.5-6.0)
[2025-05-13 08:09] LABS: A/G RATIO 0.69; ALBUMIN 2.7 g/dL (3.4-5.0); ANION GAP 10.1 mmol/L (5-15); BILIRUBIN TOTAL 0.5 mg/dL (0.2-1.0); CALCIUM 8.7 mg/dL (8.5-10.1); CREATININE 1.1 mg/dL (0.70-1.30); EST CRCL DRUG DOSING (CG) 54.38 mL/min; POTASSIUM,K 4.1 mmol/L (3.5-5.1); PROTEIN TOTAL,TP 6.6 g/dL (6.4-8.2)
[2025-05-17 07:05] LABS: BASOPHILS PERCENT AUTO 0.5 % (0.2-1.2); EOSINOPHILS ABSOLUTE AUTO 0.3 x10^3/uL (0.0-0.5); EOSINOPHILS PERCENT AUTO 3.5 % (0.0-4.0); HEMATOCRIT 36.6 % (40.0-52.0); HEMOGLOBIN 11.9 g/dL (14.0-18.0); IMMATURE GRAN ABSOLUTE AUTO 0.01 x10^3/uL (0.00-0.07); LYMPHOCYTES ABSOLUTE AUTO 1.6 x10^3/uL (1.0-4.8); MEAN CORPUSCULAR HEMOGLOBIN 31.7 pg (26.0-32.0); MEAN CORPUSCULAR HGB CONC 32.5 g/dL (32.0-36.0); MEAN CORPUSCULAR VOLUME 97.6 fL (78.0-93.0); MONOCYTES PERCENT AUTO 13.4 % (2.0-11.0); NEUTROPHILS ABSOLUTE AUTO 4.6 x10^3/uL (1.8-7.7); NEUTROPHILS PERCENT AUTO 61.5 % (50.0-80.0); PLATELET COUNT,PLT 249 x10^3/uL (130-400); RED BLOOD CELL COUNT 3.75 x10^6/uL (4.5-6.0); WHITE BLOOD CELL COUNT,WBC 7.5 x10^3/uL (4.0-10.0)
== END 2025-05-18 11:00 | DRG 948 ==
LOC: VM.MS 17:42
PROVIDERS: ADMIT Nurse Practitioner Family; ATTEND Nurse Practitioner Family
DX: R53.81 Other malaise (principal); G81.91 Hemiplegia, unspecified affecting right dominant side; Z66 Do not resuscitate; K59.09 Other constipation; I12.9 Hypertensive chronic kidney disease with stage 1 through stage 4 chronic kidney disease, or unspecified chronic kidney disease; H26.9 Unspecified cataract; H91.90 Unspecified hearing loss, unspecified ear; H54.7 Unspecified visual loss; E78.00 Pure hypercholesterolemia, unspecified; K21.9 Gastro-esophageal reflux disease without esophagitis; E11.21 Type 2 diabetes mellitus with diabetic nephropathy; N42.9 Disorder of prostate, unspecified; M10.9 Gout, unspecified; M19.90 Unspecified osteoarthritis, unspecified site; E66.9 Obesity, unspecified; D45 Polycythemia vera; E11.22 Type 2 diabetes mellitus with diabetic chronic kidney disease; M25.551 Pain in right hip; N18.2 Chronic kidney disease, stage 2 (mild); G47.9 Sleep disorder, unspecified; T78.3XXS Angioneurotic edema, sequela; F34.1 Dysthymic disorder; Z88.0 Allergy status to penicillin; Z98.890 Other specified postprocedural states; Z88.8 Allergy status to other drugs, medicaments and biological substances; Z68.32 Body mass index [BMI] 32.0-32.9, adult; Z79.4 Long term (current) use of insulin; Z86.73 Personal history of transient ischemic attack (TIA), and cerebral infarction without residual deficits; Z79.899 Other long term (current) drug therapy; Z79.82 Long term (current) use of aspirin
CPT/HCPCS: 36415; 80048; 80053; 82947; 85025; 87070; 87077; 87147; 87186; 97110-GP; 97112-GP; 97116-GP; 97164-GP; 97168-GO; 97530-GP; 97535-GO; A9270-GY; J0171; J1200; J1815-GY; J2919; Q3014

== ENCOUNTER 2025-08-02 23:03 | Emergency (ER) | payer MEDICARE, BC ==
[2025-08-02] MEDS: diphenhydrAMINE 50 MG/ML SDV IVPUSH ONE (23:28)
[2025-08-02] MEDS: methylPREDNISolone Sodium Succinate 40 MG/1 ML SDV IVPUSH ONE (23:28)
== END 2025-08-03 00:43 ==
LOC: VM.ED 23:03
DX: T78.3XXA Angioneurotic edema, initial encounter (principal); I10 Essential (primary) hypertension; E78.00 Pure hypercholesterolemia, unspecified; E11.9 Type 2 diabetes mellitus without complications; Z88.0 Allergy status to penicillin; Z88.8 Allergy status to other drugs, medicaments and biological substances; Z79.899 Other long term (current) drug therapy
CPT/HCPCS: 96374; 96375; 99284; J1200; J1308; J2919

== ENCOUNTER 2025-10-03 08:07 | Inpatient (IN) | payer MEDICARE, BC ==
[2025-10-03 08:41] LABS: BASOPHILS ABSOLUTE AUTO 0.1 x10^3/uL (0.0-0.2); BASOPHILS PERCENT AUTO 0.4 % (0.2-1.2); EOSINOPHILS ABSOLUTE AUTO 0.1 x10^3/uL (0.0-0.5); EOSINOPHILS PERCENT AUTO 0.4 % (0.0-4.0); IMMATURE GRAN ABSOLUTE AUTO 0.02 x10^3/uL (0.00-0.07); IMMATURE GRAN PERCENT AUTO 0.20 % (0.00-0.43); LYMPHOCYTES ABSOLUTE AUTO 1.1 x10^3/uL (1.0-4.8); LYMPHOCYTES PERCENT AUTO 8.4 % (25.0-50.0); MONOCYTES ABSOLUTE AUTO 2.1 x10^3/uL (0.0-0.8); MONOCYTES PERCENT AUTO 16.8 % (2.0-11.0); NEUTROPHILS ABSOLUTE AUTO 9.2 x10^3/uL (1.8-7.7); NEUTROPHILS PERCENT AUTO 73.8 % (50.0-80.0); RED BLOOD CELL COUNT 3.49 x10^6/uL (4.5-6.0); WHITE BLOOD CELL COUNT,WBC 12.5 x10^3/uL (4.0-10.0)
[2025-10-03] MEDS: Albuterol 0.083% 2.5 MG/3 ML Neb Soln NEB ONE (08:48)
[2025-10-03 08:53] LABS: PLATELET COUNT,PLT 312 x10^3/uL (130-400)
[2025-10-03 09:09] LABS: A/G RATIO 0.50; ALANINE AMINOTRANSFERASE,ALT 22 U/L (16-63); ASPARTATE AMNIOTRANSFERASE,AST 108 U/L (15-37); BILIRUBIN TOTAL 0.6 mg/dL (0.2-1.0); BLOOD UREA NITROGEN,BUN 34 mg/dL (7-18); CARBON DIOXIDE,CO2 25 mmol/L (21-32); CHLORIDE,CL 106 mmol/L (98-107); CREATININE 1.4 mg/dL (0.70-1.30); GLUCOSE RANDOM 201 mg/dL (70-99); POTASSIUM,K 4.2 mmol/L (3.5-5.1); PRO B-TYPE NATRIUR PEPT,BNPPRO 8064 pg/mL (<=450); PROTEIN TOTAL,TP 7.8 g/dL (6.4-8.2); SODIUM,NA 141 mmol/L (136-145)
[2025-10-03 09:10] LABS: ESTIMATED GFR 50 mL/min (>=60)
[2025-10-03] MEDS: Levofloxacin/Dextrose 5%-Water 500 MG in Premix Bag 1 BAG IV ONE (09:11)
[2025-10-03 09:50] LABS: CORONAVIRUS COVID-19 NAA NEGATIVE (NEGATIVE); INFLUENZA A NAA NEGATIVE (NEGATIVE); INFLUENZA B NAA NEGATIVE (NEGATIVE); RESPIRATORY SYNCYTIAL VIR NAA NEGATIVE (NEGATIVE)
[2025-10-03] MEDS ORDERED: Sennosides/Docusate Sodium 50-8.6 MG Tab PO PRN (11:47)
[2025-10-03] MEDS ORDERED: Aluminum Hydroxide/Magnesium Hydroxide/Simethicone Susp 30 ML Cup PO PRN (11:57)
[2025-10-03] MEDS: Furosemide 40 MG/4 ML VIAL IV SCH (12:39)
[2025-10-03] MEDS: Iopamidol 612 MG/ML 100 ML Bottle IVPUSH ONE (15:13)
[2025-10-03] MEDS: Iopamidol 755 Mg/ML 100 ML Bottle IVPUSH ONE (15:14)
[2025-10-03] MEDS: Vitamins A and D Oint 113 GM Tube TOP SCH (21:25)
[2025-10-04 06:52] LABS: BASOPHILS ABSOLUTE AUTO 0.1 x10^3/uL (0.0-0.2); BASOPHILS PERCENT AUTO 0.4 % (0.2-1.2); EOSINOPHILS ABSOLUTE AUTO 0.0 x10^3/uL (0.0-0.5); EOSINOPHILS PERCENT AUTO 0.2 % (0.0-4.0); IMMATURE GRAN ABSOLUTE AUTO 0.03 x10^3/uL (0.00-0.07); IMMATURE GRAN PERCENT AUTO 0.20 % (0.00-0.43); LYMPHOCYTES ABSOLUTE AUTO 0.7 x10^3/uL (1.0-4.8); LYMPHOCYTES PERCENT AUTO 5.5 % (25.0-50.0); MONOCYTES ABSOLUTE AUTO 1.8 x10^3/uL (0.0-0.8); MONOCYTES PERCENT AUTO 14.6 % (2.0-11.0); NEUTROPHILS ABSOLUTE AUTO 9.8 x10^3/uL (1.8-7.7); NEUTROPHILS PERCENT AUTO 79.1 % (50.0-80.0); RED BLOOD CELL COUNT 3.32 x10^6/uL (4.5-6.0); WHITE BLOOD CELL COUNT,WBC 12.4 x10^3/uL (4.0-10.0)
[2025-10-04 07:06] LABS: PLATELET COUNT,PLT 298 x10^3/uL (130-400)
[2025-10-04 07:09] LABS: A/G RATIO 0.49; ALANINE AMINOTRANSFERASE,ALT 25.0 U/L (16-63); ASPARTATE AMNIOTRANSFERASE,AST 91.0 U/L (15-37); BILIRUBIN TOTAL 0.9 mg/dL (0.2-1.0); BLOOD UREA NITROGEN,BUN 35.0 mg/dL (7-18); CARBON DIOXIDE,CO2 27.0 mmol/L (21-32); CHLORIDE,CL 107.0 mmol/L (98-107); CREATININE 1.4 mg/dL (0.70-1.30); EST CRCL DRUG DOSING (CG) 42.73 mL/min; GLUCOSE RANDOM 194.0 mg/dL (70-99); POTASSIUM,K 4.0 mmol/L (3.5-5.1); PROTEIN TOTAL,TP 7.6 g/dL (6.4-8.2); SODIUM,NA 144.0 mmol/L (136-145)
[2025-10-04 07:10] LABS: ESTIMATED GFR 50.0 mL/min (>=60)
[2025-10-04] MEDS: Insulin Glarg,Human.Rec.Analog 100 Unit/ML 10 ML Vial SUBCUT SCH (10:26)
[2025-10-04] MEDS: Levofloxacin/Dextrose 5%-Water 750 MG in Premix Bag 1 BAG IV SCH (10:37)
[2025-10-04] MEDS: Levofloxacin/Dextrose 5%-Water 500 MG in Premix Bag 1 BAG IV SCH (14:03)
[2025-10-04] MEDS: Albuterol 0.083% 2.5 MG/3 ML Neb Soln NEB PRN (15:37)
[2025-10-04 20:21] LABS: BASOPHILS ABSOLUTE AUTO 0.0 x10^3/uL (0.0-0.2); BASOPHILS PERCENT AUTO 0.2 % (0.2-1.2); EOSINOPHILS ABSOLUTE AUTO 0.0 x10^3/uL (0.0-0.5); EOSINOPHILS PERCENT AUTO 0.0 % (0.0-4.0); IMMATURE GRAN ABSOLUTE AUTO 0.02 x10^3/uL (0.00-0.07); IMMATURE GRAN PERCENT AUTO 0.20 % (0.00-0.43); LYMPHOCYTES ABSOLUTE AUTO 0.3 x10^3/uL (1.0-4.8); MONOCYTES ABSOLUTE AUTO 1.8 x10^3/uL (0.0-0.8); MONOCYTES PERCENT AUTO 14.1 % (2.0-11.0); NEUTROPHILS ABSOLUTE AUTO 10.6 x10^3/uL (1.8-7.7); NEUTROPHILS PERCENT AUTO 82.9 % (50.0-80.0); PLATELET COUNT,PLT 278 x10^3/uL (130-400); RED BLOOD CELL COUNT 3.27 x10^6/uL (4.5-6.0); WHITE BLOOD CELL COUNT,WBC 12.7 x10^3/uL (4.0-10.0)
[2025-10-04 20:26] LABS: LYMPHOCYTES PERCENT AUTO 2.6 % (25.0-50.0)
[2025-10-05 06:55] LABS: BASOPHILS ABSOLUTE AUTO 0.0 x10^3/uL (0.0-0.2); BASOPHILS PERCENT AUTO 0.2 % (0.2-1.2); EOSINOPHILS ABSOLUTE AUTO 0.0 x10^3/uL (0.0-0.5); EOSINOPHILS PERCENT AUTO 0.0 % (0.0-4.0); IMMATURE GRAN ABSOLUTE AUTO 0.04 x10^3/uL (0.00-0.07); IMMATURE GRAN PERCENT AUTO 0.30 % (0.00-0.43); LYMPHOCYTES ABSOLUTE AUTO 0.6 x10^3/uL (1.0-4.8); LYMPHOCYTES PERCENT AUTO 4.4 % (25.0-50.0); MONOCYTES ABSOLUTE AUTO 1.9 x10^3/uL (0.0-0.8); MONOCYTES PERCENT AUTO 15.4 % (2.0-11.0); NEUTROPHILS ABSOLUTE AUTO 10.0 x10^3/uL (1.8-7.7); NEUTROPHILS PERCENT AUTO 79.7 % (50.0-80.0); RED BLOOD CELL COUNT 3.30 x10^6/uL (4.5-6.0); WHITE BLOOD CELL COUNT,WBC 12.6 x10^3/uL (4.0-10.0)
[2025-10-05 07:11] LABS: PLATELET COUNT,PLT 282 x10^3/uL (130-400)
[2025-10-05 07:28] LABS: BLOOD UREA NITROGEN,BUN 49.0 mg/dL (7-18); CARBON DIOXIDE,CO2 28.0 mmol/L (21-32); CHLORIDE,CL 105.0 mmol/L (98-107); CREATININE 1.7 mg/dL (0.70-1.30); EST CRCL DRUG DOSING (CG) 35.19 mL/min; ESTIMATED GFR 40.0 mL/min (>=60); GLUCOSE RANDOM 247.0 mg/dL (70-99); POTASSIUM,K 3.9 mmol/L (3.5-5.1); PRO B-TYPE NATRIUR PEPT,BNPPRO 34338.0 pg/mL (<=450); SODIUM,NA 143.0 mmol/L (136-145)
[2025-10-05] MEDS: Furosemide 100 MG/10 ML SDV IV ONE (09:26)
[2025-10-05 09:35] LABS: BASE EXCESS ARTERIAL,POC -3 mmol/L ((-2)-3); HCO3 ARTERIAL,POC 21.0 mmol/L (21-28); O2 SATURATION ARTERIAL,POC 77.4 % (94-98); PCO2 ARTERIAL,POC 29 mmHg (35-48); PH ARTERIAL,POC 7.47 pH (7.35-7.45); TCO2 ARTERIAL,POC 19.9 mmol/L (22-29)
[2025-10-05 09:38] LABS: PO2 ARTERIAL,POC 38 mmHg (83-108)
[2025-10-05] MEDS: methylPREDNISolone Sodium Succinate 125 MG/2 ML SDV IVPUSH ONE (09:38)
[2025-10-05 12:12] LABS: BASE EXCESS ARTERIAL,POC 3 mmol/L ((-2)-3); HCO3 ARTERIAL,POC 26.2 mmol/L (21-28); O2 SATURATION ARTERIAL,POC 90.8 % (94-98); PCO2 ARTERIAL,POC 36 mmHg (35-48); PH ARTERIAL,POC 7.47 pH (7.35-7.45); PO2 ARTERIAL,POC 56 mmHg (83-108); TCO2 ARTERIAL,POC 24.9 mmol/L (22-29)
[2025-10-05 17:08] LABS: BASE EXCESS ARTERIAL,POC 3 mmol/L ((-2)-3); HCO3 ARTERIAL,POC 26.1 mmol/L (21-28); O2 SATURATION ARTERIAL,POC 94.2 % (94-98); PCO2 ARTERIAL,POC 35 mmHg (35-48); PH ARTERIAL,POC 7.48 pH (7.35-7.45); PO2 ARTERIAL,POC 66 mmHg (83-108); TCO2 ARTERIAL,POC 24.8 mmol/L (22-29)
[2025-10-06 06:50] LABS: BASOPHILS ABSOLUTE AUTO 0.0 x10^3/uL (0.0-0.2); BASOPHILS PERCENT AUTO 0.0 % (0.2-1.2); EOSINOPHILS ABSOLUTE AUTO 0.0 x10^3/uL (0.0-0.5); EOSINOPHILS PERCENT AUTO 0.0 % (0.0-4.0); IMMATURE GRAN ABSOLUTE AUTO 0.04 x10^3/uL (0.00-0.07); IMMATURE GRAN PERCENT AUTO 0.30 % (0.00-0.43); LYMPHOCYTES ABSOLUTE AUTO 0.7 x10^3/uL (1.0-4.8); LYMPHOCYTES PERCENT AUTO 4.8 % (25.0-50.0); MONOCYTES ABSOLUTE AUTO 1.9 x10^3/uL (0.0-0.8); NEUTROPHILS ABSOLUTE AUTO 10.8 x10^3/uL (1.8-7.7); NEUTROPHILS PERCENT AUTO 80.5 % (50.0-80.0); PLATELET COUNT,PLT 291 x10^3/uL (130-400); RED BLOOD CELL COUNT 3.45 x10^6/uL (4.5-6.0); WHITE BLOOD CELL COUNT,WBC 13.4 x10^3/uL (4.0-10.0)
[2025-10-06 06:50] LABS: BASE EXCESS ARTERIAL,POC 5 mmol/L ((-2)-3); HCO3 ARTERIAL,POC 29.0 mmol/L (21-28); O2 SATURATION ARTERIAL,POC 93.1 % (94-98); PCO2 ARTERIAL,POC 40 mmHg (35-48); PH ARTERIAL,POC 7.47 pH (7.35-7.45); PO2 ARTERIAL,POC 63 mmHg (83-108); TCO2 ARTERIAL,POC 27.6 mmol/L (22-29)
[2025-10-06 06:55] LABS: MONOCYTES PERCENT AUTO 14.4 % (2.0-11.0)
[2025-10-06 07:05] LABS: A/G RATIO 0.43; ALANINE AMINOTRANSFERASE,ALT 29.0 U/L (16-63); ASPARTATE AMNIOTRANSFERASE,AST 76.0 U/L (15-37); BILIRUBIN TOTAL 0.6 mg/dL (0.2-1.0); BLOOD UREA NITROGEN,BUN 69.0 mg/dL (7-18); CARBON DIOXIDE,CO2 29.0 mmol/L (21-32); CHLORIDE,CL 108.0 mmol/L (98-107); CREATININE 1.8 mg/dL (0.70-1.30); EST CRCL DRUG DOSING (CG) 28.0 mL/min; GLUCOSE RANDOM 253.0 mg/dL (70-99); POTASSIUM,K 3.9 mmol/L (3.5-5.1); PROTEIN TOTAL,TP 8.0 g/dL (6.4-8.2); SODIUM,NA 147.0 mmol/L (136-145)
[2025-10-06 07:09] LABS: ESTIMATED GFR 37.0 mL/min (>=60)
[2025-10-06] MEDS: Furosemide 100 MG/10 ML SDV IV SCH (11:13)
[2025-10-07 07:20] LABS: BASOPHILS ABSOLUTE AUTO 0.0 x10^3/uL (0.0-0.2); BASOPHILS PERCENT AUTO 0.1 % (0.2-1.2); EOSINOPHILS ABSOLUTE AUTO 0.0 x10^3/uL (0.0-0.5); EOSINOPHILS PERCENT AUTO 0.0 % (0.0-4.0); IMMATURE GRAN ABSOLUTE AUTO 0.04 x10^3/uL (0.00-0.07); IMMATURE GRAN PERCENT AUTO 0.30 % (0.00-0.43); LYMPHOCYTES ABSOLUTE AUTO 1.0 x10^3/uL (1.0-4.8); LYMPHOCYTES PERCENT AUTO 7.5 % (25.0-50.0); MONOCYTES ABSOLUTE AUTO 1.5 x10^3/uL (0.0-0.8); MONOCYTES PERCENT AUTO 11.3 % (2.0-11.0); NEUTROPHILS ABSOLUTE AUTO 10.7 x10^3/uL (1.8-7.7); NEUTROPHILS PERCENT AUTO 80.8 % (50.0-80.0); PLATELET COUNT,PLT 278 x10^3/uL (130-400); RED BLOOD CELL COUNT 3.52 x10^6/uL (4.5-6.0); WHITE BLOOD CELL COUNT,WBC 13.3 x10^3/uL (4.0-10.0)
[2025-10-07 07:26] LABS: A/G RATIO 0.44; ALANINE AMINOTRANSFERASE,ALT 27.0 U/L (16-63); ASPARTATE AMNIOTRANSFERASE,AST 55.0 U/L (15-37); BILIRUBIN TOTAL 0.6 mg/dL (0.2-1.0); CARBON DIOXIDE,CO2 28.0 mmol/L (21-32); CHLORIDE,CL 109.0 mmol/L (98-107); CREATININE 2.0 mg/dL (0.70-1.30); EST CRCL DRUG DOSING (CG) 29.91 mL/min; GLUCOSE RANDOM 204.0 mg/dL (70-99); POTASSIUM,K 3.5 mmol/L (3.5-5.1); PROTEIN TOTAL,TP 7.8 g/dL (6.4-8.2); SODIUM,NA 149.0 mmol/L (136-145)
[2025-10-07 07:28] LABS: BLOOD UREA NITROGEN,BUN 79.0 mg/dL (7-18); ESTIMATED GFR 33.0 mL/min (>=60)
[2025-10-07 08:07] LABS: BORDETELLA PARAPERT IS1001 Not Detected (Not Detected)
[2025-10-07] MEDS: Furosemide 40 MG/4 ML VIAL IV SCH (09:06)
[2025-10-07] MEDS: VANCOmycin 1.25 GM/250 ML 250 ML IV SCH (13:42)
[2025-10-07] MEDS: methylPREDNISolone Sodium Succinate 40 MG/1 ML SDV IVPUSH SCH (20:45)
[2025-10-08 08:09] LABS: BASOPHILS ABSOLUTE AUTO 0.0 x10^3/uL (0.0-0.2); BASOPHILS PERCENT AUTO 0.0 % (0.2-1.2); EOSINOPHILS ABSOLUTE AUTO 0.0 x10^3/uL (0.0-0.5); EOSINOPHILS PERCENT AUTO 0.0 % (0.0-4.0); IMMATURE GRAN ABSOLUTE AUTO 0.04 x10^3/uL (0.00-0.07); IMMATURE GRAN PERCENT AUTO 0.30 % (0.00-0.43); LYMPHOCYTES ABSOLUTE AUTO 0.4 x10^3/uL (1.0-4.8); LYMPHOCYTES PERCENT AUTO 3.0 % (25.0-50.0); MONOCYTES ABSOLUTE AUTO 0.9 x10^3/uL (0.0-0.8); MONOCYTES PERCENT AUTO 6.6 % (2.0-11.0); NEUTROPHILS ABSOLUTE AUTO 12.8 x10^3/uL (1.8-7.7); NEUTROPHILS PERCENT AUTO 90.1 % (50.0-80.0); PLATELET COUNT,PLT 267 x10^3/uL (130-400); RED BLOOD CELL COUNT 3.66 x10^6/uL (4.5-6.0); WHITE BLOOD CELL COUNT,WBC 14.1 x10^3/uL (4.0-10.0)
[2025-10-08 08:10] LABS: CARBON DIOXIDE,CO2 26.0 mmol/L (21-32); CHLORIDE,CL 107.0 mmol/L (98-107); CREATININE 1.9 mg/dL (0.70-1.30); EST CRCL DRUG DOSING (CG) 31.48 mL/min; GLUCOSE RANDOM 295.0 mg/dL (70-99); POTASSIUM,K 3.7 mmol/L (3.5-5.1); SODIUM,NA 148.0 mmol/L (136-145)
[2025-10-08 08:12] LABS: ESTIMATED GFR 35.0 mL/min (>=60)
[2025-10-08 08:13] LABS: BLOOD UREA NITROGEN,BUN 74.0 mg/dL (7-18)
[2025-10-09 07:56] LABS: BASOPHILS ABSOLUTE AUTO 0.0 x10^3/uL (0.0-0.2); BASOPHILS PERCENT AUTO 0.1 % (0.2-1.2); EOSINOPHILS ABSOLUTE AUTO 0.0 x10^3/uL (0.0-0.5); EOSINOPHILS PERCENT AUTO 0.1 % (0.0-4.0); IMMATURE GRAN ABSOLUTE AUTO 0.04 x10^3/uL (0.00-0.07); IMMATURE GRAN PERCENT AUTO 0.30 % (0.00-0.43); LYMPHOCYTES ABSOLUTE AUTO 0.7 x10^3/uL (1.0-4.8); LYMPHOCYTES PERCENT AUTO 4.9 % (25.0-50.0); MONOCYTES ABSOLUTE AUTO 1.5 x10^3/uL (0.0-0.8); MONOCYTES PERCENT AUTO 10.4 % (2.0-11.0); NEUTROPHILS ABSOLUTE AUTO 12.3 x10^3/uL (1.8-7.7); NEUTROPHILS PERCENT AUTO 84.2 % (50.0-80.0); PLATELET COUNT,PLT 234 x10^3/uL (130-400); RED BLOOD CELL COUNT 3.41 x10^6/uL (4.5-6.0); WHITE BLOOD CELL COUNT,WBC 14.6 x10^3/uL (4.0-10.0)
[2025-10-09 08:08] LABS: A/G RATIO 0.44; ALANINE AMINOTRANSFERASE,ALT 24.0 U/L (16-63); ASPARTATE AMNIOTRANSFERASE,AST 28.0 U/L (15-37); BILIRUBIN TOTAL 0.6 mg/dL (0.2-1.0); CARBON DIOXIDE,CO2 26.0 mmol/L (21-32); CHLORIDE,CL 110.0 mmol/L (98-107); CREATININE 1.9 mg/dL (0.70-1.30); EST CRCL DRUG DOSING (CG) 31.48 mL/min; ESTIMATED GFR 35.0 mL/min (>=60); GLUCOSE RANDOM 239.0 mg/dL (70-99); POTASSIUM,K 3.4 mmol/L (3.5-5.1); PROTEIN TOTAL,TP 7.5 g/dL (6.4-8.2); SODIUM,NA 147.0 mmol/L (136-145)
[2025-10-09 08:09] LABS: BLOOD UREA NITROGEN,BUN 85.0 mg/dL (7-18)
[2025-10-09] MEDS: Magnesium Hydroxide 400 MG/5 ML Susp 30 ML Cup PO PRN (09:12)
[2025-10-09 13:51] LABS: BASE EXCESS ARTERIAL,POC 5 mmol/L ((-2)-3); HCO3 ARTERIAL,POC 29.0 mmol/L (21-28); O2 SATURATION ARTERIAL,POC 90.3 % (94-98); PCO2 ARTERIAL,POC 42 mmHg (35-48); PH ARTERIAL,POC 7.44 pH (7.35-7.45); PO2 ARTERIAL,POC 57 mmHg (83-108); TCO2 ARTERIAL,POC 27.7 mmol/L (22-29)
[2025-10-09 18:12] LABS: BASE EXCESS ARTERIAL,POC 5 mmol/L ((-2)-3); HCO3 ARTERIAL,POC 29.1 mmol/L (21-28); O2 SATURATION ARTERIAL,POC 95.5 % (94-98); PCO2 ARTERIAL,POC 41 mmHg (35-48); PH ARTERIAL,POC 7.46 pH (7.35-7.45); PO2 ARTERIAL,POC 74 mmHg (83-108); TCO2 ARTERIAL,POC 27.7 mmol/L (22-29)
[2025-10-10 07:06] LABS: BASOPHILS ABSOLUTE AUTO 0.0 x10^3/uL (0.0-0.2); BASOPHILS PERCENT AUTO 0.2 % (0.2-1.2); EOSINOPHILS ABSOLUTE AUTO 0.1 x10^3/uL (0.0-0.5); EOSINOPHILS PERCENT AUTO 0.9 % (0.0-4.0); IMMATURE GRAN ABSOLUTE AUTO 0.05 x10^3/uL (0.00-0.07); IMMATURE GRAN PERCENT AUTO 0.40 % (0.00-0.43); LYMPHOCYTES ABSOLUTE AUTO 0.7 x10^3/uL (1.0-4.8); LYMPHOCYTES PERCENT AUTO 5.8 % (25.0-50.0); MONOCYTES ABSOLUTE AUTO 1.3 x10^3/uL (0.0-0.8); MONOCYTES PERCENT AUTO 10.5 % (2.0-11.0); NEUTROPHILS ABSOLUTE AUTO 10.4 x10^3/uL (1.8-7.7); NEUTROPHILS PERCENT AUTO 82.2 % (50.0-80.0); PLATELET COUNT,PLT 245 x10^3/uL (130-400); RED BLOOD CELL COUNT 3.33 x10^6/uL (4.5-6.0); WHITE BLOOD CELL COUNT,WBC 12.6 x10^3/uL (4.0-10.0)
[2025-10-10 07:13] LABS: A/G RATIO 0.47; ALANINE AMINOTRANSFERASE,ALT 28.0 U/L (16-63); ASPARTATE AMNIOTRANSFERASE,AST 24.0 U/L (15-37); BILIRUBIN TOTAL 0.6 mg/dL (0.2-1.0); CARBON DIOXIDE,CO2 27.0 mmol/L (21-32); CHLORIDE,CL 111.0 mmol/L (98-107); CREATININE 1.6 mg/dL (0.70-1.30); EST CRCL DRUG DOSING (CG) 37.39 mL/min; GLUCOSE RANDOM 198.0 mg/dL (70-99); POTASSIUM,K 3.7 mmol/L (3.5-5.1); PROTEIN TOTAL,TP 7.2 g/dL (6.4-8.2); SODIUM,NA 148.0 mmol/L (136-145)
[2025-10-10 07:14] LABS: ESTIMATED GFR 43.0 mL/min (>=60)
[2025-10-10 07:15] LABS: BLOOD UREA NITROGEN,BUN 74.0 mg/dL (7-18)
[2025-10-10] MEDS ORDERED: 50% Dextrose in Water 50 ML Syringe IVPUSH PRN ×2 (18:59→20:23)
[2025-10-11] MEDS: 50% Dextrose in Water 50 ML Syringe IVPUSH PRN (01:16)
[2025-10-11 07:04] LABS: BASOPHILS ABSOLUTE AUTO 0.0 x10^3/uL (0.0-0.2); BASOPHILS PERCENT AUTO 0.2 % (0.2-1.2); EOSINOPHILS ABSOLUTE AUTO 0.1 x10^3/uL (0.0-0.5); EOSINOPHILS PERCENT AUTO 0.5 % (0.0-4.0); IMMATURE GRAN ABSOLUTE AUTO 0.08 x10^3/uL (0.00-0.07); IMMATURE GRAN PERCENT AUTO 0.50 % (0.00-0.43); LYMPHOCYTES ABSOLUTE AUTO 0.7 x10^3/uL (1.0-4.8); LYMPHOCYTES PERCENT AUTO 4.4 % (25.0-50.0); MONOCYTES ABSOLUTE AUTO 1.9 x10^3/uL (0.0-0.8); MONOCYTES PERCENT AUTO 11.5 % (2.0-11.0); NEUTROPHILS ABSOLUTE AUTO 13.4 x10^3/uL (1.8-7.7); NEUTROPHILS PERCENT AUTO 82.9 % (50.0-80.0); RED BLOOD CELL COUNT 3.47 x10^6/uL (4.5-6.0); WHITE BLOOD CELL COUNT,WBC 16.2 x10^3/uL (4.0-10.0)
[2025-10-11 07:08] LABS: BASE EXCESS ARTERIAL,POC 2 mmol/L ((-2)-3); HCO3 ARTERIAL,POC 27.0 mmol/L (21-28); O2 SATURATION ARTERIAL,POC 87.8 % (94-98); PCO2 ARTERIAL,POC 42 mmHg (35-48); PH ARTERIAL,POC 7.41 pH (7.35-7.45); TCO2 ARTERIAL,POC 25.9 mmol/L (22-29)
[2025-10-11 07:10] LABS: PO2 ARTERIAL,POC 54 mmHg (83-108)
[2025-10-11 07:21] LABS: PLATELET COUNT,PLT 271 x10^3/uL (130-400)
[2025-10-11 07:36] LABS: BLOOD UREA NITROGEN,BUN 64.0 mg/dL (7-18); CARBON DIOXIDE,CO2 27.0 mmol/L (21-32); CHLORIDE,CL 114.0 mmol/L (98-107); CREATININE 1.6 mg/dL (0.70-1.30); EST CRCL DRUG DOSING (CG) 37.39 mL/min; GLUCOSE RANDOM 174.0 mg/dL (70-99); POTASSIUM,K 3.5 mmol/L (3.5-5.1); SODIUM,NA 151.0 mmol/L (136-145)
[2025-10-11 07:37] LABS: ESTIMATED GFR 43.0 mL/min (>=60)
== END 2025-10-14 12:00 | disposition swing bed (61) | DRG 193 ==
LOC: VM.ED 08:07 → VM.MS 09:42
PROVIDERS: ADMIT Nurse Practitioner Family; ATTEND Nurse Practitioner Family
PROC: 3E03329 Introduction of Other Anti-infective into Peripheral Vein, Percutaneous Approach (ICD-10-PCS; principal; 2025-10-03)
PROC: 5A09357 Assistance with Respiratory Ventilation, Less than 24 Consecutive Hours, Continuous Positive Airway Pressure (ICD-10-PCS; 2025-10-03)
PROC: 4A133R1 Monitoring of Arterial Saturation, Peripheral, Percutaneous Approach (ICD-10-PCS; 2025-10-03)
DX: I11.0 Hypertensive heart disease with heart failure (principal); J18.9 Pneumonia, unspecified organism; E78.00 Pure hypercholesterolemia, unspecified; J81.0 Acute pulmonary edema; J96.01 Acute respiratory failure with hypoxia; I13.0 Hypertensive heart and chronic kidney disease with heart failure and stage 1 through stage 4 chronic kidney disease, or unspecified chronic kidney disease; Z91.048 Other nonmedicinal substance allergy status; I69.351 Hemiplegia and hemiparesis following cerebral infarction affecting right dominant side; E87.0 Hyperosmolality and hypernatremia; E11.22 Type 2 diabetes mellitus with diabetic chronic kidney disease; Z51.5 Encounter for palliative care; Z66 Do not resuscitate; N18.2 Chronic kidney disease, stage 2 (mild); I50.9 Heart failure, unspecified; D45 Polycythemia vera; E78.5 Hyperlipidemia, unspecified; R62.7 Adult failure to thrive; M19.90 Unspecified osteoarthritis, unspecified site; M10.9 Gout, unspecified; H54.7 Unspecified visual loss; R53.1 Weakness; K59.00 Constipation, unspecified; K21.9 Gastro-esophageal reflux disease without esophagitis; E11.21 Type 2 diabetes mellitus with diabetic nephropathy; F32.A Depression, unspecified; E66.9 Obesity, unspecified; Z88.0 Allergy status to penicillin; Z68.32 Body mass index [BMI] 32.0-32.9, adult; Z79.1 Long term (current) use of non-steroidal anti-inflammatories (NSAID); Z79.899 Other long term (current) drug therapy; Z79.4 Long term (current) use of insulin; Z98.890 Other specified postprocedural states; I69.320 Aphasia following cerebral infarction; Z88.8 Allergy status to other drugs, medicaments and biological substances; Z79.82 Long term (current) use of aspirin
CPT/HCPCS: 36415; 71045; 80053; 83605; 83735; 83880; 85025; 87040 ×2; 87637; 93005; 93010; 94640; 96365; 99284; 99285; A9270; J1956; 36600; 71250; 71275; 74177; 80048; 80202; 82803; 82947; 87070; 87205; 87486; 87581; 87633; 87798; 94660; 94668; 94760; 97162-GP; 97165-GO; 97535-GO; J0692; J1171; J1650; J1815-GY; J1938; J2270; J2919; J3373; J3375; J7030; J7512; Q9967

== ENCOUNTER 2025-10-14 08:57 | Inpatient (IN) | payer MEDICARE, BC ==
[2025-10-14] MEDS ORDERED: Magnesium Hydroxide 400 MG/5 ML Susp 30 ML Cup PO PRN (11:50)
[2025-10-14] MEDS ORDERED: Vitamins A and D Oint 113 GM Tube TOP SCH (21:00)
[2025-10-15] MEDS: Vitamins A and D Oint 113 GM Tube TOP PRN (08:51)
[2025-10-16] MEDS: LORazepam 2 MG/ML SDV SUBCUT PRN (15:17)
== END 2025-10-17 17:16 | disposition expired | DRG 951 ==
LOC: VM.MS 12:10
PROVIDERS: ADMIT Nurse Practitioner Family; ATTEND Nurse Practitioner Family
DX: Z51.5 Encounter for palliative care (principal); J18.9 Pneumonia, unspecified organism; I13.0 Hypertensive heart and chronic kidney disease with heart failure and stage 1 through stage 4 chronic kidney disease, or unspecified chronic kidney disease; R53.81 Other malaise; I50.9 Heart failure, unspecified; Z66 Do not resuscitate; N18.2 Chronic kidney disease, stage 2 (mild); E11.22 Type 2 diabetes mellitus with diabetic chronic kidney disease; D45 Polycythemia vera; R53.1 Weakness; H26.9 Unspecified cataract; H91.90 Unspecified hearing loss, unspecified ear; H54.7 Unspecified visual loss; E78.00 Pure hypercholesterolemia, unspecified; I10 Essential (primary) hypertension; K59.00 Constipation, unspecified; K21.9 Gastro-esophageal reflux disease without esophagitis; E11.21 Type 2 diabetes mellitus with diabetic nephropathy; N42.9 Disorder of prostate, unspecified; M10.9 Gout, unspecified; M19.90 Unspecified osteoarthritis, unspecified site; E66.9 Obesity, unspecified; Z68.32 Body mass index [BMI] 32.0-32.9, adult; Z86.73 Personal history of transient ischemic attack (TIA), and cerebral infarction without residual deficits; Z79.4 Long term (current) use of insulin; Z98.890 Other specified postprocedural states
CPT/HCPCS: A9270-GY; J1171; J2060